=== PATIENT | female | born 1950 | race Caucasian/White ===

== ENCOUNTER 2025-02-23 10:48 | Inpatient (IN) | payer MEDICARE, SELFPAY ==
[2025-02-23] VITALS (10 sets, daily range): BP systolic 98–134; BP diastolic 43–68; PULSE 75–115; RESP 16–25; TEMP 36.9–37.8; O2SAT 96–99; BMI 23.3; BMI 20.6
[2025-02-23 11:03] LABS: Coronavirus 19, PCR Not Detected (NotDetected); Influenza A, PCR Not Detected (NotDetected); Influenza B, PCR Not Detected (NotDetected)
--- NOTE | 2025-02-23 11:21 | ECG_ITS ---
APPROVED REPORT Exam: Resting ECG HR:114 bpm ECG Measurements Heart Rate 114 AXES WY 135 P 72 QRSd 87 QRS 71 QT 306 T 73 QTc 374 Conclusion Sinus tachycardia Electronically signed by : KENNEY HARRIS, 02/23/2025 13:47:37
[2025-02-23] MEDS: ONDANSETRON 4MG/2ML VIAL 4 MG IV (11:23)
[2025-02-23] MEDS: 0.9 % SODIUM CHLORIDE 1000ML 1,000 ML 999 ML IV (11:23)
[2025-02-23 11:36] LABS: Basophils % 0.4 % (0.1-2.0); Eosinophils % 0.2 % (0.1-12.0); Hematocrit 29.2 % (37.0-47.0); Hemoglobin 9.1 g/dL (12.2-16.2); Lymphocytes # 0.1 K/mm3 (0.7-4.5); Lymphocytes % 1.4 % (10-50); Mean Corpuscular HGB Conc 31.2 g/dL (31.8-35.4); Mean Corpuscular Hemoglobin 26.3 pg (27.0-31.2); Mean Corpuscular Volume 84.4 fl (81-99); Mean Platelet Volume 11.8 fl (7.4-10.4); Monocytes # 0.3 K/mm3 (0.1-1.0); Monocytes % 5.2 % (1.7-9.3); Neutrophils # 5.2 K/mm3 (1.8-7.8); Neutrophils % 92.4 % (37.0-80.0); Platelet Count 84 K/mm3 (142-424); Red Blood Count 3.46 M/mm3 (4.20-5.40); Red Cell Distribution Width 17.5 % (11.5-17.5); White Blood Count 5.6 K/mm3 (4.8-10.8)
[2025-02-23 11:39] LABS: MANUAL DIFFERENTIAL MANUAL DIFFERENTIAL (MANUAL DIFF)
--- NOTE | 2025-02-23 11:40 | PC.NURSE ---
I notified resp that a green top is in lab for a vbg
[2025-02-23 11:44] LABS: Chloride 103 mmol/L (98-107); Potassium 4.8 mmoL/L (3.5-5.1); Sodium 132 mmol/L (136-145)
[2025-02-23 11:46] LABS: VBG Base Excess -6.7 mmol/L (-2.4-2.3); VBG HCO3 17.8 mmol/L (23-30); VBG Oxygen Saturation 84.6 % (50-70); VBG PH 7.42 mmol/L (7.31-7.41); VBG PO2 51.3 mmol/L (28-40); VBG Total CO2 18.6 mmol/L (23-27)
[2025-02-23 11:47] LABS: Alanine Aminotransferase 84 U/L (12-78); Alkaline Phosphatase 188 U/L (38-126); Anion Gap 16.8 mEq/L (5-15); Aspartate Amino Transferase 92 U/L (14-36); Bilirubin,Total 2.6 mg/dl (0.2-1.3); Blood Urea Nitrogen 43 mg/dl (7-17); Carbon Dioxide 17 mmol/L (22.0-30.0); Creatinine Clearance Estimated 21 mL/min (50-200); Estimated Glomerular Filt Rate 21 ml/min (>60); GFR (African American) 25 ML/MIN (>60); Lipase 407 U/L (23-300); Total Protein,Serum 7.5 g/dl (6.3-8.2)
[2025-02-23 11:48] LABS: Calcium 8.7 mg/dl (8.4-10.2); Glucose 282 mg/dl (74-100)
[2025-02-23 11:48] LABS: Lactate Venous 3.2 mmol/L (0.4-2.0)
--- NOTE | 2025-02-23 11:56 | CT_ITS ---
FINAL REPORT TECHNIQUE: Thin section axial images were obtained through the abdomen and pelvis after contrast injection per CT angiogram protocol. Multiplanar reconstruction images were obtained from the axial data. This exam was performed with techniques to keep radiation dose as low as reasonably achievable. This includes automated exposure control, adjustment of the MA and KVP, and iterative reconstruction technique. CLINICAL HISTORY: abd cramping and pain, severe diarrhea COMPARISON: None FINDINGS: CTA: No abdominal aortic aneurysm or aortic dissection. There is moderate calcified plaque disease of the aorta without evidence of stenosis. The celiac axis, superior mesenteric artery, and inferior mesenteric artery are patent without stenosis. The renal arteries are patent. There is greater than 50% stenosis of the left renal artery. There is mild right renal artery stenosis. The common iliac arteries and visualized portions of the internal and external iliac arteries are patent. No significant stenosis. NONVASCULAR: The gallbladder is surgically absent. There is moderate splenomegaly, and a small nodular appearing liver that suggests underlying cirrhosis. Trace ascites is present in the upper abdomen. There is moderate right hydronephrosis and hydroureter, with soft tissue density surrounding the distal right ureter, that may represent stricture or tumor. No renal stone disease is identified. The left kidney, pancreas, and adrenal glands are unremarkable. There is diffuse colonic wall thickening consistent with colitis, which also involves the descending and sigmoid portions of the colon. No lymphadenopathy. The bladder is distended. There is mild pelvic floor prolapse. No acute osseous abnormality. IMPRESSION: No evidence of abdominal aortic aneurysm or dissection. There is greater than 50% stenosis of the left renal artery, with mild right renal artery stenosis. Pancolitis is present. Cirrhosis with evidence of portal venous hypertension. High-grade right distal ureteral obstruction to the level of the right UVJ. Recommend follow-up ureteroscopy for further evaluation. Reviewed, Interpreted and Dictated by Francisco Díaz MD Transcribed by Karmen Paredes Authenticated and [facility]
--- NOTE | 2025-02-23 11:58 | ED_ITS ---
Discharge Plan Disposition Chief Complaint: Fever Prescriptions Prescriptions: No Action atorvastatin 40 mg tablet 40 mg PO DAILY Patient Comments: TAKE 1 TABLET BY MOUTH EVERY DAY glipizide 10 mg tablet extended release 24hr 10 mg PO DAILY Patient Comments: TAKE 1 TABLET BY MOUTH DAILY WITH BREAKFAST spironolactone 100 mg tablet 100 mg PO DAILY Patient Comments: TAKE 1 TABLET BY MOUTH EVERY DAY potassium chloride 10 mEq tablet extended release 10 meq PO DAILY Patient Comments: TAKE 1 TABLET BY MOUTH EVERY DAY IN THE MORNING WITH FUROSEMIDE NEEDED carvedilol 3.125 mg tablet 3.125 mg PO BID Patient Comments: TAKE 1 TABLET BY MOUTH TWICE DAILY pantoprazole 40 mg tablet,delayed release (DR/EC) 40 mg PO BID Patient Comments: TAKE 1 TABLET BY MOUTH TWICE DAILY gabapentin 300 mg capsule 300 mg PO HS Patient Comments: TAKE 1 CAPSULE BY MOUTH EVERY DAY AT BEDTIME FOR NERVE PAIN furosemide 20 mg tablet 20 mg PO DAILYP PRN (Reason: Edema) Patient Comments: TAKE 1 TABLET BY MOUTH EVERY DAY IN THE MORNING NEEDED FOR SWELLING ergocalciferol (vitamin D2) 1,250 mcg (50,000 unit) capsule 1,250 mcg PO WEEKLY Patient Comments: TAKE 1 CAPSULE BY MOUTH EVERY WEEK lactulose 10 gram/15 mL solution 15 ml PO BID Patient Comments: TAKE 15 ML BY MOUTH TWICE DAILY Referrals Follow up/Referrals: Annika Saha APRN [Primary Care Provider] - See instructions Clinical Impressions Clinical Impression: Diarrhea, ABENA (acute kidney injury), Acute dehydration, Metabolic acidosis Print Language Print Language: Luxembourgish Discharge ED Provider: Tc Macdonald General Adult HPI General Chief complaint: Fever Stated complaint: fever 104, diarrhea, body aches Time Seen by Provider: 02/23/25 10:51 Mode of Arrival: Wheelchair Source of Information: Patient, Relative and Medical Record Description of Symptoms (Recalled from ER Triage Doc. by RN): Pt presents to ER with concerns of diarrhea since Thursday (02/21) and fever for 24 hr. This AM is was 104 per home thermometer. Reports chills and weakness. Denies any cough, congestion, or SOA. There is also a bruise to pt's forehead from a fall last wkk. Daughter also reports pt fell this AM d/t weakness. Denies any injury. History of Present Illness HPI narrative: Please note that above description of symptoms, in this electronic medical record under categorization of recalled from ER triage doctor by RN are reflective of an initial nursing assessment, however, is not reflective of my full history and physical exam that was personally taken and clarified. Consequentially, this preceding description of symptoms, which may include the patient's categorized chief complaint in the EMR, do not reflect my personal clinical impression, and the ultimate description of history of present illness and patient stated complaints should be deferred to this section of the note. Unless stated otherwise or congruent with this section of the note, additional signs, symptoms, or incongruence should be interpreted as inaccurate with my clinical impression. Related Data Home Medications ?Medication ?Instructions ?Recorded ?Confirmed atorvastatin 40 mg tablet 40 mg PO DAILY 02/23/25 02/23/25 carvedilol 3.125 mg tablet 3.125 mg PO BID 02/23/25 02/23/25 ergocalciferol (vitamin D2) 1,250 1,250 mcg PO WEEKLY 02/23/25 02/23/25 mcg (50,000 unit) capsule furosemide 20 mg tablet 20 mg PO DAILYP PRN Edema 02/23/25 02/23/25 gabapentin 300 mg capsule 300 mg PO HS 02/23/25 02/23/25 glipizide 10 mg tablet, extended 10 mg PO DAILY 02/23/25 02/23/25 release 24 hr pantoprazole 40 mg tablet,delayed 40 mg PO BID 02/23/25 02/23/25 release potassium chloride 10 mEq 10 meq PO DAILY 02/23/25 02/23/25 tablet,extended release spironolactone 100 mg tablet 100 mg PO DAILY 02/23/25 02/23/25 Allergies Allergy/AdvReac Type Severity Reaction Status Date / Time No Known Allergies Allergy Verified 02/23/25 11:05 [facility] Disclaimer: The information contained in this section may have been updated after the patient was seen, as this information can be updated by other users. Medical History (Updated 02/23/25 @ 14:00 by Tc Macdonald MD) CHF (congestive heart failure) HLD (hyperlipidemia) GERD (gastroesophageal reflux disease) HTN (hypertension) Non-alcoholic cirrhosis Diabetes Surgical History (Updated 02/23/25 @ 13:53 by Joyce Camara RN) Hx of cholecystectomy Social History Smoking Status: Never smoker alcohol intake: never current occupational status: retired Travel in the last 8 weeks: None ROS Obtained: Yes All systems reviewed & no additional complaints except as documented Physical Exam General General appearance: alert Head Head exam: atraumatic and normocephalic Eye Eye exam: Present normal appearance, PERRL and EOMI Neck Neck exam: Present normal inspection, full ROM and trachea midline Respiratory Respiratory exam: Absent respiratory distress, wheezes, stridor, accessory muscle use or prolonged expiratory phase Cardiovascular Cardiovascular exam: Present other (Pulses equal symmetric in upper and lower extremities) Abdominal Exam Abdominal exam: Present soft; Absent distention, tenderness or pulsatile mass Extremities Exam Extremities exam: Absent edema Neurological Exam Neurological exam: Present alert, oriented X3 and CN II-XII intact; Absent motor sensory deficit Skin Skin exam: Present warm and dry; Absent diaphoresis or erythema Medical Decision Making Medical Records Medical records reviewed: Yes I reviewed the patient's medical records. Screening: Per USPSTF and CDC recommendations, given the prevalence of disease in our region, it is our hospital?s policy to screen for HIV and viral Hepatitis for all patients aged 18 and over and those with ongoing risk factors. [place] Inquiry Pt receiving controlled substance: No [place] was queried for this patient: No Vital Signs: 02/23/25 11:01 02/23/25 11:01 02/23/25 11:30 Temperature 100.1 F H Temperature Source Temporal Artery Scan Oral Pulse Rate 115 H Pulse Rate [Right] 115 H Respiratory Rate 20 22 Blood Pressure 122/56 L Blood Pressure [Left Arm] 134/57 L Blood Pressure Mean [Left Arm] 82 Blood Pressure Source [Left Arm] Automatic Cuff 02 Sat by Pulse Oximetry 98 99 Oxygen Delivery Method Room Air Room Air 02/23/25 12:41 02/23/25 13:00 02/23/25 13:12 Temperature 99.3 F Temperature Source Oral Pulse Rate 113 H 109 H Pulse Rate [Right] Respiratory Rate 25 H 20 Blood Pressure 130/68 117/51 L Blood Pressure [Left Arm] Blood Pressure Mean [Left Arm] Blood Pressure Source [Left Arm] 02 Sat by Pulse Oximetry 97 96 Oxygen Delivery Method Room Air Room Air Lab Data Lab Results 02/23/25 10:58: SARS-CoV-2 (PCR) Not detected, Influenza A Untype (PCR) Not detected, Influenza Type B (PCR) Not detected 02/23/25 11:25: WBC 5.6, RBC 3.46 L, Hgb 9.1 L, Hct 29.2 L, MCV 84.4, MCH 26.3 L , MCHC 31.2 L, RDW 17.5, Plt Count 84 L, MPV 11.8 H, Neut % (Auto) 92.4 H, Lymph % (Auto) 1.4 L, [place] % (Auto) 5.2, Eos % (Auto) 0.2, Baso % (Auto) 0.4, Neut # (Auto) 5.2, Lymph # (Auto) 0.1 L, [place] # (Auto) 0.3, Eos # (Auto) 0.0, Baso # (Auto) 0.0, Total Counted 100, Neutrophils % (Manual) 93 H, Lymphocytes % (Manual) 2 L, Monocytes % (Manual) 5, Platelet Estimate Moderate decrease, RBC Morphology Normal, Sodium 132 L, Potassium 4.8, Chloride 103, Carbon Dioxide 17 L, Anion Gap 16.8 H, BUN 43 H, Creatinine 2.30 H, Estimated Creat Clear 21, E stimated GFR 21 L, Est GFR ( Amer) 25 L, Glucose 282 H, Calcium 8.7, T otal Bilirubin 2.6 H, AST 92 H, ALT 84 H, Alkaline Phosphatase 188 H, Total Protein 7.5, Albumin 3.6, Globulin 3.9 H, Albumin/Globulin Ratio 0.9 L, Lipase 407 H, HCV Ab YUDELKA w/Rflx PCR Qn Negative, HIV Ag/Ab Combo Qual Negative 02/23/25 11:40: VBG pH 7.42 H, VBG pCO2 28.0 L, VBG pO2 51.3 H, VBG HCO3 17.8 L, VBG Total CO2 18.6 L, VBG O2 Saturation 84.6 H, VBG Base Excess -6.7 L, VBG Lactic Acid 3.2 H 02/23/25 12:35: Urine Color Yellow, Urine Appearance Clear, Urine pH 5.5, Ur Specific [place] 1.015, Urine Protein 1+ A, Urine Glucose (UA) 2+, Urine Ketones Trace, Urine Blood 2+ A, Urine Nitrate Negative, Urine Bilirubin Negative, Urine Urobilinogen 2.0, Ur Leukocyte Esterase Negative 02/23/25 11:25 02/23/25 11:25 Orders (Tests/Meds): ED MEDICATIONS Generic Name Dose Route Start Last Admin Trade Name Freq PRN Reason Stop Dose Admin Lactated Ringer's 1,710 mls @ 855 mls/hr 02/23/25 11:55 02/23/25 12:10 Lactated Ringer's 1000 Ml Bag 30 ml/kg infuse over 2 hr (1710 ml) 02/23/25 13:54 855 mls/hr IV Administration .Q2H ONE Vancomycin/PEG/NADA/Lysine/Water 1.25 gm in 250 mls @ 125 mls/hr 02/23/25 12:15 02/23/25 13:06 Vancomycin 1.25gm/250ml (Peg) Premix IV 02/23/25 14:14 125 mls/hr ONCE ONE Administration Discontinued Medications Generic Name Dose Route Start Last Admin Trade Name Freq PRN Reason Stop Dose Admin Acetaminophen 500 mg 02/23/25 11:40 02/23/25 12:10 Acetaminophen 500mg Tab PO 02/23/25 11:41 500 mg ONCE ONE Administration Sodium Chloride 1,000 mls @ 999 mls/hr 02/23/25 11:01 02/23/25 11:23 Sod Chlor 0.9% 1000ml Bag IV 02/23/25 12:01 999 mls/hr .Q1H1M ONE Administration Cefepime HCl 2 gm/ Sodium 100 mls @ 200 mls/hr 02/23/25 11:54 02/23/25 12:10 Chloride IV 02/23/25 12:23 200 mls/hr ONCE ONE Administration Iopamidol 80 ml 02/23/25 12:09 02/23/25 12:17 Iopamidol-370 (76%);100ml Bottle IV 02/23/25 12:10 80 ml ONCE ONE Administration Ketorolac Tromethamine 15 mg 02/23/25 11:40 02/23/25 12:10 Ketorolac 30mg/Ml Vial IV 02/23/25 11:41 15 mg ONCE ONE Administration Miscellaneous 1 each 02/23/25 12:00 Vancomycin Consult Request NOTAPPLIC 03/25/25 11:59 CONSULT PHARMACY [facility] Ondansetron HCl 4 mg 02/23/25 11:01 02/23/25 11:23 Ondansetron 4mg/2ml Vial IV 02/23/25 11:02 4 mg ONCE ONE Administration Sodium Chloride 50 ml 02/23/25 12:09 02/23/25 12:17 0.9 % Sodium Chloride 50 Ml Vial IV 02/23/25 12:10 50 ml ONCE ONE Administration Sodium Chloride 10 ml 02/23/25 12:09 02/23/25 12:17 Sodium Chloride 0.9% 10ml Syr (Rad Only) IV 02/23/25 12:10 10 ml ONCE ONE Administration ORDERS Category Date Time Status CT angio abdomen pelvis Stat Cat Scan 02/23/25 11:56 Completed Ammonia Stat Lab 02/23/25 13:40 Received CBC w/Auto Diff [Complete Blood Count Auto Diff] Stat Lab 02/23/25 11:25 Completed CMP [Comprehensive Metabolic Panel] Stat Lab 02/23/25 11:25 Completed Diarrhea 23 Panel, PCR Stat Lab 02/23/25 11:56 Ordered HIV Combo Stat Lab 02/23/25 11:25 Completed Hepatitis C Ab Qual. W/ RFX Stat Lab 02/23/25 11:25 Completed Lipase Stat Lab 02/23/25 11:25 Completed Rapid PCR Covid and Flu A/B Stat Lab 02/23/25 10:58 Completed UA [Urinalysis and Microscopic] Stat Lab 02/23/25 12:35 Results Blood Culture Stat Micro 02/23/25 11:01 Received VBG [Venous Blood Gas] Stat RT 02/23/25 11:40 Completed Medical Decision Narrative: 75-year-old female history of hypertension, hyperlipidemia [place] cirrhosis, cholecystectomy presenting with vomiting, diarrhea and general fatigue. States that this has been going on for few days at this point. Nonbloody, nonbilious vomiting and nonbloody, not mucousy diarrhea. Has started having fevers and bodyaches. Patient states she feels generally unwell. States that her abdomen is diffusely and generally crampy, not associated p.o. intake. Not having any other complaints. Patient has never needed paracentesis performed. Never had SBP. History was obtained via conversation with patient and daughter. On arrival, patient hemodynamically stable, alert, oriented x4, appropriate, GCS 15, moving all extremities spontaneously, pupils equal and reactive to light. Full physical exam performed and significant for chronically ill-appearing female who is in no acute distress. Abdomen is soft, nontender, nondistended on my exam. Lungs are clear, cardiopulmonary exam tachycardic, no murmurs gallops or rubs or lower extremity edema. Pulses equal and symmetric in upper and lower extremities. Differential includes gastritis, gastroenteritis, SBP, mesenteric ischemia, pancreatitis, partial obstruction, among others. Patient placed on continuous cardiac monitoring and continuous pulse ox with initial blood pressure 134/57, heart rate 115, saturation 99% on room air. Patient was given ideal body weight fluid bolus for symptomatic management and correction of underlying abnormalities. EKG obtained, independently interpreted. Sinus tachycardia 114 bpm VA interval 135, QRS 87, QTc 374. Normal axis. No acute ischemic change and good R wave progression in precordial leads. Workup independently interpreted and significant for nonactionable CBC, but patient does have anemia and thrombocyte, likely chronic from her comorbidities. VBG independently interpreted, patient is in metabolic acidosis with respiratory alkalosis pH mildly elevated 7.42, CO2 low at 28, bicarb low at 17.8, lactate 3.2. Patient's chemistry with mild hyponatremia and ABENA versus CKD with no baseline with which to compare creatinine 2.3 and BUN 43. LFTs with elevated alkaline phosphatase 188, mildly elevated AST and ALT 92 and 84 respectively, bilirubin 2.6. Lipase 407. Viral swab negative. On independent interpretation of imaging, no acute intra-abdominal surgical emergency. She does have diffuse colitis with ascites. She also was incidentally noted UVJ obstruction on the right with moderate upstream hydronephrosis. See radiology read for full review of final results. On reevaluation, patient states she is feeling a little better after fluids. Tachycardia is improving. Tissue perfusion reassessment performed within 3 hours, patient mentating, following commands, good capillary refill and hemodynamically stable. Given patient presentation, workup, history, this most likely represents diarrheal illness precipitating ABENA and dehydration/metabolic acidosis. Could also be related to sepsis, patient was empirically covered. I called the hospitalist that had interactive discussion, patient to be admitted for metabolic abnormalities in the setting of acute diarrheal illness. Because patient high risk for clinical decompensation, deemed appropriate for inpatient admission. Results were relayed to patient who voiced understanding and patient was agreeable to inpatient admission and management. Patient was admitted to the hospital for further definitive management. Route Service Manager disclaimer Much of this encounter note is an electronic backer up spoken language to printed text. Electronic backer up of the spoken language may permit errors. Although I have reviewed the note, some errors may still exist. Critical Care Critical Care Time Critical Care Time: No
[2025-02-23 12:00] LABS: Lymphocytes % 2 % (10-50); Monocytes % 5 % (2-9); Neutrophils % 93 % (42-76); Platelet Estimate Moderate Decrease; RBC Morphology Normal; Total Cells Counted 100
[2025-02-23] MEDS: KETOROLAC 30MG/ML VIAL 15 MG IV (12:10)
[2025-02-23] MEDS: ACETAMINOPHEN 500MG TAB 500 MG PO (12:10)
[2025-02-23] MEDS: CEFEPIME HCL 2 GM in 0.9 % SODIUM CHLORIDE 100 ML IV (12:10)
[2025-02-23] MEDS: LACTATED RINGERS 1000ML 1,710 ML 855 ML IV (12:10)
[2025-02-23 12:15] LABS: Albumin Level 3.6 g/dl (3.5-5.0); Albumin/Globulin Ratio 0.9 (1.1-1.8); Globulin 3.9 g/dL (1.3-3.2)
[2025-02-23] MEDS: SODIUM CHLORIDE 0.9% 10ML SYR (RAD ONLY) 10 ML IV (12:17)
[2025-02-23] MEDS: 0.9 % SODIUM CHLORIDE 50 ML VIAL IV (12:17)
[2025-02-23] MEDS: IOPAMIDOL-370 (76%);100ML BOTTLE 80 ML IV (12:17)
[2025-02-23 12:55] LABS: HIV Combo NEGATIVE (Negative)
[2025-02-23 13:03] LABS: Hepatitis C Ab Qual. W/ RFX NEGATIVE (Negative)
[2025-02-23] MEDS: VANCOMYCIN/WATER FOR INJ (PEG) 1.25 GM/250 ML PIGGYBACK IV (13:06)
--- NOTE | 2025-02-23 13:12 | PC.NURSE ---
I rounded on the pt. bedside updating her. no new complaints at this time. no needs voiced. call alvarenga in reach.
[2025-02-23 13:23] LABS: Microscopic, Urine URINE MICROSCOPIC (MICROSCOPIC)
[2025-02-23 13:32] LABS: Appearance,Urine CLEAR (Clear); Bilirubin,Urine Negative (Negative); Blood, Urine 2+ (Negative); Color,Urine YELLOW (Yellow); Glucose,Urine (UA) 2+ (Negative); Ketones,Urine TRACE (Negative); Leukocyte Esterase,Urine Negative (Negative); Nitrate,Urine Negative (Negative); PH,Urine 5.5 (5.0-8.5); Protein,Urine 1+ (Negative); Specific Gravity, Urine 1.015 (1.005-1.030)
[2025-02-23 13:57] LABS: Ammonia 21 umol/L (9-30)
--- NOTE | 2025-02-23 13:59 | PC.NURSE ---
Dr Macdonald s/w Dr Mills for admission, he agrees. 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
[2025-02-23 14:08] LABS: INR 1.08 (0.9-1.1)
--- NOTE | 2025-02-23 14:13 | EXP.HP ---
History of Present Illness *Admission Date: 02/23/25 *Reason for visit:: confused, diarrhea *History of present illness: Ms. Jackson is a 75-year-old female with history of GUTHRIE cirrhosis, neuropathy, hyperlipidemia, PUD. She presented to the ER with concern for diarrhea over the past 3 to 4 days. This morning family reports that she was more confused and had a temperature of 104 at home. Has been weak with chills. Denies chest pain, cough, nausea or vomiting. No blood or black stools this week. Patient confused on evaluation in the ED. Workup concerning for sepsis with gastroenteritis/pancolitis on CT of abdomen. Found to have ABENA with creatinine 2.3. Tachycardic with elevated bilirubin and liver enzymes. Medicine consulted for admission and further management of her encephalopathy and concern for pancolitis. Received sepsis bolus in the ED. On arrival to the floor, daughter helps supplement history. Patient is alert and interactive. Oriented to self in the hospital. Stating she is ready to go home. Family states she appears somewhat better after receiving fluids. No diarrhea since coming to the hospital. Last episode was this morning prior to presenting to the ED. Reports that she was on lactulose for her cirrhosis up until about a month ago. Caused a lot of cramping. Had an EGD performed 2 weeks ago at [facility]. Found to have 2 small ulcers. Was started on pantoprazole and carvedilol at that time. Received empiric antibiotics in the ED with cefepime and vancomycin. Given her diarrhea, initiation of PPI, cirrhosis status, concern for possible C. difficile. Will initiate empiric vancomycin. Stool panel still pending. [facility] Disclaimer: The information contained in this section may have been updated after the patient was seen, as this information can be updated by other users. Medical History (Updated 02/23/25 @ 17:23 by Shimon Mills MD) CHF (congestive heart failure) HLD (hyperlipidemia) GERD (gastroesophageal reflux disease) HTN (hypertension) Non-alcoholic cirrhosis Diabetes Surgical History Hx of cholecystectomy Social History Smoking Status: Never smoker alcohol intake: never current occupational status: retired Travel in the last 8 weeks: None Have you lived/traveled outside US in past 30 days?: No Contact w/someone who lives/traveled outside US past 30 days?: No Exposure to someone with infectious disease in past 14 days?: No Do you have a fever (greater than 100.4 F or 38 C)?: Yes Have you tested positive for COVID-19: No Exposed to someone with COVID-19 in past 14 days?: No Do you have a sore throat?: No Do you have a cough?: No Do you have any weakness?: No Do you have any diarrhea?: Yes Are you experiencing any unusual bleeding?: No Do you have any muscle aches/pain?: Yes Do you have any abdominal pain?: No Are you experiencing loss of taste or smell?: No Review of Systems Review of Systems Review of systems (narrative): 14 point review of systems performed, pertinent positives and negatives as per HPI Meds Home Medications and Allergies Home Medications ?Medication ?Instructions ?Recorded ?Confirmed ?Type atorvastatin 40 mg tablet 40 mg PO DAILY 02/23/25 02/23/25 History carvedilol 3.125 mg tablet 3.125 mg PO BID 02/23/25 02/23/25 History ergocalciferol (vitamin D2) 1,250 1,250 mcg PO WEEKLY 02/23/25 02/23/25 History mcg (50,000 unit) capsule furosemide 20 mg tablet 20 mg PO DAILYP PRN Edema 02/23/25 02/23/25 History gabapentin 300 mg capsule 300 mg PO HS 02/23/25 02/23/25 History pantoprazole 40 mg tablet,delayed 40 mg PO BID 02/23/25 02/23/25 History release potassium chloride 10 mEq 10 meq PO DAILY 02/23/25 02/23/25 History tablet,extended release spironolactone 100 mg tablet 100 mg PO DAILY 02/23/25 02/23/25 History New Prescriptions to Start Prescriptions: Allergies Allergy/AdvReac Type Severity Reaction Status Date / Time No Known Allergies Allergy Verified 02/23/25 11:05 Exam Data for Last 24 hours Vital signs and Labs for Last 24 Hours: Temp Pulse Resp BP Pulse Ox O2 Del Method 99.3 F 109 H 20 117/51 L 96 Room Air 02/23/25 13:12 02/23/25 13:00 02/23/25 13:00 02/23/25 13:00 02/23/25 13:00 02/23/25 13:00 Laboratory Results - last 24 hr 02/23/25 10:58: SARS-CoV-2 (PCR) Not detected, Influenza A Untype (PCR) Not detected, Influenza Type B (PCR) Not detected 02/23/25 11:25: WBC 5.6, RBC 3.46 L, Hgb 9.1 L, Hct 29.2 L, MCV 84.4, MCH 26.3 L, MCHC 31.2 L, RDW 17.5, Plt Count 84 L, MPV 11.8 H, Neut % (Auto) 92.4 H, Lymph % (Auto) 1.4 L, [place] % (Auto) 5.2, Eos % (Auto) 0.2, Baso % (Auto) 0.4, Neut # (Auto) 5.2, Lymph # (Auto) 0.1 L, [place] # (Auto) 0.3, Eos # (Auto) 0.0, Baso # (Auto) 0.0, Total Counted 100, Neutrophils % (Manual) 93 H, Lymphocytes % (Manual) 2 L, Monocytes % (Manual) 5, Platelet Estimate Moderate decrease, RBC Morphology Normal, PT 12.0, INR 1.08, Sodium 132 L, Potassium 4.8, Chloride 103, Carbon Dioxide 17 L, Anion Gap 16.8 H, BUN 43 H, Creatinine 2.30 H, Estimated Creat Clear 21, Estimated GFR 21 L, Est GFR ( Amer) 25 L, Glucose 282 H, Calcium 8.7, Total Bilirubin 2.6 H, AST 92 H, ALT 84 H, Alkaline Phosphatase 188 H, Total Protein 7.5, Albumin 3.6, Globulin 3.9 H, Albumin/Globulin Ratio 0.9 L, Lipase 407 H, HCV Ab YUDELKA w/Rflx PCR Qn Negative, HIV Ag/Ab Combo Qual Negative 02/23/25 11:40: VBG pH 7.42 H, VBG pCO2 28.0 L, VBG pO2 51.3 H, VBG HCO3 17.8 L, VBG Total CO2 18.6 L, VBG O2 Saturation 84.6 H, VBG Base Excess -6.7 L, VBG Lactic Acid 3.2 H 02/23/25 12:35: Urine Color Yellow, Urine Appearance Clear, Urine pH 5.5, Ur Specific [place] 1.015, Urine Protein 1+ A, Urine Glucose (UA) 2+, Urine Ketones Trace, Urine Blood 2+ A, Urine Nitrate Negative, Urine Bilirubin Negative, Urine Urobilinogen 2.0, Ur Leukocyte Esterase Negative 02/23/25 13:40: Ammonia 21 I & O for Last 24 hours: Intake & Output 02/20/25 02/21/25 02/22/25 02/23/25 23:59 23:59 23:59 23:59 Weight 63.503 kg Constitutional Constitutional: mild distress, thin, chronically ill appearing and cooperative *Routine HEENT Exam Head: Present normocephalic Eye: Present EOMI and PERRL ENT: Present mucous membranes moist *Routine Neck Exam Neck: Present supple; Absent lymphadenopathy *Routine Respiratory Exam Respiratory: Present CTA bilaterally; Absent rhonchi, wheezes or crackles *Routine Cardiovascular Exam Cardiovascular: Present RRR *Routine Abdominal Exam Abdominal: Present soft, normoactive bowel sounds and tenderness (Minimal, nonfocal, diffuse) *Routine Rectal Exam Rectal:: deferred *Routine Genitalia Exam Genitalia:: deferred *Routine Extremities Exam Extremities: Absent cyanosis, clubbing or edema *Routine Skin Exam Skin: Present intact and warm; Absent rash *Routine Neurological Exam Neurological: Present alert and moving all extremities; Absent altered mental status Comments: Oriented to self and place. Able to give a decent history. Assessment and Plan *Assessment and plan (1) Sepsis: Status: Acute Category: Medical Code(s): A41.9 - Sepsis, unspecified organism (2) Metabolic acidosis: Status: Acute Category: Medical Code(s): E87.20 - Acidosis, unspecified (3) Colitis: Status: Acute Category: Medical Code(s): K52.9 - Noninfective gastroenteritis and colitis, unspecified (4) Acute dehydration: Status: Acute Category: Medical Code(s): E86.0 - Dehydration (5) ABENA (acute kidney injury): Status: Acute Category: Medical Code(s): N17.9 - Acute kidney failure, unspecified (6) Diarrhea: Status: Acute Category: Medical Code(s): R19.7 - Diarrhea, unspecified (7) PUD (peptic ulcer disease): Status: Acute Category: Medical Code(s): K27.9 - Peptic ulcer, site unspecified, unspecified as acute or chronic, without hemorrhage or perforation (8) Diabetes: Status: Acute Category: Medical Code(s): E11.9 - Type 2 diabetes mellitus without complications (9) HTN (hypertension): Status: Acute Category: Medical Code(s): I10 - Essential (primary) hypertension (10) GERD (gastroesophageal reflux disease): Status: Acute Category: Medical Code(s): K21.9 - Gastro-esophageal reflux disease without esophagitis (11) Non-alcoholic cirrhosis: Status: Acute Category: Medical Code(s): K74.60 - Unspecified cirrhosis of liver Plan 75-year-old female with history of cirrhosis and diabetes. Presented with diarrhea and ABENA. Meeting sepsis criteria with tachycardia, diarrhea, elevated lactate and endorgan dysfunction with ABENA. Discussed case with ER physician, request admission for further management of her metabolic derangements, confusion, ABENA and diarrhea. I agreed to admit for further care. Awaiting stool panel. Will empirically treat for C. difficile given suspicion with her imaging and recent initiation of PPI prior to initiation of diarrhea. Problems addressed as follows: Colitis Sepsis ABENA Suspected UTI -Diarrhea panel pending. Multiple loose stools a day. Began after starting PPI. Will initiate vancomycin 125 mg 4 times a day empirically pending stool panel. -Initiate ceftriaxone IV 1 g daily -Urine and blood cultures pending -Urinalysis abnormal with trace bacteria, Negative nitrate, negative leuk esterase, occasional white cells -Per my review of CT, has diffuse thickening of colon concerning for colitis. -BUN 43, creatinine 2.3. Repeat BMP ordered for this evening, repeat CBC, CMP, magnesium ordered for the morning Cirrhosis PUD -Blood pressure soft at this time, status post sepsis bolus. Will continue LR to 125 cc for 1 more liter. -MELD score 22, 20% mortality in the next 3 months. -Will consider resuming carvedilol 3.125 mg twice daily if blood pressure stable in the morning -Hold on lactulose in the setting of diarrhea. Ammonia normal at 21. INR 1.08. -Liver enzymes elevated with bilirubin 2.6, alk phos 188. Lipase 401. Thrombocytopenic with platelets of 84. -Continue pantoprazole IV 40 mg IV twice daily due to peptic ulcer disease identified 2 weeks ago on EGD. Will obtain records from [facility] to evaluate findings and if patient had H. pylori or was initiated on antibiotics -Caution with diuretics. Hold Lasix. Resume spironolactone 100 mg daily -Pending patient's response to treatment, consider GI consult in the morning. Follows with GI at [facility]. Diabetes: Continue fingersticks ACHS with sliding scale low intensity. A1c pending Hyperlipidemia, holding Lipitor in the setting of elevated liver enzymes Neuropathy, holding gabapentin in the setting of altered mental status on arrival Full code Holding anticoagulation in the setting of anemia and thrombocytopenia Diabetic diet
[2025-02-23 14:22] LABS: Bacteria,Urine Trace /lpf; WBC,Urine Occasional #/hpf (0-3)
[2025-02-23 15:47] LABS: Reflex Lactic Add Lactic Reflex
[2025-02-23 16:38] LABS: Lactic Acid Follow Up (RFLX 1) 1.3 mmol/L (0.7-2.1)
[2025-02-23 18:24] LABS: Chloride 103 mmol/L (98-107); Potassium 4.6 mmoL/L (3.5-5.1); Sodium 129 mmol/L (136-145)
[2025-02-23 18:26] LABS: Blood Urea Nitrogen 42 mg/dl (7-17); Creatinine Clearance Estimated 18 mL/min (50-200); Estimated Glomerular Filt Rate 21 ml/min (>60); GFR (African American) 25 ML/MIN (>60)
[2025-02-23 18:27] LABS: Anion Gap 12.6 mEq/L (5-15); Calcium 7.8 mg/dl (8.4-10.2); Carbon Dioxide 18 mmol/L (22.0-30.0); Glucose 373 mg/dl (74-100)
[2025-02-23] MEDS: LACTATED RINGERS 1000ML 1,000 ML 125 ML IV (18:32)
[2025-02-23] MEDS: VANCOMYCIN HCL 50MG/ML 150ML KIT 125 MG PO ×2 (18:44→21:48)
[2025-02-23 19:10] LABS: Hemoglobin A1C 8.3 % (4.0-6.0)
[2025-02-23] MEDS: humaLOG 100 UNITS/ML 10ML VIAL (SSI) SUBCUT (21:48)
[2025-02-23] MEDS: PANTOPRAZOLE 40MG VIAL 40 MG IV (21:48)
[2025-02-23] MEDS: CEFTRIAXONE SODIUM 1 GM in 0.9 % SODIUM CHLORIDE 50 ML IV (23:00)
[2025-02-24] VITALS (8 sets, daily range): BP systolic 117–138; BP diastolic 53–64; PULSE 97–110; RESP 16–20; TEMP 36.9–38.2; O2SAT 95–96; BMI 20.7
[2025-02-24 04:56] LABS: POC Glucose,Bedside 266 (70-110)
--- NOTE | 2025-02-24 05:10 | PC.NURSE ---
v/s, ox4. Pt didn't have a bowel movement overnight, still need stool sample. Advanced contact precautions maintained for possible C-Diff. No acute events to report, plan of care ongoing.
[2025-02-24] MEDS: humaLOG 100 UNITS/ML 10ML VIAL (SSI) SUBCUT ×4 (06:14→20:05)
[2025-02-24 07:06] LABS: Albumin Level 2.9 g/dl (3.5-5.0); Chloride 104 mmol/L (98-107); Potassium 4.7 mmoL/L (3.5-5.1); Sodium 130 mmol/L (136-145)
[2025-02-24 07:08] LABS: Alanine Aminotransferase 71 U/L (12-78); Aspartate Amino Transferase 84 U/L (14-36); Blood Urea Nitrogen 45 mg/dl (7-17); Creatinine Clearance Estimated 18 mL/min (50-200); Estimated Glomerular Filt Rate 20 ml/min (>60); GFR (African American) 24 ML/MIN (>60)
[2025-02-24 07:09] LABS: Albumin/Globulin Ratio 0.8 (1.1-1.8); Alkaline Phosphatase 132 U/L (38-126); Anion Gap 13.7 mEq/L (5-15); Calcium 8.1 mg/dl (8.4-10.2); Carbon Dioxide 17 mmol/L (22.0-30.0); Globulin 3.5 g/dL (1.3-3.2); Glucose 228 mg/dl (74-100); Magnesium 1.6 mg/dl (1.6-2.3); Total Protein,Serum 6.4 g/dl (6.3-8.2)
[2025-02-24 07:10] LABS: INR 1.07 (0.9-1.1); Prothrombin Time 11.9 seconds (10.1-12.5)
[2025-02-24 08:02] LABS: Basophils % 0.3 % (0.1-2.0); Eosinophils % 0.3 % (0.1-12.0); Hematocrit 23.8 % (37.0-47.0); Lymphocytes # 0.2 K/mm3 (0.7-4.5); Lymphocytes % 5.1 % (10-50); Mean Corpuscular HGB Conc 31.9 g/dL (31.8-35.4); Mean Corpuscular Hemoglobin 27.6 pg (27.0-31.2); Mean Corpuscular Volume 86.5 fl (81-99); Monocytes # 0.3 K/mm3 (0.1-1.0); Monocytes % 10.2 % (1.7-9.3); Neutrophils # 2.8 K/mm3 (1.8-7.8); Neutrophils % 84.1 % (37.0-80.0); Platelet Count 62 K/mm3 (142-424); Red Blood Count 2.75 M/mm3 (4.20-5.40); Red Cell Distribution Width 17.2 % (11.5-17.5); White Blood Count 3.3 K/mm3 (4.8-10.8)
[2025-02-24 09:09] LABS: Hemoglobin 7.6 g/dL (12.2-16.2)
[2025-02-24] MEDS: SPIRONOLACTONE 25MG TABLET 100 MG PO (09:32)
[2025-02-24] MEDS: PANTOPRAZOLE 40MG VIAL 40 MG IV ×2 (09:36→20:06)
[2025-02-24] MEDS: VANCOMYCIN HCL 50MG/ML 150ML KIT 125 MG PO ×4 (09:36→20:06)
[2025-02-24] MEDS: ACETAMINOPHEN 325MG TAB 650 MG PO ×3 (09:39→22:38)
--- NOTE | 2025-02-24 10:07 | HMH.PTEV ---
Physical Therapy Evaluation Rehab PT IP Evaluation Start: 02/23/25 18:17 Freq: ONCE Status: Active Protocol: Document 02/24/25 09:50 FRENCH (Rec: 02/24/25 10:06 FRENCH [id number]) Subjective/History History History Per H&P: Ms. Jackson is a 75- year-old female with history of GUTHRIE cirrhosis, neuropathy, hyperlipidemia, PUD. She presented to the ER with concern for diarrhea over the past 3 to 4 days. This morning family reports that she was more confused and had a temperature of 104 at home. Has been weak with chills. Denies chest pain, cough, nausea or vomiting. No blood or black stools this week. Patient confused on evaluation in the ED. Workup concerning for sepsis with gastroenteritis/pancolitis on CT of abdomen. Found to have ABENA with creatinine 2.3. Tachycardic with elevated bilirubin and liver enzymes. Medicine consulted for admission and further management of her encephalopathy and concern for pancolitis. Received sepsis bolus in the ED. On arrival to the floor, daughter helps supplement history. Patient is alert and interactive. Oriented to self in the hospital. Stating she is ready to go home. Family states she appears somewhat better after receiving fluids. No diarrhea since coming to the hospital. Last episode was this morning prior to presenting to the ED. Reports that she was on lactulose for her cirrhosis up until about a month ago. Caused a lot of cramping. Had an EGD performed 2 weeks ago at [facility]. Found to have 2 small ulcers. Was started on pantoprazole and carvedilol at that time. Received empiric antibiotics in the ED with cefepime and vancomycin. Given her diarrhea, initiation of PPI, cirrhosis status, concern for possible C. difficile. Will initiate empiric vancomycin. Stool panel still pending. Subjective Subjective Pt is orientedx3. Pt reports that she lives in a house with her daughter. She reports that she was completely independent with all ADLs and mobility. She reports that she has a walker that she uses occasionally. New diagnosis of cancer in past 12 No months? [facility] How much help from another person do you currently need... Turning from your back to your side A little while in a flat bed without using bedrails? Moving from lying on back to sitting on A lot the side of a flat bed without using bedrails? Moving to and from a bed to a chair ( A little including a wheelchair)? Standing up from a chair using your arms A little ? (e.g., wheelchair, bedside chair) Walking in hospital room? A little Climbing 3-5 steps with a railing? A lot Mobility Score 16 Mobility Level [facility] Mobility Calculator Mobility 5 Stand (1 or more minutes) Rehab PT IP Eval Objective Appearance Patient Behavior Appropriate,Patient Baseline Patient Orientation Person,Place,Time Difficulty following instructions none Speech Pattern Clear Ambulation Patient Able to Ambulate Yes Ambulation Observation IP General Gait Pattern Observation Shuffling Step Ambulation Distance (feet) 15 Ambulation Assistive Device None Ambulation Ability Contact Guard/Hand Hold Balance Ability to Arise Able, uses arms to help Sitting Balance Steady, safe Standing Balance Steady, wide stance Dynamic Sitting Balance Ability Good Dynamic Standing Balance Ability Fair Transfers Bed Transfer Ability Minimal x 1 (25% assist) Chair Transfer Ability Minimal x 1 (25% assist) Sit to Stand Bed Transfer Ability Minimal x 1 (25% assist) Rehab PT IP prob,goals,plan Problems Date of Evaluation: 02/24/25 PT IP Problems Bed Mobility,Transfers,Gait, Balance,Self care,Safety Rehab Potential Rehab Potential Good Equipment Needs Assistive Devices None / NA Plan PT Intervention Plan Bed Mobility,Transfers,Gait, Balance,Self care,Safety, Therapeutic Exercise PT Plan Frequency BID Duration LOS Discharge Goals Bed Transfer Ability Independent Sit to Stand Chair Transfer Ability Independent Ambulation Assistive Device None,Rolling Walker Ambulation Distance (feet) 50 Discharge Plan PT Discharge Plan PT is recommending that pt is safe to discharge to home with family assist when deemed medically stable. Skilled PT is indicated during this pt's acute stay to prevent further injury and to promote a safe transition to home when discharged. Eval Complexity Eval Charge Codes 89140 - Moderate Complexity PHYSICIAN CERTIFICATION: I certify the specified therapy services for Vika Jackson are required, authorized, and reviewed every 30 days.
[2025-02-24 15:44] LABS: POC Glucose,Bedside 352 (70-110)
[2025-02-24 17:09] LABS: POC Glucose,Bedside 393 (70-110)
--- NOTE | 2025-02-24 17:57 | PC.NURSE ---
aox4, medicated x2 for fever this shift. ambulated in room with assist x1.
[2025-02-24 18:01] LABS: Anion Gap 14.4 mEq/L (5-15); Blood Urea Nitrogen 43 mg/dl (7-17); Carbon Dioxide 16 mmol/L (22.0-30.0); Chloride 103 mmol/L (98-107); Creatinine Clearance Estimated 16 mL/min (50-200); Estimated Glomerular Filt Rate 18 ml/min (>60); GFR (African American) 22 ML/MIN (>60); Glucose 324 mg/dl (74-100); Potassium 4.4 mmoL/L (3.5-5.1); Sodium 129 mmol/L (136-145)
--- NOTE | 2025-02-24 18:53 | EXP.ACUTE.PN ---
Subjective *Date: 02/24/25 *Time: 19:53 Interval history: Patient feeling well this morning. Stable on room air. Had 1 episode of loose stool mixed with urine overnight. No nausea or vomiting. Fatigued this morning. Afebrile. Medical Exam Vital signs and Labs for Last 24 Hours: Vital Signs Temp Pulse Resp BP Pulse Ox O2 Del Method O2 Flow Rate 02/24/25 18:29 Room Air 02/24/25 18:26 99.6 F 02/24/25 16:00 100.7 F H 106 H 17 138/64 96 Room Air 02/24/25 15:00 Room Air 02/24/25 13:00 Room Air 02/24/25 11:00 Room Air 02/24/25 09:00 Room Air 02/24/25 08:00 Room Air 02/24/25 08:00 100.5 F H 110 H 20 118/62 95 Room Air 02/24/25 06:22 Room Air 02/24/25 04:42 Room Air 02/24/25 04:00 99.6 F 106 H 16 129/63 95 Room Air 02/24/25 03:00 Room Air 02/24/25 01:00 Room Air 02/24/25 00:00 98.4 F 97 H 16 117/53 L 96 Room Air 02/23/25 23:00 Room Air 02/23/25 21:00 Room Air 02/23/25 20:00 98.4 F 75 16 101/45 L 98 Room Air 98 02/23/25 19:59 Room Air Intake and Output 02/24/25 02/24/25 02/24/25 07:59 15:59 23:59 Intake Total 570 / 810 240 / 810 Output Total 0 / 0 0 / 0 0 / 0 Balance 0 / 810 570 / 810 240 / 810 Intake: Intake, Oral Amount 570 / 810 240 / 810 Output: Output, Urine Amount 0 / 0 0 / 0 0 / 0 Other: Number of Unmeasured Voids 1 1 1 Number of Bowel Movements 1 Weight 56.302 kg 56.3 kg Patient Weight 02/24/25 23:59 Weight 56.3 kg Laboratory Results - last 24 hr 02/23/25 11:25: Hemoglobin A1c 8.3 H 02/24/25 04:47: POC Glucose 266 H 02/24/25 06:15: WBC 3.3 L D, RBC 2.75 L, Hgb 7.6 L D, Hct 23.8 L, MCV 86.5, MCH 27.6, MCHC 31.9, RDW 17.2, Plt Count 62 L D, MPV TNP, Neut % (Auto) 84.1 H, Lymph % (Auto) 5.1 L, [place] % (Auto) 10.2 H, Eos % (Auto) 0.3, Baso % (Auto) 0.3, Neut # (Auto) 2.8, Lymph # (Auto) 0.2 L, [place] # (Auto) 0.3, Eos # (Auto) 0.0, Baso # (Auto) 0.0, PT 11.9, INR 1.07, Sodium 130 L, Potassium 4.7, Chloride 104, Carbon Dioxide 17 L, Anion Gap 13.7, BUN 45 H, Creatinine 2.40 H, Estimated Creat Clear 18, Estimated GFR 20 L, Est GFR ( Amer) 24 L, Glucose 228 H D, Calcium 8.1 L, Magnesium 1.6, Total Bilirubin 2.0 H, AST 84 H, ALT 71, Alkaline Phosphatase 132 H, Total Protein 6.4, Albumin 2.9 L D, Globulin 3.5 H, Albumin/Globulin Ratio 0.8 L 02/24/25 11:47: POC Glucose 352 H* 02/24/25 16:34: Sodium 129 L, Potassium 4.4, Chloride 103, Carbon Dioxide 16 L, Anion Gap 14.4, BUN 43 H, Creatinine 2.60 H, Estimated Creat Clear 16, Estimated GFR 18 L*, Est GFR ( Amer) 22 L, Glucose 324 H D, Calcium 8.0 L 02/24/25 16:59: POC Glucose 393 H* I & O for Labs for Last 24 Hours: Intake & Output 02/21/25 02/22/25 02/23/25 02/24/25 23:59 23:59 23:59 23:59 Intake Total 2600 / 2600 810 / 810 Output Total 0 / 0 0 / 0 Balance 2600 / 2600 810 / 810 Weight 56.302 kg 56.3 kg Microbiology Reports for the Last 24 Hours: Microbiology 02/23/25 11:25 Blood Blood Culture - Preliminary 02/23/25 11:01 Blood Blood Culture - Preliminary Constitutional: Present no acute distress, average body habitus, chronically ill appearing and cooperative Head: Present atraumatic and normocephalic ENT: Present normal exam Respiratory: Present normal respiratory effort; Absent rhonchi, wheezes or crackles Cardiac: Present Regular Rhythm and Tachycardia GI: Present soft and normal bowel sounds; Absent distention or tenderness Extremities: Present normal inspection and full ROM Skin: Present intact; Absent erythema Neuro: Present Grossly Intact, alert, awake, oriented x 3 and moves all extremities Assessment and Plan *Assessment and plan (1) Sepsis: Status: Acute Category: Medical Code(s): A41.9 - Sepsis, unspecified organism (2) Metabolic acidosis: Status: Acute Category: Medical Code(s): E87.20 - Acidosis, unspecified (3) Colitis: Status: Acute Category: Medical Code(s): K52.9 - Noninfective gastroenteritis and colitis, unspecified (4) Acute dehydration: Status: Acute Category: Medical Code(s): E86.0 - Dehydration (5) ABENA (acute kidney injury): Status: Acute Category: Medical Code(s): N17.9 - Acute kidney failure, unspecified (6) Diarrhea: Status: Acute Category: Medical Code(s): R19.7 - Diarrhea, unspecified (7) PUD (peptic ulcer disease): Status: Acute Category: Medical Code(s): K27.9 - Peptic ulcer, site unspecified, unspecified as acute or chronic, without hemorrhage or perforation (8) Diabetes: Status: Acute Category: Medical Code(s): E11.9 - Type 2 diabetes mellitus without complications (9) HTN (hypertension): Status: Acute Category: Medical Code(s): I10 - Essential (primary) hypertension (10) GERD (gastroesophageal reflux disease): Status: Acute Category: Medical Code(s): K21.9 - Gastro-esophageal reflux disease without esophagitis (11) Non-alcoholic cirrhosis: Status: Acute Category: Medical Code(s): K74.60 - Unspecified cirrhosis of liver Plan 75-year-old female with history of cirrhosis and diabetes. Presented with diarrhea and ABENA. Meeting sepsis criteria with tachycardia, diarrhea, elevated lactate and endorgan dysfunction with ABENA. Discussed case with ER physician, request admission for further management of her metabolic derangements, confusion, ABENA and diarrhea. I agreed to admit for further care. Awaiting stool panel. Will empirically treat for C. difficile given suspicion with her imaging and recent initiation of PPI prior to initiation of diarrhea. Stable this morning but no improvement in kidney function. Awaiting stool panel. Problems addressed as follows: Colitis Sepsis ABENA Suspected UTI -Diarrhea panel pending. 1 small stool overnight. Unfortunately mixed with urine. Awaiting stool today. Continue vancomycin 125 mg 4 times a day empirically pending stool panel. -Continue ceftriaxone IV 1 g daily -Urine and blood cultures pending -Urinalysis abnormal with trace bacteria, Negative nitrate, negative leuk esterase, occasional white cells -Sodium 130, BUN 45 creatinine 2.4. No significant change from yesterday. BMP ordered for this evening, repeat CBC, CMP, magnesium ordered for the morning Cirrhosis PUD -Blood pressure somewhat better today, will consider repeat liter of fluids pending labs this afternoon. Encourage p.o. intake. -MELD score 22, 20% mortality in the next 3 months. -Resume carvedilol 3.125 mg twice daily -Hold on lactulose in the setting of diarrhea. Initiate rifaximin 550 mg 3 times a day; ammonia normal at 21. INR 1.07. -Liver enzymes elevated with bilirubin 2.0, AST 84, ALT 71, alk phos 132. Persistent thrombocytopenia with platelets of 62. -Continue pantoprazole IV 40 mg IV twice daily due to peptic ulcer disease identified 2 weeks ago on EGD. Will obtain records from [facility] to evaluate findings and if patient had H. pylori or was initiated on antibiotics -Caution with diuretics. Hold Lasix. Resume spironolactone 100 mg daily -Pending patient's response to treatment, consider GI consult in the morning. Follows with GI at [facility]. Diabetes: Continue fingersticks ACHS with sliding scale low intensity. A1c pending Hyperlipidemia, holding Lipitor in the setting of elevated liver enzymes Neuropathy, holding gabapentin in the setting of altered mental status on arrival Full code Holding anticoagulation in the setting of anemia and thrombocytopenia Diabetic diet
[2025-02-24] MEDS: SODIUM CHLORIDE 0.9% 10ML VIAL 10 ML IV (20:06)
[2025-02-24] MEDS: CARVEDILOL 3.125MG TABLET 3.125 MG PO (20:06)
[2025-02-24] MEDS: LACTATED RINGERS 1000ML 1,000 ML 100 ML IV (20:12)
[2025-02-24 21:17] LABS: POC Glucose,Bedside 336 (70-110)
[2025-02-24] MEDS: CEFTRIAXONE SODIUM 1 GM in 0.9 % SODIUM CHLORIDE 50 ML IV (22:34)
--- NOTE | 2025-02-24 22:39 | PC.NURSE ---
Pt temp 100.5, tylenol given and blankets removed.
[2025-02-25 04:00] VITALS: BP 130/64; PULSE 97; RESP 20; TEMP 36.7; O2SAT 96; BMI 21.2
--- NOTE | 2025-02-25 05:01 | PC.NURSE ---
Pt is alert and oriented x4. Pt has tolerated IV antibiotics and fluids well this shift. Pt was treated for temp of 100.5. Pt denies pain and needs when asked and has had no other acute changes to note at this time.
[2025-02-25] MEDS: humaLOG 100 UNITS/ML 10ML VIAL (SSI) SUBCUT ×4 (05:14→20:16)
[2025-02-25] MEDS: LACTATED RINGERS 1000ML 1,000 ML 100 ML IV (05:15)
[2025-02-25 05:51] LABS: POC Glucose,Bedside 232 (70-110)
[2025-02-25 08:00] VITALS: BP 134/68; PULSE 101; RESP 18; TEMP 36.7; O2SAT 97
[2025-02-25 08:02] LABS: Basophils % 0.6 % (0.1-2.0); Eosinophils # 0.1 K/mm3 (0.0-0.4); Eosinophils % 2.1 % (0.1-12.0); Hematocrit 25.7 % (37.0-47.0); Hemoglobin 8.1 g/dL (12.2-16.2); Lymphocytes # 0.2 K/mm3 (0.7-4.5); Lymphocytes % 6.9 % (10-50); Mean Corpuscular HGB Conc 31.5 g/dL (31.8-35.4); Mean Corpuscular Hemoglobin 27.1 pg (27.0-31.2); Monocytes # 0.4 K/mm3 (0.1-1.0); Neutrophils # 2.6 K/mm3 (1.8-7.8); Neutrophils % 77.8 % (37.0-80.0); Platelet Count 63 K/mm3 (142-424); Red Blood Count 2.99 M/mm3 (4.20-5.40); Red Cell Distribution Width 17.3 % (11.5-17.5); White Blood Count 3.3 K/mm3 (4.8-10.8)
[2025-02-25 08:03] LABS: Albumin Level 2.8 g/dl (3.5-5.0); Chloride 105 mmol/L (98-107)
[2025-02-25 08:04] LABS: Potassium 4.3 mmoL/L (3.5-5.1); Sodium 134 mmol/L (136-145)
[2025-02-25 08:06] LABS: Alanine Aminotransferase 66 U/L (12-78); Albumin/Globulin Ratio 0.7 (1.1-1.8); Alkaline Phosphatase 128 U/L (38-126); Anion Gap 14.3 mEq/L (5-15); Aspartate Amino Transferase 77 U/L (14-36); Bilirubin,Total 3.8 mg/dl (0.2-1.3); Blood Urea Nitrogen 40 mg/dl (7-17); Calcium 8.4 mg/dl (8.4-10.2); Carbon Dioxide 19 mmol/L (22.0-30.0); Creatinine Clearance Estimated 20 mL/min (50-200); Estimated Glomerular Filt Rate 22 ml/min (>60); GFR (African American) 26 ML/MIN (>60); Globulin 3.8 g/dL (1.3-3.2); Glucose 201 mg/dl (74-100); Total Protein,Serum 6.6 g/dl (6.3-8.2)
[2025-02-25 08:07] LABS: Magnesium 1.9 mg/dl (1.6-2.3)
[2025-02-25] MEDS: RIFAXIMIN 550MG TABLET 550 MG PO ×3 (09:47→20:16)
[2025-02-25] MEDS: CARVEDILOL 3.125MG TABLET 3.125 MG PO ×2 (09:50→20:16)
[2025-02-25] MEDS: VANCOMYCIN HCL 50MG/ML 150ML KIT 125 MG PO ×3 (09:51→20:16)
[2025-02-25] MEDS: PANTOPRAZOLE 40MG VIAL 40 MG IV ×2 (09:51→20:15)
[2025-02-25] MEDS: [UNRECOGNIZED DRUG - OTHER] IV (09:52)
[2025-02-25] MEDS: FLUCONAZOLE IV (09:52)
[2025-02-25] MEDS: SODIUM CHLORIDE IV (09:52)
[2025-02-25 10:22] LABS: Adenovirus F 40/41, stool Not Detected (NotDetected); Astrovirus Not Detected (NotDetected); Campylobacter Not Detected (NotDetected); Clostridium Difficile A/B, PCR Not Detected (NotDetected); Cryptosporidium Not Detected (NotDetected); Cyclospora Cayetanesis Not Detected (NotDetected); Entamoeba histolytica Not Detected (NotDetected); Enteroaggregative E coli Not Detected (NotDetected); Enteropathogenic E coli Not Detected (NotDetected); Enterotoxigenic E coli Not Detected (NotDetected); Giardia lamblia Not Detected (NotDetected); Norovirus Not Detected (NotDetected); Plesimonas Shigalloides, PCR Not Detected (NotDetected); Rotavirus A Not Detected (NotDetected); Salmonella, PCR Not Detected (NotDetected); Sapovirus Not Detected (NotDetected); Shiga-like toxin E coli Not Detected (NotDetected); Shigella Enterovasive E coli Not Detected (NotDetected); Vibrio Cholerae Not Detected (NotDetected); Vibrio, PCR Not Detected (NotDetected); Yersinia Entercolitica, PCR Not Detected (NotDetected)
--- NOTE | 2025-02-25 11:17 | P.PN_ITS ---
Subjective *Date: 02/25/25 *Time: 13:26 Interval history: Stool sample obtained this morning. Blood cultures also returned positive for Paz tropicalis. Remained stable on room air. No fever overnight. White count remains low at 3.3. Alert and oriented at baseline level of function. No improvement in kidney function. Still making adequate urine. Medical Exam Vital signs and Labs for Last 24 Hours: Vital Signs Temp Pulse Resp BP Pulse Ox O2 Del Method 02/25/25 08:00 98.0 F 101 H 18 134/68 97 Room Air 02/25/25 06:35 Room Air 02/25/25 04:59 Room Air 02/25/25 04:00 98.1 F 97 H 20 130/64 96 Room Air 02/25/25 03:00 Room Air 02/25/25 01:00 Room Air 02/24/25 23:30 98.5 F 02/24/25 23:00 Room Air 02/24/25 22:39 100.5 F H 02/24/25 21:00 Room Air 02/24/25 20:00 Room Air 02/24/25 19:58 98.9 F 101 H 16 130/61 95 Room Air 02/24/25 18:29 Room Air 02/24/25 18:26 99.6 F 02/24/25 16:00 100.7 F H 106 H 17 138/64 96 Room Air 02/24/25 15:00 Room Air 02/24/25 13:00 Room Air Intake and Output 02/24/25 02/25/25 02/25/25 23:59 07:59 15:59 Intake Total 240 / 1100 290 / 530 240 / 530 Output Total 0 / 0 0 / 0 Balance 240 / 1100 290 / 530 240 / 530 Intake: Intake, Oral Amount 240 / 1050 240 / 480 240 / 480 Intake, Total IV Amount 50 / 50 Ceftriaxone Sodium 1 gm In 0.9 50 / 50 % Sodium Chloride 50 ml @ 100 mls/hr IV Q24H [facility] Rx#:[id number] Output: Output, Urine Amount 0 / 0 0 / 0 Other: Number of Unmeasured Voids 1 1 Weight 57.833 kg Patient Weight 02/25/25 23:59 Weight 57.833 kg Laboratory Results - last 24 hr 02/24/25 11:47: POC Glucose 352 H* 02/24/25 16:34: Sodium 129 L, Potassium 4.4, Chloride 103, Carbon Dioxide 16 L, Anion Gap 14.4, BUN 43 H, Creatinine 2.60 H, Estimated Creat Clear 16, Estimated GFR 18 L*, Est GFR ( Amer) 22 L, Glucose 324 H D, Calcium 8.0 L 02/24/25 16:59: POC Glucose 393 H* 02/24/25 20:04: POC Glucose 336 H* 02/25/25 05:13: POC Glucose 232 H 02/25/25 07:40: WBC 3.3 L, RBC 2.99 L, Hgb 8.1 L, Hct 25.7 L, MCV 86.0, MCH 27.1, MCHC 31.5 L, RDW 17.3, Plt Count 63 L, MPV 12.0 H, Neut % (Auto) 77.8, Lymph % (Auto) 6.9 L, [place] % (Auto) 12.0 H, Eos % (Auto) 2.1, Baso % (Auto) 0.6, Neut # (Auto) 2.6, Lymph # (Auto) 0.2 L, [place] # (Auto) 0.4, Eos # (Auto) 0.1, Baso # (Auto) 0.0, Sodium 134 L, Potassium 4.3, Chloride 105, Carbon Dioxide 19 L, Anion Gap 14.3, BUN 40 H, Creatinine 2.20 H, Estimated Creat Clear 20, Estimated GFR 22 L, Est GFR ( Amer) 26 L, Glucose 201 H D, Calcium 8.4, Magnesium 1.9 D, Total Bilirubin 3.8 H, AST 77 H, ALT 66, Alkaline Phosphatase 128 H, Total Protein 6.6, Albumin 2.8 L, Globulin 3.8 H, Albumin/Globulin Ratio 0.7 L I & O for Labs for Last 24 Hours: Intake & Output 02/22/25 02/23/25 02/24/25 02/25/25 23:59 23:59 23:59 23:59 Intake Total 2600 / 2600 810 / 1100 530 / 530 Output Total 0 / 0 0 / 0 0 / 0 Balance 2600 / 2600 810 / 1100 530 / 530 Weight 56.302 kg 56.3 kg 57.833 kg Microbiology Reports for the Last 24 Hours: Microbiology 02/23/25 11:01 Blood Blood Culture - Preliminary Gram Positive Cocci 02/23/25 11:25 Blood Blood Culture - Preliminary Gram Positive Cocci Constitutional: Present no acute distress, average body habitus, chronically ill appearing and cooperative Head: Present atraumatic and normocephalic ENT: Present normal exam Respiratory: Present normal respiratory effort; Absent rhonchi, wheezes or crackles Cardiac: Present Regular Rhythm and Tachycardia GI: Present soft and normal bowel sounds; Absent distention or tenderness Extremities: Present normal inspection and full ROM Skin: Present intact; Absent erythema Neuro: Present Grossly Intact, alert, awake, oriented x 3 and moves all extremities Assessment and Plan *Assessment and plan (1) Sepsis: Status: Acute Category: Medical Code(s): A41.9 - Sepsis, unspecified organism (2) Metabolic acidosis: Status: Acute Category: Medical Code(s): E87.20 - Acidosis, unspecified (3) Colitis: Status: Acute Category: Medical Code(s): K52.9 - Noninfective gastroenteritis and colitis, unspecified (4) Paz tropicalis infection: Status: Acute Category: Medical Code(s): B37.9 - Candidiasis, unspecified (5) Candidemia: Status: Acute Category: Medical Code(s): B37.7 - Candidal sepsis (6) Acute dehydration: Status: Acute Category: Medical Code(s): E86.0 - Dehydration (7) ABENA (acute kidney injury): Status: Acute Category: Medical Code(s): N17.9 - Acute kidney failure, unspecified (8) Diarrhea: Status: Acute Category: Medical Code(s): R19.7 - Diarrhea, unspecified (9) PUD (peptic ulcer disease): Status: Acute Category: Medical Code(s): K27.9 - Peptic ulcer, site unspecified, unspecified as acute or chronic, without hemorrhage or perforation (10) Diabetes: Status: Acute Category: Medical Code(s): E11.9 - Type 2 diabetes mellitus without complications (11) HTN (hypertension): Status: Acute Category: Medical Code(s): I10 - Essential (primary) hypertension (12) GERD (gastroesophageal reflux disease): Status: Acute Category: Medical Code(s): K21.9 - Gastro-esophageal reflux disease without esophagitis (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 Presented with diarrhea and ABENA. Meeting sepsis criteria with tachycardia, diarrhea, elevated lactate and endorgan dysfunction with ABENA. Discussed case with ER physician, request admission for further management of her metabolic derangements, confusion, ABENA and diarrhea. I agreed to admit for further care. Stool panel pending this morning. Continue empiric treatment. Will discontinue Vanco if stool negative for C. difficile. Blood cultures returned positive for Paz tropicalis, initiating fluconazole. Continues to require patient management awaiting negative blood cultures. Problems addressed as follows: Colitis Sepsis ABENA Suspected UTI Cannot anemia secondary to Paz tropicalis -Diarrhea panel pending. Continue vancomycin 125 mg 4 times a day empirically pending stool panel. -Continue ceftriaxone IV 1 g daily -Initiate fluconazole 800 mg IV once today, continue 40 mg daily for 2 weeks after clearance of blood culture. Repeat blood cultures ordered for this afternoon. Will await negative cultures to monitor for response. -White count 3.3, hemoglobin 8.1. Platelets 63. Kidney function remains abnormal with BUN 40, creatinine 2.2. Monitor for toxicity with medications and for improvement in kidney function. -Sodium 134, potassium 4.3, magnesium 1.9. CBC, CMP, magnesium ordered for the morning Cirrhosis PUD -Blood pressure normal today. Tolerating p.o. fluids. Holding on further IV fluids. Omewhat better today, will consider repeat liter of fluids pending labs this afternoon. Encourage p.o. intake. -MELD score 22, 20% mortality in the next 3 months. -Resume carvedilol 3.125 mg twice daily -Continue rifaximin 550 mg 3 times a day -Liver enzymes elevated with bilirubin 2.0, AST 84, ALT 71, alk phos 132. Persistent thrombocytopenia with platelets of 62. -Continue pantoprazole IV 40 mg IV twice daily due to peptic ulcer disease identified 2 weeks ago on EGD. -Records obtained from [place] and reviewed -Continue spironolactone 100 mg daily -Pending patient's response to treatment, consider GI consult in the morning. Follows with GI at [facility]. Diabetes: Continue fingersticks ACHS with sliding scale low intensity. A1c pe nding Hyperlipidemia, holding Lipitor in the setting of elevated liver enzymes Neuropathy, holding gabapentin in the setting of altered mental status on arrival Full code Holding anticoagulation in the setting of anemia and thrombocytopenia Diabetic diet
[2025-02-25 12:22] LABS: POC Glucose,Bedside 332 (70-110)
[2025-02-25 16:00] VITALS: BP 130/64; PULSE 101; RESP 17; TEMP 37.7; O2SAT 98
--- NOTE | 2025-02-25 16:39 | PC.NURSE ---
AOX4, ROOM AIR. AMBULATED WITH ASSISTANCE TO BATHROOM FOR ELIMINATION. TOLERATING PO INTAKE. HAS NOT C/O PAIN. STOOL SAMPLE COLLECTED AND SENT TO LAB RESULTS STILL PENDING.
[2025-02-25 20:00] VITALS: BP 131/62; PULSE 105; RESP 18; TEMP 37; O2SAT 97
[2025-02-25 20:09] LABS: POC Glucose,Bedside 276 (70-110)
[2025-02-25] MEDS: SODIUM CHLORIDE 0.9% 10ML VIAL 10 ML IV (20:15)
[2025-02-25] MEDS: INSULIN GLARGINE 100 UNITS/ML 3ML FLEXPEN 12 UNIT SUBCUT (20:18)
[2025-02-25] MEDS: CEFTRIAXONE SODIUM 1 GM in 0.9 % SODIUM CHLORIDE 50 ML IV (22:56)
[2025-02-26 04:00] VITALS: BP 105/51; PULSE 91; RESP 17; TEMP 36.5; O2SAT 95; BMI 21.2
--- NOTE | 2025-02-26 04:59 | PC.NURSE ---
Pt is tolerating antibiotic therapy well. Pt has required insulin coverage this shift. Pt denies pain and has had no acute changes this shift.
[2025-02-26] MEDS: humaLOG 100 UNITS/ML 10ML VIAL (SSI) SUBCUT ×3 (05:46→20:56)
[2025-02-26 05:56] LABS: POC Glucose,Bedside 219 (70-110)
[2025-02-26 06:29] LABS: POC Glucose,Bedside 273 (70-110)
[2025-02-26 07:58] LABS: Basophils % 0.3 % (0.1-2.0); Eosinophils # 0.1 K/mm3 (0.0-0.4); Eosinophils % 2.5 % (0.1-12.0); Hematocrit 23.2 % (37.0-47.0); Hemoglobin 7.4 g/dL (12.2-16.2); Lymphocytes # 0.4 K/mm3 (0.7-4.5); Lymphocytes % 11.4 % (10-50); Mean Corpuscular HGB Conc 31.9 g/dL (31.8-35.4); Mean Corpuscular Hemoglobin 27.3 pg (27.0-31.2); Mean Corpuscular Volume 85.6 fl (81-99); Monocytes # 0.5 K/mm3 (0.1-1.0); Monocytes % 13.9 % (1.7-9.3); Neutrophils # 2.6 K/mm3 (1.8-7.8); Neutrophils % 71.1 % (37.0-80.0); Platelet Count 52 K/mm3 (142-424); Red Blood Count 2.71 M/mm3 (4.20-5.40); Red Cell Distribution Width 17.7 % (11.5-17.5); White Blood Count 3.6 K/mm3 (4.8-10.8)
[2025-02-26 08:00] VITALS: BP 116/58; PULSE 90; RESP 17; TEMP 36.7; O2SAT 99
[2025-02-26 08:04] LABS: Albumin Level 2.5 g/dl (3.5-5.0); Chloride 105 mmol/L (98-107); Potassium 3.9 mmoL/L (3.5-5.1); Sodium 131 mmol/L (136-145)
[2025-02-26 08:06] LABS: Blood Urea Nitrogen 41 mg/dl (7-17); Creatinine Clearance Estimated 17 mL/min (50-200); Estimated Glomerular Filt Rate 18 ml/min (>60); GFR (African American) 22 ML/MIN (>60)
[2025-02-26 08:07] LABS: Alanine Aminotransferase 60 U/L (12-78); Albumin/Globulin Ratio 0.7 (1.1-1.8); Alkaline Phosphatase 112 U/L (38-126); Anion Gap 11.9 mEq/L (5-15); Aspartate Amino Transferase 67 U/L (14-36); Bilirubin,Total 1.9 mg/dl (0.2-1.3); Calcium 8.1 mg/dl (8.4-10.2); Carbon Dioxide 18 mmol/L (22.0-30.0); Globulin 3.4 g/dL (1.3-3.2); Glucose 148 mg/dl (74-100); Total Protein,Serum 5.9 g/dl (6.3-8.2)
--- NOTE | 2025-02-26 08:27 | P.PN_ITS ---
Subjective *Date: 02/26/25 *Time: 08:27 Medical Exam Vital signs and Labs for Last 24 Hours: Vital Signs Temp Pulse Resp BP Pulse Ox O2 Del Method 02/26/25 08:00 98.0 F 90 17 116/58 L 99 Room Air 02/26/25 07:00 Room Air 02/26/25 04:58 Room Air 02/26/25 04:00 97.7 F 91 H 17 105/51 L 95 Room Air 02/26/25 03:00 Room Air 02/26/25 01:00 Room Air 02/25/25 23:00 Room Air 02/25/25 21:00 Room Air 02/25/25 20:00 98.6 F 105 H 18 131/62 97 Room Air 02/25/25 19:25 Room Air 02/25/25 18:02 Room Air 02/25/25 17:00 Room Air 02/25/25 16:00 100 F H 101 H 17 130/64 98 Room Air 02/25/25 11:00 Room Air 02/25/25 09:00 Room Air Intake and Output 02/25/25 02/26/25 02/26/25 23:59 07:59 15:59 Intake Total 240 / 1660 410 / 810 400 / 810 Output Total 0 / 0 Balance 240 / 1660 410 / 810 400 / 810 Intake: Intake, Oral Amount 240 / 1560 360 / 760 400 / 760 Intake, Total IV Amount 50 / 50 Ceftriaxone Sodium 1 gm In 0.9 50 / 50 % Sodium Chloride 50 ml @ 100 mls/hr IV Q24H [facility] Rx#:[id number] Output: Output, Urine Amount 0 / 0 Other: Number of Unmeasured Voids 1 Number of Bowel Movements 1 Weight 57.833 kg Patient Weight 02/26/25 23:59 Weight 57.833 kg Laboratory Results - last 24 hr 02/25/25 10:13: Stl Aeromonas (PCR) Not detected, Stl C. cayetanensis PCR Not detected, Stool Rotavirus (PCR) Not detected, Stl Adenov F 40/41 PCR Not detected, Stool Astrovirus (PCR) Not detected, Stool Campylobacter PCR Not detected, Stl C.difficile Tox PCR Not detected, Stool Cryptosporidium PCR Not detected, Stl E.coli Shiga Tox PCR Not detected, Stool E coli O157 PCR Not detected, Stl Enterotoxigenic E PCR Not detected, Stool EPEC (PCR) Not detected, Stool EAEC (PCR) Not detected, Stl E. histolytica PCR Not detected, Stool Giardia Lamblia PCR Not detected, Stool Salmonella PCR Not detected, Stool Sapovirus (PCR) Not detected, Stl P. shigelloides PCR Not detected, Stl Shigella/EIEC PCR Not detected, St Y.enterocolitica PCR Not detected, Stool Vibrio (PCR) Not detected, Stl Vibrio cholerae PCR Not detected, Stl Norovirus GI/GII PCR Not detected 02/25/25 12:10: POC Glucose 332 H* 02/25/25 16:24: POC Glucose 273 H 02/25/25 19:52: POC Glucose 276 H 02/26/25 05:42: POC Glucose 219 H 02/26/25 07:23: WBC 3.6 L, RBC 2.71 L, Hgb 7.4 L, Hct 23.2 L, MCV 85.6, MCH 27.3, MCHC 31.9, RDW 17.7 H, Plt Count 52 L, Neut % (Auto) 71.1, Lymph % (Auto) 11.4, [place] % (Auto) 13.9 H, Eos % (Auto) 2.5, Baso % (Auto) 0.3, Neut # (Auto) 2.6, Lymph # (Auto) 0.4 L, [place] # (Auto) 0.5, Eos # (Auto) 0.1, Baso # (Auto) 0.0, Sodium 131 L, Potassium 3.9, Chloride 105, Carbon Dioxide 18 L, Anion Gap 11.9, BUN 41 H, Creatinine 2.60 H, Estimated Creat Clear 17, Estimated GFR 18 L* , Est GFR ( Amer) 22 L, Glucose 148 H D, Calcium 8.1 L, Total Bilirubin 1.9 H, AST 67 H, ALT 60, Alkaline Phosphatase 112, Total Protein 5.9 L, Albumin 2.5 L D, Globulin 3.4 H, Albumin/Globulin Ratio 0.7 L I & O for Labs for Last 24 Hours: Intake & Output 02/23/25 02/24/25 02/25/25 02/26/25 23:59 23:59 23:59 23:59 Intake Total 2600 / 2600 810 / 1100 1250 / 1660 810 / 810 Output Total 0 / 0 0 / 0 0 / 0 Balance 2600 / 2600 810 / 1100 1250 / 1660 810 / 810 Weight 56.302 kg 56.3 kg 57.833 kg 57.833 kg Microbiology Reports for the Last 24 Hours: Microbiology 02/23/25 11:01 Blood Blood Culture - Final Aerococcus viridans 02/23/25 11:25 Blood Blood Culture - Final Aerococcus viridans The patient's infection will respond to the chosen ABx?: Yes (REPEAT BLOOD CX PENDING, INITIAL = AEROCOCCUS VIRIDANS SUSCEPTIBILITY PEND.) Is the patient receiving the right drug, dose, and route?: Yes Could a more targeted ABx be ordered?: No
[2025-02-26 08:36] LABS: Magnesium 1.9 mg/dl (1.6-2.3)
[2025-02-26] MEDS: RIFAXIMIN 550MG TABLET 550 MG PO ×3 (09:05→20:55)
[2025-02-26] MEDS: FLUCONAZOLE 200MG TABLET 400 MG PO (09:05)
[2025-02-26] MEDS: ALBUMIN HUMAN 25 GM/100 ML BAG IV ×2 (09:06→16:28)
[2025-02-26] MEDS: PANTOPRAZOLE 40MG VIAL 40 MG IV (09:06)
--- NOTE | 2025-02-26 11:18 | EXP.ACUTE.PN ---
Subjective *Date: 02/26/25 *Time: 12:45 Interval history: Patient denies any fever, nausea, vomiting. No significant diarrhea. In bedside chair on evaluation on room air. Voiding independently. Medical Exam Vital signs and Labs for Last 24 Hours: Vital Signs Temp Pulse Resp BP Pulse Ox O2 Del Method 02/26/25 08:00 98.0 F 90 17 116/58 L 99 Room Air 02/26/25 07:00 Room Air 02/26/25 04:58 Room Air 02/26/25 04:00 97.7 F 91 H 17 105/51 L 95 Room Air 02/26/25 03:00 Room Air 02/26/25 01:00 Room Air 02/25/25 23:00 Room Air 02/25/25 21:00 Room Air 02/25/25 20:00 98.6 F 105 H 18 131/62 97 Room Air 02/25/25 19:25 Room Air 02/25/25 18:02 Room Air 02/25/25 17:00 Room Air 02/25/25 16:00 100 F H 101 H 17 130/64 98 Room Air Intake and Output 02/25/25 02/26/25 02/26/25 23:59 07:59 15:59 Intake Total 240 / 1660 410 / 810 400 / 810 Output Total 0 / 0 0 / 0 Balance 240 / 1660 410 / 810 400 / 810 Intake: Intake, Oral Amount 240 / 1560 360 / 760 400 / 760 Intake, Total IV Amount 50 / 50 Ceftriaxone Sodium 1 gm In 0.9 50 / 50 % Sodium Chloride 50 ml @ 100 mls/hr IV Q24H [facility] Rx#:[id number] Output: Output, Urine Amount 0 / 0 0 / 0 Other: Number of Unmeasured Voids 1 1 Number of Bowel Movements 1 1 Weight 57.833 kg Patient Weight 02/26/25 23:59 Weight 57.833 kg Laboratory Results - last 24 hr 02/25/25 10:13: Stl Aeromonas (PCR) Not detected, Stl C. cayetanensis PCR Not detected, Stool Rotavirus (PCR) Not detected, Stl Adenov F 40/41 PCR Not detected, Stool Astrovirus (PCR) Not detected, Stool Campylobacter PCR Not detected, Stl C.difficile Tox PCR Not detected, Stool Cryptosporidium PCR Not detected, Stl E.coli Shiga Tox PCR Not detected, Stool E coli O157 PCR Not detected, Stl Enterotoxigenic E PCR Not detected, Stool EPEC (PCR) Not detected, Stool EAEC (PCR) Not detected, Stl E. histolytica PCR Not detected, Stool Giardia Lamblia PCR Not detected, Stool Salmonella PCR Not detected, Stool Sapovirus (PCR) Not detected, Stl P. shigelloides PCR Not detected, Stl Shigella/EIEC PCR Not detected, St Y.enterocolitica PCR Not detected, Stool Vibrio (PCR) Not detected, Stl Vibrio cholerae PCR Not detected, Stl Norovirus GI/GII PCR Not detected 02/25/25 12:10: POC Glucose 332 H* 02/25/25 16:24: POC Glucose 273 H 02/25/25 19:52: POC Glucose 276 H 02/26/25 05:42: POC Glucose 219 H 02/26/25 07:23: WBC 3.6 L, RBC 2.71 L, Hgb 7.4 L, Hct 23.2 L, MCV 85.6, MCH 27.3, MCHC 31.9, RDW 17.7 H, Plt Count 52 L, Neut % (Auto) 71.1, Lymph % (Auto) 11.4, [place] % (Auto) 13.9 H, Eos % (Auto) 2.5, Baso % (Auto) 0.3, Neut # (Auto) 2.6, Lymph # (Auto) 0.4 L, [place] # (Auto) 0.5, Eos # (Auto) 0.1, Baso # (Auto) 0.0, Sodium 131 L, Potassium 3.9, Chloride 105, Carbon Dioxide 18 L, Anion Gap 11.9, BUN 41 H, Creatinine 2.60 H, Estimated Creat Clear 17, Estimated GFR 18 L*, Est GFR ( Amer) 22 L, Glucose 148 H D, Calcium 8.1 L, Magnesium 1.9, Total Bilirubin 1.9 H, AST 67 H, ALT 60, Alkaline Phosphatase 112, Total Protein 5.9 L, Albumin 2.5 L D, Globulin 3.4 H, Albumin/Globulin Ratio 0.7 L I & O for Labs for Last 24 Hours: Intake & Output 02/23/25 02/24/25 02/25/25 02/26/25 23:59 23:59 23:59 23:59 Intake Total 2600 / 2600 810 / 1100 1250 / 1660 810 / 810 Output Total 0 / 0 0 / 0 0 / 0 0 / 0 Balance 2600 / 2600 810 / 1100 1250 / 1660 810 / 810 Weight 56.302 kg 56.3 kg 57.833 kg 57.833 kg Microbiology Reports for the Last 24 Hours: Microbiology 02/23/25 11:01 Blood Blood Culture - Final Aerococcus viridans 02/23/25 11:25 Blood Blood Culture - Final Aerococcus viridans Constitutional: Present no acute distress, average body habitus, chronically ill appearing and cooperative Head: Present atraumatic and normocephalic ENT: Present normal exam Respiratory: Present normal respiratory effort; Absent rhonchi, wheezes or crackles Cardiac: Present Regular Rhythm and Tachycardia GI: Present soft and normal bowel sounds; Absent distention or tenderness Extremities: Present normal inspection and full ROM; Absent edema Skin: Present intact; Absent erythema Neuro: Present Grossly Intact, alert, awake, oriented x 3 and moves all extremities Assessment and Plan *Assessment and plan (1) Sepsis: Status: Acute Category: Medical Code(s): A41.9 - Sepsis, unspecified organism (2) Metabolic acidosis: Status: Acute Category: Medical Code(s): E87.20 - Acidosis, unspecified (3) Colitis: Status: Acute Category: Medical Code(s): K52.9 - Noninfective gastroenteritis and colitis, unspecified (4) Paz tropicalis infection: Status: Acute Category: Medical Code(s): B37.9 - Candidiasis, unspecified (5) Candidemia: Status: Acute Category: Medical Code(s): B37.7 - Candidal sepsis (6) Acute dehydration: Status: Acute Category: Medical Code(s): E86.0 - Dehydration (7) ABENA (acute kidney injury): Status: Acute Category: Medical Code(s): N17.9 - Acute kidney failure, unspecified (8) Diarrhea: Status: Acute Category: Medical Code(s): R19.7 - Diarrhea, unspecified (9) PUD (peptic ulcer disease): Status: Acute Category: Medical Code(s): K27.9 - Peptic ulcer, site unspecified, unspecified as acute or chronic, without hemorrhage or perforation (10) Diabetes: Status: Acute Category: Medical Code(s): E11.9 - Type 2 diabetes mellitus without complications (11) HTN (hypertension): Status: Acute Category: Medical Code(s): I10 - Essential (primary) hypertension (12) GERD (gastroesophageal reflux disease): Status: Acute Category: Medical Code(s): K21.9 - Gastro-esophageal reflux disease without esophagitis (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 Presented with diarrhea and ABENA. Meeting sepsis criteria with tachycardia, diarrhea, elevated lactate and endorgan dysfunction with ABENA. Discussed case with ER physician, request admission for further management of her metabolic derangements, confusion, ABENA and diarrhea. I agreed to admit for further care. Stool panel pending this morning. Continue empiric treatment. Will discontinue Vanco if stool negative for C. difficile. Blood cultures returned positive for Paz tropicalis, initiating fluconazole. Continues to require patient management awaiting negative blood cultures. Problems addressed as follows: Colitis Sepsis ABENA Suspected UTI Cannot anemia secondary to Paz tropicalis -Diarrhea panel negative for C. difficile. Will discontinue empiric Vanco . -Continue ceftriaxone IV 1 g daily -Continue fluconazole 800 mg IV daily. Will continue for 2-week after clearance of blood culture. Repeat blood cultures obtained yesterday. Initial blood cultures showing growth of Aerococcus. Unsure what to make of PCR positive for Paz, growth positive for Aerococcus. Continue current antimicrobial regimen pending final culture results. -White count 3.6, hemoglobin 7.4. Platelets 52. Kidney function remains abnormal. Slightly worse today with BUN 41, creatinine 2.6. Concern for ABENA versus ATN versus hepatorenal syndrome. Will administer 25 g albumin twice daily for 2 days to monitor for improvement in kidney function at a concern for hepatorenal syndrome. -Sodium 131, potassium 3.9, magnesium 1.9. Albumin 2.5. Repeat CBC, CMP, magnesium ordered for the morning Cirrhosis PUD -Blood pressure normal today. Tolerating p.o. fluids. Holding on further IV fluids. Encourage p.o. intake. -MELD score 22, 20% mortality in the next 3 months. -Holding carvedilol out of concern for hepatorenal syndrome. -Continue rifaximin p.o. -Continue pantoprazole IV 40 mg IV twice daily due to peptic ulcer disease identified 2 weeks ago on EGD. -Reviewed records from [facility]. Kidney function a month ago with creatinine 1.1. -GI consulted to evaluate patient in the morning. -Discontinue diuretics Diabetes: Continue fingersticks ACHS with sliding scale low intensity. A1c 8.3, morning glucose 148 Hyperlipidemia, holding Lipitor in the setting of elevated liver enzymes Neuropathy, holding gabapentin in the setting of altered mental status on arrival Full code Holding anticoagulation in the setting of anemia and thrombocytopenia Diabetic diet
[2025-02-26 16:00] VITALS: BP 128/63; PULSE 97; RESP 16; TEMP 37.4; O2SAT 100
[2025-02-26 20:00] VITALS: BP 118/50; PULSE 95; RESP 14; TEMP 37.2; O2SAT 100
[2025-02-26 20:49] LABS: POC Glucose,Bedside 357 (70-110)
[2025-02-26] MEDS: PANTOPRAZOLE 40MG TABLET 40 MG PO (20:55)
[2025-02-26] MEDS: INSULIN GLARGINE 100 UNITS/ML 3ML FLEXPEN 20 UNIT SUBCUT (20:56)
--- NOTE | 2025-02-26 22:10 | PC.NURSE ---
Pt used call light to inform staff that she had pulled her IV out and was unable to get any help to the bathroom. Pt call light was tested and is functioning normally. this nurse did encourage pt to use call light if she needs any assistance, and demonstrated to pt how to use call light for nursing assistance. New 20g IV placed to pt left forearm at this time.
[2025-02-26] MEDS: CEFTRIAXONE SODIUM 1 GM in 0.9 % SODIUM CHLORIDE 50 ML IV (22:30)
[2025-02-27 04:00] VITALS: BP 111/51; PULSE 86; RESP 14; TEMP 36.9; O2SAT 97; BMI 23.8
[2025-02-27] MEDS: humaLOG 100 UNITS/ML 10ML VIAL (SSI) SUBCUT ×4 (05:17→21:18)
[2025-02-27 06:45] LABS: POC Glucose,Bedside 337 (70-110)
[2025-02-27 06:45] LABS: POC Glucose,Bedside 190 (70-110)
[2025-02-27 07:03] LABS: Alanine Aminotransferase 45 U/L (12-78); Albumin Level 2.5 g/dl (3.5-5.0); Albumin/Globulin Ratio 0.8 (1.1-1.8); Alkaline Phosphatase 97 U/L (38-126); Anion Gap 11.7 mEq/L (5-15); Aspartate Amino Transferase 47 U/L (14-36); Bilirubin,Total 1.9 mg/dl (0.2-1.3); Blood Urea Nitrogen 33 mg/dl (7-17); Calcium 8.2 mg/dl (8.4-10.2); Carbon Dioxide 18 mmol/L (22.0-30.0); Chloride 109 mmol/L (98-107); Creatinine Clearance Estimated 22 mL/min (50-200); Estimated Glomerular Filt Rate 22 ml/min (>60); GFR (African American) 26 ML/MIN (>60); Globulin 3.3 g/dL (1.3-3.2); Glucose 144 mg/dl (74-100); Potassium 3.7 mmoL/L (3.5-5.1); Sodium 135 mmol/L (136-145); Total Protein,Serum 5.8 g/dl (6.3-8.2)
--- NOTE | 2025-02-27 07:12 | EXP.GE.CONS ---
History of Present Illness *Admission Date: 02/23/25 *History of present illness: Ms. Jackson is a 75-year-old female with history of cirrhosis presumably secondary to GUTHRIE. The patient presented with diarrhea but has not had any diarrhea since admission. The patient states that she is ready to go home. Her PCR panel was negative for any microbial pathogens. Her blood cultures were initially positive for Aerococcus viridans. The patient is followed by [facility] for her cirrhosis. She does not know etiology which is presumably GUTHRIE. She has lost 25 to 30 pounds. Her recent labs showed AST 47, ALT 45, total bilirubin 1.9 and alkaline phosphatase 97. Her serum albumin was 2.5. Her lipase on admission was slightly elevated at 407. Her MELD score was 22. Imaging study of the abdomen on 02/23 showed evidence of pancolitis. There was also cirrhosis with evidence of portal hypertension. There was moderate splenomegaly and small nodular liver with trace ascites. There was also right hydronephrosis and hydroureter and there was greater than 50% stenosis of the left renal artery. The patient does state that she receives her care from Dr. Josh Culp for her cirrhosis. Her EGD 3 to 4 weeks ago showed 2 small ulcers of the lower stomach. She reports no abdominal pain. She reports no alcohol use. She has had no melena or hematochezia or hematemesis. She was placed on diuretics recently because of edema. [facility] Disclaimer: The information contained in this section may have been updated after the patient was seen, as this information can be updated by other users. Medical History (Updated 02/27/25 @ 07:20 by Poli Aquino II, MD) CHF (congestive heart failure) HLD (hyperlipidemia) GERD (gastroesophageal reflux disease) HTN (hypertension) Non-alcoholic cirrhosis Diabetes Surgical History Hx of cholecystectomy Social History Smoking Status: Never smoker alcohol intake: never current occupational status: retired Travel in the last 8 weeks: None Have you lived/traveled outside US in past 30 days?: No Contact w/someone who lives/traveled outside US past 30 days?: No Exposure to someone with infectious disease in past 14 days?: No Do you have a fever (greater than 100.4 F or 38 C)?: Yes Have you tested positive for COVID-19: No Exposed to someone with COVID-19 in past 14 days?: No Do you have a sore throat?: No Do you have a cough?: No Do you have any weakness?: No Do you have any diarrhea?: Yes Are you experiencing any unusual bleeding?: No Do you have any muscle aches/pain?: Yes Do you have any abdominal pain?: No Are you experiencing loss of taste or smell?: No Meds Home Medications and Allergies Home Medications ?Medication ?Instructions ?Recorded ?Confirmed ?Type atorvastatin 40 mg tablet 40 mg PO DAILY 02/23/25 02/23/25 History carvedilol 3.125 mg tablet 3.125 mg PO BID 02/23/25 02/23/25 History ergocalciferol (vitamin D2) 1,250 1,250 mcg PO WEEKLY 02/23/25 02/23/25 History mcg (50,000 unit) capsule furosemide 20 mg tablet 20 mg PO DAILYP PRN Edema 02/23/25 02/23/25 History gabapentin 300 mg capsule 300 mg PO HS 02/23/25 02/23/25 History pantoprazole 40 mg tablet,delayed 40 mg PO BID 02/23/25 02/23/25 History release potassium chloride 10 mEq 10 meq PO DAILY 02/23/25 02/23/25 History tablet,extended release spironolactone 100 mg tablet 100 mg PO DAILY 02/23/25 02/23/25 History New Prescriptions to Start Prescriptions: Allergies Allergy/AdvReac Type Severity Reaction Status Date / Time No Known Allergies Allergy Verified 02/23/25 11:05 Exam (Inpt) Vital signs and Labs for Last 24 Hours: Temp Pulse Resp BP Pulse Ox O2 Del Method O2 Flow Rate 98.5 F 86 14 111/51 L 97 Room Air 98 02/27/25 04:00 02/27/25 04:00 02/27/25 04:00 02/27/25 04:00 02/27/25 04:00 02/27/25 06:40 02/23/25 20:00 Laboratory Results - last 24 hr 02/26/25 07:23: WBC 3.6 L, RBC 2.71 L, Hgb 7.4 L, Hct 23.2 L, MCV 85.6, MCH 27.3, MCHC 31.9, RDW 17.7 H, Plt Count 52 L, Neut % (Auto) 71.1, Lymph % (Auto) 11.4, [place] % (Auto) 13.9 H, Eos % (Auto) 2.5, Baso % (Auto) 0.3, Neut # (Auto) 2.6, Lymph # (Auto) 0.4 L, [place] # (Auto) 0.5, Eos # (Auto) 0.1, Baso # (Auto) 0.0, Sodium 131 L, Potassium 3.9, Chloride 105, Carbon Dioxide 18 L, Anion Gap 11.9, BUN 41 H, Creatinine 2.60 H, Estimated Creat Clear 17, Estimated GFR 18 L*, Est GFR ( Amer) 22 L, Glucose 148 H D, Calcium 8.1 L, Magnesium 1.9, Total Bilirubin 1.9 H, AST 67 H, ALT 60, Alkaline Phosphatase 112, Total Protein 5.9 L, Albumin 2.5 L D, Globulin 3.4 H, Albumin/Globulin Ratio 0.7 L 02/26/25 16:24: POC Glucose 337 H* 02/26/25 20:36: POC Glucose 357 H* 02/27/25 05:17: POC Glucose 190 H 02/27/25 06:26: Sodium 135 L, Potassium 3.7, Chloride 109 H, Carbon Dioxide 18 L, Anion Gap 11.7, BUN 33 H, Creatinine 2.20 H, Estimated Creat Clear 22, Estimated GFR 22 L, Est GFR ( Amer) 26 L, Glucose 144 H, Calcium 8.2 L, Total Bilirubin 1.9 H, AST 47 H D, ALT 45, Alkaline Phosphatase 97, Total Protein 5.8 L, Albumin 2.5 L, Globulin 3.3 H, Albumin/Globulin Ratio 0.8 L I & O for Labs for Last 24 Hours: Intake & Output 02/24/25 02/25/25 02/26/25 02/27/25 23:59 23:59 23:59 23:59 Intake Total 810 / 1100 1250 / 1660 1370 / 1780 410 / 410 Output Total 0 / 0 0 / 0 0 / 0 0 / 0 Balance 810 / 1100 1250 / 1660 1370 / 1780 410 / 410 Weight 124 lb 1.924 oz 127 lb 8 oz 127 lb 7.999 oz 143 lb 1 oz Microbiology Reports for the Last 24 Hours: Microbiology 02/25/25 16:15 Blood Blood Culture - Preliminary 02/25/25 16:05 Blood Blood Culture - Preliminary 02/23/25 11:01 Blood Blood Culture - Final Aerococcus viridans 02/23/25 11:25 Blood Blood Culture - Final Aerococcus viridans Comments:: Normoactive bowel sounds, nondistended, nontender, liver small but blunted and firm with splenomegaly Results Labs 02/26/25 07:23 02/27/25 06:26 Labs: Laboratory Results - last 24 hr 02/26/25 07:23: WBC 3.6 L, RBC 2.71 L, Hgb 7.4 L, Hct 23.2 L, MCV 85.6, MCH 27.3, MCHC 31.9, RDW 17.7 H, Plt Count 52 L, Neut % (Auto) 71.1, Lymph % (Auto) 11.4, [place] % (Auto) 13.9 H, Eos % (Auto) 2.5, Baso % (Auto) 0.3, Neut # (Auto) 2.6, Lymph # (Auto) 0.4 L, [place] # (Auto) 0.5, Eos # (Auto) 0.1, Baso # (Auto) 0.0, Sodium 131 L, Potassium 3.9, Chloride 105, Carbon Dioxide 18 L, Anion Gap 11.9, BUN 41 H, Creatinine 2.60 H, Estimated Creat Clear 17, Estimated GFR 18 L*, Est GFR ( Amer) 22 L, Glucose 148 H D, Calcium 8.1 L, Magnesium 1.9, Total Bilirubin 1.9 H, AST 67 H, ALT 60, Alkaline Phosphatase 112, Total Protein 5.9 L, Albumin 2.5 L D, Globulin 3.4 H, Albumin/Globulin Ratio 0.7 L 02/26/25 16:24: POC Glucose 337 H* 02/26/25 20:36: POC Glucose 357 H* 02/27/25 05:17: POC Glucose 190 H 02/27/25 06:26: Sodium 135 L, Potassium 3.7, Chloride 109 H, Carbon Dioxide 18 L, Anion Gap 11.7, BUN 33 H, Creatinine 2.20 H, Estimated Creat Clear 22, Estimated GFR 22 L, Est GFR ( Amer) 26 L, Glucose 144 H, Calcium 8.2 L, Total Bilirubin 1.9 H, AST 47 H D, ALT 45, Alkaline Phosphatase 97, Total Protein 5.8 L, Albumin 2.5 L, Globulin 3.3 H, Albumin/Globulin Ratio 0.8 L Assessment and Plan *Assessment and plan (1) Cirrhosis: Status: Acute Category: Medical Code(s): K74.60 - Unspecified cirrhosis of liver (2) Portal hypertension: Status: Acute Category: Medical Code(s): K76.6 - Portal hypertension (3) Anemia: Status: Acute Category: Medical Code(s): D64.9 - Anemia, unspecified Plan 1. Cirrhosis with imaging evidence of portal hypertension and splenomegaly. Her calculated MELD score was 22. She is not followed by any tertiary center but is followed actively by [facility] (Josh Culp). I do not see a reason during this hospitalization to intervene with endoscopy or change of care. I do feel that she is beginning to have early signs of liver failure with ascites and evidence of portal hypertension. I do feel that she resumed the carvedilol when her blood pressure improves. The patient does have confusion and acute kidney failure with elevated creatinine. There is concern for hepatorenal syndrome but scan does show both hydronephrosis and 50% stenosis of renal artery unilateral. She does have diabetes. I do suspect the anemia is related to her renal insufficiency but also is likely multifactorial. I will recommend Iron studies and Hemoccult testing. I will also obtain an ammonia level and AFP.
[2025-02-27 07:28] VITALS: BP 129/68; PULSE 88; RESP 18; TEMP 36.8; O2SAT 100
[2025-02-27 07:29] LABS: Magnesium 1.9 mg/dl (1.6-2.3)
[2025-02-27 07:40] LABS: Iron 57 ug/dL (37-170)
[2025-02-27 07:50] LABS: Total Iron Binding Capacity 286 ug/dL (265-497)
[2025-02-27 08:10] LABS: Ammonia < 9 umol/L (9-30)
[2025-02-27 08:16] LABS: Ferritin 59.5 ng/ml (11.1-264)
--- NOTE | 2025-02-27 08:33 | EXP.ACUTE.PN ---
Subjective *Date: 02/27/25 *Time: 08:35 Interval history: Patient feeling okay this morning. Denies chest pain or shortness of breath. Oriented to self and place. Afebrile. Continues to have good urine output. Voiding independently. Diarrhea somewhat improving. Medical Exam Vital signs and Labs for Last 24 Hours: Vital Signs Temp Pulse Resp BP Pulse Ox O2 Del Method 02/27/25 07:28 98.3 F 88 18 129/68 100 Room Air 02/27/25 06:40 Room Air 02/27/25 05:00 Room Air 02/27/25 04:00 98.5 F 86 14 111/51 L 97 Room Air 02/27/25 03:00 Room Air 02/27/25 01:00 Room Air 02/26/25 23:00 Room Air 02/26/25 21:00 Room Air 02/26/25 20:00 Room Air 02/26/25 20:00 98.9 F 95 H 14 118/50 L 100 Room Air 02/26/25 18:29 Room Air 02/26/25 17:00 Room Air 02/26/25 16:00 99.4 F 97 H 16 128/63 100 Room Air 02/26/25 15:00 Room Air 02/26/25 13:00 Room Air 02/26/25 11:00 Room Air 02/26/25 09:00 Room Air Intake and Output 02/26/25 02/27/25 02/27/25 23:59 07:59 15:59 Intake Total 360 / 1780 410 / 410 Output Total 0 / 0 0 / 0 0 / 0 Balance 360 / 1780 410 / 410 0 / 410 Intake: Intake, Oral Amount 360 / 1680 360 / 360 Intake, Total IV Amount 50 / 50 Ceftriaxone Sodium 1 gm In 0.9 50 / 50 % Sodium Chloride 50 ml @ 100 mls/hr IV Q24H [facility] Rx#:[id number] Output: Output, Urine Amount 0 / 0 0 / 0 0 / 0 Other: Number of Unmeasured Voids 1 1 1 Number of Bowel Movements 1 Weight 64.892 kg Patient Weight 02/27/25 23:59 Weight 64.892 kg Laboratory Results - last 24 hr 02/26/25 07:23: Magnesium 1.9 02/26/25 16:24: POC Glucose 337 H* 02/26/25 20:36: POC Glucose 357 H* 02/27/25 05:17: POC Glucose 190 H 02/27/25 06:26: Sodium 135 L, Potassium 3.7, Chloride 109 H, Carbon Dioxide 18 L, Anion Gap 11.7, BUN 33 H, Creatinine 2.20 H, Estimated Creat Clear 22, Estimated GFR 22 L, Est GFR ( Amer) 26 L, Glucose 144 H, Calcium 8.2 L, Magnesium 1.9, Iron 57, TIBC 286, Iron Saturation 19.70553, Ferritin 59.5, Total Bilirubin 1.9 H, AST 47 H D, ALT 45, Alkaline Phosphatase 97, Total Protein 5.8 L, Albumin 2.5 L, Globulin 3.3 H, Albumin/Globulin Ratio 0.8 L 02/27/25 07:50: Ammonia < 9 L I & O for Labs for Last 24 Hours: Intake & Output 02/24/25 02/25/25 02/26/25 02/27/25 23:59 23:59 23:59 23:59 Intake Total 810 / 1100 1250 / 1660 1370 / 1780 410 / 410 Output Total 0 / 0 0 / 0 0 / 0 0 / 0 Balance 810 / 1100 1250 / 1660 1370 / 1780 410 / 410 Weight 56.3 kg 57.833 kg 57.833 kg 64.892 kg Microbiology Reports for the Last 24 Hours: Microbiology 02/25/25 16:05 Blood Blood Culture - Preliminary 02/25/25 16:15 Blood Blood Culture - Preliminary 02/23/25 11:01 Blood Blood Culture - Final Aerococcus viridans 02/23/25 11:25 Blood Blood Culture - Final Aerococcus viridans Constitutional: Present no acute distress, average body habitus, chronically ill appearing and cooperative Head: Present atraumatic and normocephalic ENT: Present normal exam Respiratory: Present normal respiratory effort; Absent rhonchi, wheezes or crackles Cardiac: Present Regular Rhythm and Tachycardia GI: Present soft and normal bowel sounds; Absent distention or tenderness Extremities: Present normal inspection and full ROM; Absent edema Skin: Present intact; Absent erythema Neuro: Present Grossly Intact, alert, awake, oriented x 3 and moves all extremities Assessment and Plan *Assessment and plan (1) Sepsis: Status: Acute Category: Medical Code(s): A41.9 - Sepsis, unspecified organism (2) Metabolic acidosis: Status: Acute Category: Medical Code(s): E87.20 - Acidosis, unspecified (3) Colitis: Status: Acute Category: Medical Code(s): K52.9 - Noninfective gastroenteritis and colitis, unspecified (4) Paz tropicalis infection: Status: Acute Category: Medical Code(s): B37.9 - Candidiasis, unspecified (5) Candidemia: Status: Acute Category: Medical Code(s): B37.7 - Candidal sepsis (6) Acute dehydration: Status: Acute Category: Medical Code(s): E86.0 - Dehydration (7) ABENA (acute kidney injury): Status: Acute Category: Medical Code(s): N17.9 - Acute kidney failure, unspecified (8) Diarrhea: Status: Acute Category: Medical Code(s): R19.7 - Diarrhea, unspecified (9) PUD (peptic ulcer disease): Status: Acute Category: Medical Code(s): K27.9 - Peptic ulcer, site unspecified, unspecified as acute or chronic, without hemorrhage or perforation (10) Diabetes: Status: Acute Category: Medical Code(s): E11.9 - Type 2 diabetes mellitus without complications (11) HTN (hypertension): Status: Acute Category: Medical Code(s): I10 - Essential (primary) hypertension (12) GERD (gastroesophageal reflux disease): Status: Acute Category: Medical Code(s): K21.9 - Gastro-esophageal reflux disease without esophagitis (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 Presented with diarrhea and ABENA. Meeting sepsis criteria with tachycardia, diarrhea, elevated lactate and endorgan dysfunction with ABENA. Discussed case with ER physician, request admission for further management of her metabolic derangements, confusion, ABENA and diarrhea. I agreed to admit for further care. Stool panel pending this morning. Continue empiric treatment. Repeat blood cultures remain positive, blood cultures returned positive for Paz tropicalis, continuing fluconazole. Repeat blood cultures today. Continues to require inpatient management awaiting negative blood cultures. Problems addressed as follows: Colitis Sepsis ABENA Paz tropicalis candidemia Cannot anemia secondary to Paz tropicalis -Diarrhea panel negative for C. difficile and all analytes. Vanco is discontinued. -Blood cultures growing diverse pathogen's. Initially showed Paz tropicalis on PCR and Gram stain. Then started growing Aerococcus. Repeat blood cultures positive for yeast on Gram stain with 1 set showing Paz tropicalis, the other showing astrovirus on PCR. Repeating blood cultures today. Need negative blood cultures to determine duration of fluconazole treatment. Having lab reevaluate the astrovirus PCR result. -Continue ceftriaxone 1 g daily for Aerococcus. Continue fluconazole 400 milligrams daily. Will treat for 2 weeks after blood cultures remain negative -Slight improvement in kidney function with BUN 33, creatinine 2.2. Concern for ABENA versus ATN versus hepatorenal syndrome. Will administer 25 g albumin twice daily -Sodium 135, potassium 3.7, albumin 2.5, magnesium 1.9. Repeat CBC, CMP, magnesium ordered for the morning Cirrhosis PUD -Blood pressure normal today. Tolerating p.o. fluids. Holding on further IV fluids. Encourage p.o. intake. -MELD score 22, 20% mortality in the next 3 months. -Holding carvedilol out of concern for hepatorenal syndrome. -Continue rifaximin p.o. -Continue pantoprazole IV 40 mg IV twice daily due to peptic ulcer disease identified 2 weeks ago on EGD. -Reviewed records from [facility]. Kidney function a month ago with creatinine 1.1. -GI consulted to evaluate patient, no intervention planned for today. Recommend obtaining AFP. -Holding diuretics in the setting of ABENA Diabetes: Continue fingersticks ACHS with sliding scale low intensity. A1c 8.3, morning glucose 144 Hyperlipidemia, holding Lipitor in the setting of elevated liver enzymes Neuropathy, holding gabapentin in the setting of altered mental status on arrival Full code Holding anticoagulation in the setting of anemia and thrombocytopenia Diabetic diet
[2025-02-27] MEDS: FLUCONAZOLE 200MG TABLET 400 MG PO (09:11)
[2025-02-27] MEDS: RIFAXIMIN 550MG TABLET 550 MG PO ×3 (09:11→21:16)
[2025-02-27] MEDS: ALBUMIN HUMAN 25 GM/100 ML BAG IV ×2 (09:12→16:03)
[2025-02-27] MEDS: PANTOPRAZOLE 40MG TABLET 40 MG PO ×2 (09:15→21:16)
--- NOTE | 2025-02-27 09:33 | SW/DCPLANNER ---
Spoke with patient regarding once medically stable and ready for discharge if she would like home health services. Patient stated that she is not interested in home health that she lives with family and has all the help she needs at home. Kyle Murray
[2025-02-27 11:26] LABS: POC Glucose,Bedside 325 (70-110)
[2025-02-27 11:53] LABS: Occult Blood,Stool Negative (Negative)
[2025-02-27 15:40] VITALS: BP 123/58; PULSE 77; RESP 16; TEMP 36.9; O2SAT 100
[2025-02-27 16:11] LABS: POC Glucose,Bedside 263 (70-110)
--- NOTE | 2025-02-27 16:28 | PC.NURSE ---
PT IS RESTING IN BED. ALERT AND ORIENTED X4. EATING AND DRINKING WELL. PT AMBULATES TO THE BATHROOM STANDBY ASSIST. LUNG SOUNDS CLEAR. ABDOMEN SOFT/NON TENDER WITH ACTIVE BOWEL SOUNDS. 2 SMALL LOOSE BOWEL MOVEMENTS THIS SHIFT. WILL CONTINUE TO MONITOR.
[2025-02-27 20:00] VITALS: BP 122/51; PULSE 90; RESP 14; TEMP 36.6; O2SAT 99
[2025-02-27 20:15] LABS: POC Glucose,Bedside 315 (70-110)
[2025-02-27] MEDS: INSULIN GLARGINE 100 UNITS/ML 3ML FLEXPEN 30 UNIT SUBCUT (21:16)
[2025-02-27] MEDS: CEFTRIAXONE SODIUM 1 GM in 0.9 % SODIUM CHLORIDE 50 ML IV (23:16)
[2025-02-28] VITALS (21 sets, daily range): BP systolic 117–148; BP diastolic 49–104; PULSE 74–91; RESP 16–20; TEMP 36.3–37.1; O2SAT 91–100; BMI 23.7
[2025-02-28] MEDS: humaLOG 100 UNITS/ML 10ML VIAL (SSI) SUBCUT ×4 (06:47→20:41)
[2025-02-28] MEDS: humaLOG 100 UNITS/ML 10ML VIAL (SSI) 9 UNIT SUBCUT (06:47)
[2025-02-28 06:51] LABS: Basophils % 0.3 % (0.1-2.0); Eosinophils # 0.1 K/mm3 (0.0-0.4); Eosinophils % 3.8 % (0.1-12.0); Hematocrit 21.5 % (37.0-47.0); Lymphocytes # 0.6 K/mm3 (0.7-4.5); Mean Corpuscular HGB Conc 30.7 g/dL (31.8-35.4); Mean Corpuscular Hemoglobin 26.6 pg (27.0-31.2); Mean Corpuscular Volume 86.7 fl (81-99); Monocytes # 0.3 K/mm3 (0.1-1.0); Monocytes % 9.2 % (1.7-9.3); Neutrophils # 2.1 K/mm3 (1.8-7.8); Neutrophils % 65.8 % (37.0-80.0); Platelet Count 77 K/mm3 (142-424); Red Blood Count 2.48 M/mm3 (4.20-5.40); Red Cell Distribution Width 18.2 % (11.5-17.5); White Blood Count 3.2 K/mm3 (4.8-10.8)
[2025-02-28 07:02] LABS: Hemoglobin 6.6 g/dL (12.2-16.2)
[2025-02-28 07:04] LABS: Albumin Level 2.7 g/dl (3.5-5.0); Chloride 110 mmol/L (98-107)
[2025-02-28 07:05] LABS: Potassium 4.2 mmoL/L (3.5-5.1); Sodium 137 mmol/L (136-145)
[2025-02-28 07:07] LABS: Alanine Aminotransferase 40 U/L (12-78); Albumin/Globulin Ratio 0.8 (1.1-1.8); Anion Gap 12.2 mEq/L (5-15); Aspartate Amino Transferase 47 U/L (14-36); Blood Urea Nitrogen 25 mg/dl (7-17); Carbon Dioxide 19 mmol/L (22.0-30.0); Creatinine Clearance Estimated 31 mL/min (50-200); Estimated Glomerular Filt Rate 31 ml/min (>60); GFR (African American) 38 ML/MIN (>60); Globulin 3.2 g/dL (1.3-3.2); Total Protein,Serum 5.9 g/dl (6.3-8.2)
--- NOTE | 2025-02-28 07:07 | PC.NURSE ---
Lab called to report critical hgb of 6.6. Hospitalist notified. No new orders at this time.
[2025-02-28 07:08] LABS: Alkaline Phosphatase 105 U/L (38-126); Bilirubin,Total 1.5 mg/dl (0.2-1.3); Calcium 8.2 mg/dl (8.4-10.2); Glucose 167 mg/dl (74-100); Magnesium 1.8 mg/dl (1.6-2.3)
[2025-02-28 07:09] LABS: POC Glucose,Bedside 197 (70-110)
[2025-02-28] MEDS: RIFAXIMIN 550MG TABLET 550 MG PO ×3 (08:11→20:39)
[2025-02-28] MEDS: PANTOPRAZOLE 40MG TABLET 40 MG PO (08:11)
[2025-02-28] MEDS: FLUCONAZOLE 200MG TABLET 400 MG PO (08:11)
--- NOTE | 2025-02-28 09:14 | US_ITS ---
FINAL REPORT CLINICAL HISTORY: ABENA, uretral obstruction on CTA COMPARISON: CTA abdomen 02/23/2025 FINDINGS: RENAL ULTRASOUND Ultrasound images of the kidneys were obtained. Limited images of the liver parenchyma demonstrates cirrhotic appearance of the liver with splenomegaly. Minimal perihepatic ascites is noted. There is normal renal size. The right kidney measures 10.8 cm in length. The left kidney measures 11.3 cm in length. There is persistent moderate right hydronephrosis, stable to mildly improved from prior CT scan. No left-sided hydronephrosis is seen. IMPRESSION: Stable to minimally improved moderate right hydronephrosis. Cirrhosis with evidence of portal hypertension. Reviewed, Interpreted and Dictated by Francisco Díaz MD Transcribed by Selma Owens Authenticated and . [facility]
--- NOTE | 2025-02-28 09:36 | HMH.OTEV ---
OT Inpatient Evaluation Rehab OT IP Evaluation Start: 02/23/25 18:17 Freq: ONCE Status: Active Protocol: [facility] (Rec: 02/28/25 09:36 [facility] [id number]) Rehab OT IP Assessment Subjective History Pt oriented x 3 on arrival. Pt agreeable to engage in therapy evaluation. Pt admitted on 02/23/25 due to ABENA. History and physical: Ms. Jackson is a 75-year-old female with history of GUTHRIE cirrhosis, neuropathy, hyperlipidemia, PUD. She presented to the ER with concern for diarrhea over the past 3 to 4 days. This morning family reports that she was more confused and had a temperature of 104 at home. Has been weak with chills. Denies chest pain, cough, nausea or vomiting. No blood or black stools this week. Patient confused on evaluation in the ED. Workup concerning for sepsis with gastroenteritis/pancolitis on CT of abdomen. Found to have ABENA with creatinine 2.3. Tachycardic with elevated bilirubin and liver enzymes. Medicine consulted for admission and further management of her encephalopathy and concern for pancolitis. Received sepsis bolus in the ED. On arrival to the floor, daughter helps supplement history. Patient is alert and interactive. Oriented to self in the hospital. Stating she is ready to go home. Family states she appears somewhat better after receiving fluids. No diarrhea since coming to the hospital. Last episode was this morning prior to presenting to the ED. Reports that she was on lactulose for her cirrhosis up until about a month ago. Caused a lot of cramping. Had an EGD performed 2 weeks ago at [facility]. Found to have 2 small ulcers. Was started on pantoprazole and carvedilol at that time. Received empiric antibiotics in the ED with cefepime and vancomycin. Given her diarrhea, initiation of PPI, cirrhosis status, concern for possible C. difficile. Will initiate empiric vancomycin. Stool panel still pending. Subjective Prior to being in the hospital , pt lived at home with her daughter. Pt claims normally she is independent with both ADLs and IADLs. Pt does not require any type of AE during functional transfers. Pt was also still driving. Objective Patient Orientation Person,Place,Birthday Right Upper Extremity Gross ROM WFL Left Upper Extremity Gross ROM WFL Bed Mobility bed mobility-scooting,bed mobility - supine/sit Assist Level Contact Guard/Hand Hold Transfer Training Sit/Stand Transfer Assist Level Contact Guard/Hand Hold Lower Body Dressing Ability Standby Assistance Rehab OT IP prob,goals,plan Problems Date of Evaluation: 02/28/25 OT IP Problems Bed Mobility,Transfers,Balance ,Self care,Safety Rehab Potential Rehab Potential Good Equipment Needs Assistive Devices Rolling / Wheeled Walker Plan OT intervention Plan Bed Mobility,Transfers,Balance ,Self care,Safety,Therapeutic Exercise OT Plan Frequency Daily Duration LOS Discharge Goals Bed Mobility Ability Standby Assistance Sit to Stand Chair Transfer Ability Contact Guard/Hand Hold Chair Transfer Ability Contact Guard/Hand Hold Chair Transfer Technique Sit to/from Ambulatory Chair Transfer Assistive Devices Rolling Walker Lower Body Dressing Ability Standby Assistance Upper Body Dressing Ability Standby Assistance Bathing Ability Standby Assistance Performing Toilet Hygiene Ability Standby Assistance Overall Commode/Toilet Transfer Ability Standby Assistance Commode/Toilet Transfer Technique Sit to/from Ambulatory Decrease in Endurance No Discharge Plan OT Discharge Plan Pt will continue to be seen for OT services while at [facility]. Pt can return home with family once she is medically stable per physician. Therapist does recommend OT evaluation upon returning home for continued skilled therapy services to reach PLOF . Eval Complexity Eval Charge Codes 42329 - Moderate Complexity PHYSICIAN CERTIFICATION: I certify the specified therapy services for Vika Jackson are required, authorized, and reviewed every 30 days.
[2025-02-28] MEDS: PANTOPRAZOLE 40MG VIAL 40 MG IV ×2 (09:40→20:39)
[2025-02-28] MEDS: SODIUM CHLORIDE 0.9% 10ML VIAL 10 ML IV ×2 (09:40→20:39)
[2025-02-28 11:18] LABS: AFP, Tumor Marker <1.8 ng/mL (0.0-9.2)
[2025-02-28 11:52] LABS: POC Glucose,Bedside 240 (70-110)
--- NOTE | 2025-02-28 16:08 | P.PN_ITS ---
Subjective *Date: 02/28/25 *Time: 16:08 Interval history: Patient reports no abdominal pain, hematochezia, melena or any bleeding. Her diarrhea is resolving. She does have known cirrhosis. She did have a decline in her hemoglobin and hematocrit over the last 48 hours with hemoglobin 6.6 and hematocrit 21.5. She is receiving blood transfusions. The patient is following actively with GI/hepatology at [facility]. The patient's Hemoccult testing was negative. Exam Data for Last 24 hours Vital signs and Labs for Last 24 Hours: Temp Pulse Resp BP Pulse Ox O2 Del Method O2 Flow Rate 98.3 F 77 16 125/60 100 Room Air 98 02/28/25 15:10 02/28/25 15:10 02/28/25 15:10 02/28/25 15:10 02/28/25 15:10 02/28/25 15:00 02/23/25 20:00 Laboratory Results - last 24 hr 02/27/25 07:50: Tumor Marker AFP <1.8 02/27/25 15:57: POC Glucose 263 H 02/27/25 20:01: POC Glucose 315 H* 02/28/25 06:35: WBC 3.2 L, RBC 2.48 L, Hgb 6.6 L*, Hct 21.5 L, MCV 86.7, MCH 26.6 L, MCHC 30.7 L, RDW 18.2 H, Plt Count 77 L D, MPV TNP, Neut % (Auto) 65.8, Lymph % (Auto) 19.0, [place] % (Auto) 9.2, Eos % (Auto) 3.8, Baso % (Auto) 0.3, Neut # (Auto) 2.1, Lymph # (Auto) 0.6 L, [place] # (Auto) 0.3, Eos # (Auto) 0.1, Baso # (Auto) 0.0, Sodium 137, Potassium 4.2, Chloride 110 H, Carbon Dioxide 19 L, Anion Gap 12.2, BUN 25 H, Creatinine 1.60 H D, Estimated Creat Clear 31, Estimated GFR 31 L, Est GFR ( Amer) 38 L D, Glucose 167 H, Calcium 8.2 L, Magnesium 1.8, Total Bilirubin 1.5 H, AST 47 H, ALT 40, Alkaline Phosphatase 105, Total Protein 5.9 L, Albumin 2.7 L, Globulin 3.2, Albumin/Globulin Ratio 0.8 L, Blood Type Confirm A Positive 02/28/25 06:46: POC Glucose 197 H 02/28/25 07:24: Blood Type A Positive, Antibody Screen Negative, Crossmatch (AHG) See Detail 02/28/25 11:43: POC Glucose 240 H I & O for Last 24 hours: Intake & Output 02/25/25 02/26/25 02/27/25 02/28/25 23:59 23:59 23:59 23:59 Intake Total 1250 / 1660 1370 / 1780 1290 / 1540 1340 / 1340 Output Total 0 / 0 0 / 0 0 / 0 0 / 0 Balance 1250 / 1660 1370 / 1780 1290 / 1540 1340 / 1340 Weight 127 lb 8 oz 127 lb 7.999 oz 143 lb 1 oz 142 lb 9 oz Microbiology Reports for the Last 24 Hours: Microbiology 02/27/25 10:26 Blood Blood Culture - Preliminary NO GROWTH AFTER 24 HOURS 02/27/25 10:20 Blood Blood Culture - Preliminary NO GROWTH AFTER 24 HOURS *Routine Abdominal Exam Comments: Palpable slightly firm liver, no ascites, Splenomegaly present, nontender, no masses Assessment and Plan *Assessment and plan (1) Cirrhosis: Status: Acute Category: Medical Code(s): K74.60 - Unspecified cirrhosis of liver (2) Portal hypertension: Status: Acute Category: Medical Code(s): K76.6 - Portal hypertension (3) PUD (peptic ulcer disease): Status: Acute Category: Medical Code(s): K27.9 - Peptic ulcer, site unspecified, unspecified as acute or chronic, without hemorrhage or perforation (4) Acute anemia: Status: Acute Category: Medical Code(s): D64.9 - Anemia, unspecified Plan 1. Acute anemia. The patient is Hemoccult negative and has no clinical GI bleeding. I would agree with blood transfusion and discussed this patient twice today with hospitalist. I do suspect some anemia of acute and chronic inflammation. The patient also has some chronic renal insufficiency with creatinine 1.60 today. Her creatinine has been above 2 for her entire hospital stay until today.The patient's iron studies (ferritin 59.5, iron saturation 19.9%, serum iron 57 and TIBC 286) are in the normal range albeit low normal range. I am not convinced that she needs EGD especially presently. 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 Cirrhosis with portal hypertension. The patient has followed with GI/h epatology for an extended period of time at [facility]. I would like for her to again resume her care where she is being followed. I would advance diet and as soon as the patient is stable, she can be discharged from GI/hepatology standpoint.
[2025-02-28 17:04] LABS: POC Glucose,Bedside 308 (70-110)
--- NOTE | 2025-02-28 17:51 | PC.NURSE ---
VSS on RA. A&O x4. 2 units of blood infused per order. Awaiting Hgb redraw. Renal ultrasound completed today. Pt lying in bed with family at bedside. No further complaints voiced at this time. Call light within reach.
[2025-02-28 19:12] LABS: Hemoglobin 8.8 g/dL (12.2-16.2)
[2025-02-28 19:13] LABS: Hematocrit 27.9 % (37.0-47.0)
[2025-02-28 20:26] LABS: POC Glucose,Bedside 169 (70-110)
[2025-02-28] MEDS: INSULIN GLARGINE 100 UNITS/ML 3ML FLEXPEN 30 UNIT SUBCUT (20:39)
--- NOTE | 2025-02-28 21:12 | P.PN_ITS ---
Subjective *Date: 02/28/25 *Time: 21:12 Interval history: Patient doing well today, no acute concerns. Hemoglobin did drop to 6.6, no acute blood loss. Denies melena, abdominal pain. Improved to 8.8 after 2 units transfusion. [place] discharge in the morning if hemoglobin stable. Exam Data for Last 24 hours Vital signs and Labs for Last 24 Hours: Temp Pulse Resp BP Pulse Ox O2 Del Method O2 Flow Rate 97.4 F L 91 H 17 119/50 L 91 L Room Air 98 02/28/25 19:53 02/28/25 19:53 02/28/25 19:53 02/28/25 19:53 02/28/25 19:53 02/28/25 19:53 02/23/25 20:00 Laboratory Results - last 24 hr 02/27/25 07:50: Tumor Marker AFP <1.8 02/28/25 06:35: WBC 3.2 L, RBC 2.48 L, Hgb 6.6 L*, Hct 21.5 L, MCV 86.7, MCH 26.6 L, MCHC 30.7 L, RDW 18.2 H, Plt Count 77 L D, MPV TNP, Neut % (Auto) 65.8, Lymph % (Auto) 19.0, [place] % (Auto) 9.2, Eos % (Auto) 3.8, Baso % (Auto) 0.3, Neut # (Auto) 2.1, Lymph # (Auto) 0.6 L, [place] # (Auto) 0.3, Eos # (Auto) 0.1, Baso # (Auto) 0.0, Sodium 137, Potassium 4.2, Chloride 110 H, Carbon Dioxide 19 L, Anion Gap 12.2, BUN 25 H, Creatinine 1.60 H D, Estimated Creat Clear 31, Estimated GFR 31 L, Est GFR ( Amer) 38 L D, Glucose 167 H, Calcium 8.2 L, Magnesium 1.8, Total Bilirubin 1.5 H, AST 47 H, ALT 40, Alkaline Phosphatase 105, Total Protein 5.9 L, Albumin 2.7 L, Globulin 3.2, Albumin/Globulin Ratio 0.8 L, Blood Type Confirm A Positive 02/28/25 06:46: POC Glucose 197 H 02/28/25 07:24: Blood Type A Positive, Antibody Screen Negative, Crossmatch (AHG) See Detail 02/28/25 11:43: POC Glucose 240 H 02/28/25 16:56: POC Glucose 308 H* 02/28/25 18:18: Hgb 8.8 L D, Hct 27.9 L 02/28/25 20:18: POC Glucose 169 H I & O for Last 24 hours: Intake & Output 02/25/25 02/26/25 02/27/25 02/28/25 23:59 23:59 23:59 23:59 Intake Total 1250 / 1660 1370 / 1780 1290 / 1540 1590 / 1590 Output Total 0 / 0 0 / 0 0 / 0 0 / 0 Balance 1250 / 1660 1370 / 1780 1290 / 1540 1590 / 1590 Weight 57.833 kg 57.833 kg 64.892 kg 64.665 kg Microbiology Reports for the Last 24 Hours: Microbiology 02/27/25 10:26 Blood Blood Culture - Preliminary NO GROWTH AFTER 24 HOURS 02/27/25 10:20 Blood Blood Culture - Preliminary NO GROWTH AFTER 24 HOURS *Routine Abdominal Exam Comments: Palpable slightly firm liver, no ascites, Splenomegaly present, nontender, no masses Assessment and Plan *Assessment and plan (1) Sepsis: Status: Acute Category: Medical Code(s): A41.9 - Sepsis, unspecified organism (2) Metabolic acidosis: Status: Acute Category: Medical Code(s): E87.20 - Acidosis, unspecified (3) Colitis: Status: Acute Category: Medical Code(s): K52.9 - Noninfective gastroenteritis and colitis, unspecified (4) Paz tropicalis infection: Status: Acute Category: Medical Code(s): B37.9 - Candidiasis, unspecified (5) Candidemia: Status: Acute Category: Medical Code(s): B37.7 - Candidal sepsis (6) Acute dehydration: Status: Acute Category: Medical Code(s): E86.0 - Dehydration (7) ABENA (acute kidney injury): Status: Acute Category: Medical Code(s): N17.9 - Acute kidney failure, unspecified (8) Diarrhea: Status: Acute Category: Medical Code(s): R19.7 - Diarrhea, unspecified (9) PUD (peptic ulcer disease): Status: Acute Category: Medical Code(s): K27.9 - Peptic ulcer, site unspecified, unspecified as acute or chronic, without hemorrhage or perforation (10) Diabetes: Status: Acute Category: Medical Code(s): E11.9 - Type 2 diabetes mellitus without complications (11) HTN (hypertension): Status: Acute Category: Medical Code(s): I10 - Essential (primary) hypertension (12) GERD (gastroesophageal reflux disease): Status: Acute Category: Medical Code(s): K21.9 - Gastro-esophageal reflux disease without esophagitis (13) Non-alcoholic cirrhosis: Status: Acute Category: Medical Code(s): K74.60 - Unspecified cirrhosis of liver Plan Vika Jackson is a 75-year-old female with history of cirrhosis and diabetes. Presented with diarrhea and ABENA. Met sepsis criteria with tachycardia, diarrhea, elevated lactate and endorgan dysfunction with ABENA. Discussed case with ER physician, request admission for further management of her metabolic derangements, confusion, ABENA and diarrhea. #Colitis #Sepsis #Paz tropicalis bacteremia - Initial blood cultures growing diverse pathogen's. Initially showed Paz tropicalis on PCR and Gram stain. Then started growing Aerococcus. Repeat blood cultures positive for yeast on Gram stain with 1 set showing Paz tropicalis, the other showing astrovirus on PCR. - Repeat blood cultures NGTD 24 hours. - Continue fluconazole 400 milligrams daily. Will treat for 2 weeks after blood cultures remain negative. Ceftriaxone discontinued today as no bacterial growth. ? Repeat CBC, CMP, magnesium ordered for the morning. #ABENA #Right ureter obstruction/stenosis #Renal artery stenosis ? Creatinine improved to 1.6 today, GFR 31. ? CT abdomen shows right ureteral obstruction, renal ultrasound shows right slightly improving moderate right hydronephrosis. Will need urology follow-up on discharge. ? CT abdomen shows greater than 50% left renal artery stenosis, mild stenosis of right renal artery. Will refer to cardiology on discharge. #PUD #Acute on chronic anemia - Continue pantoprazole IV 40 mg IV twice daily due to peptic ulcer disease identified 2 weeks ago on EGD. ? Hemoglobin down to 6.6 from 9.1 02/23/25. Discussed with GI, FOBT negative and no signs of blood loss. Advised acute on chronic anemia may be related to wor sening renal failure during admission, though improving today. ? Transfused with 2 units PRBC, hemoglobin improved to 8.8. Vital signs stable. ? Ferritin level normal, follow-up B12 and folate levels in the morning. ? Anticipate discharge in the morning if hemoglobin remains stable. #Cirrhosis - MELD score 22, 20% mortality in the next 3 months. - Holding carvedilol out of concern for hepatorenal syndrome. - Continue rifaximin p.o. - Reviewed records from [facility]. Kidney function a month ago with creatinine 1.1. - GI consulted to evaluate patient, no intervention planned for today. Recommend obtaining AFP. - Holding diuretics in the setting of ABENA Diabetes: Continue fingersticks ACHS with sliding scale low intensity. A1c 8.3, morning glucose 144 Hyperlipidemia, holding Lipitor in the setting of elevated liver enzymes Neuropathy, holding gabapentin in the setting of altered mental status on arrival Full code Holding anticoagulation in the setting of anemia and thrombocytopenia Diabetic diet
[2025-03-01] VITALS: BP 148/66; PULSE 91; RESP 19; TEMP 36.7; O2SAT 100
[2025-03-01 04:00] VITALS: BP 148/70; PULSE 95; RESP 17; TEMP 36.8; O2SAT 98; BMI 23.6
[2025-03-01 06:21] LABS: Basophils % 0.6 % (0.1-2.0); Eosinophils # 0.1 K/mm3 (0.0-0.4); Eosinophils % 4.3 % (0.1-12.0); Hematocrit 27.1 % (37.0-47.0); Hemoglobin 8.6 g/dL (12.2-16.2); Lymphocytes # 0.6 K/mm3 (0.7-4.5); Lymphocytes % 18.9 % (10-50); Mean Corpuscular HGB Conc 31.7 g/dL (31.8-35.4); Mean Corpuscular Hemoglobin 27.5 pg (27.0-31.2); Mean Corpuscular Volume 86.6 fl (81-99); Mean Platelet Volume 12.7 fl (7.4-10.4); Monocytes # 0.3 K/mm3 (0.1-1.0); Neutrophils # 2.1 K/mm3 (1.8-7.8); Neutrophils % 64.1 % (37.0-80.0); Platelet Count 81 K/mm3 (142-424); Red Blood Count 3.13 M/mm3 (4.20-5.40); Red Cell Distribution Width 17.9 % (11.5-17.5); White Blood Count 3.2 K/mm3 (4.8-10.8)
[2025-03-01 06:32] LABS: Albumin Level 2.8 g/dl (3.5-5.0); Chloride 113 mmol/L (98-107)
[2025-03-01 06:33] LABS: Potassium 4.3 mmoL/L (3.5-5.1); Sodium 140 mmol/L (136-145)
[2025-03-01 06:35] LABS: Alanine Aminotransferase 43 U/L (12-78); Anion Gap 11.3 mEq/L (5-15); Aspartate Amino Transferase 50 U/L (14-36); Blood Urea Nitrogen 21 mg/dl (7-17); Carbon Dioxide 20 mmol/L (22.0-30.0); Creatinine Clearance Estimated 32 mL/min (50-200); Estimated Glomerular Filt Rate 34 ml/min (>60); GFR (African American) 41 ML/MIN (>60)
[2025-03-01 06:36] LABS: Albumin/Globulin Ratio 0.9 (1.1-1.8); Alkaline Phosphatase 121 U/L (38-126); Bilirubin,Total 1.7 mg/dl (0.2-1.3); Calcium 8.8 mg/dl (8.4-10.2); Globulin 3.2 g/dL (1.3-3.2); Glucose 154 mg/dl (74-100)
[2025-03-01] MEDS: humaLOG 100 UNITS/ML 10ML VIAL (SSI) SUBCUT ×2 (06:44→11:45)
--- NOTE | 2025-03-01 07:14 | EXP.PN ---
Subjective *Date: 03/01/25 *Time: 07:14 Interval history: Patient doing well with no abdominal complaints and no bleeding, melena or hematochezia. Patient eating breakfast with no complaints. Patient wants to go home Exam Data for Last 24 hours Vital signs and Labs for Last 24 Hours: Temp Pulse Resp BP Pulse Ox O2 Del Method O2 Flow Rate 98.2 F 95 H 17 148/70 H 98 Room Air 98 03/01/25 04:00 03/01/25 04:00 03/01/25 04:00 03/01/25 04:00 03/01/25 04:00 03/01/25 04:00 02/23/25 20:00 Laboratory Results - last 24 hr 02/27/25 07:50: Tumor Marker AFP <1.8 02/28/25 06:35: Blood Type Confirm A Positive 02/28/25 07:24: Blood Type A Positive, Antibody Screen Negative, Crossmatch (AHG) See Detail 02/28/25 11:43: POC Glucose 240 H 02/28/25 16:56: POC Glucose 308 H* 02/28/25 18:18: Hgb 8.8 L D, Hct 27.9 L 02/28/25 20:18: POC Glucose 169 H 03/01/25 05:55: WBC 3.2 L, RBC 3.13 L D, Hgb 8.6 L, Hct 27.1 L, MCV 86.6, MCH 27.5, MCHC 31.7 L, RDW 17.9 H, Plt Count 81 L, MPV 12.7 H, Neut % (Auto) 64.1, Lymph % (Auto) 18.9, [place] % (Auto) 9.0, Eos % (Auto) 4.3, Baso % (Auto) 0.6, Neut # (Auto) 2.1, Lymph # (Auto) 0.6 L, [place] # (Auto) 0.3, Eos # (Auto) 0.1, Baso # (Auto) 0.0, Sodium 140, Potassium 4.3, Chloride 113 H, Carbon Dioxide 20 L, Anion Gap 11.3, BUN 21 H, Creatinine 1.50 H, Estimated Creat Clear 32, Estimated GFR 34 L, Est GFR ( Amer) 41 L, Glucose 154 H, Calcium 8.8, Total Bilirubin 1.7 H, AST 50 H, ALT 43, Alkaline Phosphatase 121, Total Protein 6.0 L, Albumin 2.8 L, Globulin 3.2, Albumin/Globulin Ratio 0.9 L I & O for Last 24 hours: Intake & Output 02/26/25 02/27/25 02/28/25 03/01/25 23:59 23:59 23:59 23:59 Intake Total 1370 / 1780 1290 / 1540 1590 / 1710 120 / 120 Output Total 0 / 0 0 / 0 0 / 0 0 / 0 Balance 1370 / 1780 1290 / 1540 1590 / 1710 120 / 120 Weight 127 lb 7.999 oz 143 lb 1 oz 142 lb 9 oz 142 lb 3.2 oz Microbiology Reports for the Last 24 Hours: Microbiology 02/27/25 10:26 Blood Blood Culture - Preliminary NO GROWTH AFTER 24 HOURS 02/27/25 10:20 Blood Blood Culture - Preliminary NO GROWTH AFTER 24 HOURS Assessment and Plan *Assessment and plan (1) Acute anemia: Status: Acute Category: Medical Code(s): D64.9 - Anemia, unspecified (2) Portal hypertension: Status: Acute Category: Medical Code(s): K76.6 - Portal hypertension (3) Cirrhosis: Status: Acute Category: Medical Code(s): K74.60 - Unspecified cirrhosis of liver Plan 1. Anemia. She is Hemoccult negative. She does have portal hypertension. After blood transfusions, her hemoglobin hematocrit today are 8.6 and 27.1. She is getting good oral intake now. Have recommended out of bed and some ambulation. Hopefully home soon. Patient will need to return to GI/hepatology at [facility]
[2025-03-01 08:00] VITALS: BP 125/60; PULSE 75; RESP 16; TEMP 36.7; O2SAT 100
[2025-03-01] MEDS: SODIUM CHLORIDE 0.9% 10ML VIAL 10 ML IV (08:25)
[2025-03-01] MEDS: RIFAXIMIN 550MG TABLET 550 MG PO ×2 (08:25→12:57)
[2025-03-01] MEDS: PANTOPRAZOLE 40MG VIAL 40 MG IV (08:25)
[2025-03-01] MEDS: FLUCONAZOLE 200MG TABLET 400 MG PO (08:26)
[2025-03-01 09:45] LABS: POC Glucose,Bedside 152 (70-110)
[2025-03-01 10:01] LABS: Vitamin B12 896 pg/mL (239-931)
--- NOTE | 2025-03-01 11:28 | EXP.DC.SUM ---
General Admission date:: 02/23/25 HPI HPI HPI: Ms. Jackson is a 75-year-old female with history of cirrhosis presumably secondary to GUTHRIE. The patient presented with diarrhea but has not had any diarrhea since admission. The patient states that she is ready to go home. Her PCR panel was negative for any microbial pathogens. Her blood cultures were initially positive for Aerococcus viridans. The patient is followed by [facility] for her cirrhosis. She does not know etiology which is presumably GUTHRIE. She has lost 25 to 30 pounds. Her recent labs showed AST 47, ALT 45, total bilirubin 1.9 and alkaline phosphatase 97. Her serum albumin was 2.5. Her lipase on admission was slightly elevated at 407. Her MELD score was 22. Imaging study of the abdomen on 02/23 showed evidence of pancolitis. There was also cirrhosis with evidence of portal hypertension. There was moderate splenomegaly and small nodular liver with trace ascites. There was also right hydronephrosis and hydroureter and there was greater than 50% stenosis of the left renal artery. The patient does state that she receives her care from Dr. Josh Culp for her cirrhosis. Her EGD 3 to 4 weeks ago showed 2 small ulcers of the lower stomach. She reports no abdominal pain. She reports no alcohol use. She has had no melena or hematochezia or hematemesis. She was placed on diuretics recently because of edema. Hospital Course Hospital Course Hospital Course: Vika Jackson is a 75-year-old female with history of cirrhosis and diabetes. Presented with diarrhea and ABENA. Met sepsis criteria with tachycardia, diarrhea, elevated lactate and endorgan dysfunction with ABENA. Discussed case with ER physician, request admission for further management of her metabolic derangements, confusion, ABENA and diarrhea. #Colitis #Sepsis #Paz tropicalis bacteremia - Initial blood cultures growing diverse pathogen's. Initially showed Apz tropicalis on PCR and Gram stain. Then started growing Aerococcus. Repeat blood cultures positive for yeast on Gram stain with 1 set showing Paz tropicalis, the other showing astrovirus on PCR. Lab revised, blood cultures growing Paz tropicalis. Repeat blood cultures no growth to date. - Continue fluconazole 400 milligrams daily for 12 more days for total of 2 weeks. Patient remains asymptomatic at this time. No signs of sepsis. #PUD #Acute on chronic normocytic anemia ? Hemoglobin down trended to 6.6 from 9.1 on 02/23/25. Discussed with GI, FOBT negative and no signs of blood loss. Advised acute on chronic anemia may be related to worsening renal failure during admission. ? Transfused with 2 units PRBC, hemoglobin improved to 8.8. Vital signs stable. ? Ferritin, B12, folate levels normal. ? Advised patient to follow-up with PCP and her GI at [facility] for further evaluation management. ? Continue home Protonix 40 mg twice daily. #ABENA #Right ureter obstruction/stenosis #Renal artery stenosis ? Creatinine peaked at 2.6, improved to 1.5 at discharge. In the setting of dehydration. ? CT abdomen shows right ureteral obstruction, renal ultrasound shows right slightly improving moderate right hydronephrosis. ? CT abdomen shows greater than 50% left renal artery stenosis, mild stenosis of right renal artery. ? Patient declines referral to urology, cardiology at this time as she states she needs a break from seeing doctors. She will discuss with her PCP regarding these referrals. #GUTHRIE cirrhosis - MELD score 22, 20% mortality in the next 3 months. ? Continue carvedilol, prescribed rifaximin but unfortunately patient unable to afford it. Will follow-up with GI at [facility] for further management. ? Hepatitis panel, AFP normal. Diabetes ? Hemoglobin A1c 8.3 during admission. ? Continue home Farxiga 10 mg. Patient declines further management of diabetes at this time. Hyperlipidemia, continue home Lipitor. Neuropathy, continue home gabapentin. Total time spent on discharge: 32 minutes on chart review, counseling, documentation, and direct care with patient. Exam Data for Last 24 hours Vital signs and Labs for Last 24 Hours: Temp Pulse Resp BP Pulse Ox O2 Del Method O2 Flow Rate 98.1 F 75 16 125/60 100 Room Air 98 03/01/25 08:00 03/01/25 08:00 03/01/25 08:00 03/01/25 08:00 03/01/25 08:00 03/01/25 11:00 02/23/25 20:00 Laboratory Results - last 24 hr 02/28/25 07:24: Blood Type A Positive, Antibody Screen Negative, Crossmatch (AHG) See Detail 02/28/25 11:43: POC Glucose 240 H 02/28/25 16:56: POC Glucose 308 H* 02/28/25 18:18: Hgb 8.8 L D, Hct 27.9 L 02/28/25 20:18: POC Glucose 169 H 03/01/25 05:55: WBC 3.2 L, RBC 3.13 L D, Hgb 8.6 L, Hct 27.1 L, MCV 86.6, MCH 27.5, MCHC 31.7 L, RDW 17.9 H, Plt Count 81 L, MPV 12.7 H, Neut % (Auto) 64.1, Lymph % (Auto) 18.9, Kendall % (Auto) 9.0, Eos % (Auto) 4.3, Baso % (Auto) 0.6, Neut # (Auto) 2.1, Lymph # (Auto) 0.6 L, Kendall # (Auto) 0.3, Eos # (Auto) 0.1, Baso # (Auto) 0.0, Sodium 140, Potassium 4.3, Chloride 113 H, Carbon Dioxide 20 L, Anion Gap 11.3, BUN 21 H, Creatinine 1.50 H, Estimated Creat Clear 32, Estimated GFR 34 L, Est GFR ( Amer) 41 L, Glucose 154 H, Calcium 8.8, Total Bilirubin 1.7 H, AST 50 H, ALT 43, Alkaline Phosphatase 121, Total Protein 6.0 L, Albumin 2.8 L, Globulin 3.2, Albumin/Globulin Ratio 0.9 L, Vitamin B12 896, Folate 12.40 03/01/25 06:17: POC Glucose 152 H I & O for Last 24 hours: Intake & Output 02/26/25 02/27/25 02/28/25 03/01/25 23:59 23:59 23:59 23:59 Intake Total 1370 / 1780 1290 / 1540 1590 / 1710 120 / 120 Output Total 0 / 0 0 / 0 0 / 0 0 / 0 Balance 1370 / 1780 1290 / 1540 1590 / 1710 120 / 120 Weight 57.833 kg 64.892 kg 64.665 kg 64.501 kg Microbiology Reports for the Last 24 Hours: Microbiology 02/27/25 10:26 Blood Blood Culture - Preliminary NO GROWTH AFTER 48 HOURS 02/27/25 10:20 Blood Blood Culture - Preliminary NO GROWTH AFTER 48 HOURS Constitutional Constitutional: no acute distress *Routine HEENT Exam Head: Present normocephalic Eye: Present EOMI and PERRL ENT: Present mucous membranes moist *Routine Neck Exam Neck: Present supple; Absent lymphadenopathy *Routine Respiratory Exam Respiratory: Present CTA bilaterally *Routine Cardiovascular Exam Cardiovascular: Present RRR *Routine Abdominal Exam Abdominal: Present soft and normoactive bowel sounds; Absent tenderness Comments: Palpable slightly firm liver, no ascites, Splenomegaly present, nontender, no masses *Routine Extremities Exam Extremities: Absent cyanosis, clubbing or edema *Routine Skin Exam Skin: Present warm; Absent rash *Routine Neurological Exam Neurological: Present alert and oriented X3 Results Data Completed and Pending Labs on day of discharge: Labs from last 24 hours 03/01/25 03/01/25 02/28/25 06:17 05:55 20:18 WBC 3.2 L RBC 3.13 L D Hgb 8.6 L Hct 27.1 L MCV 86.6 MCH 27.5 MCHC 31.7 L RDW 17.9 H Plt Count 81 L MPV 12.7 H Neut % (Auto) 64.1 Lymph % (Auto) 18.9 Kendall % (Auto) 9.0 Eos % (Auto) 4.3 Baso % (Auto) 0.6 Neut # (Auto) 2.1 Lymph # (Auto) 0.6 L Kendall # (Auto) 0.3 Eos # (Auto) 0.1 Baso # (Auto) 0.0 Sodium 140 Potassium 4.3 Chloride 113 H Carbon Dioxide 20 L Anion Gap 11.3 BUN 21 H Creatinine 1.50 H Estimated Creat Clear 32 Estimated GFR 34 L Est GFR ( Amer) 41 L Glucose 154 H POC Glucose 152 H 169 H Calcium 8.8 Total Bilirubin 1.7 H AST 50 H ALT 43 Alkaline Phosphatase 121 Total Protein 6.0 L Albumin 2.8 L Globulin 3.2 Albumin/Globulin Ratio 0.9 L Vitamin B12 896 Folate 12.40 Blood Type Antibody Screen Crossmatch (AHG) 02/28/25 02/28/25 02/28/25 18:18 16:56 11:43 WBC RBC Hgb 8.8 L D Hct 27.9 L MCV MCH MCHC RDW Plt Count MPV Neut % (Auto) Lymph % (Auto) Kendall % (Auto) Eos % (Auto) Baso % (Auto) Neut # (Auto) Lymph # (Auto) Kendall # (Auto) Eos # (Auto) Baso # (Auto) Sodium Potassium Chloride Carbon Dioxide Anion Gap BUN Creatinine Estimated Creat Clear Estimated GFR Est GFR ( Amer) Glucose POC Glucose 308 H* 240 H Calcium Total Bilirubin AST ALT Alkaline Phosphatase Total Protein Albumin Globulin Albumin/Globulin Ratio Vitamin B12 Folate Blood Type Antibody Screen Crossmatch ([facility]) 02/28/25 07:24 WBC RBC Hgb Hct MCV MCH MCHC RDW Plt Count MPV Neut % (Auto) Lymph % (Auto) Kendall % (Auto) Eos % (Auto) Baso % (Auto) Neut # (Auto) Lymph # (Auto) Kendall # (Auto) Eos # (Auto) Baso # (Auto) Sodium Potassium Chloride Carbon Dioxide Anion Gap BUN Creatinine Estimated Creat Clear Estimated GFR Est GFR ( Amer) Glucose POC Glucose Calcium Total Bilirubin AST ALT Alkaline Phosphatase Total Protein Albumin Globulin Albumin/Globulin Ratio Vitamin B12 Folate Blood Type A Positive Antibody Screen Negative Crossmatch ([facility]) See Detail Preliminary micro results at discharge 02/27/25 10:26 Blood Culture - Preliminary Blood NO GROWTH AFTER 48 HOURS 02/27/25 10:20 Blood Culture - Preliminary Blood NO GROWTH AFTER 48 HOURS 02/25/25 16:05 Blood Culture - Preliminary Blood 02/25/25 16:15 Blood Culture - Preliminary Blood DS: Diagnosis Discharge Diagnosis (1) Acute anemia: Status: Acute Code(s): D64.9 - Anemia, unspecified (2) Portal hypertension: Status: Acute Code(s): K76.6 - Portal hypertension (3) Cirrhosis: Status: Acute Code(s): K74.60 - Unspecified cirrhosis of liver Meds Home Medications and Allergies Home Medications ?Medication ?Instructions ?Recorded ?Confirmed ?Type atorvastatin 40 mg tablet 40 mg PO DAILY 02/23/25 02/23/25 History carvedilol 3.125 mg tablet 3.125 mg PO BID 02/23/25 02/23/25 History ergocalciferol (vitamin D2) 1,250 1,250 mcg PO WEEKLY 02/23/25 02/23/25 History mcg (50,000 unit) capsule furosemide 20 mg tablet 20 mg PO DAILYP PRN Edema 02/23/25 02/23/25 History gabapentin 300 mg capsule 300 mg PO HS 02/23/25 02/23/25 History pantoprazole 40 mg tablet,delayed 40 mg PO BID 02/23/25 02/23/25 History release potassium chloride 10 mEq 10 meq PO DAILY 02/23/25 02/23/25 History tablet,extended release spironolactone 100 mg tablet 100 mg PO DAILY 02/23/25 02/23/25 History dapagliflozin propanediol 10 mg 10 mg PO DAILY 03/01/25 03/01/25 History tablet (Farxiga) fluconazole 200 mg tablet 400 mg (2 x 200 mg) PO DAILY 12 03/01/25 Rx days #24 tabs rifaximin 550 mg tablet (Xifaxan) 550 mg PO TID 30 days #90 tabs 03/01/25 Rx New Prescriptions to Start Prescriptions: Frankie Reece rifaximin [Xifaxan] Frankie Thayer Allergies Allergy/AdvReac Type Severity Reaction Status Date / Time No Known Allergies Allergy Verified 02/23/25 11:05 Discharge Plan Disposition Patient Disposition: Home, Self-Care Condition: Fair Discharge Order Discharge Orders: Discharge Order (Routine); Ordered 03/01/25 Ordered By: Frankie Thayer Follow up Plan Follow up with: Annika Saha APRN [Primary Care Provider] - 03/10/25 3:45 pm Prescriptions/Medication Reconciliation: New fluconazole 200 mg Tablet 400 mg PO DAILY 12 Days Qty: 24 0RF Xifaxan 550 mg Tablet 550 mg PO TID 30 Days Qty: 90 0RF Continued atorvastatin 40 mg tablet 40 mg PO DAILY Patient Comments: TAKE 1 TABLET BY MOUTH EVERY DAY spironolactone 100 mg tablet 100 mg PO DAILY Patient Comments: TAKE 1 TABLET BY MOUTH EVERY DAY potassium chloride 10 mEq tablet extended release 10 meq PO DAILY Patient Comments: TAKE 1 TABLET BY MOUTH EVERY DAY IN THE MORNING WITH FUROSEMIDE NEEDED carvedilol 3.125 mg tablet 3.125 mg PO BID Patient Comments: TAKE 1 TABLET BY MOUTH TWICE DAILY pantoprazole 40 mg tablet,delayed release (DR/EC) 40 mg PO BID Patient Comments: TAKE 1 TABLET BY MOUTH TWICE DAILY gabapentin 300 mg capsule 300 mg PO HS Patient Comments: TAKE 1 CAPSULE BY MOUTH EVERY DAY AT BEDTIME FOR NERVE PAIN furosemide 20 mg tablet 20 mg PO DAILYP PRN (Reason: Edema) Patient Comments: TAKE 1 TABLET BY MOUTH EVERY DAY IN THE MORNING NEEDED FOR SWELLING ergocalciferol (vitamin D2) 1,250 mcg (50,000 unit) capsule 1,250 mcg PO WEEKLY Patient Comments: TAKE 1 CAPSULE BY MOUTH EVERY WEEK dapagliflozin propanediol [Farxiga] 10 mg Tablet 10 mg PO DAILY Problem Reconciliation Problems Reviewed?: Yes Patient Discharge Instructions Patient Instructions: DI for Kidney Failure, DI for Dehydration -- Adult Print Language: Malagasy Providers Primary Care Provider: Annika Saha Admit Provider: Shimon Mills Attending Provider: Shimon Mills
[2025-03-01 11:43] LABS: POC Glucose,Bedside 171 (70-110)
[2025-03-01 12:22] LABS: Lactate Dehydrogenase 300 U/L (313-618); Uric Acid 6.8 mg/dl (2.5-6.2)
[2025-03-02 05:08] LABS: Haptoglobin 101 mg/dL (42-346)
--- OUTSIDE RECORDS SUMMARY | 2025-03-02 19:39 | XMS_ITS | Continuity of Care Document ---
Author Organization ID - [facility] Address [address] [place] [address] Care Team Providers Care Historiographer Name Role Phone DREW TRAORE Primary Care Provider ANGELA HARP Hematology/Oncology FRIEDA MCELROY Scourer [phone] Assessment No assessment recorded. Plan of Treatment Reminders Order Date Submit Date Provider Last Modified By Organization Details Last Modified Time Details Appointments HFU 30 2024 03:45P M DREW TRAOER NP Not available Not available Not available OV EST 15 2024 11:15A M Frieda Mcelroy NP Not available Not available Not available Lab CMP, serum or plasma 2024 025 [facility] (Lab Registration) , [address] [place] [address] [place], [id number], 02/21/2025 12:35:45 PT/INR 2024 025 [facility] (Lab Registration) , [address] [place] [address] [place], [id number], 02/21/2025 12:35:30 CBC w/ auto diff 2024 025 [facility] (Lab Registration) , [address] [place] [address] [place], [id number], 02/21/2025 12:35:43 Referral None recorded . Procedures None recorded . Surgeries None recorded . Imaging None recorded . Medication Orders None recorded . Patient TargetsNo targets recorded. Patient InstructionsNo instructions recorded. Reason for Referral None Reported. Results Created Date Observation Date Name Description Value Unit Range Abnormal Flag Note LastModifiedBy Organization Detail LastModifiedTime 02/25/2002/23/2025 imagi ng inter preta tion No observ ation record ed. [address], [place], [id number], 02/27/2025 08:27:17 02/25/2002/23/2025 imagi ng inter preta tion No observ ation record ed. [address], [place], [id number], 02/27/2025 08:27:02 02/29/2002/28/2025 severo DEY No observ ation record ed. [facility] [address], [place], [id number], 02/28/2025 18:10:16 Result Notes None recorded. Problems Name Problem SNOMED Code Status Onset Date Resolution Date Notes Provider Name and Address Organization Details Recorded Time Ascites 813921639 Active 2024 Frieda Mcelroy NP [address], [address], [place], [address], [place] & [place] 5 11:33:10 Constipat ion 48895745 Active 2024 Frieda Mcelroy NP [address], [address], [place], [address], [place] 5 11:34:56 Hypokalem ia 20997771 Active 2024 Frieda Mcelroy NP [address], [address], [place], [address], [place] 5 13:52:18 Ulcer of duodenum 92265333 Active 2024 Frieda Mcelroy NP [address], [address], [place], [place], [address], [place] & [place] 5 13:51:25 Portal hypertens carleen gastropat hy 751713196 Active 2024 Frieda Mcelroy NP [address], [address], [place], [address], [place] 5 13:54:32 Abnormal renal function 55364341 Active 2024 Frieda Mcelroy NP [address], [address], [place], [address], [place] 5 09:58:27 Mammograp hy abnormal 943586305 Active 2020 Reece Hutchinso n [place] 4 10:47:01 Acute kidney injury 32181774 Active 2013 Reece Hutchinso n [place] 4 10:46:39 Patient encounter status 056036701 Active 2018 Reece Hutch[place] n [place] 4 10:47:07 Type 2 diabetes mellitus 04716739 Active 2017 Reece Hutch[place] n [place] 4 10:47:18 Gallstone 215370866 Active 2013 Reece Hutch[place] 4 10:46:47 Uncontrol led type 2 diabetes mellitus 609587890 Active 2014 Reece Hutch[place] n [place] 4 10:47:20 Annual wellness visit Active 2017 Annual wellness visit Reece Hutch[place] 4 10:46:42 Liver enzymes level above reference range 019078478 Active 2020 Reece Hutch[place] n [place] 4 10:46:56 Leukopeni a 69949690 Active 2020 Reece [place] & 4 10:46:54 Mixed hyperlipi demia 307759361 Active 2018 Reece [place] & 4 10:47:04 Cirrhosis of liver 05071419 Active 2020 Reece [place] & 4 10:46:44 Reactive depressio n (situatio nal) 75955433 Active 2015 Reece [place]wynchinso n [place] & 4 10:47:08 Low blood pressure 83564646 Active 2013 Reece [place] & 4 10:47:00 Sepsis 28493113 Active 2013 Reece [place] & 4 10:47:15 Fibrocyst ic disease of breast 63845019 Active 2020 Reece [place]wynchin[place] n [place] & 4 10:46:46 Vitamin D deficienc y 65396073 Active 2020 Reece [place] & 4 10:47:21 Liver function test above reference range 790085915 Active 2020 Reece [place] & 4 10:46:58 Neuropath y due to diabetes mellitus 877863352 Active 2014 Reece [place] & 4 10:47:05 Right upper quadrant pain 842403562 Active 2013 Reece [place] & 4 10:47:10 Hyperchol esterolem ia 23022516 Active 2014 Reece Hutchin[place] n [place] & [place] 4 10:46:50 Hypertens carleen disorder 69331693 Active 2014 Reece [place] 4 10:46:53 Acute cholecyst itis 73831976 Active 2013 Reece [place] 4 10:46:38 Heartburn 50464267 Active 2020 Reece Hutch[place] & [place] 4 10:46:49 Syncope 397515000 Active 2014 Reece Hutch[place] 4 10:47:16 Screening mammograp hy of bilateral breasts Active 2023 Reece [place] & [place] 4 10:47:13 Screening for malignant neoplasm of colon Active 2023 Reece Hutch[place] & [place] 4 10:47:11 Hyperlipi demia 31344457 Active 2023 Reece [place] & [place] 4 10:46:52 Anemia 286370543 Active 2023 Reece Hutch[place] & [place] 4 10:46:41 Heart murmur 61257012 Active 2023 DREW TRAORE NP [address] [place], [address], [place] & [place] 4 08:37:27 Depressiv e disorder 81872282 Active 2023 DERW TRAORE NP [address] [place], [address], [place] 4 08:37:30 High risk medicatio n monitorin g indicated 526651049121 [address] Active 2023 DREW TRAORE NP [address] [place], [address], [place] 4 08:37:32 Neuropath y 257369581 Active 2023 DREW TRAORE NP [address] [place], [address], [place] [facility] [facility] & [place] 4 08:37:34 Essential hypertens ion 95629048 Active 2023 DREW TRAORE NP [address] [place], [address], [facility] - [facility] & [place] 4 08:37:36 Notes:Some problems listed i n Documents: #[id number], #[id number], #[id number] could not be added to this patient's chart. Please review these documents and add these problems to the patient's chart manually as needed. Problem Notes None recorded. Procedures Surgical History Date Name Laterality Status Provider Name and Address Organization Details Recorded Time 01/25 esophagogastroduodenoscopy completed Flower Tucker [facility] & [place] 5 16:31:08 06/08 Medicare Annual Wellness Visit Health Risk Assessment completed Reece Iglesias [facility] & [place] 4 08:12:47 01/22 esophagogastroduodenoscopy completed Braxton Rice [facility] & [place] 4 11:51:01 11/23 Cholecystectomy completed Poly Crews [facility] & [place] 2 10:35:54 Imaging Results None recorded. Procedure Notes None recorded. Medical Equipment None Reported. Allergies No known drug allergies Medications Name Sig Start Date Stop Date Status Note LastModified by Organization Details LastModified Time atorvastati n 40 mg tablet Take 1 tablet every day by oral route for 90 days. active Not Available Not Available No t Available gabapentin 600 mg tablet 12/20 completed Not Available Not Available Not Available citalopram 40 mg tablet TAKE 1/2 TABLET BY MOUTH EVERY DAY 09/05 completed Not Available Not Available Not Available atorvastati n 10 mg tablet 07/27 completed Not Available Not Available Not Available glipizide ER 10 mg tablet, extended release 24 hr TAKE 1 TABLET BY MOUTH DAILY WITH BREAKFAST active Not Available Not Available No t Available spironolact one 100 mg tablet TAKE 1 TABLET BY MOUTH EVERY DAY active Not Available Not Available No t Available glipizide ER 5 mg tablet, extended release 24 hr TAKE 1 TABLET BY MOUTH DAILY WITH A MEAL active Not Available Not Available No t Available potassium chloride ER 10 mEq tablet,exte nded release TAKE 1 TABLET BY MOUTH EVERY DAY IN THE MORNING WITH FUROSEMID E NEEDED active Not Available Not Available No t Available carvedilol 3.125 mg tablet TAKE 1 TABLET BY MOUTH TWICE DAILY active Not Available Not Available No t Available citalopram 20 mg tablet Take 1 tablet every day by oral route for 90 days. active Not Available Not Available No t Available pantoprazol e 40 mg tablet,josé miguel yed release TAKE 1 TABLET BY MOUTH TWICE DAILY active Not Available Not Available No t Available gabapentin 300 mg capsule TAKE 1 CAPSULE BY MOUTH EVERY DAY AT BEDTIME FOR NERVE PAIN active Not Available Not Available No t Available furosemide 20 mg tablet Take 1 tablet every day by oral route for 90 days, for once daily in AM as needed for swelling. 2024 active Not Available Not Available Not Avai lable ergocalcife rol (vitamin D2) 1,250 mcg (50,000 unit) capsule TAKE 1 CAPSULE BY MOUTH EVERY WEEK active Not Available Not Available No t Available metformin ER 500 mg tablet,exte nded release 24 hr TAKE 2 TABLETS BY MOUTH EVERY DAY 01/14 completed Not Available Not Available Not Available ezetimibe 10 mg tablet take 1 tablet by mouth every day Orally Once a day 01/14 completed Not Available Not Available Not Available nitrofurant oin monohydrate /macrocryst als 100 mg capsule Take 1 capsule every 12 hours by oral route for 7 days. 07/27 completed Not Available Not Available Not Available lactulose 10 gram/15 mL oral solution TAKE 15 ML BY MOUTH TWICE DAILY 03/26 /2025 completed Not Available Not Available Not Available FeroSul 325 mg (65 mg iron) tablet TAKE 1 TABLET BY MOUTH EVERY OTHER DAY 07/24 completed Not Available Not Available Not Available Xifaxan 550 mg tablet Take by oral route for 30 days. 2024 active Not Available Not Available Not Avai lable Farxiga 10 mg tablet 1 {tablet} by oral route. 12/20 completed Not Available Not Available Not Available Farxiga 5 mg tablet Take 1 tablet by mouth every day 2023 active Not Available Not Available Not Avai lable potassium chloride ER 20 mEq tablet,exte nded release 2 tablets twice a day with meals for FOUR days then 1 tablet once daily; recheck potassium in 1 week 02/15 completed Not Available Not Available Not Available Vitals Date Recorded Body height Body mass index (BMI) Body weight Body temperature Oxygen saturation Oxygen saturation in Arterial blood by Pulse oximetry Heart rate Provider Name and Address Organization Details Last Updated DateTime 5 166.37 cm 20.3 kg/m2 27613.4 5 g 97.9 [degF] 99 % 99 % 86 /min Gilma Augusta [facility] & [place] 11:35:16 Social History Question Answer Notes LastModified by Organizat ion Details LastModified Time Tobacco Smoking Status Never Smoker Poly newton, [facility] & [place] 08/21/2022 10:35:54 Do You Have An Advance Directive? No Information not available 08/21/2022 What Is Your Level Of Alcohol Consumption? None Information not available 08/21/2022 Are You Blind Or Do You Have Difficulty Seeing? No Information not available 08/21/2022 Is Blood Transfusion Acceptable In An Emergency? Yes [email or web address] Information not available 06/08/2024 What Is Your Level Of Caffeine Consumption? Moderate [email or web address] Information not available 06/08/2024 Are You Deaf Or Do You Have Serious Difficulty Hearing? No [email or web address] Information not available 06/08/2024 What Type Of Diet Are You Following? DIABETIC [email or web address] Information not available 06/08/2024 In General, Would You Say Your Health Is Good [email or web address] Information not available 06/08/2024 How Would You Describe The Condition Of Your Mouth And Teeth? including False Teeth Or Dentures? Good mnyrflldcjv69 Information not available 06/08/2024 In The Past 7 Days, How Many Servings Of Fruits And Vegetables Did You Typically Eat Each Day? (1 Serving = 1 Cup Of Fresh Vegetables, 1? 2 Cup Of Cooked Vegetables, Or 1 Medium Piece Of Fruit. 1 Cup = Size Of A Baseball.) 1-2 Servings Per Day [email or web address] Information not available 06/08/2024 In The Past 7 Days, How Many Servings Of High Fiber Or Whole Grain Foods Did You Typically Eat Each Day? (1 Serving = 1 Slice Of 100% Whole Wheat Bread, 1 Cup Of Whole-grain Or High-fiber Lrzsw-iy-yab Cereal, 1? 2 Cup Of Cooked Cereal Such As Oatmeal, Or 1? 2 Cup Of Cooked Brown Rice Or Whole Wheat Pasta.) 3-4 Servings Per Day [email or web address] Information not available 06/08/2024 In The Past 7 Days, How Many Servings Of Fried Or High-fat Foods Did You Typically Eat Each Day? (Examples Include Fried Chicken, Fried Fish, [place], [place], Potato Chips, [place] Chips, Doughnuts, Creamy Salad Dressings, And Foods Made With Whole Milk, Cream, Cheese, Or Mayonnaise.) 1-2 Servings Per Day ilawsyrgxoy15 Information not available 06/08/2024 In The Past 7 Days, How Many Sugar-sweetened (not Diet) Beverages Did You Typically Consume Each Day 0 Drinks Per Day rmrzadkxqyg97 Information not available 06/08/2024 Each Night, How Many Hours Of Sleep Do You Usually Get? 5-6 Hours [email or web address] Information not available 06/08/2024 Do You Snore Or Has Anyone Told You That You Snore? No [email or web address] Information not available 06/08/2024 In The Past 7 Days, How Often Have You [place] Sleep[place] During The Daytime? Sometimes [email or web address] Information not available 06/08/2024 Do You Have Chronic Pain? No [email or web address] Information not available 06/08/2024 Are You In A Pain Management Program? No [email or web address] Information not available 06/08/2024 Do You Take Opioids For Your Pain? No ryjlbrrbplv78 Information not available 06/08/2024 How Often Is Stress A Problem For You In Handling Such Things As: Your Health, Your Finances, Your Family And Social Relationships, Your Work? Sometimes [email or web address] Information not available 06/08/2024 How Often Do You Get The Social And Emotional Support You Need: Usually [email or web address] Information no t available 06/08/2024 In The Past 7 Days, Did You Need Help From Others To Take Care Of Things Such As Laundry And Housekeep- Ing, Banking, Shopping, Using The Telephone, Food Preparation, Transportation, Or Taking Your Own Medications? No [email or web address] Information not available 06/08/2024 Do You Live Alone? No [email or web address] Information not available 06/08/2024 Does Your Home Have Any Fall Risks (un-level Floors, Unfastened Rugs, Poor Lighting, Etc)? No uqowkxfkgus29 Information not available 06/08/2024 Do You Feel Safe At Home? Yes optvmzbihsz07 Information not available 06/08/2024 Do You Have A Medical Power Of Proof Machine Operator Supervisor? No [email or web address] Information not available 06/08/2024 What Was The Date Of Your Most Recent Tobacco Screening? 02/12/2025 [email or web address] Information not available 03/02/2025 How Many Children Do You Have? 2 rzlxdbgslat52 Information not available 06/08/2024 Do You Use Protection During Sex? No vqdcajarmdi72 Information not available 06/08/2024 What Is Your Relationship Status? wugxzrugweq38 Information not available 06/08/2024 Do You Use Your Seat Belt Or Car Seat Routinely? Yes Information not available 06/08/2024 Are You Sexually Active? No Information not available 06/08/2024 Are You Passively Exposed To Smoke? No Information no t available 08/21/2022 Do You Or Have You Ever Used Smokeless Tobacco? Never Used Smokeless Tobacco oalxwzsfeta53 Information not available 06/08/2024 Do You Feel Stressed (tense, Restless, Nervous, Or Anxious, Or Unable To Sleep At Night)? [id number] iypzdfbzvng99 Information not available 06/08/2024 Do You Use Any Illicit Or Recreational Drugs? No Information not available 08/21/2022 Has Tobacco Cessation Counseling Been Provided? No [email or web address] Information not available 07/27/2024 Do You Or Have You Ever Used Any Other Forms Of Tobacco Or Nicotine? No vkhjxaydhys57 Information not available 06/08/2024 Sex: Unknown Functional Status Question Answer Note LastModified by Organizat ion Details LastModified Time Do you have difficulty walking or climbing stairs? No qejbxsqgpsl33 Information not available 06/08/2024 Do you have transportation difficulties? No wtficdxbiaj35 Information not available 06/08/2024 Are you able to walk? YESWOREST gvkiwxekokw71 Information not available 06/08/2024 Do you have difficulty doing errands alone? No nswkuvcicjn18 Information not available 06/08/2024 Are you able to care for yourself? Yes [email or web address] Information not available 06/08/2024 Do you have difficulty dressing or bathing? No [email or web address] Information not available 06/08/2024 What is your exercise level? None [email or web address] Information not available 06/08/2024 Mental Status Question Answer Note LastModified by Organization D etails LastModified Time Do you have difficulty concentrating, remembering or making decisions? No mwyfhectmlh56 Information no t available 06/08/2024 Family History Relationship Description Onset Age of this Age Resolved Age Notes LastModified by Organization Details LastModified Time Mother Cerebrovascu lar accident deceas ed [email or web address] Not available 08/21/2022 07:43:59 Father Diabetes mellitus deceas ed [email or web address] Not available 02/15/2025 11:10:51 Father Disorder of endocrine system pt. added direct ly (01/11) API-13 Not available 01/11/2024 10:44:02 Medical History Condition Response Depression Y High Cholesterol N Diabetes Y Hyperlipidemia Y Reflux/GERD Y Cirrhosis Y Hypertension Y Gynecological History Statement/Question Response Menses Monthly N Abnormal Pap N Sexually Active? N Obstetrics History GPAL:G 0 P 0 0 0 0 Immunizations Vaccine Type Date Status Note Provider Nam e and Address Organization Details Recorded Time Influenza, split virus, trivalent, preservative 10/13/201 6 completed Kim[place]cal[place] 04/07/2023 12:31:32 Pneumococcal conjugate PCV 13 3 completed Kimmie [place]cal[place] 04/07/2023 12:31:32 Tdap 3 completed Kimmie [place] 04/07/2023 12:31:32 pneumococcal polysaccharide PPV23 1 completed Varsha Colon [place] [facility] & [place] 03/02/2025 12:26:26 Influenza, split virus, trivalent, PF 6 completed Varsha Colon [place] [facility] & [place] 03/02/2025 12:26:26 Influenza, adjuvanted, trivalent, PF 9 completed Vars[place] Colon [place] 03/02/2025 12:26:26 Influenza, split virus, trivalent, preservative 5 completed Kimmie [place] 04/07/2023 12:31:32 Influenza, split virus, trivalent, PF 5 completed Varsha Colon [place] [facility] & [place] 03/02/2025 12:26:26 Influenza, split virus, trivalent, preservative 5 completed Kimmie [place] 04/07/2023 12:31:32 Influenza, adjuvanted, trivalent, PF 7 completed Varsha Colon [place] 03/02/2025 12:26:26 Influenza, split virus, trivalent, preservative 6 completed Kimmie [place]cal[place] [facility] & [place] 04/07/2023 12:31:32 pneumococcal polysaccharide PPV23 5 completed Varsha Colon [place] 03/02/2025 12:26:26 Influenza, high-dose, quadrivalent, PF 0 completed Varsha Colon null, [facility] [place] [facility] & [place] 03/02/2025 12:26:26 Influenza, adjuvanted, quadrivalent, PF 2 completed Varsha Colon null, [facility] [place] [facility] & [place] 03/02/2025 12:26:26 Influenza, adjuvanted, quadrivalent, PF 1 completed Varsha Colon null, [facility] & [place] 03/02/2025 12:26:26 COVID-19, mRNA, LNP-S, PF, 30 mcg/0.3 mL dose 1 completed Varsha Colon null, [facility] & [place] 03/02/2025 12:26:26 COVID-19, mRNA, LNP-S, PF, 30 mcg/0.3 mL dose 1 completed Varsha Colon null, [facility] & [place] 03/02/2025 12:26:26 COVID-19, mRNA, LNP-S, PF, 30 mcg/0.3 mL dose 1 completed Varsha Colon null, [facility] & [place] 03/02/2025 12:26:26 COVID-19, mRNA, LNP-S, bivalent, PF, 50 mcg/0.5 mL or 25mcg/0.25 mL dose 2 completed Varsha Colon null, [facility] & [place] 03/02/2025 12:26:26 Influenza, high-dose, quadrivalent, PF 3 completed Reece Iglesias null, [facility] & [place] 05/30/2024 10:47:30 COVID-19, mRNA, LNP-S, PF, 50 mcg/0.5 mL 3 completed Reece Iglesias null, [facility] [place] [facility] & [place] 05/30/2024 10:47:30 COVID-19, mRNA, LNP-S, PF, 50 mcg/0.5 mL 4 completed Vars[place] Colon [place] 03/02/2025 12:26:26 Influenza, high-dose, trivalent, PF 4 completed Vars[place] Colon [place] 03/02/2025 12:26:26 zoster recombinant 4 completed Vars[place] Colon [place] 03/02/2025 12:26:26 Tdap 4 completed Vars[place] Colon [place] 03/02/2025 12:26:26 Past Encounters Encounter ID Performer Location Encounter Start Date Encounter Closed Date Diagnosis/Indication Diagnosis SNOMED-CT Code Diagnosis ICD10 Code Diagnosis Note [id number] Frieda Mcelroy NP [facility] [address] [place] [address] 02/15/2025 11:03:37 02/15/2025 12:09:35 Cirrhosis of liver 76306673 K74.60 Cirrhosis secondary to GUTHRIE. Decompensa byron. Recent abdominal ultrasound 12/16/2024 with cirrhosis and splenomega ly and large volume ascites noted. EGD 01/25/25 with PHG and evidence of bleeding. Patient continues carvedilol for treatment. She continues diuretics and tries to maintain low sodium diet with resolution of ascites. Plan for labs today to formulate MELD. Recommend avoidance of NSAIDS as well as strict less than 2,000 mg low sodium diet. I have recommende d hepatitis A and B vaccinatio n. Due for repeat liver US and AFP to screen for HCC 04/2025. Ascites 361920158 R18.8 Large volume ascites noted on abdominal ultrasound reviewed 12/16/2024 . Patient continues diuretic therapy without refractory ascites. Recommend continued low sodium diet as well as continued diuretic therapy. Constipation 42654248 K5 9.00 previously prescribed lactulose however patient discontinu ed due to increased abdominal cramping with use. She reports daily bowel movements at this time with increased appetite. Ulcer of duodenum 819178 09 K26.9 EGD from 01/25/2025 noted diffuse portal hypertensi ve gastropath y as well as erosive duodenitis with ulcers noted. Recommend continued use of pantoprazo le 40 mg p.o. BID as prescribed following procedure. Hypokalemia 51909172 E87 .6 Previously noted on labs from 12/21/24. She did not complete follow up lab as recommende d. She continues potassium supplement s at this time. Plan for labs to monitor. Portal hyp ertensive gastropathy 895627315 K76.6 K31.89 Portal hypertensi ve gastropath y with oozing of blood noted on EGD 01/25/2025 . Recommend continued use of carvedilol as prescribed following procedure. Health Concerns Section Related Observation LastModified by Organization Detai ls LastModified Time None Recorded Concern Status LastModified by Organization Details LastModified Time None Recorded Payers Encounter Date Sequence Insurance Name Policy Number Policy Carmichael Covered Member ID Carmichael Member ID Guarantor Name 02/15/2025 1 [place] Vika Jackson [id number] Vika Jackson Notes Date Note Type Note Provider Name and Address Organization Details Recorded Time 02/15/2025 text/html Patient returns to clinic today for follow-up on cirrhosis and recent EGD. EGD completed 01/25/2025 noted abnormal edematous tissue at the GE junction without esophageal varices noted. Diffuse portal hypertensive gastropathy with oozing of blood was noted as well as erosive duodenitis with 2 ulcerations noted. pathology confirmed mild chronic gastritis negative H pylori as well as acute and chronic inflammation from esophageal biopsy negative for metaplasia or dysplasia. Patient continues pantoprazole 40 mg p.o. b.i.d. as prescribed following procedure. She also continues low-dose carvedilol b.i.d. for finding of PHG. She continues diuretics for history of ascites, weight is down 22 pounds since she was last seen in clinic. No lower extremity edema. Labs from prior visit with hypokalemia noted, follow up lab was recommended however this was not completed. She is currently taking Potassium supplement. Denies confusion. Constipation has improved, she stopped taking Lactulose due to abdominal cramping with use. Reports daily bowel movements at this time. Abdominal ultrasound reviewed 12/16/2024 noted cirrhosis with splenomegaly as well as large volume ascites. Frieda Mcelroy NP [address] [place] [address], [address], [place], [id number], [facility] - [place] & [place] 02/15/2025 13:55:21 OBGyn Episode No OBEpisode recorded.
--- OUTSIDE RECORDS SUMMARY | 2025-03-02 19:39 | XMS_ITS | Data Portability ---
Author Organization [facility] Yolande & JUAN Luna ADMIN Address [address] [place] [id number] Care Team Providers Care Air Brake Man Name Role Phone DREW TRAORE Primary Care Provider ANGELA HARP Hematology/Oncology FRIEDA MCELROY Shaping Machine Tender [phone] Assessment No assessment recorded. Plan of Treatment Reminders Order Date Submit Date Provider Last Modified By Organization Details Last Modified Time Details Appointments HFU 30 2024 03:45P M DREW TRAORE NP Not available Not available Not available OV EST 15 2024 11:15A M Frieda Mcelroy NP Not available Not available Not available Lab CMP, serum or plasma 2024 025 [facility] (Lab Registration) , [address] [place] [address] [place], [address], 02/21/2025 12:35:45 PT/INR 2024 025 MULBERRY Roman [facility] (Lab Registration) , [address] [place] [address] [place], [address], 02/21/2025 12:35:30 CBC w/ auto diff 2024 025 MULBERRY Roman [facility] (Lab Registration) , [address] [place] [address] [place], [address], 02/21/2025 12:35:43 ammonia, blood 2024 025 [facility] (Lab Registration) , [address] [place] [address] [place], [address], 12/21/2024 12:51:17 CMP, serum or plasma 2024 025 [facility] (Lab Registration) , [address] [place] [address] [place], [address], 12/21/2024 13:05:31 PT/INR 2024 025 [facility] (Lab Registration) , [address] [place] [address] [place], [address], 12/21/2024 13:03:21 CBC w/ auto diff 2024 025 [facility] (Lab Registration) , [address] [place] [address] [place], [address], 12/21/2024 12:46:57 afp (alpha-fe toprotein ) tumor marker, serum or plasma 2024 025 [facility] (Lab Registration) , [address] [place] [address] [place], [address], 12/30/2024 08:26:32 cell count w/ diff, body fluid 2024 025 [facility] (Lab Registration) , [address] [place] [address] [place], [address], 12/30/2024 08:26:32 gram stain, body fluid 2024 025 [facility] (Lab Registration) , [address] [place] [address] [place], [address], 12/30/2024 08:26:32 culture, peritonea l fluid 2024 025 [facility] (Lab Registration) , [address] [place] [address] [place], [address], 12/30/2024 08:26:33 CBC w/ auto diff 2024 025 [facility] (Laboratory), [address] [place], [address], 12/06/2024 13:31:06 HbA1c (hemoglob in A1c), blood 2024 025 [facility] (Laboratory), [address] [place], [address], 12/06/2024 13:38:03 CMP, serum or plasma 2024 025 [facility] (Laboratory), [address] [place], [address], 12/06/2024 13:36:34 amylase + lipase, serum [id number] (Laboratory), [address] [place], [address], 12/13/2024 08:12:30 lipid panel, serum 2023 024 [facility] (Laboratory), [address] [place], [address], 09/05/2024 10:28:56 hemoglobi n A1c + average glucose, QN, blood 2023 024 [email or web address] [facility] (Laboratory), [address] [place], [address], 09/12/2024 08:25:17 CMP, serum or plasma 2023 024 [facility] (Laboratory), [address] [place], [address], 09/05/2024 10:28:54 CMP, serum or plasma 2023 024 [facility] (Laboratory), [address] [place], [address], 07/29/2024 13:43:54 BNP (B-type natriuret ic peptide), serum or plasma 2023 024 [email or web address] [facility] (Laboratory), [address] [place], [address], 08/01/2024 09:30:52 magnesium , serum or plasma 2023 024 [facility] (Laboratory), [address] [place], [address], 07/29/2024 13:43:56 Referral rheumatol ogist referral 2024 025 [facility] [place] [facility], [address], [place], [address], 12/30/2024 11:36:57 Procedures upper endoscopy procedure (EGD) (PROC) 2024 025 [facility] (Central Scheduling), [address] [place], [address], 01/18/2025 10:25:24 abdominal paracente sis; with imaging guidance (PROC) - Albumin 25 gm per 5 liter removed 2024 025 [facility]), [address] [place], [address], 12/30/2024 08:26:43 Surgeries None recorded. Imaging US, abdomen, complete 2024 025 [id number] [facility] (Scheduling), [address] [place], [address], 12/13/2024 10:36:31 Medication Orders lactulose 10 gram/15 mL oral solution 2024 025 MULBERRY [facility][id number], [address], [place], [id number], 02/15/2025 13:54:09 spironola ctone 100 mg tablet 2024 025 [facility] #87554, [address], [place], [id number], 12/21/2024 11:36:58 furosemid e 20 mg tablet [address]02337, [address] [place], [id number], 12/21/2024 12:38:42 potassium chloride ER 10 mEq tablet,ex tended release [address] [facility] #00253, [address] [place], [id number], 12/21/2024 11:17:05 citalopra m 20 mg tablet 2024 025 [facility] #11723, [address] [place], [id number], 12/21/2024 11:17:04 gabapenti n 300 mg capsule 2024 025 [facility] #39914, [address] [place], [id number], 12/21/2024 11:17:04 citalopra m 20 mg tablet 2023 024 [facility], [address] [place], [id number], 09/05/2024 08:52:59 gabapenti n 300 mg capsule 2023 024 [facility]84409, [address] [place], [id number], 09/05/2024 08:53:00 furosemid e 20 mg tablet 2023 024 [facility]61, [address] [place], [id number], 08/01/2024 15:30:56 potassium chloride ER 10 mEq tablet,ex tended release 2023 024 [facility] #86129, [address], [place], [place], [id number], 07/29/2024 11:08:52 Patient TargetsNo targets recorded. 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 4 low Not Available [facility] ([facility]) [address] , [place], [address], 07/27/2024 16:22:14 07/27/20 24 07/27/2024 CBC AUTO W DIFF HGB 10.2 gm/dL 12.5-1 6.0 low Not Available [facility] ([facility]) [address] [place], [address], 07/27/2024 16:22:14 07/27/20 24 07/27/2024 CBC AUTO W DIFF HCT 33.3 % 37.0-4 7.0 low Not Available [facility] ([facility]) [address] , [place], [address], 07/27/2024 16:22:14 07/27/20 24 07/27/2024 CBC AUTO W DIFF MCV 94.3 fL 78-100 Not Available [facility] ([facility]) [address], [place], [address], 07/27/2024 16:22:14 07/27/20 24 07/27/2024 CBC AUTO W DIFF MCH 28.9 pg 27-31 Not Available [facility] ([facility]) [address], [place], [address], 07/27/2024 16:22:14 07/27/20 24 07/27/2024 CBC AUTO W DIFF MCHC 30.6 g/dL 32-36 low Not Available [facility] ([facility]) [address], [place], [address], 07/27/2024 16:22:14 07/27/20 24 07/27/2024 CBC AUTO W DIFF RDW 18.6 % 11.5-1 4.0 high Not Available [facility] ([facility]) [address], [place], [address], 07/27/2024 16:22:14 07/27/20 24 07/27/2024 CBC AUTO W DIFF platelet count 106 K/uL 150-45 0 low Not Available [facility] ([facility]) [address], [place], [address], 07/27/2024 16:22:14 07/27/20 24 07/27/2024 CBC AUTO W DIFF MPV 11.1 fL 6-9.5 high Not Available [facility] ([facility]) [address] [place], [address], 07/27/2024 16:22:14 07/27/20 24 07/27/2024 CBC AUTO W DIFF neutrophil% 65.8 % 43-65 high Not Available [facility] ([facility]) [address], [place], [address], 07/27/2024 16:22:14 07/27/20 24 07/27/2024 CBC AUTO W DIFF lymphocyte% 22.1 % 20.5-4 5.5 Not Available [facility] ([facility]) [address], [place], [address], 07/27/2024 16:22:14 07/27/20 24 07/27/2024 CBC AUTO W DIFF monocyte% 8.0 % 5.5-11 .7 Not Available [facility] ([facility]) [address], [place], [address], 07/27/2024 16:22:14 07/27/20 24 07/27/2024 CBC AUTO W DIFF eosinophil% 3.2 % 0.9-2. 9 high Not Available [facility] ([facility]) [address], [place], [address], 07/27/2024 16:22:14 07/27/20 24 07/27/2024 CBC AUTO W DIFF basophil% 0.6 % 0.2-1. 0 Not Available [facility] ([facility]) [address] [facility], [place], [address], 07/27/2024 16:22:14 07/27/20 24 07/27/2024 CBC AUTO W DIFF immature granulocytes % 0.3 % 0.0-0. 8 Not Available [facility] ([facility]) [address] [place], [address], 07/27/2024 16:22:14 07/27/20 24 07/27/2024 CBC AUTO W DIFF nucleated red blood cells % 0.0 % Not Available [facility] ([facility]) [address] [place], [address], 07/27/2024 16:22:14 07/27/20 24 07/27/2024 CBC AUTO W DIFF neutrophil# 2.3 K/uL 2.2-4. 8 Not Available [facility] ([facility]) [address] [facility], [place], [address], 07/27/2024 16:22:14 07/27/20 24 07/27/2024 CBC AUTO W DIFF lymphocyte# 0.8 cell/ mcL 1.3-2. 9 low Not Available [facility] ([facility]) [address], [place], [address], 07/27/2024 16:22:14 07/27/20 24 07/27/2024 CBC AUTO W DIFF monocyte# 0.3 cell/ mcL 0.3-0. 8 Not Available [facility] ([facility]) [address], [place], [address], 07/27/2024 16:22:14 07/27/20 24 07/27/2024 CBC AUTO W DIFF eosinophil# 0.1 cell/ mcL 0-0.2 Not Available [facility] ([facility]) [address], [place], [address], 07/27/2024 16:22:14 07/27/20 24 07/27/2024 CBC AUTO W DIFF basophil# 0.0 cell/ mcL 0.0-1. 0 Not Available [facility] ([facility]) [address], [place], [address], 07/27/2024 16:22:14 07/27/20 24 07/27/2024 CBC AUTO W DIFF immature gramulocytes # 0.01 K/uL Not Available [facility] ([facility]) [address], [place], [address], 07/27/2024 16:22:14 07/27/20 24 07/27/2024 CBC AUTO W DIFF nucleated red blood cells # 0.00 K/uL Not Available [facility] ([facility]) [address] [place], [address], 07/27/2024 16:22:14 09/04/07/27/2024 CBC AUTO W DIFF manual differential NO Not Available [facility] ([facility]) [address] , [place], [address], 07/27/2024 16:22:14 07/27/20 24 07/27/2024 PLATE LET AUTO plts 96 k/uL 150-45 0 low PERFO RMED ON NA CITRA TE TUBE Not Available [facility] ([facility]) [address], [place], [address], 07/27/2024 16:23:24 07/27/20 24 07/27/2024 RETIC COUNT AUTO reticulocyte % 2.4 % 0.5-1. 5 high Not Available [facility] ([facility]) [address], [place], [address], 07/27/2024 16:25:30 07/27/20 24 07/27/2024 IRON STUDY (IRON /TIBC /%SAT ) iron 89 mcg/m L 40-180 Not Available [facility] ([facility]) [address], [place], [address], 07/27/2024 17:00:41 07/27/20 24 07/27/2024 IRON STUDY (IRON /TIBC /%SAT ) TIBC 378 mcg/d L 250-45 0 Not Available [facility] ([facility]) [address] [place], [address], 07/27/2024 17:00:41 07/27/20 24 07/27/2024 IRON STUDY (IRON /TIBC /%SAT ) %sat 24 15-55 Not Available [facility] ([facility]) [address], [place], [address], 07/27/2024 17:00:41 07/27/20 24 07/27/2024 COMP METAB OLIC PANEL sodium 143 mmol/ L 136-14 5 Not Available [facility] ([facility]) [address], [place], [address], 07/27/2024 17:12:57 07/27/20 24 07/27/2024 COMP METAB OLIC PANEL potassium 3.6 mmol/ L 3.6-5. 0 Not Available [facility] ([facility]) [address] , [place], [address], 07/27/2024 17:12:57 07/27/20 24 07/27/2024 COMP METAB OLIC PANEL chloride 108 mmol/ L 98-107 high Not Available [facility] ([facility]) [address] , [place], [address], 07/27/2024 17:12:57 07/27/20 24 07/27/2024 COMP METAB OLIC PANEL carbon dioxide 25.7 mmol/ L 21.0-3 2.0 Not Available [facility] ([facility]) [address] [place], [address], 07/27/2024 17:12:57 07/27/20 24 07/27/2024 COMP METAB OLIC PANEL anion gap 12.9 Not Available [facility] ([facility]) [address] , [place], [address], 07/27/2024 17:12:57 07/27/20 24 07/27/2024 COMP METAB OLIC PANEL glucose 69 mg/dL 70-120 low Not Available [facility] ([facility]) [address] [place], [address], 07/27/2024 17:12:57 07/27/20 24 07/27/2024 COMP METAB OLIC PANEL BUN 10 mg/dL 7-18 Not Available [facility] ([facility]) [address] [place], [address], 07/27/2024 17:12:57 07/27/20 24 07/27/2024 COMP METAB OLIC PANEL creatinine 0.8 mg/dL 0.6-1. 3 Not Available [facility] ([facility]) [address] , [place], [address], 07/27/2024 17:12:57 07/27/20 24 07/27/2024 COMP METAB OLIC PANEL glomerular filtration rate TNP mlper min 60- TEST NOT PERFO RMED GFR has only been valid ated from 18 to 70 years of age. Not Available [facility] ([facility]) [address] , [place], [address], 07/27/2024 17:12:57 07/27/20 24 07/27/2024 COMP METAB OLIC PANEL total protein 7.1 g/dL 6.4-8. 2 Not Available [facility] ([facility]) [address] , [place], [address], 07/27/2024 17:12:57 07/27/20 24 07/27/2024 COMP METAB OLIC PANEL albumin 3.1 g/dL 3.4-5. 0 low Not Available [facility] ([facility]) [address] , [place], [address], 07/27/2024 17:12:57 07/27/20 24 07/27/2024 COMP METAB OLIC PANEL globulin 4.0 Not Available [facility] ([facility]) [address] , [place], [address], 07/27/2024 17:12:57 07/27/20 24 07/27/2024 COMP METAB OLIC PANEL alb/glob ratio 0.8 0.7-2 Not Available [facility] ([facility]) [address], [place], [address], 07/27/2024 17:12:57 07/27/20 24 07/27/2024 COMP METAB OLIC PANEL calcium 8.7 mg/dL 8.5-10 .5 Not Available [facility] ([facility]) [address], [place], [address], 07/27/2024 17:12:57 07/27/20 24 07/27/2024 COMP METAB OLIC PANEL bilirubin total 1.40 mg/dL 0.10-1 .00 high Not Available [facility] ([facility]) [address], [place], [address], 07/27/2024 17:12:57 07/27/20 24 07/27/2024 COMP METAB OLIC PANEL AST (SGOT) 57 U/L 0-37 high Not Available [facility] ([facility]) [address], [place], [address], 07/27/2024 17:12:57 07/27/20 24 07/27/2024 COMP METAB OLIC PANEL ALT (SGPT) 42 U/L 0-65 Not Available [facility] ([facility]) [address], [place], [address], 07/27/2024 17:12:57 07/27/20 24 07/27/2024 COMP METAB OLIC PANEL alk phosphatase 168 U/L 46-116 high Not Available [facility] ([facility]) [address], [place], [address], 07/27/2024 17:12:57 07/27/20 24 07/27/2024 LDH (LD) LDH 291 U/L 0-190 high Not Available [facility] ([facility]) [address], [place], [address], 07/27/2024 17:12:59 07/27/20 24 07/27/2024 TODD TIN ferritin, serum 48 NG/mL 3-244 Not Available [facility] ([facility]) [address] [place], [address], 07/27/2024 17:13:01 07/27/20 24 07/27/2024 VITAM IN B12 vitamin B12 725 pg/mL 193-98 6 *Note : Refer ence Inter mini Jaime e. New Test Metho d in use. Not Available [facility] ([facility]) [address], [place], [address], 07/27/2024 17:29:22 07/27/20 24 07/27/2024 VITAM IN B12 folate (folic acid), serum 17.5 NG/mL 8.6-58 .9 *Note : Refer ence Inter mini Jaime e. New Test Metho d in use. Not Available [facility] ([facility]) [address], [place], [address], 07/27/2024 17:29:22 07/27/20 24 07/29/2024 EBV AB VCA, IGG ebv Ab vca, IgG <18.0 U/mL 0.0-17 .9 Negat estela <18.0 Equiv ocal 18.0 - 21.9 Posit estela >21.9 Perfo rmed at: [facility] [place] [address] Lab Direc tor: Jah russo PhD, Phone : [phone] Not Available [facility] ([facility]) [address], [place], [address], 07/29/2024 17:12:09 07/27/20 24 08/01/2024 CHRON IC LEUKE GENESIS/L YMPHO MA specimen type Commen t . Perip heral blood Not Available [facility] ([facility]) [address] , [place], [address], 08/01/2024 19:09:50 07/27/20 24 08/01/2024 CHRON IC LEUKE GENESIS/L YMPHO MA clinical information Commen t . A recen t CBC was not avail able for revie w at the time this r eport was prepa red. Not Available [facility] ([facility]) [address] , [place], [address], 08/01/2024 19:09:50 07/27/20 24 08/01/2024 CHRON IC LEUKE GENESIS/L YMPHO MA comment: Commen t . Each antib jeffery in this assay was utili zed to asses s for poten tial abnor malit ies of studi ed cell popul ation s or to maggie cteri ze ident ified abnor malit ies. . This test was devel oped and its perfo rmanc e maggie cteri stics deter mined by [facility]. It has not been clear ed or appro estephania by the U.S. Food and Drug Admin istra tion. . The FDA has deter mined that such clear ance or appro mini is not neces xiao. This test is used for clini mary purpo ses. It shoul d not be regar ded as inves tigat ional or for resea rch. Perfo rmed at: -Y - [facility] RTP [address] [facility], [facility] [[email or web address] [place] [address] Lab Direc tor: Emmy Hernandez [facility] , Phone : [phone] Perfo rmed at: TG - [facility] RTP [address] , [facility] [[email or web address] [place] [address] Lab Direc tor: Emmy Hernandez [facility] , Phone : [phone] Not Available [facility] ([facility]) [address] [facility], [place], [address], 08/01/2024 19:09:50 07/27/20 24 08/01/2024 CHRON IC LEUKE GENESIS/L YMPHO MA flow interpretati on Commen t . No signi fican t immun ophen otypi c abnor malit y detec byron. Not Available [facility] ([facility]) [address], [place], [address], 08/01/2024 19:09:50 07/27/20 24 08/01/2024 CHRON IC LEUKE GENESIS/L YMPHO MA leukocyte assessment Commen t . No monoc lonal B cell popul ation is detec byron. kappa :nicole da ratio 1.5 There is no loss of, or aberr ant expre ssion of, the pandey T ce ll antig ens to sugge st a neopl astic T cell proce ss. CD4:C D8 ratio 6.8 No circu latin g blast s are detec byron. There is no immun ophen otypi c evide nce of abnor mal myelo id m atura tion. Not Available [facility] ([facility]) [address] [facility], [place], [address], 08/01/2024 19:09:50 07/27/20 24 08/01/2024 CHRON IC LEUKE GENESIS/L YMPHO MA resulting path name Commen t . Bacilio Leblanc M.D. Ph.D Not Available [facility] ([facility]) [address] [facility], [place], [address], 08/01/2024 19:09:50 07/27/20 24 08/01/2024 CHRON IC LEUKE GENESIS/L YMPHO MA phenotype chart Commen t . CD2 Megan l CD3 Megan l CD4 Megan l CD5 Megan l CD7 Megan l CD8 Megan l CD10 Megan l CD11b Megan l CD13 Megan l CD14 Megan l CD16 Megan l CD19 Megan l CD20 Megan l CD33 Megan l CD34 Megan l CD38 Megan l CD45 Megan l CD56 Megan l CD57 Megan l CD117 Megan l HLA-D R Megan l KAPPA Megan l LAMBD A Megan l CD64 Megan l Not Available [facility] ([facility]) [address] [facility], [place], [address], 08/01/2024 19:09:50 07/27/20 24 08/01/2024 CHRON IC LEUKE GENESIS/L YMPHO MA analysis and gating strategy Commen t . 8 color junior sis with DC45/ SSC gatin g Not Available [facility] ([facility]) [address] [facility], [place], [address], 08/01/2024 19:09:50 07/27/20 24 08/01/2024 CHRON IC LEUKE GENESIS/L YMPHO MA viability Commen t . 73% Cell viabi lity in this sampl e is suffi cient for junior sis but is less than optim al. Not Available [facility] ([facility]) [address] [facility], [place], [address], 08/01/2024 19:09:50 07/27/20 24 08/01/2024 PLATE LET ANTIB JEFFERY, SERUM hla class 1 Ab NEGATI VE negati ve Not Available [facility] ([facility]) [address] [place], [address], 08/01/2024 19:09:51 07/27/20 24 08/01/2024 PLATE LET ANTIB JEFFERY, SERUM iib / iiia NEGATI VE negati ve Not Available [facility] ([facility]) [address] [facility], [place], [address], 08/01/2024 19:09:51 07/27/20 24 08/01/2024 PLATE LET ANTIB JEFFERY, SERUM ib / IX POSITI VE negati ve delta Not Available [facility] ([facility]) [address] [facility], [place], [address], 08/01/2024 19:09:51 07/27/20 24 08/01/2024 PLATE LET ANTIB JEFFERY, SERUM ia / iia NEGATI VE negati ve Not Available [facility] ([facility]) [address] [place], [address], 08/01/2024 19:09:51 07/27/20 24 08/01/2024 PLATE LET ANTIB JEFFERY, SERUM glycoprotein IV antibody NEGATI VE negati ve Perfo rmed at: BN [facility] [address] [place] [address] Lab Direc tor: Roro murillo MD, Phone : [phone] Not Available [facility] ([facility]) [address], [place], [address], 08/01/2024 19:09:51 07/27/20 24 08/01/2024 ACUTE HEPAT ITIS PANEL hep A Ab, IgM Negati ve negati ve A negat estela anti- HAV IgM resul t sugge sts no recen t or curre nt HAV infec tion. Not Available [facility] ([facility]) [address] [facility], [place], [address], 08/01/2024 19:09:53 07/27/20 24 08/01/2024 ACUTE HEPAT ITIS PANEL HBsAg screen Negati ve negati ve Not Available [facility] ([facility]) [address] [facility], [place], [address], 08/01/2024 19:09:53 07/27/20 24 08/01/2024 ACUTE HEPAT ITIS PANEL hep B core Ab, IgM Negati ve negati ve Not Available [facility] ([facility]) [address] [facility], [place], [address], 08/01/2024 19:09:53 07/27/20 24 08/01/2024 ACUTE HEPAT ITIS PANEL HCV Ab Non Reacti ve non reacti ve Perfo rmed at: - [facility] [id number] [facility] Lab Direc tor: Jah russo PhD, Phone : [phone] Not Available [facility] ([facility]) [address] [facility], [place], [address], 08/01/2024 19:09:53 07/27/2008/01/2024 ACUTE HEPAT ITIS PANEL hep A Ab, IgM Negati ve negati ve A negat estela anti- HAV IgM resul t sugge sts no recen t or curre nt HAV infec tion. Not Available [facility] ([facility]) [address] [facility], [place], [address], 08/01/2024 19:09:54 07/27/20 24 08/01/2024 ACUTE HEPAT ITIS PANEL HBsAg screen Negati ve negati ve Not Available [facility] ([facility]) [address], [place], [address], 08/01/2024 19:09:54 07/27/20 24 08/01/2024 ACUTE HEPAT ITIS PANEL hep B core Ab, IgM Negati ve negati ve Not Available [facility] ([facility]) [address], [place], [address], 08/01/2024 19:09:54 07/27/20 24 08/01/2024 ACUTE HEPAT ITIS PANEL HCV Ab Non Reacti ve non reacti ve [facility] [address] [facility] [address] [facility], [place], [place] [id number] Lab Direc tor: Jah russo PhD, Phone : [phone] Not Available [facility] ([facility]) [address] [facility], [place], [address], 08/01/2024 19:09:54 07/27/20 24 08/01/2024 ACUTE HEPAT ITIS PANEL interpretati on: Commen t . Not infec byron with HCV unles s early or acute infec tion is suspe cted (whic h may be delay ed in an immun ocomp romis ed indiv idual ), or other evide nce exist s to indic ate HCV infec tion. Perfo rmed at: - [facility] n [address] [facility], [place] [address] 12[address] Lab Direc tor: Jah russo PhD, Phone : [phone] Not Available [facility] ([facility]) [address] [facility], [place], [address], 08/01/2024 19:09:54 07/27/20 24 08/01/2024 HIV AB/P2 4 AG WITH REFLE X HIV screen 4TH generation wrfx Non Reacti ve non reacti ve HIV-1 /HIV- 2 antib odies and HIV-1 p24 antig en were NOT detec byron. There is no labor atory evide nce of HIV infec tion. HIV Negat estela Perfo rmed at: [facility] [address] [place], [place] [id number] 9721 Lab Direc tor: Jah russo PhD, Phone : [phone] Not Available [facility] ([facility]) [address] [place], [address], 08/01/2024 19:09:54 07/27/20 24 08/01/2024 EBV AB VCA, IGM ebv Ab vca, IgM <36.0 U/mL 0.0-35 .9 Negat estela <36.0 Equiv ocal 36.0 - 43.9 Posit estela >43.9 Perfo rmed at: [address] [id number] Lab Direc tor: Jah russo PhD, Phone : [phone] Not Available [facility] ([facility]) [address] [facility], [place], [address], 08/01/2024 19:09:55 07/27/20 24 08/01/2024 ERYTH ROPOI ETIN QUANT erythropoiet in, serum 56.5 mIU/m L 2.6-18 .5 high Beckm an Coult er UniCe l DxI 800 Immun oassa y Syste m . Value s obtai quynh with diffe rent assay metho ds or kits canno t be used inter jaime eably . Resul ts canno t be inter prete d as absol bishop paiute evide nce of the prese nce or absen ce of arielle [place] se. Perfo rmed at: [place] [id number] [place], [place] [id number] Lab Direc tor: Jah russo PhD, Phone : [phone] Not Available [facility] ([facility]) [address] [place], [address], 08/01/2024 19:09:56 07/27/20 24 08/01/2024 OLIVIA W/REF ARDEN IF POSIT ESTELA antinuclear Ab, direct POSITI VE negati ve delta Not Available [facility] ([facility]) [address] [place], [address], 08/01/2024 19:09:57 07/27/20 24 08/01/2024 OLIVIA W/REF ARDEN IF POSIT ESTELA anti-ds DNA Ab 15 IU/mL 0-9 high Negat estela <5 Equiv ocal 5 - 9 Posit estela >9 Not Available [facility] ([facility]) [address] [place], [address], 08/01/2024 19:09:57 07/27/20 24 08/01/2024 OLIVIA W/REF ARDEN IF POSIT ESTELA hall clerk Ab <0.2 ai 0.0-0. 9 Not Available [facility] ([facility]) [address] [place], [address], 08/01/2024 19:09:57 07/27/20 24 08/01/2024 OLIVIA W/REF ARDEN IF POSIT ESTELA rubio Ab <0.2 ai 0.0-0. 9 Not Available [facility] ([facility]) [address] [place], [address], 08/01/2024 19:09:57 07/27/20 24 08/01/2024 OLIVIA W/REF ARDEN IF POSIT ESTELA antisclerode rma-70 Ab <0.2 ai 0.0-0. 9 Not Available [facility] ([facility]) [address] [place], [address], 08/01/2024 19:09:57 07/27/20 24 08/01/2024 OLIVIA W/REF ARDEN IF POSIT ESTELA sjogren's anti-ss-A <0.2 ai 0.0-0. 9 Not Available [facility] ([facility]) [address] [place], [address], 08/01/2024 19:09:57 07/27/20 24 08/01/2024 OLIVIA W/REF ARDEN IF POSIT ESTELA sjogren's anti-ss-B 2.2 ai 0.0-0. 9 high Not Available [facility] ([facility]) [address] [place], [address], 08/01/2024 19:09:57 07/27/20 24 08/01/2024 OLIVIA W/REF ARDEN IF POSIT ESTELA antichromati n Ab <0.2 ai 0.0-0. 9 Not Available [facility] ([facility]) [address] [place], [address], 08/01/2024 19:09:57 07/27/20 24 08/01/2024 OLIVIA W/REF ARDEN IF POSIT ESTELA anti-nereyda-1 <0.2 ai 0.0-0. 9 Not Available [facility] ([facility]) [address] [place], [address], 08/01/2024 19:09:57 07/27/20 24 08/01/2024 OLIVIA W/REF ARDEN IF POSIT ESTELA anti-centrom ere B antibodies <0.2 ai 0.0-0. 9 Not Available [facility] ([facility]) [address] [place], [address], 08/01/2024 19:09:57 07/27/20 24 08/01/2024 OLIVIA W/REF ARDEN IF POSIT ESTELA see below: [facility] ----- ----- ----- ----- ----- ----- ----- ----- ----- ----- ----- ----- Condi tion Frequ ency ----- ----- ----- ----- - ----- ----- ----- ----- ---- ----- ---- Antin uclea r Antib jeffery, SLE, mixed conne ctive Direc t (OLIVIA- D) tissu e disea ses ----- ----- ----- ----- - ----- ----- ----- ----- ---- ----- ---- dsDNA SLE 40 - 60% ----- ----- ----- ----- - ----- ----- ----- ----- ---- ----- ---- Chrom atin Drug induc ed SLE 90% SLE 48 - 97% ----- ----- ----- ----- - ----- ----- ----- ----- ---- ----- ---- SSA (Ro) SLE 25 - 35% Sjogr en's Syndr ome 40 - 70% Neona juan Lupus 100% ----- ----- ----- ----- - ----- ----- ----- ----- ---- ----- ---- SSB (La) SLE 10% Sjogr en's Syndr ome 30% ----- ----- ----- ----- - ----- ----- ----- ----- --- ----- ---- Sm (anti -Ramo h) SLE 15 - 30% ----- ----- ----- ----- - ----- ----- ----- ----- --- ----- ---- AUT[employer] TRAVEL COUNSELOR Mixed Conne ctive Tissu e Disea se 95% (U1 nRNP, SLE 30 - 50% anti- ribon ucleo prote in) Polym yosit is and/o r [place] tomyo sitis 20% ----- ----- ----- ----- - ----- ----- ----- ----- ---- ----- ---- Scl-7 0 (anti DNA Scler oderm a (diff use) 20 - 35% topoi bob ase) Crest 13% ----- ----- ----- ----- - ----- ----- ----- ----- ---- ----- ---- Nereyda-1 Polym yosit is and/o r [place] tomyo sitis 20 - 40% ----- ----- ----- ----- - ----- ----- ----- ----- ---- ----- ---- Centr omere B Scler oderm a - Crest varia nt 80% Perfo rmed at: [facility] [address] [place] [id number] Critical access hospital Lab Direc tor: Jah russo PhD, Phone : [phone] Not Available [facility] ([facility]) [address] [facility], [place], [address], 08/01/2024 19:09:57 07/27/20 24 08/02/2024 METHY LMALO JOSE ROBERTO ACID QUANT methylmaloni c acid, serum 233 nmol/ L 0-378 Speci men Comme nt: Test( s) 51120 7-Met hylma lonic Acid, Serum Speci men Comme nt: was devel oped and its perfo rmanc e maggie cte risti cs Speci men Comme nt: deter mined by [employer] [facility] rp. It has not been ivonne ared or appro estephania Speci men Comme nt: by the Food and Drug Admin istra tion. Perfo rmed at: BN - [facility] [place] [address] , [place] [address] Lab Direc tor: Roro murillo MD, Phone : [phone] Not Available [facility] ([facility]) [address], [place], [address], 08/02/2024 09:15:03 07/29/20 24 07/29/2024 B-TYP E NATRI URETI C PEPTI DE BNP B-type natriuretic peptide BNP 79.4 pg/mL 0.0-10 0 Non-C HF: Less than 100 pg/mL Class I: Great er than 100 pg/mL - Patie nts have no limit ation s of physi mary activ ity and have no sympt oms with ordin senia physi mary activ ity. Class II: Great er than 221 pg/mL - Patie nts have a sligh t limit ation of physi mary activ ity and have sympt oms with ordin senia physi mary activ ity. Class III: Great er than 459 pg/mL - Patie nts have a marke d limit ation of physi mary activ ity and have sympt oms with less than ordin senia physi mary activ ity, but not at rest. Class IV : Great er than 1006 pg/mL -Polina ents are unabl e to perfo rm any physi mary activ ity witho ut disco mfort . Not Available [facility] (Lab Registration) [address], [place], [address], 07/29/2024 13:31:46 07/29/20 24 07/29/2024 B-TYP E NATRI URETI C PEPTI DE BNP note Unles s other lofton noted testi ng perfo rmed at: [facility] [address] [place] [address] [phone] Jose Maria de la o MD CLIA: [id number] Not Available [facility] (Lab Registration) [address] [place], [address], 07/29/2024 13:31:46 07/29/20 24 07/29/2024 COMP METAB OLIC PANEL sodium 142 mmol/ L 136-14 5 Not Available [facility] (Lab Registration) [address] [place], [address], 07/29/2024 13:43:54 07/29/20 24 07/29/2024 COMP METAB OLIC PANEL potassium 4.0 mmol/ L 3.5-5. 1 Not Available [facility] (Lab Registration) [address] [place], [address], 07/29/2024 13:43:54 07/29/20 24 07/29/2024 COMP METAB OLIC PANEL chloride 108 mmol/ L 98-107 high Not Available [facility] (Lab Registration) [address] [place], [address], 07/29/2024 13:43:54 07/29/20 24 07/29/2024 COMP METAB OLIC PANEL carbon dioxide 25 mmol/ L 21-32 Not Available [facility] (Lab Registration) [address] [place], [address], 07/29/2024 13:43:54 07/29/20 24 07/29/2024 COMP METAB OLIC PANEL anion gap 9.0 Not Available [facility] (Lab Registration) [address] [place], [address], 07/29/2024 13:43:54 07/29/20 24 07/29/2024 COMP METAB OLIC PANEL glucose 81 mg/dL 70-110 Not Available [facility] (Lab Registration) [address] [place], [address], 07/29/2024 13:43:54 07/29/20 24 07/29/2024 COMP METAB OLIC PANEL blood urea nitrogen 8 mg/dL 7-18 Not Available [facility] (Lab Registration) [address] [place], [address], 07/29/2024 13:43:54 07/29/20 24 07/29/2024 COMP METAB OLIC PANEL creatinine 0.8 mg/dL 0.6-1. 0 Not Available [facility] (Lab Registration) [address] [place], [address], 07/29/2024 13:43:54 07/29/20 24 07/29/2024 COMP METAB OLIC PANEL BUN/creatini ne ratio 10.0 ratio 9-21 Not Available [facility] (Lab Registration) [address] [place], [address], 07/29/2024 13:43:54 07/29/20 24 07/29/2024 COMP METAB OLIC PANEL estimated glom filtration rate 77 mL/mi n >60- Not Available [facility] (Lab Registration) [address] [place], [address], 07/29/2024 13:43:54 07/29/20 24 07/29/2024 COMP METAB OLIC PANEL total protein 6.8 g/dL 6.4-8. 2 Not Available [facility] (Lab Registration) [address] [place], [address], 07/29/2024 13:43:54 07/29/20 24 07/29/2024 COMP METAB OLIC PANEL albumin 2.8 g/dL 3.4-5. 0 low Not Available [facility] (Lab Registration) [address] [place], [address], 07/29/2024 13:43:54 07/29/20 24 07/29/2024 COMP METAB OLIC PANEL calcium 8.5 mg/dL 8.5-10 .1 Not Available [facility] (Lab Registration) [address] [place], [address], 07/29/2024 13:43:54 07/29/20 24 07/29/2024 COMP METAB OLIC PANEL corrected calcium 9.5 mg/dL 8.5-10 .1 Not Available [facility] (Lab Registration) [address] [place], [address], 07/29/2024 13:43:54 07/29/20 24 07/29/2024 COMP METAB OLIC PANEL bilirubin total 1.1 mg/dL 0.4-1. 5 Not Available [facility] (Lab Registration) [address] [place], [address], 07/29/2024 13:43:54 07/29/20 24 07/29/2024 COMP METAB OLIC PANEL AST (SGOT) 51 U/L 15-37 high Not Available [facility] (Lab Registration) [address] [place], [address], 07/29/2024 13:43:54 07/29/20 24 07/29/2024 COMP METAB OLIC PANEL ALT (SGPT) 39 U/L 12-78 Not Available [facility] (Lab Registration) [address] [place], [address], 07/29/2024 13:43:54 07/29/20 24 07/29/2024 COMP METAB OLIC PANEL alk phosphatase 166 U/L 53-141 high Not Available [facility] (Lab Registration) [address] [place], [address], 07/29/2024 13:43:54 07/29/20 24 07/29/2024 COMP METAB OLIC PANEL note Unles s other lofton noted testi ng perfo rmed at: [facility] [address] [place] [address] [phone] Jose Maria de la o MD CLIA: [id number] Not Available [facility] (Lab Registration) [address] [place], [address], 07/29/2024 13:43:54 07/29/20 24 07/29/2024 MAGNE SIUM magnesium 2.0 mg/dL 1.8-2. 4 Not Available [facility] (Lab Registration) [address] [place], [address], 07/29/2024 13:43:56 07/29/20 24 07/29/2024 MAGNE SIUM note Unles s other lofton noted testi ng perfo rmed at: [facility] [address] [place] [address] [phone] Jose Maria de la o MD CLIA: [id number] Not Available [facility] (Lab Registration) [address] [place], [address], 07/29/2024 13:43:56 09/05/2009/05/2024 HEMOG LOBIN A1C glycosylated hemoglobin A1C 5.9 % 4.5-6. 2 Not Available [facility] (Lab Registration) [address] [place], [address], 09/05/2024 10:24:32 09/05/2009/05/2024 HEMOG LOBIN A1C estimated average glucose 123 mg/dL 82-131 Not Available [facility] (Lab Registration) [address] [place], [address], 09/05/2024 10:24:32 09/05/2009/05/2024 HEMOG LOBIN A1C note Unles s other lofton noted testi ng perfo rmed at: [facility] [address] [place] [address] [phone] Jose Maria de la o MD CLIA: [id number] Not Available [facility] (Lab Registration) [address] [place], [address], 09/05/2024 10:24:32 09/05/2009/05/2024 COMP METAB OLIC PANEL sodium 148 mmol/ L 136-14 5 high Not Available [facility] (Lab Registration) [address] [place], [address], 09/05/2024 10:28:54 09/05/2009/05/2024 COMP METAB OLIC PANEL potassium 4.3 mmol/ L 3.5-5. 1 Not Available [facility] (Lab Registration) [address], [place], [address], 09/05/2024 10:28:54 09/05/2009/05/2024 COMP METAB OLIC PANEL chloride 111 mmol/ L 98-107 high Not Available [facility] (Lab Registration) [address] [place], [address], 09/05/2024 10:28:54 09/05/2009/05/2024 COMP METAB OLIC PANEL carbon dioxide 26 mmol/ L 21-32 Not Available [facility] (Lab Registration) [address] [place], [address], 09/05/2024 10:28:54 09/05/2009/05/2024 COMP METAB OLIC PANEL anion gap 11.0 Not Available [facility] (Lab Registration) [address] [place], [address], 09/05/2024 10:28:54 09/05/2009/05/2024 COMP METAB OLIC PANEL glucose 105 mg/dL 70-110 Not Available [facility] (Lab Registration) [address] [place], [address], 09/05/2024 10:28:54 09/05/2009/05/2024 COMP METAB OLIC PANEL blood urea nitrogen 13 mg/dL 7-18 Not Available [facility] (Lab Registration) [address] [place], [address], 09/05/2024 10:28:54 09/05/2009/05/2024 COMP METAB OLIC PANEL creatinine 0.7 mg/dL 0.6-1. 0 Not Available [facility] (Lab Registration) [address] [place], [address], 09/05/2024 10:28:54 09/05/2009/05/2024 COMP METAB OLIC PANEL BUN/creatini ne ratio 18.6 ratio 9- Not Available [facility] (Lab Registration) [address], [place], [address], 09/05/2024 10:28:54 09/05/20 24 09/05/2024 COMP METAB OLIC PANEL estimated glom filtration rate 90 mL/mi n >60- GFR LIMIT ATION : The eGFR equat ion CKD-E PI 2020 is not appli cable for pedia tric patie nts or great er than 90 years of age. The follo wing condi tions may alter the GFR resul t: extre mes in body size, malnu triti on or obesi ty, skele juan muscl e disea se, parap legia or quadr ipleg ia, veget marquez diet or rapid ly jaime ing kiney funct ion. Not Available [facility] (Lab Registration) [address], [place], [address], 09/05/2024 10:28:54 09/05/2009/05/2024 COMP METAB OLIC PANEL total protein 7.2 g/dL 6.4-8. 2 Not Available [facility] (Lab Registration) [address], [place], [address], 09/05/2024 10:28:54 09/05/20 24 09/05/2024 COMP METAB OLIC PANEL albumin 3.1 g/dL 3.4-5. 0 low Not Available [facility] (Lab Registration) [address] [place], [address], 09/05/2024 10:28:54 09/05/20 24 09/05/2024 COMP METAB OLIC PANEL calcium 8.9 mg/dL 8.5-10 .1 Not Available [facility] (Lab Registration) [address] [place], [address], 09/05/2024 10:28:54 09/05/20 24 09/05/2024 COMP METAB OLIC PANEL corrected calcium 9.6 mg/dL 8.5-10 .1 Not Available [facility] (Lab Registration) [address], [place], [address], 09/05/2024 10:28:54 09/05/2009/05/2024 COMP METAB OLIC PANEL bilirubin total 1.5 mg/dL 0.4-1. 5 Not Available [facility] (Lab Registration) [address] [place], [address], 09/05/2024 10:28:54 09/05/2009/05/2024 COMP METAB OLIC PANEL AST (SGOT) 48 U/L 15-37 high Not Available [facility] (Lab Registration) [address], [place], [address], 09/05/2024 10:28:54 09/05/2009/05/2024 COMP METAB OLIC PANEL ALT (SGPT) 53 U/L 12-78 Not Available [facility] (Lab Registration) [address] [place], [address], 09/05/2024 10:28:54 09/05/2009/05/2024 COMP METAB OLIC PANEL alk phosphatase 148 U/L 53-141 high Not Available [facility] (Lab Registration) [address], [place], [address], 09/05/2024 10:28:54 09/05/2009/05/2024 COMP METAB OLIC PANEL note Unles s other lofton noted testi ng perfo rmed at: [facility] [address] [place] [address] [phone] Jose Maria de la o MD CLIA: [id number] Not Available [facility] (Lab Registration) [address] [place], [address], 09/05/2024 10:28:54 09/05/2009/05/2024 LIPID PANEL triglyceride 94 mg/dL 20-200 The Natio nal Stephanie stero l Educa tion Progr am ([employer] ) has set the follo wing guide lines for Fasti ng Trigl yceri brent: MEGAN L: <150 mg/dL BORDE RLINE HIGH: 150 - 199 mg/dL HIGH: 200 - 499 mg/dL VERY HIGH: > or =500 mg/dL Not Available [facility] (Lab Registration) [address] [place], [address], 09/05/2024 10:28:56 09/05/2009/05/2024 LIPID PANEL cholesterol 195 mg/dL 0-200 The Natio nal Stephanie stero l Educa tion Progr am ([facility] ) has set the follo wing guide lines for Fasti ng Stephanie stero l: OCHOA ABLE: <200 mg/dL BORDE RLINE HIGH: 200 - 239 mg/dL HIGH: > or =240 mg/dL Not Available [facility] (Lab Registration) [address] [place], [address], 09/05/2024 10:28:56 09/05/2009/05/2024 LIPID PANEL HDL cholesterol 83 mg/dL 60- The Natio nal Stephanie stero l Educa tion Progr am ([employer] ) has set the follo wing guide lines for Fasti ng HDL Stephanie stero l: LOW HDL: <40 mg/dL MEGAN L: 40 - 60 mg/dL OCHOA ABLE: >60 mg/dL Not Available [facility] (Lab Registration) [address] [place], [address], 09/05/2024 10:28:56 09/05/2009/05/2024 LIPID PANEL LDL calculated 93 mg/dL 100- low The Natio nal Stephanie stero l Educa tion Progr am ([employer] ) has set the follo wing guide lines for Fasti ng LDL Stephanie stero l: OPTIM AL: < 100 mg/dL LOW RISK: 100 - 129 mg/dL BORDE RLINE HIGH: 130 - 159 mg/dL HIGH: 160 - 189 mg/dL VERY HIGH: > or = 190 mg/dL Not Available [facility] (Lab Registration) [address] [place], [address], 09/05/2024 10:28:56 09/05/20 24 09/05/2024 LIPID PANEL chol/HDL ratio 2 ratio -5 Not Available [facility] (Lab Registration) [address], [place], [address], 09/05/2024 10:28:56 09/05/20 24 09/05/2024 LIPID PANEL note Unles s other lofton noted testi ng perfo rmed at: [facility] [address] [facility] [address] [facility] [place] [address] [phone] Jose Maria de la o MD CLIA: [id number] Not Available [facility] (Lab Registration) [address], [place], [address], 09/05/2024 10:28:56 12/06/19 25 12/06/2024 CBC AUTO W DIFF WBC 2.6 10 4.5-11 .5 low Not Available [facility] (Lab Registration) [address] [place], [address], 12/06/2024 13:31:06 12/06/19 25 12/06/2024 CBC AUTO W DIFF RBC 3.61 10 4.25-5 .57 low Not Available [facility] (Lab Registration) [address] [place], [address], 12/06/2024 13:31:06 12/06/19 25 12/06/2024 CBC AUTO W DIFF HGB 10.8 g/dL 12.0-1 5.7 low Not Available [facility] (Lab Registration) [address] [place], [address], 12/06/2024 13:31:06 12/06/19 25 12/06/2024 CBC AUTO W DIFF HCT 34.0 % 36.0-4 7.0 low Not Available [facility] (Lab Registration) [address] [place], [address], 12/06/2024 13:31:06 12/06/19 25 12/06/2024 CBC AUTO W DIFF MCV 94.2 fL 80-95 Not Available [facility] (Lab Registration) [address] [place], [address], 12/06/2024 13:31:06 12/06/19 25 12/06/2024 CBC AUTO W DIFF MCH 29.9 pg 27.0-3 4.0 Not Available [facility] (Lab Registration) [address] [place], [address], 12/06/2024 13:31:06 12/06/19 25 12/06/2024 CBC AUTO W DIFF MCHC 31.8 g/dL 32.0-3 6.0 low Not Available [facility] (Lab Registration) [address] [place], [address], 12/06/2024 13:31:06 12/06/19 25 12/06/2024 CBC AUTO W DIFF platelet count 98 10 150-45 0 low Not Available [facility] (Lab Registration) [address] [place], [address], 12/06/2024 13:31:06 12/06/19 25 12/06/2024 CBC AUTO W DIFF RDW 17.0 % 12.3-1 5.1 high Not Available [facility] (Lab Registration) [address] [place], [address], 12/06/2024 13:31:06 12/06/19 25 12/06/2024 CBC AUTO W DIFF MPV 11.3 fL 7.4-10 .4 high Not Available [facility] (Lab Registration) [address] [place], [address], 12/06/2024 13:31:06 12/06/19 25 12/06/2024 CBC AUTO W DIFF granulocyte% 57.7 % 40-75 Not Available [facility] (Lab Registration) [address] [place], [address], 12/06/2024 13:31:06 12/06/19 25 12/06/2024 CBC AUTO W DIFF lymphocyte% 23.8 % 15-57 Not Available [facility] (Lab Registration) [address] [place], [address], 12/06/2024 13:31:06 12/06/19 25 12/06/2024 CBC AUTO W DIFF monocyte% 10.4 % 4.0-12 .0 Not Available [facility] (Lab Registration) [address] [place], [address], 12/06/2024 13:31:06 12/06/19 25 12/06/2024 CBC AUTO W DIFF eosinophil% 7.3 % 0.0-4. 0 high Not Available [facility] (Lab Registration) [address] [place], [address], 12/06/2024 13:31:06 12/06/19 25 12/06/2024 CBC AUTO W DIFF basophil% 0.8 % 0.0-1. 0 Not Available [facility] (Lab Registration) [address] [place], [address], 12/06/2024 13:31:06 12/06/19 25 12/06/2024 CBC AUTO W DIFF immature granulocytes % 0.0 % 0.0-0. 8 Not Available [facility] (Lab Registration) [address] [place], [address], 12/06/2024 13:31:06 12/06/19 25 12/06/2024 CBC AUTO W DIFF granulocyte# 1.50 10 Not Available [facility] (Lab Registration) [address] [place], [address], 12/06/2024 13:31:06 12/06/19 25 12/06/2024 CBC AUTO W DIFF lymphocyte# 0.62 10 Not Available [facility] (Lab Registration) [address] [place], [address], 12/06/2024 13:31:06 12/06/19 25 12/06/2024 CBC AUTO W DIFF monocyte# 0.27 10 Not Available [facility] (Lab Registration) [address] [place], [address], 12/06/2024 13:31:06 12/06/19 25 12/06/2024 CBC AUTO W DIFF eosinophil# 0.19 10 Not Available [facility] (Lab Registration) [address] [place], [address], 12/06/2024 13:31:06 12/06/19 25 12/06/2024 CBC AUTO W DIFF basophil# 0.02 10 Not Available [facility] (Lab Registration) [address] [place], [address], 12/06/2024 13:31:06 12/06/19 25 12/06/2024 CBC AUTO W DIFF immature granulocytes # 0.00 10 Not Available [facility] (Lab Registration) [address] [place], [address], 12/06/2024 13:31:06 12/06/19 25 12/06/2024 CBC AUTO W DIFF manual differential NO Not Available [facility] (Lab Registration) [address] [place], [address], 12/06/2024 13:31:06 12/06/19 25 12/06/2024 CBC AUTO W DIFF note Unles s other lofton noted testi ng perfo rmed at: [facility] [address] [place] [address] [phone] Jose Maria de la o MD CLIA: [id number] Not Available [facility] (Lab Registration) [address] [place], [address], 12/06/2024 13:31:06 12/06/19 25 12/06/2024 COMP METAB OLIC PANEL sodium 146 mmol/ L 136-14 5 high Not Available [facility] (Lab Registration) [address] [place], [address], 12/06/2024 13:36:34 12/06/19 25 12/06/2024 COMP METAB OLIC PANEL potassium 3.2 mmol/ L 3.5-5. 1 low Not Available [facility] (Lab Registration) [address] [place], [address], 12/06/2024 13:36:34 12/06/19 25 12/06/2024 COMP METAB OLIC PANEL chloride 112 mmol/ L 98-107 high Not Available [facility] (Lab Registration) [address] [place], [address], 12/06/2024 13:36:34 12/06/19 25 12/06/2024 COMP METAB OLIC PANEL carbon dioxide 23 mmol/ L 21-32 Not Available [facility] (Lab Registration) [address] [place], [address], 12/06/2024 13:36:34 12/06/19 25 12/06/2024 COMP METAB OLIC PANEL anion gap 11.0 Not Available [facility] (Lab Registration) [address] [place], [address], 12/06/2024 13:36:34 12/06/19 25 12/06/2024 COMP METAB OLIC PANEL glucose 94 mg/dL 70-110 Not Available [facility] (Lab Registration) [address] [place], [address], 12/06/2024 13:36:34 12/06/19 25 12/06/2024 COMP METAB OLIC PANEL blood urea nitrogen 13 mg/dL 7-18 Not Available [facility] (Lab Registration) [address] [place], [address], 12/06/2024 13:36:34 12/06/19 25 12/06/2024 COMP METAB OLIC PANEL creatinine 1.1 mg/dL 0.6-1. 0 high Not Available [facility] (Lab Registration) [address] [place], [address], 12/06/2024 13:36:34 12/06/19 25 12/06/2024 COMP METAB OLIC PANEL BUN/creatini ne ratio 11.8 9-21 Not Available [facility] (Lab Registration) [address], [place], [address], 12/06/2024 13:36:34 12/06/19 25 12/06/2024 COMP METAB OLIC PANEL estimated glom filtration rate 52 mL/mi n >60- low GFR LIMIT ATION : The eGFR equat ion CKD-E PI 2020 is not appli cable for pedia tric patie nts or great er than 90 years of age. The follo wing condi tions may alter the GFR resul t: extre mes in body size, malnu triti on or obesi ty, skele juan muscl e disea se, parap legia or quadr ipleg ia, veget marquez diet or rapid ly jaime ing kiney funct ion. Not Available [facility] (Lab Registration) [address], [place], [address], 12/06/2024 13:36:34 12/06/19 25 12/06/2024 COMP METAB OLIC PANEL total protein 7.1 g/dL 6.4-8. 2 Not Available [facility] (Lab Registration) [address], [place], [address], 12/06/2024 13:36:34 12/06/19 25 12/06/2024 COMP METAB OLIC PANEL albumin 3.0 g/dL 3.4-5. 0 low Not Available [facility] (Lab Registration) [address], [place], [address], 12/06/2024 13:36:34 12/06/19 25 12/06/2024 COMP METAB OLIC PANEL calcium 8.5 mg/dL 8.5-10 .1 Not Available [facility] (Lab Registration) [address], [place], [address], 12/06/2024 13:36:34 12/06/19 25 12/06/2024 COMP METAB OLIC PANEL corrected calcium 9.3 mg/dL 8.5-10 .1 Not Available [facility] (Lab Registration) [address], [place], [address], 12/06/2024 13:36:34 12/06/19 25 12/06/2024 COMP METAB OLIC PANEL bilirubin total 1.7 mg/dL 0.4-1. 5 high Not Available [facility] (Lab Registration) [address], [place], [address], 12/06/2024 13:36:34 12/06/19 25 12/06/2024 COMP METAB OLIC PANEL AST (SGOT) 47 U/L 15-37 high Not Available [facility] (Lab Registration) [address], [place], [address], 12/06/2024 13:36:34 12/06/19 25 12/06/2024 COMP METAB OLIC PANEL ALT (SGPT) 35 U/L 12-78 Not Available [facility] (Lab Registration) [address], [place], [address], 12/06/2024 13:36:34 12/06/19 25 12/06/2024 COMP METAB OLIC PANEL alk phosphatase 165 U/L 53-141 high Not Available [facility] (Lab Registration) [address], [place], [address], 12/06/2024 13:36:34 12/06/19 25 12/06/2024 COMP METAB OLIC PANEL note Unles s other lofton noted testi ng perfo rmed at: [facility] [address] [place] [address] [phone] Jose Maria de la o MD CLIA: [id number] Not Available [facility] (Lab Registration) [address] [place], [address], 12/06/2024 13:36:34 12/06/19 25 12/06/2024 AMYLA SE amylase 70 U/L 25-115 Not Available [facility] (Lab Registration) [address] [place], [address], 12/06/2024 13:36:37 12/06/19 25 12/06/2024 AMYLA SE note Unles s other lofton noted testi ng perfo rmed at: [facility] [address] [place] [address] [phone] Jose Maria de la o MD CLIA: [id number] Not Available [facility] (Lab Registration) [address] [place], [address], 12/06/2024 13:36:37 12/06/19 25 12/06/2024 LIPAS E lipase 60 U/L 16-77 Not Available [facility] (Lab Registration) [address] [place], [address], 12/06/2024 13:36:38 12/06/19 25 12/06/2024 LIPAS E note Unles s other lofton noted testi ng perfo [facility]med [facility] [address] [place] [address] [phone] Jose Maria de la o MD CLIA: [id number] Not Available [facility] (Lab Registration) [address] [place], [address], 12/06/2024 13:36:38 12/06/19 25 12/06/2024 HEMOG LOBIN A1C glycosylated hemoglobin A1C 4.9 % 4.5-6. 2 Not Available [facility] (Lab Registration) [address] [place], [address], 12/06/2024 13:38:03 12/06/19 25 12/06/2024 HEMOG LOBIN A1C estimated average glucose 94 mg/dL 82-131 Not Available [facility] (Lab Registration) [address] [place], [address], 12/06/2024 13:38:03 12/06/19 25 12/06/2024 HEMOG LOBIN A1C note Unles s other lofton noted testi ng perfo rmed at: [facility] [address] [place] [address] [phone] Jose Maria de la o MD CLIA: [id number] Not Available [facility] (Lab Registration) [address], [place], [address], 12/06/2024 13:38:03 12/21/19 25 12/21/2024 CBC AUTO W DIFF WBC 3.4 10 4.5-11 .5 low Not Available [facility] (Lab Registration) [address] [place], [address], 12/21/2024 12:46:57 12/21/19 25 12/21/2024 CBC AUTO W DIFF RBC 3.44 10 4.25-5 .57 low Not Available [facility] (Lab Registration) [address] [place], [address], 12/21/2024 12:46:57 12/21/19 25 12/21/2024 CBC AUTO W DIFF HGB 10.0 g/dL 12.0-1 5.7 low Not Available [facility] (Lab Registration) [address] [place], [address], 12/21/2024 12:46:57 12/21/19 25 12/21/2024 CBC AUTO W DIFF HCT 31.6 % 36.0-4 7.0 low Not Available [facility] (Lab Registration) [address] [place], [address], 12/21/2024 12:46:57 12/21/19 25 12/21/2024 CBC AUTO W DIFF MCV 91.9 fL 80-95 Not Available [facility] (Lab Registration) [address] [place], [address], 12/21/2024 12:46:57 12/21/19 25 12/21/2024 CBC AUTO W DIFF MCH 29.1 pg 27.0-3 4.0 Not Available [facility] (Lab Registration) [address] [place], [address], 12/21/2024 12:46:57 12/21/19 25 12/21/2024 CBC AUTO W DIFF MCHC 31.6 g/dL 32.0-3 6.0 low Not Available [facility] (Lab Registration) [address] [place], [address], 12/21/2024 12:46:57 12/21/19 25 12/21/2024 CBC AUTO W DIFF platelet count 90 10 150-45 0 low Not Available [facility] (Lab Registration) [address] [place], [address], 12/21/2024 12:46:57 12/21/19 25 12/21/2024 CBC AUTO W DIFF RDW 17.2 % 12.3-1 5.1 high Not Available [facility] (Lab Registration) [address] [place], [address], 12/21/2024 12:46:57 12/21/19 25 12/21/2024 CBC AUTO W DIFF MPV 10.6 fL 7.4-10 .4 high Not Available [facility] (Lab Registration) [address] [place], [address], 12/21/2024 12:46:57 12/21/19 25 12/21/2024 CBC AUTO W DIFF granulocyte% 65.1 % 40-75 Not Available [facility] (Lab Registration) [address] [place], [address], 12/21/2024 12:46:57 12/21/19 25 12/21/2024 CBC AUTO W DIFF lymphocyte% 18.6 % 15-57 Not Available [facility] (Lab Registration) [address] [place], [address], 12/21/2024 12:46:57 12/21/19 25 12/21/2024 CBC AUTO W DIFF monocyte% 9.6 % 4.0-12 .0 Not Available [facility] (Lab Registration) [address] [place], [address], 12/21/2024 12:46:57 12/21/19 25 12/21/2024 CBC AUTO W DIFF eosinophil% 5.8 % 0.0-4. 0 high Not Available [facility] (Lab Registration) [address] [place], [address], 12/21/2024 12:46:57 12/21/19 25 12/21/2024 CBC AUTO W DIFF basophil% 0.9 % 0.0-1. 0 Not Available [facility] (Lab Registration) [address] [place], [address], 12/21/2024 12:46:57 12/21/19 25 12/21/2024 CBC AUTO W DIFF immature granulocytes % 0.0 % 0.0-0. 8 Not Available [facility] (Lab Registration) [address] [place], [address], 12/21/2024 12:46:57 12/21/19 25 12/21/2024 CBC AUTO W DIFF granulocyte# 2.24 10 Not Available [facility] (Lab Registration) [address] [place], [address], 12/21/2024 12:46:57 12/21/19 25 12/21/2024 CBC AUTO W DIFF lymphocyte# 0.64 10 Not Available [facility] (Lab Registration) [address] [place], [address], 12/21/2024 12:46:57 12/21/19 25 12/21/2024 CBC AUTO W DIFF monocyte# 0.33 10 Not Available [facility] (Lab Registration) [address] [place], [address], 12/21/2024 12:46:57 12/21/19 25 12/21/2024 CBC AUTO W DIFF eosinophil# 0.20 10 Not Available [facility] (Lab Registration) [address] [place], [address], 12/21/2024 12:46:57 12/21/19 25 12/21/2024 CBC AUTO W DIFF basophil# 0.03 10 Not Available [facility] (Lab Registration) [address] [place], [address], 12/21/2024 12:46:57 12/21/19 25 12/21/2024 CBC AUTO W DIFF immature granulocytes # 0.00 10 Not Available [facility] (Lab Registration) [address] [place], [address], 12/21/2024 12:46:57 12/21/19 25 12/21/2024 CBC AUTO W DIFF manual differential NO Not Available [facility] (Lab Registration) [address] [place], [address], 12/21/2024 12:46:57 12/21/19 25 12/21/2024 CBC AUTO W DIFF note Unles s other lofton noted testi ng perfo rmed at: [facility] [address] [place] [address] [phone] Jose Maria de la o MD CLIA: [id number] Not Available [facility] (Lab Registration) [address] [place], [address], 12/21/2024 12:46:57 12/21/19 25 12/21/2024 FREDRICK IA ammonia, plasma 6 umol/ L 11-32 low Not Available [facility] (Lab Registration) [address] [place], [address], 12/21/2024 12:51:17 12/21/19 25 12/21/2024 FREDRICK IA note Unles s other lofton noted testi ng perfo rmed at: [facility] [address] [place] [address] [phone] Jose Maria de la o MD CLIA: [id number] Not Available [facility] (Lab Registration) [address] [place], [address], 12/21/2024 12:51:17 12/21/1912/21/2024 PT (PROT HROMB IN TIME) W INR PT (prothrombin time) 11.6 secon ds 9.1-12 .0 Not Available [facility] (Lab Registration) [address] [place], [address], 12/21/2024 13:03:21 12/21/19 25 12/21/2024 PT (PROT HROMB IN TIME) W INR INR 1.06 0.9-1. 1 INR is inten ded to be used only for patie nts on stabl e oral anti- coagu lant thera py. *Ther apeut ic Range s 2.0 - 3.0 Usual Thera peuti c Range 2.5 - 3.5 For patie nts with a histo ry of multi ple deep vein throm bus or mecha nical heart valve s. Not Available [facility] (Lab Registration) [address] [place], [address], 12/21/2024 13:03:21 12/21/1912/21/2024 PT (PROT HROMB IN TIME) W INR note Unles s other lofton noted testi ng perfo rmed at: [facility] [address] [place] [address] [phone] Jose Maria de la o MD CLIA: [id number] Not Available [facility] (Lab Registration) [address] [place], [address], 12/21/2024 13:03:21 12/21/1912/21/2024 COMP METAB OLIC PANEL sodium 143 mmol/ L 136-14 5 Not Available [facility] (Lab Registration) [address] [place], [address], 12/21/2024 13:05:31 12/21/19 25 12/21/2024 COMP METAB OLIC PANEL potassium 2.9 mmol/ L 3.5-5. 1 critical low Not Available [facility] (Lab Registration) [address] [place], [address], 12/21/2024 13:05:31 12/21/19 25 12/21/2024 COMP METAB OLIC PANEL chloride 108 mmol/ L 98-107 high Not Available [facility] (Lab Registration) [address] [place], [address], 12/21/2024 13:05:31 12/21/19 25 12/21/2024 COMP METAB OLIC PANEL carbon dioxide 25 mmol/ L 21-32 Not Available [facility] (Lab Registration) [address] [place], [address], 12/21/2024 13:05:31 12/21/19 25 12/21/2024 COMP METAB OLIC PANEL anion gap 10.0 Not Available [facility] (Lab Registration) [address] [place], [address], 12/21/2024 13:05:31 12/21/19 25 12/21/2024 COMP METAB OLIC PANEL glucose 111 mg/dL 70-110 high Not Available [facility] (Lab Registration) [address] [place], [address], 12/21/2024 13:05:31 12/21/19 25 12/21/2024 COMP METAB OLIC PANEL blood urea nitrogen 12 mg/dL 7-18 Not Available [facility] (Lab Registration) [address] [place], [address], 12/21/2024 13:05:31 12/21/19 25 12/21/2024 COMP METAB OLIC PANEL creatinine 1.1 mg/dL 0.6-1. 0 high Not Available [facility] (Lab Registration) [address] [place], [address], 12/21/2024 13:05:31 12/21/19 25 12/21/2024 COMP METAB OLIC PANEL BUN/creatini ne ratio 10.9 9-21 Not Available [facility] (Lab Registration) [address] [place], [address], 12/21/2024 13:05:31 12/21/19 25 12/21/2024 COMP METAB OLIC PANEL estimated glom filtration rate 52 mL/mi n >60- low GFR LIMIT ATION : The eGFR equat ion CKD-E PI 2020 is not appli cable for pedia tric patie nts or great er than 90 years of age. The follo wing condi tions may alter the GFR resul t: extre mes in body size, malnu triti on or obesi ty, skele juan muscl e disea se, parap legia or quadr ipleg ia, veget marquez diet or rapid ly jaime ing kiney funct ion. Not Available [facility] (Lab Registration) [address], [place], [address], 12/21/2024 13:05:31 12/21/19 25 12/21/2024 COMP METAB OLIC PANEL total protein 7.0 g/dL 6.4-8. 2 Not Available [facility] (Lab Registration) [address] [place], [address], 12/21/2024 13:05:31 12/21/19 25 12/21/2024 COMP METAB OLIC PANEL albumin 2.8 g/dL 3.4-5. 0 low Not Available [facility] (Lab Registration) [address] [place], [address], 12/21/2024 13:05:31 12/21/19 25 12/21/2024 COMP METAB OLIC PANEL calcium 8.4 mg/dL 8.5-10 .1 low Not Available [facility] (Lab Registration) [address] [place], [address], 12/21/2024 13:05:31 12/21/19 25 12/21/2024 COMP METAB OLIC PANEL corrected calcium 9.4 mg/dL 8.5-10 .1 Not Available [facility] (Lab Registration) [address] [place], [address], 12/21/2024 13:05:31 12/21/19 25 12/21/2024 COMP METAB OLIC PANEL bilirubin total 2.1 mg/dL 0.4-1. 5 high Not Available [facility] (Lab Registration) [address] [place], [address], 12/21/2024 13:05:31 12/21/19 25 12/21/2024 COMP METAB OLIC PANEL AST (SGOT) 47 U/L 15-37 high Not Available [facility] (Lab Registration) [address] [place], [address], 12/21/2024 13:05:31 12/21/19 25 12/21/2024 COMP METAB OLIC PANEL ALT (SGPT) 36 U/L 12-78 Not Available [facility] (Lab Registration) [address] [place], [address], 12/21/2024 13:05:31 12/21/19 25 12/21/2024 COMP METAB OLIC PANEL alk phosphatase 131 U/L 53-141 Not Available [facility] (Lab Registration) [address] [place], [address], 12/21/2024 13:05:31 12/21/19 25 12/21/2024 COMP METAB OLIC PANEL note Unles s other lofton noted testi ng perfo rmed at: [facility] [address] [employer] [address] [place] [address] [phone] Jose Maria de la o MD CLIA: [id number] Not Available [facility] (Lab Registration) [address] [place], [address], 12/21/2024 13:05:31 12/21/19 25 12/21/2024 AFP, SERUM , TUMOR MARKE R note Unles s other lofton noted testi ng perfo rmed at: [facility] [address] [place] [address] [phone] Jose Maria de la o MD CLIA: [id number] Not Available [facility] (Lab Registration) [address], [place], [address], 12/22/2024 12:10:23 12/21/19 25 12/22/2024 AFP, SERUM , TUMOR MARKE R AFP, serum, tumor marker 4.1 NG/mL 0.0-9. 2 Ese Diagn ostic s Elect ese milum inesc ence Immun oassa y (ECLI A) . Value s obtai quynh with diffe rent assay metho ds or kits canno t be used inter jaime eably . Resul ts canno t be inter prete d as absol [facility] pa[facility] evide nce of the prese nce or absen ce of arielle [place] se. . This test is not inter preta ble in pregn ant femal es. Perfo rmed at: [facility] [address] [place] [id number] Lab Direc tor: Jah russo PhD, Phone : [phone] SENT TO REFER ENCE LAB Not Available [facility] (Lab Registration) [address], [place], [address], 12/22/2024 12:10:23 02/22/20 25 02/21/2025 PT (PROT HROMB IN TIME) W INR PT (prothrombin time) 11.2 secon ds 9.1-12 .0 Not Available [facility] (Lab Registration) [address], [place], [address], 02/21/2025 12:35:29 02/22/20 25 02/21/2025 PT (PROT HROMB IN TIME) W INR INR 1.03 0.9-1. 1 INR is inten ded to be used only for patie nts on stabl e oral anti- coagu lant thera py. *Ther apeut ic Range s 2.0 - 3.0 Usual Thera peuti c Range 2.5 - 3.5 For patie nts with a histo ry of multi ple deep vein throm bus or mecha nical heart valve s. Not Available [facility] (Lab Registration) [address], [place], [address], 02/21/2025 12:35:29 02/22/20 25 02/21/2025 PT (PROT HROMB IN TIME) W INR note Unles s other lofton noted testi ng perfo rmed at: [facility] [address] [place] [address] [phone] Jose Maria de la o MD CLIA: [id number] Not Available [facility] (Lab Registration) [address] [place], [address], 02/21/2025 12:35:29 02/22/20 25 02/21/2025 CBC AUTO W DIFF WBC 3.4 10 4.5-11 .5 low Not Available [facility] (Lab Registration) [address] [place], [address], 02/21/2025 12:35:43 02/22/20 25 02/21/2025 CBC AUTO W DIFF RBC 3.29 10 4.25-5 .57 low Not Available [facility] (Lab Registration) [address] [place], [address], 02/21/2025 12:35:43 02/22/20 25 02/21/2025 CBC AUTO W DIFF HGB 8.8 g/dL 12.0-1 5.7 low Not Available [facility] (Lab Registration) [address] [place], [address], 02/21/2025 12:35:43 02/22/20 25 02/21/2025 CBC AUTO W DIFF HCT 28.2 % 36.0-4 7.0 low Not Available [facility] (Lab Registration) [address] [place], [address], 02/21/2025 12:35:43 02/22/20 25 02/21/2025 CBC AUTO W DIFF MCV 85.7 fL 80-95 Not Available [facility] (Lab Registration) [address] [place], [address], 02/21/2025 12:35:43 02/22/20 25 02/21/2025 CBC AUTO W DIFF MCH 26.7 pg 27.0-3 4.0 low Not Available [facility] (Lab Registration) [address] [place], [address], 02/21/2025 12:35:43 02/22/20 25 02/21/2025 CBC AUTO W DIFF MCHC 31.2 g/dL 32.0-3 6.0 low Not Available [facility] (Lab Registration) [address] [place], [address], 02/21/2025 12:35:43 02/22/20 25 02/21/2025 CBC AUTO W DIFF platelet count 110 10 150-45 0 low Not Available [facility] (Lab Registration) [address] [place], [address], 02/21/2025 12:35:43 02/22/20 25 02/21/2025 CBC AUTO W DIFF RDW 16.9 % 12.3-1 5.1 high Not Available [facility] (Lab Registration) [address] [place], [address], 02/21/2025 12:35:43 02/22/20 25 02/21/2025 CBC AUTO W DIFF MPV 13.0 fL 7.4-10 .4 high Not Available [facility] (Lab Registration) [address] [place], [address], 02/21/2025 12:35:43 02/22/20 25 02/21/2025 CBC AUTO W DIFF granulocyte% 73.4 % 40-75 Not Available [facility] (Lab Registration) [address] [place], [address], 02/21/2025 12:35:43 02/22/20 25 02/21/2025 CBC AUTO W DIFF lymphocyte% 13.5 % 15-57 low Not Available [facility] (Lab Registration) [address] [place], [address], 02/21/2025 12:35:43 02/22/20 25 02/21/2025 CBC AUTO W DIFF monocyte% 9.9 % 4.0-12 .0 Not Available [facility] (Lab Registration) [address] [place], [address], 02/21/2025 12:35:43 02/22/20 25 02/21/2025 CBC AUTO W DIFF eosinophil% 2.3 % 0.0-4. 0 Not Available [facility] (Lab Registration) [address] [place], [address], 02/21/2025 12:35:43 02/22/20 25 02/21/2025 CBC AUTO W DIFF basophil% 0.9 % 0.0-1. 0 Not Available [facility] (Lab Registration) [address] [place], [address], 02/21/2025 12:35:43 02/22/20 25 02/21/2025 CBC AUTO W DIFF immature granulocytes % 0.0 % 0.0-0. 8 Not Available [facility] (Lab Registration) [address] [place], [address], 02/21/2025 12:35:43 02/22/20 25 02/21/2025 CBC AUTO W DIFF granulocyte# 2.51 10 Not Available [facility] (Lab Registration) [address] [place], [address], 02/21/2025 12:35:43 02/22/20 25 02/21/2025 CBC AUTO W DIFF lymphocyte# 0.46 10 Not Available [facility] (Lab Registration) [address], [place], [address], 02/21/2025 12:35:43 02/22/20 25 02/21/2025 CBC AUTO W DIFF monocyte# 0.34 10 Not Available [facility] (Lab Registration) [address], [place], [address], 02/21/2025 12:35:43 02/22/20 25 02/21/2025 CBC AUTO W DIFF eosinophil# 0.08 10 Not Available [facility] (Lab Registration) [address], [place], [address], 02/21/2025 12:35:43 02/22/20 25 02/21/2025 CBC AUTO W DIFF basophil# 0.03 10 Not Available [facility] (Lab Registration) [address], [place], [address], 02/21/2025 12:35:43 02/22/20 25 02/21/2025 CBC AUTO W DIFF immature granulocytes # 0.00 10 Not Available [facility] (Lab Registration) [address], [place], [address], 02/21/2025 12:35:43 02/22/20 25 02/21/2025 CBC AUTO W DIFF manual differential NO Not Available [facility] (Lab Registration) [address] [place], [address], 02/21/2025 12:35:43 02/22/20 25 02/21/2025 CBC AUTO W DIFF note Unles s other lofton noted testi ng perfo rmed at: [facility] [address] [place] [address] [phone] Jose Maria de la o MD CLIA: [id number] Not Available [facility] (Lab Registration) [address] [place], [address], 02/21/2025 12:35:43 02/22/20 25 02/21/2025 COMP METAB OLIC PANEL sodium 136 mmol/ L 136-14 5 Not Available [facility] (Lab Registration) [address] [place], [address], 02/21/2025 12:35:45 02/22/20 25 02/21/2025 COMP METAB OLIC PANEL potassium 4.7 mmol/ L 3.5-5. 1 Not Available [facility] (Lab Registration) [address] [place], [address], 02/21/2025 12:35:45 02/22/20 25 02/21/2025 COMP METAB OLIC PANEL chloride 104 mmol/ L 98-107 Not Available [facility] (Lab Registration) [address] [place], [address], 02/21/2025 12:35:45 02/22/20 25 02/21/2025 COMP METAB OLIC PANEL carbon dioxide 25 mmol/ L 21-32 Not Available [facility] (Lab Registration) [address] [place], [address], 02/21/2025 12:35:45 02/22/20 25 02/21/2025 COMP METAB OLIC PANEL anion gap 7.0 Not Available [facility] (Lab Registration) [address] [place], [address], 02/21/2025 12:35:45 02/22/20 25 02/21/2025 COMP METAB OLIC PANEL glucose 324 mg/dL 70-110 high Not Available [facility] (Lab Registration) [address] [place], [address], 02/21/2025 12:35:45 02/22/20 25 02/21/2025 COMP METAB OLIC PANEL blood urea nitrogen 32 mg/dL 7-18 high Not Available [facility] (Lab Registration) [address], [place], [address], 02/21/2025 12:35:45 02/22/20 25 02/21/2025 COMP METAB OLIC PANEL creatinine 1.3 mg/dL 0.6-1. 0 high Not Available [facility] (Lab Registration) [address], [place], [address], 02/21/2025 12:35:45 02/22/20 25 02/21/2025 COMP METAB OLIC PANEL BUN/creatini ne ratio 24.6 9-21 high Not Available [facility] (Lab Registration) [address], [place], [address], 02/21/2025 12:35:45 02/22/20 25 02/21/2025 COMP METAB OLIC PANEL estimated glom filtration rate 43 mL/mi n >60- low GFR LIMIT ATION : The eGFR equat ion CKD-E PI 2020 is not appli cable for pedia tric patie nts or great er than 90 years of age. The follo wing condi tions may alter the GFR resul t: extre mes in body size, malnu triti on or obesi ty, skele juan muscl e disea se, parap legia or quadr ipleg ia, veget marquez diet or rapid ly jaime ing kiney funct ion. Not Available [facility] (Lab Registration) [address], [place], [address], 02/21/2025 12:35:45 02/22/20 25 02/21/2025 COMP METAB OLIC PANEL osmolality (calculated) 303 mOsm/ kg 275-30 1 high OSMOL ALITY IS A CALCU LATIO N UTILI ZING THE SERUM /PLAS MA SODIU M, GLUCO SE AND UREA NITRO GEN (BUN) LEVEL S. FOR THE MOST ACCUR ATE RESUL T A MEASU RED SERUM OSMOL ALITY IS SUGGE STED. Not Available [facility] (Lab Registration) [address], [place], [address], 02/21/2025 12:35:45 02/22/20 25 02/21/2025 COMP METAB OLIC PANEL total protein 8.0 g/dL 6.4-8. 2 Not Available [facility] (Lab Registration) [address], [place], [address], 02/21/2025 12:35:45 02/22/20 25 02/21/2025 COMP METAB OLIC PANEL albumin 2.9 g/dL 3.4-5. 0 low Not Available [facility] (Lab Registration) [address] [place], [address], 02/21/2025 12:35:45 02/22/20 25 02/21/2025 COMP METAB OLIC PANEL calcium 9.5 mg/dL 8.5-10 .1 Not Available [facility] (Lab Registration) [address] [place], [address], 02/21/2025 12:35:45 02/22/20 25 02/21/2025 COMP METAB OLIC PANEL corrected calcium 10.4 mg/dL 8.5-10 .1 high Not Available [facility] (Lab Registration) [address] [place], [address], 02/21/2025 12:35:45 02/22/20 25 02/21/2025 COMP METAB OLIC PANEL bilirubin total 0.9 mg/dL 0.4-1. 5 Not Available [facility] (Lab Registration) [address] [place], [address], 02/21/2025 12:35:45 02/22/20 25 02/21/2025 COMP METAB OLIC PANEL AST (SGOT) 46 U/L 15-37 high Not Available [facility] (Lab Registration) [address] [place], [address], 02/21/2025 12:35:45 02/22/20 25 02/21/2025 COMP METAB OLIC PANEL ALT (SGPT) 64 U/L 12-78 Not Available [facility] (Lab Registration) [address] [place], [address], 02/21/2025 12:35:45 02/22/20 25 02/21/2025 COMP METAB OLIC PANEL alk phosphatase 156 U/L 53-141 high Not Available [facility] (Lab Registration) [address] [place], [address], 02/21/2025 12:35:45 02/22/20 25 02/21/2025 COMP METAB OLIC PANEL note Unles s other lofton noted testi ng perfo rmed at: [facility] [address] [place] [address] [phone] Jose Maria de la o MD CLIA: [id number] Not Available [facility] (Lab Registration) [address] [place], [address], 02/21/2025 12:35:45 12/16/19 25 12/16/2024 US, abdom en [facility] [place] [address] Phone: Fax: Name: VIKA GORDON Exam Date: : 949 Age 74 years Gender : F Access ion: [id number] Physic anali: AMBURG EY, TAFFAN Y Facili ty: 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 INDICA TION: . TECHNI QUE: Multip le transa bdomin al ultras onogra phic images were obtain ed with and withou t color Dopple r. Compar dimas is made to 022. FINDIN GS: The abdomi nal aorta measur es up to 2 x 1.1 cm in axial dimens ion and the inferi or vena cava is patent . There is diffus e abnorm al nodula r contou r of the small liver withou t focal abnorm al mass. Hepato pedal flow is presen t in the portal vein. A large amount of ascite s is presen t throug hout the abdome n The gallbl adder is surgic ally absent . The common bile duct measur es 0.3 centim eters in transv erse diamet er. The head and body of the pancre as are within normal limits . The right kidney measur es 10.7 x 5 x 4.6 and the left kidney measur es 11.3 x 5.7 x 5.7. No abnorm al mass, calcul us, or hydron ephros is is identi fied. Renal parenc hymal thickn ess and echoge nicity are within normal limits . The spleen enlarg ed withou t focal abnorm al mass, measur ing 15.3 x 8.7 cm. The bladde r is not assess ed. IMPRES KAILA: 1. New findin g of hepati c cirrho sis with spleno megaly and a large volume of ascite s. Electr onical ly signed by: Shimon Pisano MD 2024 08:04 PM EST RP Workst ation: [id number] Dictat ed By: Shimon Pisano Transc ribed By: Transc ribed On: 025 1:53 PM Electr onical ly signed by: Shimon Pisano 025 Thank you for referr ing VIKA GORDON to [facility]. Legall y authen ticate d by GEMMA TOWNSEND MD 2024-0 12-16 13:53: 08 CC'ed Logic: Orderi ng Provid er: AMBURG EY TAFLAURIE Y CC Provid er: AMBURG EY TAFFAN Y Attend ing Provid er: AMBURG EY TAFFAN Y Referr ing Provid er: AMBURG EY TAFFAN Y Admitt ing Provid er: AMBURG EY TAFLAURIE Y [facility] (Radiology) [address] [place] [address] , [place], [address], 12/19/2024 16:49:57 02/25/20 25 02/23/2025 imagi ng inter preta tion No observ ation record ed. [address], [place], [address], 02/27/2025 08:27:17 02/25/20 25 02/23/2025 imagi ng inter preta tion No observ ation record ed. [address], [place], [address], 02/27/2025 08:27:02 02/29/2002/28/2025 US, severo puentes No observ ation record ed. [facility] [address], [place], [address], 02/28/2025 18:10:16 Result Notes None recorded. Problems Name Problem SNOMED Code Status Onset Date Resolution Date Notes Provider Name and Address Organization Details Recorded Time Ascites 032890993 Active 2024 Frieda Mcelroy NP [address], [address], [place], [address], [place] & [place] 11:33:10 Constipat ion 38959676 Active 2024 Frieda Mcelroy NP [address], [address], [place], [address], [place] [facility] & [place] 11:34:56 Hypokalem ia 10755223 Active 2024 Frieda Mcelroy NP [address], [address], [place], [address], [place] [facility] & [place] 13:52:18 Ulcer of duodenum 00670725 Active 2024 Frieda Mcelroy NP [address], [address], [place], [address], [place] & [place] 03/26/202 5 13:51:25 Portal hypertens estela gastropat hy 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 Active 2024 Frieda Mcelroy NP [address], [address], [place], [place], [address], [place] & [place] 5 13:54:32 Abnormal renal function 92074252 Active 2024 Frieda Mcelroy NP [address], [address], [place], [address], [place] & [place] 5 09:58:27 Mammograp hy abnormal 681483652 Active 2020 Reece Hutchinso n null[place] 4 10:47:01 Acute kidney injury 33715774 Active 2013 Reece Hutch[place] n [place] 4 10:46:39 Patient encounter status 534580110 Active 2018 Reece Hutch[place] n [place] 4 10:47:07 Type 2 diabetes mellitus 19469664 Active 2017 Reece Hutch[place] 4 10:47:18 Gallstone 379675042 Active 2013 Reece Hutch[place] 4 10:46:47 Uncontrol led type 2 diabetes mellitus 708301568 Active 2014 Reece Hutch[place] n [place] 4 10:47:20 Annual wellness visit Active 2017 Annual wellness visit Reece Hutchinso n [place] & [place] 4 10:46:42 Liver enzymes level above reference range 996459455 Active 2020 Reece Hutch[place] n [place] 4 10:46:56 Leukopeni a 07735763 Active 2020 Reece Hutch[place] & 4 10:46:54 Mixed hyperlipi demia 176179400 Active 2018 Reece Hutch[place] 4 10:47:04 Cirrhosis of liver 08912995 Active 2020 Reece [place] 4 10:46:44 Reactive depressio n (situatio nal) 34772427 Active 2015 Reece [place] 4 10:47:08 Low blood pressure 99396532 Active 2013 Reece Hutch[place] & [place] 4 10:47:00 Sepsis 90118600 Active 2013 Reece [place] 4 10:47:15 Fibrocyst ic disease of breast 60942628 Active 2020 Reece [place] 4 10:46:46 Vitamin D deficienc y 86480616 Active 2020 Reece [place] 4 10:47:21 Liver function test above reference range 072221680 Active 2020 Reece Hutch[place] n [place] & [place] 4 10:46:58 Neuropath y due to diabetes mellitus 046474052 Active 2014 Reece [place] 4 10:47:05 Right upper quadrant pain 099691967 Active 2013 Reece Hutch[place] & [place] 4 10:47:10 Hyperchol esterolem ia 65523340 Active 2014 Reece Hutch[place] & [place] 4 10:46:50 Hypertens estela disorder 39227477 Active 2014 Reece Hutch[place] 4 10:46:53 Acute cholecyst itis 77701622 Active 2013 Reece Hutch[place] n [place] & [place] 4 10:46:38 Heartburn 77056097 Active 2020 Reece Hutch[place]so n [place] & [place] 4 10:46:49 Syncope 517341048 Active 2014 Reece Hutch[place]so n [place] & [place] 4 10:47:16 Screening mammograp hy of bilateral breasts Active 2023 Reece Hutch[place]so n [place] 4 10:47:13 Screening for malignant neoplasm of colon Active 2023 Reece Hutch[place] & [place] 4 10:47:11 Hyperlipi demia 89313644 Active 2023 Reece Hutch[place] & [place] 4 10:46:52 Anemia 213093850 Active 2023 Reece Hutch[place] & [place] 4 10:46:41 Heart murmur 22372853 Active 2023 DREW TRAORE NP [address] [place], [address], [place] & 4 08:37:27 Depressiv e disorder 22875533 Active 2023 DREW TRAORE NP [address] [place], [address], [place] & [place] 4 08:37:30 High risk medicatio n monitorin g indicated 265051308902 [address] Active 2023 DERW TRAORE NP [address], [place], [address], [place] 4 08:37:32 Neuropath y 868452250 Active 2023 DREW TRAORE NP [address], [place], [address], [place] 4 08:37:34 Essential hypertens ion 62373923 Active 2023 DREW TRAORE NP [address], [place], [address], [place] 4 08:37:36 Notes:Some problems listed i n Documents: #[id number], #[id number], #[id number] could not be added to this patient's chart. Please review these documents and add these problems to the patient's chart manually as needed. Problem Notes None recorded. Procedures Surgical History Date Name Laterality Status Provider Name and Address Organization Details Recorded Time 01/25 esophagogastroduodenoscopy completed Flower Tucker [place] & [place] 5 16:31:08 06/08 Medicare Annual Wellness Visit Health Risk Assessment completed Reece Iglesisa [place] & [place] 4 08:12:47 01/22 esophagogastroduodenoscopy completed Braxton Rice [place] & [place] 4 11:51:01 11/23 Cholecystectomy completed Poly Crews [place] & [place] 2 10:35:54 Imaging Results Imaging Date Name Status LastModified by Organization Details LastModified Time 12/16/2024 US, abdomen completed [facility] (Radiology) [address], [place], [address], 12/19/2024 16:49:57 02/23/2025 imaging interpretation completed [email or web address], [place], [address], 02/27/2025 08:27:17 02/23/2025 imaging interpretation completed [email or web address], [place], [address], 02/27/2025 08:27:02 02/28/2025 [facility] [address], [place], [address], 02/28/2025 18:10:16 Procedure Notes None recorded. Medical Equipment None [...] TAKE 15 ML BY MOUTH TWICE DAILY 02/15 completed Not Available Not Available Not [...] Arterial blood by Pulse oximetry Heart rate Respiratory rate Systolic blood pressure Diastolic blood pressure Provider Name and Address Organization Details Last Updated DateTime 4 166.37 cm 25.2 kg/m2 36106.2 2 g 98.1 [degF] 99 % 99 % 87 /min 18 /min 172 mm[Hg] 66 mm[Hg] Salas SANCHEZ [facility] & [place] 4 10:43:05 Date Recorded Body height Body mass index (BMI) Body weight Body temperature Oxygen saturation Oxygen saturation in Arterial blood by Pulse oximetry Heart rate Systolic blood pressure Diastolic blood pressure Provider Name and Address Organization Details Last Updated DateTime 4 166.37 cm 23.3 kg/m2 90065.1 2 g 98.4 [degF] 99 % 99 % 81 /min 154 mm[Hg] 65 mm[Hg] [facility] [place] [facility] & [place] 4 08:25:49 Date Recorded Body height Body mass index (BMI) Body weight Body temperature Oxygen saturation Oxygen saturation in Arterial blood by Pulse oximetry Heart rate Systolic blood pressure Diastolic blood pressure Provider Name and Address Organization Details Last Updated DateTime 5 166.37 cm 23.6 kg/m2 06368.3 g 97.9 [degF] 99 % 99 % 106 /min 164 mm[Hg] 74 mm[Hg] [facility] [place] [facility] & [place] 5 08:27:37 Date Recorded Systolic blood pressure Diastolic blood pressure Provider Name and Address Organization Details Last Updated DateTime 12/06/2024 148 mm[Hg] 72 mm[Hg] DREW TRAORE NP [address] [place] [address], [address], [facility] & [place] 12/06/2024 08:56:35 Date Recorded Body height Body mass index (BMI) Body weight Body temperature Oxygen saturation Oxygen saturation in Arterial blood by Pulse oximetry Heart rate Provider Name and Address Organization Details Last Updated DateTime 5 166.37 cm 23.9 kg/m2 86439.4 9 g 98.2 [degF] 94 % 94 % 102 /min Gilma Krystle [place] [facility] & [place] 5 11:16:58 Date Recorded Body height Body mass index (BMI) Body weight Body temperature Oxygen saturation Oxygen saturation in Arterial blood by Pulse oximetry Heart rate Provider Name and Address Organization Details Last Updated DateTime 5 166.37 cm 20.3 kg/m2 30530.4 5 g 97.9 [degF] 99 % 99 % 86 /min Gilma [place] [facility] & [place] 5 11:35:16 Social History Question Answer Notes LastModified by Organizat ion Details LastModified Time Tobacco Smoking Status Never Smoker Poly newton, [place] MART[place] [facility] & [place] 08/21/2022 10:35:54 Do You Have An Advance Directive? No Information not available 08/21/2022 What Is Your Level Of Alcohol Consumption? None Information not available 08/21/2022 Are You Blind Or Do You Have Difficulty Seeing? No Information not available 08/21/2022 Is Blood Transfusion Acceptable In An Emergency? Yes [email or web address] Information not available 06/08/2024 What Is Your Level Of Caffeine Consumption? Moderate [email or web address] Information not available 06/08/2024 Are You Deaf Or Do You Have Serious Difficulty Hearing? No [email or web address] Information not available 06/08/2024 What Type Of Diet Are You Following? DIABETIC Information not available 06/08/2024 In General, Would You Say Your Health Is Good [email or web address] Information not available 06/08/2024 How Would You Describe The Condition Of Your Mouth And Teeth? including False Teeth Or Dentures? Good [email or web address] Information not available 06/08/2024 In The Past 7 Days, How Many Servings Of Fruits And Vegetables Did You Typically Eat Each Day? (1 Serving = 1 Cup Of Fresh Vegetables, 1? 2 Cup Of Cooked Vegetables, Or 1 Medium Piece Of Fruit. 1 Cup = Size Of A Baseball.) 1-2 Servings Per Day [email or web address] Information not available 06/08/2024 In The Past 7 Days, How Many Servings Of High Fiber Or Whole Grain Foods Did You Typically Eat Each Day? (1 Serving = 1 Slice Of 100% Whole Wheat Bread, 1 Cup Of Whole-grain Or High-fiber Qjifg-yh-muv Cereal, 1? 2 Cup Of Cooked Cereal Such As Oatmeal, Or 1? 2 Cup Of Cooked Brown Rice Or Whole Wheat Pasta.) 3-4 Servings Per Day [email or web address] Information not available 06/08/2024 In The Past 7 Days, How Many Servings Of Fried Or High-fat Foods Did You Typically Eat Each Day? (Examples Include Fried Chicken, Fried Fish, [place], [place], Potato Chips, [place] Chips, Doughnuts, Creamy Salad Dressings, And Foods Made With Whole Milk, Cream, Cheese, Or Mayonnaise.) 1-2 Servings Per Day [email or web address] Information not available 06/08/2024 In The Past 7 Days, How Many Sugar-sweetened (not Diet) Beverages Did You Typically Consume Each Day 0 Drinks Per Day [email or web address] Information not available 06/08/2024 Each Night, How Many Hours Of Sleep Do You Usually Get? 5-6 Hours [email or web address] Information not available 06/08/2024 Do You Snore Or Has Anyone Told You That You Snore? No [email or web address] Information not available 06/08/2024 In The Past 7 Days, How Often Have You Whiteside Sleepy During The Daytime? Sometimes [email or web address] Information not available 06/08/2024 Do You Have Chronic Pain? No [email or web address] Information not available 06/08/2024 Are You In A Pain Management Program? No [email or web address] Information not available 06/08/2024 Do You Take Opioids For Your Pain? No [email or web address] Information not available 06/08/2024 How Often Is Stress A Problem For You In Handling Such Things As: Your Health, Your Finances, Your Family And Social Relationships, Your Work? Sometimes [email or web address] Information not available 06/08/2024 How Often Do You Get The Social And Emotional Support You Need: Usually [email or web address] Information no t available 06/08/2024 In The Past 7 Days, Did You Need Help From Others To Take Care Of Things Such As Laundry And Housekeep- Ing, Banking, Shopping, Using The Telephone, Food Preparation, Transportation, Or Taking Your Own Medications? No [email or web address] Information not available 06/08/2024 Do You Live Alone? No [email or web address] Information not available 06/08/2024 Does Your Home Have Any Fall Risks (un-level Floors, Unfastened Rugs, Poor Lighting, Etc)? No [email or web address] Information not available 06/08/2024 Do You Feel Safe At Home? Yes [email or web address] Information not available 06/08/2024 Do You Have A Medical Power Of Senior Environmental Scientist? No [email or web address] Information not available 06/08/2024 What Was The Date Of Your Most Recent Tobacco Screening? 02/12/2025 [email or web address] Information not available 03/02/2025 How Many Children Do You Have? 2 [email or web address] Information not available 06/08/2024 Do You Use Protection During Sex? No [email or web address] Information not available 06/08/2024 What Is Your Relationship Status? [email or web address] Information not available 06/08/2024 Do You Use Your Seat Belt Or Car Seat Routinely? Yes [email or web address] Information not available 06/08/2024 Are You Sexually Active? No [email or web address] Information not available 06/08/2024 Are You Passively Exposed To Smoke? No Information no t available 08/21/2022 Do You Or Have You Ever Used Smokeless Tobacco? Never Used Smokeless Tobacco [email or web address] Information not available 06/08/2024 Do You Feel Stressed (tense, Restless, Nervous, Or Anxious, Or Unable To Sleep At Night)? [id number] [email or web address] Information not available 06/08/2024 Do You Use Any Illicit Or Recreational Drugs? No Information not available 08/21/2022 Has Tobacco Cessation Counseling Been Provided? No [email or web address] Information not available 07/27/2024 Do You Or Have You Ever Used Any Other Forms Of Tobacco Or Nicotine? No [email or web address] Information not available 06/08/2024 Sex: Unknown Functional Status Question Answer Note LastModified by Organizat ion Details LastModified Time Do you have difficulty walking or climbing stairs? No [email or web address] Information not available 06/08/2024 Do you have transportation difficulties? No [email or web address] Information not available 06/08/2024 Are you able to walk? YESWOREST [email or web address] Information not available 06/08/2024 Do you have difficulty doing errands alone? No Information not available 06/08/2024 Are you able to care for yourself? Yes [email or web address] Information not available 06/08/2024 Do you have difficulty dressing or bathing? No Information not available 06/08/2024 What is your exercise level? None [email or web address] Information not available 06/08/2024 Mental Status Question Answer Note LastModified by Organization D etails LastModified Time Do you have difficulty concentrating, remembering or making decisions? No Information no t available 06/08/2024 Family History Relationship Description Onset Age of this Age Resolved Age Notes LastModified by Organization Details LastModified Time Mother Cerebrovascu lar accident deceas ed [email or web address] Not available 08/21/2022 07:43:59 Father Diabetes mellitus deceas ed [email or web address] Not available 02/15/2025 11:10:51 Father Disorder of endocrine system pt. added direct ly (01/11) [email or web address] Not available 01/11/2024 10:44:02 Medical History Condition Response Depression Y Cirrhosis Y High Cholesterol N Diabetes Y Hyperlipidemia Y Reflux/GERD Y Hypertension Y Gynecological History Statement/Question Response Menses Monthly N Abnormal Pap N Sexually Active? N Obstetrics History GPAL:G 0 P 0 0 0 0 Immunizations Vaccine Type Date Status Note Provider Nam e and Address Organization Details Recorded Time Influenza, split virus, trivalent, preservative 6 completed Kimmie Metcalf null, [place] - [facility] [place] [facility] [place] 04/07/2023 12:31:32 Pneumococcal conjugate PCV 13 3 completed Kimmie Metcal[place], [place] [facility] [place] [facility] [place] 04/07/2023 12:31:32 Tdap 3 completed Kimmie Metcalf [place], [place] [facility] [place] [facility] [place] 04/07/2023 12:31:32 pneumococcal polysaccharide PPV23 1 completed Varsha Colon null, [place] [facility] [place] [facility] [place] 03/02/2025 12:26:26 Influenza, split virus, trivalent, PF 6 completed Varsha Colon [place], [place] [facility] [place] [facility] [place] 03/02/2025 12:26:26 Influenza, adjuvanted, trivalent, PF 9 completed Varsha Colon [place], [place] [facility] [place] [facility] [place] 03/02/2025 12:26:26 Influenza, split virus, trivalent, preservative 5 completed Kimmie Metcalf null, [place] [facility] & [place] 04/07/2023 12:31:32 Influenza, split virus, trivalent, PF 5 completed Varsha Colon null[place] [facility] & [place] 03/02/2025 12:26:26 Influenza, split virus, trivalent, preservative 5 completed Kimmie Metcalf [place] [facility] & [place] 04/07/2023 12:31:32 Influenza, adjuvanted, trivalent, PF 7 completed Varsha Colon [place] [facility] & [place] 03/02/2025 12:26:26 Influenza, split virus, trivalent, preservative 6 completed Kimmie Metcalf [place] [facility] & [place] 04/07/2023 12:31:32 pneumococcal polysaccharide PPV23 5 completed Varsha Colon [place] [facility] & [place] 03/02/2025 12:26:26 Influenza, high-dose, quadrivalent, PF 0 completed Varsha Colon [place] [facility] & [place] 03/02/2025 12:26:26 Influenza, adjuvanted, quadrivalent, PF 2 completed Varsha Colon [place] [facility] & [place] 03/02/2025 12:26:26 Influenza, adjuvanted, quadrivalent, PF 1 completed Varsha Colon [place] [facility] [place] 03/02/2025 12:26:26 COVID-19, mRNA, LNP-S, PF, 30 mcg/0.3 mL dose 1 completed Varsha Colon [place] [facility] [place] [facility] [place] 03/02/2025 12:26:26 COVID-19, mRNA, LNP-S, PF, 30 mcg/0.3 mL dose 1 completed Varsha Colon [place] [facility] & [place] 03/02/2025 12:26:26 COVID-19, mRNA, LNP-S, PF, 30 mcg/0.3 mL dose 1 completed Varsha Colon [place] [facility] [place] [facility] [place] 03/02/2025 12:26:26 COVID-19, mRNA, LNP-S, bivalent, PF, 50 mcg/0.5 mL or 25mcg/0.25 mL dose 2 completed Varsha Colon [place] [facility] [place] [facility] [place] 03/02/2025 12:26:26 Influenza, high-dose, quadrivalent, PF 3 completed Reece Iglesias [place] [facility] [place] [facility] [place] 05/30/2024 10:47:30 COVID-19, mRNA, LNP-S, PF, 50 mcg/0.5 mL 3 completed Reece Igles[place] [facility] [place] [facility] [place] 05/30/2024 10:47:30 COVID-19, mRNA, LNP-S, PF, 50 mcg/0.5 mL 4 completed Varsha Colon [place] [facility] [place] 03/02/2025 12:26:26 Influenza, high-dose, trivalent, PF 4 completed Varsha Colon [place] [facility] [place] [facility] [place] 03/02/2025 12:26:26 zoster recombinant 4 completed Varsha Colon [place] [facility] [place] [facility] [place] 03/02/2025 12:26:26 Tdap 4 completed Varsha Colon [place] [facility] [place] [facility] [place] 03/02/2025 12:26:26 Past Encounters Encounter ID Performer Location Encounter Start Date Encounter Closed Date Diagnosis/Indication Diagnosis SNOMED-CT Code Diagnosis ICD10 Code Diagnosis Note [id number] Ama Velazquez APRN [facility]gR[facility] [address] [address] 08/21/2022 08:14:01 08/21/2022 10:12:43 Mixed hyperlipidemia 228273077 E78.2 continue medication s as prescribed follow heart healthy lifestylew alk daily Type 2 yessica betes mellitus 58409837 E11.9 continue medication s as prescribed updating bloodwork todaymonit or BG dailygoal fasting BG 120 or lessincrea se water intake Depressive disorder 3548 9007 F32.A continue medication as prescribed monitor for worsening symptoms [id number] Ama Velazquez APRN zz[facility]gR[facility] [address] [place] [address] 01/06/2023 08:22:16 01/06/2023 16:35:26 Mixed hyperlipidemia 623182399 E78.2 continue medication s as prescribed follow heart healthy lifestylew alk dailyPatie nt advised to exercise, eat a prudent diet and lose weight as appropriat e. Uncontroll ed type 2 diabetes mellitus 724580734 E11.65 continue medication s as prescribed adding back farxiga 5 mg once a daymonitor BG dailyincre ase water intake Mixed anxi ety and depressive disorder 560037246 F41.8 encouraged to monitor symptomsco ntinue medication s as prescribed work on coping mechanisms [id number] Frankie Hilliard MD [address] [place] [address] 01/14/2024 10:26:13 01/14/2024 11:37:25 Screening mammography of bilateral breasts [id number] 58198 Z12.31 patient declined Screening for malignant neoplasm of colon 756220275 Z12.11 patient declined Uncontroll ed type 2 diabetes mellitus 559275568 E11.65 patient is on Farxiga and glipizide. She has no longer on metformin. She does not know why. We will check hemoglobin A1c today fasting blood sugar this morning was 129 Hyperlipidemia 00139396 E78.5 patient has been on Zetia but is not taking it now she has not sure why. Previous cholestero l is 260 total and 164 LDL. We will recheck labs. Anemia 590700185 D64.9 Hemoglobin was 11.1 a year ago. We will check iron and B12 folate studies. Along with CBC Reactive d epression (situational) 27709987 F43.21 patient is tolerating citalopram well. She has no new symptoms. We will continue this medication . [id number] DREW TRAORE NP [address] [place] [address] 06/08/2024 07:44:51 06/08/2024 09:14:48 Adult health examination 736279849 Z00.00 Patient presented to office today for their Medicare Annual Wellness Visit. Education was provided on healthy nutrition, including a diet rich in fruits and vegetables , minimizing simple carbohydra christ, salt, and saturated fats. Encouraged regular cardiovasc ular exercise such as walking at least 30 minutes daily, 5 times per week. Emphasized preventive health measures and educated pt on fall prevention and community- based lifestyle interventi ons to help reduce health risks and promote healthy living. Uncontroll ed type 2 diabetes mellitus 375924198 E11.65 take medication s as prescribed awaiting [id number] forced diet and lifestyle changesdai ly foot checkyearl y eye examfollow up every 3 months Leukopenia 32116672 D72. 819 recheck lab work today Anemia 806272933 D64.9 recheck lab work todaydenie s bleeding or bruising Mixed hyperlipidemia 267 605077 E78.2 discussed importance of statin therapy with diabetes Vitamin D deficiency 347 12373 E55.9 recheck lab work today Essential hypertension 29194299 I10 educated on goal of less than 130/90advi sed low sodium diet, healthy lifestyle including exercise as ablePrevio usly on medication but wishes to wait before restarting ER if any symptoms such as chest pain, shortness of breath Neuropathy 681147183 G62 .9 request to restart gabapentin , aware of controlled substance agreement and follow-up every 3 monthsmake sure doing daily foot checks High risk medication monitoring indicated [id number] 6208892 Z76.89 Depressive disorder 3548 9007 F32.A denies SI/HI, controlled Heart murmur 80062161 R0 1.1 asymptomat icmonitor [id number] Kanika Ricketts PA-C [facility]cology and Hematolog [facility] [address] [place] [address] 07/27/2024 14:13:38 07/27/2024 15:45:04 Anemia 091331923 D64.9 Patient had labs performed per their primary care provider on {{ June 08, 2024#}}. White blood cell count {{ 2.5#}}. Red blood cell count {{ 3.68#}} . Hemoglobin {{ 10.4#}} . Hematocrit {{ 32.8#}} . Platelet count {{ 95#}},0 00. MCV {{ 89.1#}} . Normal MCH. Low MCHC. No evidence of chronic kidney disease. AST 54 and ALT 55. Normal TSH. Normal vitamin B12 and folic acid. Serum iron low at 32 and iron saturation 7%. Ferritin 19. Leukopenia and thrombocyt openia dating back to at least 2021. Patient denies any bleeding or increased bruising. Denies any recent infections fever or chills. No unintentio nal weight loss. She is taking oral iron 1 tablet every other day. She has been on oral iron since May. She does have trouble with constipati on. Discussed if evidence of persistent iron deficiency will arrange for infusional iron. Patient does have bleeding from hemorrhoid s occasional ly. She has never had a colonoscop y. She refuses to have a colonoscop y. She did have an EGD about 2-3 years ago. Discussed recommend EGD and colonoscop y due to iron deficiency anemia but patient declines at this time. Denies any family history malignancy . She does not smoke. Will order labs today for further evaluation pancytopen ia. Will follow up with further recommenda tions Leukopenia 94644907 D72. 819 Patient had labs performed per their primary care provider on {{ June 08, 2024#}}. White blood cell count {{ 2.5#}}. Red blood cell count {{ 3.68#}} . Hemoglobin {{ 10.4#}} . Hematocrit {{ 32.8#}} . Platelet count {{ 95#}},0 00. MCV {{ 89.1#}} . Normal MCH. Low MCHC. No evidence of chronic kidney disease. AST 54 and ALT 55. Normal TSH. Normal vitamin B12 and folic acid. Serum iron low at 32 and iron saturation 7%. Ferritin 19. Leukopenia and thrombocyt openia dating back to at least 2021. Patient denies any bleeding or increased bruising. Denies any recent infections fever or chills. Will order labs today for further evaluation pancytopen ia. Will follow up with further recommenda tions Thrombocyt openic disorder 940980632 D69.6 Patient had labs performed per their primary care provider on {{ June 08, 2024#}}. White blood cell count {{ 2.5#}}. Red blood cell count {{ 3.68#}} . Hemoglobin {{ 10.4#}} . Hematocrit {{ 32.8#}} . Platelet count {{ 95#}},0 00. MCV {{ 89.1#}} . Normal MCH. Low MCHC. No evidence of chronic kidney disease. AST 54 and ALT 55. Normal TSH. Normal vitamin B12 and folic acid. Serum iron low at 32 and iron saturation 7%. Ferritin 19. Leukopenia and thrombocyt openia dating back to at least 2021. Will order labs today for further evaluation pancytopen ia. Will follow up with further recommenda tions Swollen abdomen 59577634 R19.00 Patient states she has had bilateral peripheral edema and she feels like her abdomen has been swollen for the past 2 weeks. Denies any abdominal pain. There is no pain or erythema of the lower extremitie s. Denies any dyspnea or cough. Denies any history of CHF. Patient denies any alcohol use. She states she has been diagnosed with fatty liver. Elevating lower extremitie s and wearing compressio n stockings. Patient also encouraged to follow up with her primary care provider for this. Will schedule abdominal ultrasound due to abdominal swelling and pancytopen ia. Peripheral edema 0252220 00 R60.9 Patient states she has had bilateral peripheral edema and she feels like her abdomen has been swollen for the past 2 weeks. Denies any abdominal pain. There is no pain or erythema of the lower extremitie s. Denies any dyspnea or cough. Denies any history of CHF. Patient denies any alcohol use. She states she has been diagnosed with fatty liver. Elevating lower extremitie s and wearing compressio n stockings. Patient also encouraged to follow up with her primary care provider for this. Iron defic iency anemia 82379265 D50.9 Patient had labs performed per their primary care provider on {{ June 08, 2024#}}. White blood cell count {{ 2.5#}}. Red blood cell count {{ 3.68#}} . Hemoglobin {{ 10.4#}} . Hematocrit {{ 32.8#}} . Platelet count {{ 95#}},0 00. MCV {{ 89.1#}} . Normal MCH. Low MCHC. No evidence of chronic kidney disease. AST 54 and ALT 55. Normal TSH. Normal vitamin B12 and folic acid. Serum iron low at 32 and iron saturation 7%. Ferritin 19. She is taking oral iron 1 tablet every other day. She has been on oral iron since May. She does have trouble with constipati on. Discussed if evidence of persistent iron deficiency will arrange for infusional iron. Patient does have bleeding from hemorrhoid s occasional ly. She has never had a colonoscop y. She refuses to have a colonoscop y. She did have an EGD about 2-3 years ago. Discussed recommend EGD and colonoscop y due to iron deficiency anemia but patient declines at this time. Denies any family history malignancy . She does not smoke. [id number] DREW TRAORE NP [address] [place] [address] 07/29/2024 10:18:11 07/29/2024 10:57:40 Swelling of bilateral lower limbs 612238501 M79.89 awaiting lab work, discussed Lasix with potassium, follow up in 1 week to reassess swelling and blood pressure.d iscussed care including elevation, compressio n socksER if any urgent signs or symptoms arise [id number] DREW TRAORE NP [address] [place] [address] 09/05/2024 08:18:51 09/05/2024 09:38:45 Uncontrolled type 2 diabetes mellitus 265876675 E11.65 take medication s as prescribed awaiting [id number] forced diet and lifestyle changesdai ly foot checkyearl y eye examfollow up every 3 months Neuropathy 210014308 G62 .9 request to restart gabapentin , aware of controlled substance agreement and follow-up every 3 monthsmake sure doing daily foot checks Mixed anxi ety and depressive disorder 107216489 F41.8 denies SI/HI Mixed hyperlipidemia 267 318939 E78.2 discussed importance of statin therapy with diabetes [id number] DREW TRAORE NP [address] [place] [address] 12/06/2024 08:21:02 12/06/2024 12:15:55 Type 2 diabetes mellitus 11190530 E11.40 take medication s as prescribed awaiting hgba1c; previous hemoglobin A1c in August was 5.9; in chart review diagnosed 2018reinfo rced diet and lifestyle changesdai ly foot checkyearl y eye examfollow up every 3 months Liver enzy mes level above reference range 856307562 R74.8 reviewed lab work from hematologi st from July, iron, hepatitis panel were normalhas a diagnosis in her chart of cirrhosis from 2020, poor historian; unable to give much informatio n about this Anti-nucle ar factor detected 982777459 R76.8 I reviewed hematology use labs with her showing her positive OLIVIA and a referral to Rheumatolo gy, patient wishes to have a closer rheumatolo gist Pancytopenia 055004660 D 61.818 recheck lab work, this could be due to her cirrhosis of her liver; I do not find any notes from a gastroente rologist, or liver specialist , pending lab work today and ultrasound will likely need to see GI and return for ammonia levels, needs to follow up with Hematology as well Swollen abdomen 87414153 R19.00 awaiting lab work and ultrasound , ER if any urgent signs or symptoms arise Swelling o f bilateral lower limbs 083208731 M79.89 refills providedco ntrolled Neuropathy 554847526 G62 .9 aware of controlled substance agreement and follow-up every 3 monthsmake sure doing daily foot checksrisk versus benefit, controlled , refill provided Mixed anxi ety and depressive disorder 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 Decompensa byron. Recent abdominal ultrasound 12/16/2024 with cirrhosis and splenomega ly and large volume ascites noted. prior comprehens estela liver evaluation from 2021 with positive OLIVIA otherwise negative. Liver ultrasound reviewed from 2021 noted stable appearance of liver with findings of cirrhosis. Last EGD 01/2022 with portal hypertensi ve gastropath y noted, negative for esophageal varices or GAVE. No asterixis on PE. Trace bilateral ALANA. Plan for labs today to formulate MELD. Recommend EGD to evaluate for esophageal varices, PHG, GAVE. I did discuss avoidance of NSAIDS as well as strict less than 2,000 mg low sodium diet. I have recommend hepatitis A and B vaccinatio n. Ascites 581650378 R18.8 Large volume ascites noted on abdominal ultrasound reviewed 12/16/2024 . Patient is currently prescribed furosemide 40 mg daily. I have recommende d continued use of furosemide 40 mg daily as well as starting spironolac tone 100 mg p.o. daily. Recommend strict low-sodium diet less than 2000 mg per day. Dietary handout was provided to patient clinic today. Recommend abdominal paracentes is with ascitic fluid analysis and albumin replacemen t. Constipation 79056770 K5 9.00 Uncontroll ed constipati on at this time. Recommend lactulose 10 mg b.i.d. for treatment. Will check ammonia today. [id number] Frieda Mcelroy NP [facility] [address] [place] [id number] 02/15/2025 11:03:37 02/15/2025 12:09:35 Cirrhosis of liver 59240658 K74.60 Cirrhosis secondary to GUTHRIE. Decompensa byron. [...] AFP to screen for HCC 04/2025. Ascites 575461318 R18.8 Large volume ascites noted on abdominal ultrasound reviewed 12/16/2024 . Patient continues diuretic therapy without refractory ascites. Recommend continued low sodium diet as well as continued diuretic therapy. Constipation 58031107 K5 9.00 previously prescribed lactulose however patient discontinu ed due to increased abdominal cramping with use. She reports daily bowel movements at this time with increased appetite. Ulcer of duodenum 571194 09 K26.9 EGD from 01/25/2025 noted diffuse portal hypertensi ve gastropath y as well as erosive duodenitis with ulcers noted. Recommend continued use of pantoprazo le 40 mg p.o. BID as prescribed following procedure. Hypokalemia 65824477 E87 .6 Previously noted on labs from 12/21/24. She did not complete follow up lab as recommende d. She continues potassium supplement s at this time. Plan for labs to monitor. Portal hyp ertensive gastropathy 774019462 K76.6 K31.89 Portal hypertensi ve gastropath y with oozing of blood noted on EGD 01/25/2025 . Recommend continued use of carvedilol as prescribed following procedure. Health Concerns Section Related Observation LastModified by Organization Detai ls LastModified Time None Recorded Concern Status LastModified by Organization Details LastModified Time None Recorded Advance Directives Directive N: Payers Encounter Date Sequence Insurance Name Policy Number Policy Carmichael Covered Member ID Carmichael Member ID Guarantor Name 07/29/2024 1 [place] Vkia A Gordon [id number] Vika A Gordon 09/05/2024 1 [place] Vika A Gordon [id number] Vika A Gordon 12/06/2024 1 [place] Vika A Gordon [id number] Vika A Gordon 12/21/2024 1 [place] Vika A Gordon [id number] Vika A Gordon 02/15/2025 1 [place] Vika A Gordon [id number] Vika A Gordon Notes Date Note Type Note Provider Name and Address Organization Details Recorded Time 07/29/2024 text/html 74-year-old fema mariia who presents with bilateral lower extremity swelling. Has been worsening over the past couple weeks. She denies any chest pain or shortness of breath. She is not currently on any fluid medication. She reports she was taken off of her blood pressure medication previously. She did check her blood pressure on Thursday and it was 179/76 when she had appointment with a specialist. Denies any history of heart failure. DREW TRAORE, EMMANUEL [address] [place] [address], [phone], [facility] [place] 08/01/2024 15:32:50 09/05/2024 text/html 74-year-old jennifer chiang who presents for 3 month follow-up on chronic care, medication refill. Type 2 diabetes. Denies any hyper or hypoglycemia. Denies any wounds or ulcers on her feet. Lasix as needed for swelling. Denies any chest pain, shortness of breath. Previously on citalopram therapy but she has not taken in a while but thinks she may need to go back on it. Denies any SI/HI. DREW TRAORE NP [address] [facility], [place], [address], [facility] [place] 09/06/2024 09:54:56 12/06/2024 text/html 74-year-old jennifer chiang who presents for follow-up. Reports her leg swelling has been controlled but her upper abdomen feels like it is retaining fluid for the past couple months. She denies any abdominal pain. She has had decreased appetite with occasional constipation. She has not seen Rheumatology. Reports she did not know about. She was referred to Rheumatology by Hematology back in July. Mood is controlled. She denies any symptoms of hyper or hypoglycemia. Doing well on gabapentin therapy. Blood pressure is slightly elevated but she attributes this to white coat syndrome. Denies any chest pain or shortness of breath. Has not had her Lasix, she has been out of her medication. has empty bottles with her today but medication list shows the medicines were filled on the DREW TRAORE NP [address] [facility], [place], [address], [facility] [place] 12/06/2024 09:02:05 12/21/2024 text/html 74-year-old jennifer chiang with a past medical history diabetes, hyperlipidemia, depression, hypertension, heart murmur, and cirrhosis. Patient presents to clinic today for evaluation of cirrhosis and ascites. She was previously established with our clinic however has been lost to follow up. Abdominal ultrasound reviewed 12/16/2024 noted cirrhosis with splenomegaly as well as large volume ascites. Patient does report significant abdominal bloating and pressure over the past several weeks. She is currently prescribed Lasix 40 mg daily with minimal improvement of lower extremity edema. She does report constipation for 3-4 days with episodes of diarrhea to follow. Not currently on medication for treatment of constipation. Comprehensive liver evaluation with positive OLIVIA from 2021. Liver ultrasound reviewed from 11/2021 noted stable appearance of liver with findings of cirrhosis. EGD 01/2022 with portal hypertensive gastropathy noted, negative for esophageal varices or gave. She continues to follow with Hematology. Denies melena, jaundice, or recent confusion. No history of alcohol use. No family history of liver disease. Frieda Mcelroy NP [address] [facility], [address], [place], [address], [facility] [place] 12/21/2024 12:42:59 02/15/2025 text/html Patient returns to clinic today [...] as large volume ascites. Frieda Mcelroy NP [address], [address], [place], [address], [facility] [place] 02/15/2025 13:55:21 OBGyn Episode No OBEpisode recorded.
--- NOTE | 2025-03-03 10:51 | SW/DCPLANNER ---
Addendum entered by Miryea Brown 03/06/25 09:20: Patients daughter called back and stated that her mother is doing good. Patients daughter stated that she was able to get her medicine. Patients daughter stated that she is aware of her moms appointments. Patients daughter stated that she has no concerns or questions at this time. Kyle Murray Original Note: Phoned patient x2. Left messages and call back number with my name and number. Kyle Murray
== END 2025-03-01 15:20 | disposition home or self-care (01) | DRG 872 ==
LOC: ER 11:25 → 2ND 14:06
PROVIDERS: Internal Medicine Gastroenterology; Student in an Organized Health Care Education/Training Program; Admitting Provider Internal Medicine Adolescent Medicine; Emergency Provider Emergency Medicine; PCP Nurse Practitioner Family; Visit Provider Internal Medicine Adolescent Medicine
DX: B37.7 Candidal sepsis (principal); N17.9 Acute kidney failure, unspecified; Q62.10 Congenital occlusion of ureter, unspecified; K27.3 Acute peptic ulcer, site unspecified, without hemorrhage or perforation; N13.30 Unspecified hydronephrosis; K75.81 Nonalcoholic steatohepatitis (NASH); E86.0 Dehydration; D69.6 Thrombocytopenia, unspecified; K52.9 Noninfective gastroenteritis and colitis, unspecified; I50.9 Heart failure, unspecified; K74.69 Other cirrhosis of liver; E11.9 Type 2 diabetes mellitus without complications; D64.89 Other specified anemias; I70.1 Atherosclerosis of renal artery; Z91.141 Patient's other noncompliance with medication regimen due to financial hardship; Z79.84 Long term (current) use of oral hypoglycemic drugs; Z90.49 Acquired absence of other specified parts of digestive tract
CPT/HCPCS: 36415; 74174; 76770; 80048; 80053; 81001; 82105; 82140; 82272; 82607; 82728; 82746; 82803; 82962; 83010; 83036; 83540; 83550; 83605; 83615; 83690; 83735; 84550; 85007; 85014; 85018; 85025; 85610; 86803; 86850; 87040; 87077; 87106; 87389; 87507; 87636; 93005; 97116; 97162; 97166; 97530; 99285; G0328; J0696; J1450; J1885; J2405; J3372; J7030; J7120; P9016; P9047; Q9967

== ENCOUNTER 2025-04-10 20:58 | Emergency (ER) | payer MEDICARE, SELFPAY ==
[2025-04-10 21:10] VITALS: BP 148/66; PULSE 91; O2SAT 96
--- OUTSIDE RECORDS SUMMARY | 2025-04-10 21:17 | XMS_ITS | Continuity of Care Document ---
Author Organization [facility] Phone Care Team Providers Care Planer Off Bearer Name Role Phone BRITTANIE DAVIS Admitting DREW TRAORE Primary Care BRITTANIE DAVIS Primary Attending [phone] BRITTANIE DAVIS Unavailable ALLERGIES AND ADVERSE REACTIONS ALLERGIES AND ADVERSE REACTIONS Code System Allergy Substance Adverse Reaction Date Reaction (Severity) Comment Status Reported By Updated By No Known Allergies [id number] on January 20, 2022 9:17:17 PM [facility] FAMILY HISTORY RELATION: Father Status: Cause of : Unknown Age at : Unknown SNOMED-CT Diagnosis Age At Onset [id number] Diabetes mellitus RELATION: Mother Status: Cause of : Unknown Age at : Unknown SNOMED-CT Diagnosis Age At Onset [id number] Acute stroke RESULTS Patient: EVAN Dunn Date of : 1950 LABORATORY RESULTS ORDER 200: COMP METABOLIC PA DANIS (LOINC: 35853-2) ORDER DATE: February 21, 2025 3:23:00 PM [place] Specimen Source: Serum/Plasm a Specimen Type: Acellular blo od (serum or plasma) specimen PERFORMING LAB: [address] [id number] Result Comment: Final Result Date: February 21, 2025 4:34:00 PM UT (TECH: LT) LOINC TEST FLAG RESULT REFERENCE RANGE UPDA DEVON BY 2951-2 Sodium [Moles/volume ] in Serum or Plasma N 136 mmol/L 136 mmol/L - 145 mmol/L February 21, 2025 4:34:00 PM UT (TECH: LT) 2823-3 Potassium [Moles/volume] in Serum or Plasma N 4.7 mmol/L 3.5 mmol/L - 5.1 mmol/L February 21, 2025 4:34:00 PM UTC (TECH: LT) 5-0 Chloride [Moles/volume] in Serum or Plasma N 104 mmol/L 98 mmol/L - 107 mmol/L February 21, 2025 4:34:00 PM UTC (TECH: LT) 2027-9 Carbon dioxide, tota l [Moles/volume] in Serum or Plasma N 25 mmol/L 21 mmol/L - 32 mmol/L February 21, 2025 4:34:00 PM UTC (TECH: LT) 47588-2 Anion gap 3 in Serum or Plasma N 7.0 February 21, 2025 4:34:00 PM UTC (TECH: LT) 2345-7 Glucose [Mass/volume ] in Serum or Plasma H 324 mg/dL 70 mg/dL - 110 mg/dL February 21, 2025 4:34:00 PM UTC (TECH: LT) 3094-0 Urea nitrogen [Mass/volume] in Serum or Plasma H 32 mg/dL 7 mg/dL - 18 mg/dL February 21, 2025 4:34:00 PM UTC (TECH: LT) 2160-0 Creatinine [Mass/volume] in Serum or Plasma H 1.3 mg/dL 0.6 mg/dL - 1.0 mg/dL February 21, 2025 4:34:00 PM UTC (TECH: LT) 3097-3 Urea nitrogen/Creatinine [Mass Ratio] in Serum or Plasma H 24.6 9 - February 21, 2025 4:34:00 PM UTC (TECH: LT) 91599-3 Glomerular filtratio n rate/1.73 sq M.predicted by Creatinine-based formula (MDRD) L 43 mL/min >60 February 21, 2025 4:34:00 PM UTC (TECH: LT) 05806-9 Osmolality of Serum or Plasma by calculated by sum of electrolytes H 303 mosm/kg 275 mosm/kg - 301 mosm/kg February 21, 2025 4:34:00 PM UTC (TECH: LT) 2885-2 Protein [Mass/volume ] in Serum or Plasma N 8.0 g/dL 6.4 g/dL - 8.2 g/dL February 21, 2025 4:34:00 PM UTC (TECH: LT) 1751-7 Albumin [Mass/volume ] in Serum or Plasma L 2.9 g/dL 3.4 g/dL - 5.0 g/dL February 21, 2025 4:34:00 PM UT (TECH: LT) 30186-5 Calcium [Mass/volume ] in Serum or Plasma N 9.5 mg/dL 8.5 mg/dL - 10.1 mg/dL February 21, 2025 4:34:00 PM [place] (TECH: LT) 66714-9 Calcium [Mass/volume ] corrected for total protein in Serum or Plasma H 10.4 mg/dL 8.5 mg/dL - 10.1 mg/dL February 21, 2025 4:34:00 PM UT (TECH: LT) 1975-2 Bilirubin.total [Mass/volume] in Serum or Plasma N 0.9 mg/dL 0.4 mg/dL - 1.5 mg/dL February 21, 2025 4:34:00 PM UT (TECH: LT) 1920-8 Aspartate aminotransferase [Enzymatic activity/volume] in Serum or Plasma H 46 U/L 15 U/L - 37 U/L February 21, 2025 4:34:00 PM UT (TECH: LT) 1742-6 Alanine aminotransferase [Enzymatic activity/volume] in Serum or Plasma N 64 U/L 12 U/L - 78 U/L February 21, 2025 4:34:00 PM UT (TECH: LT) 6768-6 Alkaline phosphatase [Enzymatic activity/volume] in Serum or Plasma H 156 U/L 53 U/L - 141 U/L February 21, 2025 4:34:00 PM UT (TECH: LT) ORDER 300: PT PROTHROMBIN TI ME W INR (LOINC: 05668-8) ORDER DATE: February 21, 2025 3:23:00 PM [facility] Specimen Source: Plasma Specimen Type: Plasma specim en PERFORMING LAB: [address] [id number] Result Comment: Final Result Date: February 21, 2025 4:33:00 PM UT (TECH: LT) LOINC TEST FLAG [place] [address]-0 INR in Platelet poor plasma or blood by Coagulation assay N 11.2 seconds 9.1 seconds - 12.0 seconds February 21, 2025 4:33:00 PM UT (TECH: LT) 6301-6 INR in Platelet poor plasma by Coagulation assay N 1.03 0.9 - 1.1 February 21, 2025 4:33:00 PM UTC (TECH: LT) ORDER 400: CBC AUTO W DIFF ( LOINC: 68964-5) ORDER DATE: February 21, 2025 3:23:00 PM UTC Specimen Source: Whole Blood Specimen Type: Whole blood s ample PERFORMING LAB: [address] [id number] Result Comment: Final Result Date: February 21, 2025 4:34:00 PM UTC (TECH: LT) LOINC TEST FLAG RESULT REFERENCE RANGE UPDA DEVON BY 6690-2 Leukocytes [#/volume ] in Blood by Automated count L 3.4 10^3/uL 4.5 10^3/uL - 11.5 10^3/uL February 21, 2025 4:34:00 PM UTC (TECH: LT) 789-8 Erythrocytes [#/volu me] in Blood by Automated count L 3.29 10^6/uL 4.25 10^6/uL - 5.57 10^6/uL February 21, 2025 4:34:00 PM UTC (TECH: LT) 718-7 Hemoglobin [Mass/volume] in Blood L 8.8 g/dL 12.0 g/dL - 15.7 g/dL February 21, 2025 4:34:00 PM UTC (TECH: LT) 24207-5 Hematocrit [Volume Fraction] of Blood L 28.2 % 36.0 % - 47.0 % February 21, 2025 4:34:00 PM UTC (TECH: LT) 787-2 Erythrocyte mean corpuscular volume [Entitic volume] by Automated count N 85.7 fl 80 fl - 95 fl February 21, 2025 4:34:00 PM UTC (TECH: LT) 71177-4 Erythrocyte mean corpuscular hemoglobin [Entitic mass] in Blood from Fetus by Automated count L 26.7 pg 27.0 pg - 34.0 pg February 21, 2025 4:34:00 PM UTC (TECH: LT) 68332-9 Erythrocyte mean corpuscular hemoglobin concentration [Mass/volume] in Blood from Fetus by Automated count L 31.2 g/dL 32.0 g/dL - 36.0 g/dL February 21, 2025 4:34:00 PM UTC (TECH: LT) 75043-4 Platelets [#/volume] in Blood L 110 10^3/uL 150 10^3/uL - 450 10^3/uL February 21, 2025 4:34:00 PM UTC (TECH: LT) 39154-4 Erythrocyte distribution width [Ratio] H 16.9 % 12.3 % - 15.1 % February 21, 2025 4:34:00 PM UTC (TECH: LT) 85474-8 Platelet mean volume [Entitic volume] in Blood by Automated count H 13.0 fl 7.4 fl - 10.4 fl February 21, 2025 4:34:00 PM UTC (TECH: LT) 57803-3 Granulocytes/100 leukocytes in Blood by Automated count N 73.4 % 40 % - 75 % February 21, 2025 4:34:00 PM UTC (TECH: LT) 736-9 Lymphocytes/100 leukocytes in Blood by Automated count L 13.5 % 15 % - 57 % February 21, 2025 4:34:00 PM UTC (TECH: LT) 5905-5 Monocytes/100 leukocytes in Blood by Automated count N 9.9 % 4.0 % - 12.0 % February 21, 2025 4:34:00 PM UTC (TECH: LT) 713-8 Eosinophils/100 leukocytes in Blood by Automated count N 2.3 % 0.0 % - 4.0 % February 21, 2025 4:34:00 PM UTC (TECH: LT) 706-2 Basophils/100 leukocytes in Blood by Automated count N 0.9 % 0.0 % - 1.0 % February 21, 2025 4:34:00 PM UTC (TECH: LT) 52390-3 Immature granulocyte s [#/volume] in Blood N 0.0 % 0.0 % - 0.8 % February 21 4:34:00 PM UTC (TECH: LT) 52745-9 Granulocytes [#/volu me] in Blood by Automated count N 2.51 10^3/uL February 21, 2025 4:34:00 PM UTC (TECH: LT) 731-0 Lymphocytes [#/volum e] in Blood by Automated count N 0.46 10^3/uL February 21, 2025 4:34:00 PM UTC (TECH: LT) 742-7 Monocytes [#/volume] in Blood by Automated count N 0.34 10^3/uL February 21, 2025 4:34:00 PM UT (TECH: LT) 711-2 Eosinophils [#/volum e] in Blood by Automated count N 0.08 10^3/uL February 21, 2025 4:34:00 PM [facility] (TECH: LT) 704-7 Basophils [#/volume] in Blood by Automated count N 0.03 10^3/uL February 21, 2025 4:34:00 PM [facility] (TECH: LT) 45978-1 Immature granulocyte s [#/volume] in Blood N 0.00 10^3/uL February 21 4:34:00 PM [facility] (TECH: LT) 47484-6 Manual differential performed [Presence] in Blood N NO February 21, 2025 4:34:00 PM [facility] (TECH: LT) LABORATORY NARRATIVE RESULTS Information is not available RADIOLOGY RESULTS Information is not available PATHOLOGY NARRATIVE RESULTS Information is not available MICROBIOLOGY RESULTS No Micro Labs/Results Exist for Patient BLOOD ADMIN RESULTS Information is not available MEDICATIONS HOME MEDICATIONS Status RXNORM NDC Medication Dose Route Frequency Dates Comments Reported By Updated By Drug Treatment Unknown DISCHARGE MEDICATIONS Status RXNORM NDC Medication Dose Route Frequency Dates Comments Physician Updated By No Discharge Medication Info rmation Available INPATIENT MEDICATIONS Status RXNORM NDC Medication Dose Route Frequency Rat e Quantity Dates Comments Physician Updated By No Inpatient Medication Info rmation Available SOCIAL HISTORY SOCIAL HISTORY SNOMED-CT Social History Element Description Effective Dates Offered Cessation Comment UpdatedBy [id number] Historical Tobacco smoking status Never Smoked [id number] on January 20, 2022 9:17:09 PM [facility] SOCIAL HISTORY - Gender Sex: Female SOCIAL HISTORY - Status : status i nformation is not available Intention in Next Year: intention information is not available SOCIAL HISTORY - Sexual Behavior Sexual Orientation Gender Identity SNOMED-CT Description SNO MED -CT Description Activity Level No of Partners Partner Type UpdatedBy Information is not available HEALTH CONCERNS Problems Concern Status Health Concern problem infor mation not available. Smoking Status Status Years Used Consumed packs p er day Health Concern smoking histo ry information not available. Family History Concern Status Health Concern family histor y information not available. MEDICAL EQUIPMENT MEDICAL EQUIPMENT Device Status Quantity Dates Procedure Comments Updated By No implanted devices [id number] on January 5:07:18 PM [facility] ENCOUNTERS ENCOUNTER INFORMATION Reason for Visit K74.60 Admission February 21, 2025 3:09:[address] [address] Discharge February 21, 2025 3:09:00 PM [facility] DIS CHARGED TO HOME OR SELF CARE ENCOUNTER DIAGNOSES Notes information is not nico ilable. Code System Diagnosis Onset Date Diagnosis information is not available. ABSTRACT DIAGNOSES Code System Diagnosis Updated By K74.60 ICD10 UNSPECIFIED CIRRHOSIS OF ROE ER [id number] on February 23, 2025 7:58:09 AM [facility] K74.60 ICD10 UNSPECIFIED CIRRHOSIS OF ROE ER [id number] on February 23, 2025 7:58:11 AM [facility] CARE TEAM Care Planer Off Bearer Role BRITTANIE DAVIS Admitting DREW TRAORE Primary Care BRITTANIE DAVIS Primary Attending BRITTANIE DAVIS Referring CARE TEAM CARE byproducts maker Role on Team Status Start Date End Date Update d By LEÓN COE PCP normal February 21, 2025 4:00:00 AM [facility] February 21, 2025 3:09:00 PM [facility] [id number] on February 21, 2025 3:11:02 PM [facility] RYAN LEMUS Referring normal February 21, 2025 4:00:00 AM [facility] February 21, 2025 3:09:00 PM [facility] [id number] on February 21, 2025 3:11:02 PM [facility] RYAN LEMUS Attending normal February 21, 2025 4:00:00 AM [facility] February 21, 2025 3:09:00 PM [facility] [id number] on February 21, 2025 3:11:02 PM [facility] RYAN LEMUS Admitting normal February 21, 2025 4:00:00 AM [facility] February 21, 2025 3:09:00 PM [facility] [id number] on February 21, 2025 3:11:02 PM [facility]
--- OUTSIDE RECORDS SUMMARY | 2025-04-10 21:17 | XMS_ITS | Continuity of Care Document ---
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 Plan of Treatment Reminders Order Date Submit Date Provider Last Modified By Organization Details Last Modified Time Details Appointments OV EST 15 2024 11:15A M Frieda Mcelroy, EMMANUEL Not available Not available Not available Lab CMP, serum or plasma 2024 025 [facility] (Lab Registration) , [address] [place] [address] [place], [address], 02/21/2025 12:35:45 PT/INR 2024 025 [facility] (Lab Registration) , [address] [place] [address] [place], [address], 02/21/2025 12:35:30 CBC w/ auto diff 2024 025 [facility] (Lab Registration) , [address] [place] [address] [place], [address], 02/21/2025 12:35:43 Referral None recorded . Procedures None recorded . Surgeries None recorded . Imaging None recorded . Medication Orders None recorded . Patient TargetsNo targets recorded. Patient InstructionsNo instructions recorded. Reason for Referral None Reported. Results Created Date Observation Date Name Description Value Unit Range Abnormal Flag Note LastModifiedBy Organization Detail LastModifiedTime 02/25/20 25 02/23/2025 imagi ng inter preta tion No observ ation record ed. [address], [place], [address], 02/27/2025 08:27:17 02/25/20 25 02/23/2025 imagi ng inter preta tion No observ ation record ed. [address], [place], [address], 02/27/2025 08:27:02 02/29/20 25 02/28/2025 [place], severo [email or web address] No observ ation record ed. [facility] [address], [place], [address], 02/28/2025 18:10:16 03/24/20 25 03/24/2025 rhyth m strip , EKG* No observ ation record ed. [email or web address] [facility] Records [address] [place] [address] [place], [address], 03/27/2025 14:41:37 Result Notes None recorded. Problems Name Problem SNOMED Code Status Onset Date Resolution Date Notes Provider Name and Address Organization Details Recorded Time Ascites 312791452 Active 2024 Frieda Mcelroy NP [address], [address], [place], [address], [place] [facility] [place] & [place] 5 11:33:10 Constipat ion 13672799 Active 2024 Frieda Mcelroy NP [address], [address], [place], [address], [place] [facility] [place] & [place] 5 11:34:56 Hypokalem ia 34869978 Active 2024 Frieda Mcelroy NP [address], [address], [place], [address], [place] [facility] [place] & [place] 5 13:52:18 Ulcer of duodenum 71905002 Active 2024 Frieda Mcelroy NP [address], [address], [place], [address], [place] [facility] & [place] 5 13:51:25 Portal hypertens carleen gastropat hy 732343605 Active 2024 Frieda Mcelroy NP [address], [address], [place], [address], [place] [facility] & [place] 5 13:54:32 Abnormal renal function 81276792 Active 2024 Frieda Mcelroy NP [address], [address], [place], [address], [place] [facility] [place] & [place] 5 09:58:27 Mammograp hy abnormal 561290245 Active 2020 Reece Hutchinso n [place] [facility] [place] & [place] 4 10:47:01 Acute kidney injury 99104409 Active 2013 Reece Hutchinso n [place] [facility] [place] & [place] 4 10:46:39 Patient encounter status 379221785 Active 2018 Reece Hutch[place] n [place] [facility] [place] 4 10:47:07 Type 2 diabetes mellitus 62774549 Active 2017 Reece Hutch[place] n [place] [facility] [place] & [place] 4 10:47:18 Gallstone 191938634 Active 2013 Reece Hutch[place] n [place] [facility] [place] 4 10:46:47 Uncontrol led type 2 diabetes mellitus 981160862 Active 2014 Reece Hutch[place] n [place] [facility] [place] 4 10:47:20 Annual wellness visit Active 2017 Annual wellness visit Reece Hutchinso n [place] [facility] [place] & [place] 4 10:46:42 Liver enzymes level above reference range 682914194 Active 2020 Reece Hutchinso n [place] [facility] [place] & [place] 4 10:46:56 Leukopeni a 76501119 Active 2020 Reece Hutch[place] n [place] [facility] [place] & [place] 4 10:46:54 Mixed hyperlipi demia 629180710 Active 2018 Reece Hutch[place] n [place] [facility] [place] & [place] 4 10:47:04 Cirrhosis of liver 50100858 Active 2020 Reece Hutch[place] [facility] [place] 4 10:46:44 Reactive depressio n (situatio nal) 32080556 Active 2015 Reece Hutchinso n [place] [facility] [place] & [place] 4 10:47:08 Low blood pressure 10702145 Active 2013 Reece Hutch[place] [facility] [place] & [place] 4 10:47:00 Sepsis 71626597 Active 2013 Reece Hutch[place]so n [place] [facility] [place] 4 10:47:15 Fibrocyst ic disease of breast 09399802 Active 2020 Reece Hutch[place] n [place] [facility] [place] 4 10:46:46 Vitamin D deficienc y 68138441 Active 2020 Reece Hutch[place]so n [place] [facility] [place] 4 10:47:21 Liver function test above reference range 943814260 Active 2020 Reece Hutch[place] [facility] [place] 4 10:46:58 Neuropath y due to diabetes mellitus 229320583 Active 2014 Reece Hutch[place]so n [place] [facility] [place] & [place] 4 10:47:05 Right upper quadrant pain 865189884 Active 2013 Reece Hutch[place] [facility] [place] 4 10:47:10 Hyperchol esterolem ia 46632425 Active 2014 Reece Hutch[place] n [place] [facility] [place] 4 10:46:50 Hypertens carleen disorder 16952698 Active 2014 Reece Hutch[place] [facility] [place] 4 10:46:53 Acute cholecyst itis 01850322 Active 2013 Reece Hutch[place] [facility] [place] 4 10:46:38 Heartburn 54854846 Active 2020 Reece Hutch[place] [facility] [place] 4 10:46:49 Syncope 281866393 Active 2014 Reece Hutch[place] [facility] [place] 4 10:47:16 Screening mammograp hy of bilateral breasts Active 2023 Reece Hutch[place] n [place] [facility] [place] 4 10:47:13 Screening for malignant neoplasm of colon Active 2023 Reece [place] [facility] [place] 4 10:47:11 Hyperlipi demia 20671417 Active 2023 Reece Hutch[place] [facility] 4 10:46:52 Anemia 584013885 Active 2023 Reece Hutch[place] [facility] [place] 4 10:46:41 Heart murmur 20703301 Active 2023 DREW TRAORE NP [address] [place] [address], [address], [place] 4 08:37:27 Depressiv e disorder 85281600 Active 2023 DREW TRAORE NP [address] [facility], [place], [address], [place] 4 08:37:30 High risk medicatio n monitorin g indicated 040101021645 [address] Active 2023 DREW TRAORE NP [address] [facility], [place], [address], [place] 4 08:37:32 Neuropath y 000651869 Active 2023 DREW TRAORE NP [address] [facility], [place], [address], [place] 4 08:37:34 Essential hypertens ion 64597420 Active 2023 DREW TRAORE NP [address] [facility], [place], [address], [place] [facility] 4 08:37:36 Notes:Some problems listed i n Documents: #[id number], #[id number], #[id number] could not be added to this patient's chart. Please review these documents and add these problems to the patient's chart manually as needed. Problem Notes None recorded. Procedures Surgical History Date Name Laterality Status Provider Name and Address Organization Details Recorded Time 01/25 esophagogastroduodenoscopy completed Flower [place] [facility] & [place] 5 16:31:08 06/08 Medicare Annual Wellness Visit Health Risk Assessment completed Reece Iglesias [place] [facility] [place] & [place] 4 08:12:47 01/22 esophagogastroduodenoscopy completed Barxton Rice [place] - [facility] [facility] & [place] 4 11:51:01 11/23 Cholecystectomy completed Poly Crews [place] - [facility] - [place] & [place] 2 10:35:54 Imaging Results None recorded. Procedure Notes None recorded. Medical Equipment None Reported. Allergies Allergen ID Allergen Name Allergen Category Reaction Reaction Severity Criticality Documentation Date Start Date Code Code System Note Provider Name and Address Organization Details Recorded Time 125270 No known allergy (situatio n) Not available Not available Not available Not available 03/15/2025 77661 6003 SNOMED Aly Maravilla [place], [place] - [facility] - [place] & [place] 15:08:23 Medications Name Sig Start Date Stop Date Status Note LastModified by Organization Details LastModified Time atorvastati n 40 mg tablet TAKE 1 TABLET BY MOUTH EVERY DAY active Not Available Not Available No t Available gabapentin 600 mg tablet 12/20 completed Not Available Not Available Not Available citalopram 40 mg tablet TAKE 1/2 TABLET BY MOUTH EVERY DAY 09/05 completed Not Available Not Available Not Available atorvastati n 10 mg tablet 07/27 completed Not Available Not Available Not Available fluconazole 200 mg tablet TAKE TWO TABLETS BY MOUTH EVERY DAY FOR 12 DAYS 03/10 completed Not Available Not Available Not Available glipizide ER 10 mg tablet, extended release 24 hr TAKE 1 TABLET BY MOUTH DAILY WITH BREAKFAST 03/10 completed Not Available Not Available Not Available spironolact one 100 mg tablet TAKE 1 TABLET BY MOUTH EVERY DAY active Not Available Not Available No t Available glipizide ER 5 mg tablet, extended release 24 hr TAKE 1 TABLET BY MOUTH DAILY WITH A MEAL 03/10 completed Not Available Not Available Not Available potassium chloride ER 10 mEq tablet,exte [...] day by oral route for 90 days. 03/10 completed Not Available Not Available Not Available pantoprazol e 40 mg tablet,josé miguel yed release TAKE 1 TABLET BY MOUTH TWICE DAILY active Not Available Not Available No t Available gabapentin 300 mg capsule TAKE 1 CAPSULE BY MOUTH EVERY DAY AT BEDTIME FOR NERVE PAIN active Not Available Not Available No t Available furosemide 20 mg tablet TAKE 1 TABLET BY MOUTH EVERY DAY IN THE MORNING NEEDED FOR SWELLING active Not Available Not Available No t Available ergocalcife rol (vitamin D2) 1,250 mcg (50,000 [...] chloride ER 20 mEq tablet,exte nded release TAKE 1 TABLET BY MOUTH ONCE DAILY FOR 30 DAYS AND RECHECK LEVELS NEXT WEEK active Not Available Not Available No t Available Vitals Date Recorded Body height Body mass index (BMI) Body weight Body temperature Oxygen saturation Oxygen saturation in Arterial blood by Pulse oximetry Heart rate Provider Name and Address Organization Details Last Updated DateTime 5 166.37 cm 20.3 kg/m2 28455.4 5 g 97.9 [degF] 99 % 99 % 86 /min Gilma Krystle [facility] & [place] 11:35:16 Social History Question Answer Notes LastModified by Organizat ion Details LastModified Time Tobacco Smoking Status Never Smoker Poly Crews [place], [place] - [facility] & [place] 08/21/2022 10:35:54 Do You Have An Advance Directive? No Information not available 08/21/2022 Are You Blind Or Do You Have Difficulty Seeing? No Information not available 08/21/2022 Is Blood Transfusion Acceptable In An Emergency? Yes [email or web address] Information not available 06/08/2024 What Is Your Level Of Caffeine Consumption? Moderate [email or web address] Information not available 06/08/2024 Are You Deaf Or Do You Have Serious Difficulty Hearing? No [email or web address] Information not available 06/08/2024 What Type Of Diet Are You Following? DIABETIC [email or web address] Information not available 06/08/2024 Have There Been Any Changes To Your Family Or Social Situation? No [email or web address] Information no t available 03/10/2025 What Is The Fluoride Status Of Your Home? Unknown Information not available 03/10/2025 Are There Any Guns Present In Your Home? No [email or web address] Information not available 03/10/2025 Do You Use Insect Repellent Routinely? Yes [email or web address] Information not available 03/10/2025 In General, Would You Say Your Health Is Good [email or web address] Information not available 06/08/2024 How Would You Describe The Condition Of Your Mouth And Teeth? including False Teeth Or Dentures? Good [email or web address] Information not available 06/08/2024 In The Past 7 Days, How Many Servings Of Fruits And Vegetables Did You Typically Eat Each Day? (1 Serving = 1 Cup Of Fresh Vegetables, 1? 2 Cup Of Cooked Vegetables, Or 1 Medium Piece Of Fruit. 1 Cup = Size Of A Baseball.) 1-2 Servings Per Day zainvcvjxnl82 Information not available 06/08/2024 In The Past 7 Days, How Many Servings Of High Fiber Or Whole Grain Foods Did You Typically Eat Each Day? (1 Serving = 1 Slice Of 100% Whole Wheat Bread, 1 Cup Of Whole-grain Or High-fiber Mjhcp-ku-gpu Cereal, 1? 2 Cup Of Cooked Cereal Such As Oatmeal, Or 1? 2 Cup Of Cooked Brown Rice Or Whole Wheat Pasta.) 3-4 Servings Per Day fyefaehqgbf68 Information not available 06/08/2024 In The Past 7 Days, How Many Servings Of Fried Or High-fat Foods Did You Typically Eat Each Day? (Examples Include Fried Chicken, Fried Fish, [place], Polish [place], Potato Chips, [place] Chips, Doughnuts, Creamy Salad Dressings, And Foods Made With Whole Milk, Cream, Cheese, Or Mayonnaise.) 1-2 Servings Per Day [email or web address] Information not available 06/08/2024 In The Past 7 Days, How Many Sugar-sweetened (not Diet) Beverages Did You Typically Consume Each Day 0 Drinks Per Day itetxgntixa54 Information not available 06/08/2024 Each Night, How Many Hours Of Sleep Do You Usually Get? 5-6 Hours Information not available 06/08/2024 Do You Snore Or Has Anyone Told You That You Snore? No [email or web address] Information not available 06/08/2024 In The Past 7 Days, How Often Have You [place]ki Sleepy During The Daytime? Sometimes kgssfezujjz24 Information not available 06/08/2024 Do You Have Chronic Pain? No rkdrkifmoir25 Information not available 06/08/2024 Are You In A Pain Management Program? No [email or web address] Information not available 06/08/2024 Do You Take Opioids For Your Pain? No [email or web address] Information not available 06/08/2024 How Often Is Stress A Problem For You In Handling Such Things As: Your Health, Your Finances, Your Family And Social Relationships, Your Work? Sometimes fjljibqqooc31 Information not available 06/08/2024 How Often Do You Get The Social And Emotional Support You Need: Usually rauvmsnwmqc44 Information no t available 06/08/2024 In The Past 7 Days, Did You Need Help From Others To Take Care Of Things Such As Laundry And Housekeep- Ing, Banking, Shopping, Using The Telephone, Food Preparation, Transportation, Or Taking Your Own Medications? No fhmwcimewpg07 Information not available 06/08/2024 Do You Live Alone? No Information not available 06/08/2024 Does Your Home Have Any Fall Risks (un-level Floors, Unfastened Rugs, Poor Lighting, Etc)? No gdjwadveggg07 Information not available 06/08/2024 Do You Feel Safe At Home? Yes qyfbuyidwuj39 Information not available 06/08/2024 Do You Have A Medical Power Of Tufter Operator? No kggjjubaxjy31 Information not available 06/08/2024 What Was The Date Of Your Most Recent Tobacco Screening? 03/07/2025 fxgdgruq85 Information not available 03/10/2025 How Many Children Do You Have? 2 znffqdecfvh69 Information not available 06/08/2024 Do You Have Any Pets? No imbqlsgc31 Information not available 03/10/2025 Do You Use Protection During Sex? No exhyzfugryc83 Information not available 06/08/2024 What Is Your Relationship Status? plkqytvxerf29 Information not available 06/08/2024 Do You Use Your Seat Belt Or Car Seat Routinely? Yes fbpyatsswmw99 Information not available 06/08/2024 Are You Sexually Active? No puibpxfkqnw28 Information not available 06/08/2024 Do You Have Smoke And Carbon Monoxide Detectors In Your Home? Yes ylxoqpmj25 Information not available 03/10/2025 Are You Passively Exposed To Smoke? No Information no t available 08/21/2022 Do You Use Sunscreen Routinely? Yes [email or web address] Information not available 03/10/2025 Has Tobacco Cessation Counseling Been Provided? No [email or web address] Information not available 07/27/2024 Do You Have Difficulty Walking Or Climbing Stairs? No Information not available 06/08/2024 Sex: Unknown Functional Status Question Answer Note LastModified by Organizat ion Details LastModified Time Do you use any illicit or recreational drugs? No Information not available 08/21/2022 Do you or have you ever used any other forms of tobacco or nicotine? No ljypynkfcce13 Information not available 06/08/2024 What is your level of alcohol consumption? None Information not available 08/21/2022 Do you or have you ever used smokeless tobacco? Never used smokeless tobacco ykaauqvcaot84 Information not available 06/08/2024 Do you have transportation difficulties? No gipumoszaxi44 Information not available 06/08/2024 Are you able to walk? YESWOREST txzgdknbujh43 Information not available 06/08/2024 Do you have difficulty doing errands alone? No fhwmuzmlmwq27 Information not available 06/08/2024 Are you able to care for yourself? Yes akxcpmuetof22 Information n ot available 06/08/2024 Do you have difficulty dressing or bathing? No ttteidbepve98 Information not available 06/08/2024 What is your exercise level? None [email or web address] Information not available 06/08/2024 Mental Status Question Answer Note LastModified by Organizat ion Details LastModified Time Do you feel stressed (tense, restless, nervous, or anxious, or unable to sleep at night)? ET71896-5 visydbjafqf73 Information not available 06/08/2024 Do you have difficulty concentrating, remembering or making decisions? No [email or web address] Information no t available 06/08/2024 Family History Relationship Description Onset Age of this Age Resolved Age Notes LastModified by Organization Details LastModified Time Mother Cerebrovascu lar accident deceas ed [email or web address] Not available 08/21/2022 07:43:59 Father Diabetes mellitus deceas ed [email or web address] Not available 03/10/2025 15:32:36 Father Disorder of endocrine system pt. added [...] Kimmie [place] [facility] [place] & [place] 04/07/2023 12:31:32 Pneumococcal conjugate PCV 13 3 completed Kimmie [place] [facility] [place] 04/07/2023 12:31:32 Tdap 3 completed Kimmie [place] [facility] [place] 04/07/2023 12:31:32 pneumococcal polysaccharide PPV23 1 completed Varsha Cortes [place] [facility] [place] & [place] 03/02/2025 12:26:26 Influenza, split virus, trivalent, PF 6 completed Varsha Colon [place] [facility] [place] 03/02/2025 12:26:26 Influenza, adjuvanted, trivalent, PF 9 completed Varsha [place] [facility] & [place] 03/02/2025 12:26:26 Influenza, split virus, trivalent, preservative 5 completed Kimmie [place] [facility] & [place] 04/07/2023 12:31:32 Influenza, split virus, trivalent, PF 5 completed Varsha Colon [place] [facility] [place] 03/02/2025 12:26:26 Influenza, split virus, trivalent, preservative 5 completed Kimmie [place] [facility] [place] 04/07/2023 12:31:32 Influenza, adjuvanted, trivalent, PF 7 completed Varsha Colon [place] [facility] & [place] 03/02/2025 12:26:26 Influenza, split virus, trivalent, preservative 6 completed Kimmie [place]cal[place] [facility] & [place] 04/07/2023 12:31:32 pneumococcal polysaccharide PPV23 5 completed Varsha Colon [place] [facility] & [place] 03/02/2025 12:26:26 Influenza, high-dose, quadrivalent, PF 0 completed Varsha Colon [place] [facility] & [place] 03/02/2025 12:26:26 Influenza, adjuvanted, quadrivalent, PF 2 completed Varsha Colon [place] [facility] & [place] 03/02/2025 12:26:26 Influenza, adjuvanted, quadrivalent, PF 1 completed Varsha Colon [place] [facility] [facility] & [place] 03/02/2025 12:26:26 COVID-19, mRNA, LNP-S, PF, 30 mcg/0.3 mL dose 1 completed Varsha Colon [place] [facility] & [place] 03/02/2025 12:26:26 COVID-19, mRNA, LNP-S, PF, 30 mcg/0.3 mL dose 1 completed Varsha Colon [place] [facility] [place] 03/02/2025 12:26:26 COVID-19, mRNA, LNP-S, PF, 30 mcg/0.3 mL dose 1 completed Varsha Colon [place] [facility] [place] 03/02/2025 12:26:26 COVID-19, mRNA, LNP-S, bivalent, PF, 50 mcg/0.5 mL or 25mcg/0.25 mL dose 2 completed Varsha Colon [place] [facility] [place] & [place] 03/02/2025 12:26:26 Influenza, high-dose, quadrivalent, PF 3 completed Reece Iglesias [place] [facility] & [place] 05/30/2024 10:47:30 COVID-19, mRNA, LNP-S, PF, 50 mcg/0.5 mL 3 completed Reece Igles[place] [facility] [place] 05/30/2024 10:47:30 COVID-19, mRNA, LNP-S, PF, 50 mcg/0.5 mL 4 completed Varsha Colon [place] [facility] [place] 03/02/2025 12:26:26 Influenza, high-dose, trivalent, PF 4 completed Varsha Colon [place] [facility] [place] 03/02/2025 12:26:26 zoster recombinant 4 completed Varsha Colon [place] [facility] [place] & [place] 03/02/2025 12:26:26 Tdap 4 completed Avrsha Colon [place] [facility] [place] & [place] 03/02/2025 12:26:26 Past Encounters Encounter ID Performer Location Encounter Start Date Encounter Closed Date Diagnosis/Indication Diagnosis SNOMED-CT Code Diagnosis ICD10 Code Diagnosis Note [id number] Frieda Mcelroy NP [facility] [address] [facility] [place] [address] 02/15/2025 11:03:37 02/15/2025 12:09:35 Cirrhosis of liver 85402275 K74.60 Cirrhosis secondary to GUTHRIE. Decompensa byron. [...] AFP to screen for HCC 04/2025. Ascites 950236980 R18.8 Large volume ascites noted on abdominal ultrasound reviewed 12/16/2024 . Patient continues diuretic therapy without refractory ascites. Recommend continued low sodium diet as well as continued diuretic therapy. Constipation 08089634 K5 9.00 previously prescribed lactulose however patient discontinu ed due to increased abdominal cramping with use. She reports daily bowel movements at this time with increased appetite. Ulcer of duodenum 834427 09 K26.9 EGD from 01/25/2025 noted diffuse portal hypertensi ve gastropath y as well as erosive duodenitis with ulcers noted. Recommend continued use of pantoprazo le 40 mg p.o. BID as prescribed following procedure. Hypokalemia 07196283 E87 .6 Previously noted on labs from 12/21/24. She did not complete follow up lab as recommende d. She continues potassium supplement s at this time. Plan for labs to monitor. Portal hyp ertensive gastropathy [id number] K76.6 K31.89 Portal hypertensi ve gastropath y [...] Carmichael Member ID Guarantor Name 02/15/2025 1 [employer] (MEDICARE) Vika Jackson [id number] Vika Jackson Notes Date Note Type [...] as large volume ascites. Frieda Mcelroy NP [address] [place] [address], [address], [place], [address], [place] [facility] [place] & [place] 02/15/2025 13:55:21 OBGyn Episode No OBEpisode recorded.
--- OUTSIDE RECORDS SUMMARY | 2025-04-10 21:17 | XMS_ITS | Continuity of Care Document ---
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 Plan of Treatment Reminders Order Date Submit Date Provider Last Modified By Organization Details Last Modified Time Details Appointments OV EST 15 2024 11:15A M Frieda Mcelroy, EMMANUEL Not available Not available Not available Lab ammonia, blood 2024 025 [facility] (Laboratory), [place], [address], 03/10/2025 17:21:40 iron + TIBC + ferritin, serum [address] (Laboratory), [place], [address], 03/17/2025 07:16:45 vitamin B12 + folate, serum or blood [address] (Laboratory), [place], [address], 03/17/2025 07:16:45 CBC w/ auto diff 2024 025 [facility] (Laboratory), [place], [address], 03/10/2025 17:21:40 CMP, serum or plasma 2024 025 [facility] (Laboratory), [address] , [place], [address], 03/10/2025 18:37:37 Referral urologist referral 2024 025 [email or web address] Milton Liz Jr, MD, [address], [place], [address], 04/07/2025 07:56:41 Procedures None recorded. Surgeries None recorded. Imaging None recorded. Medication Orders None recorded. Patient TargetsNo targets recorded. Patient InstructionsNo instructions recorded. Reason for Referral Urologist Referral for Occlu jeanette of ureter Referring Physician: Annika Traore, Family Medicine, Encounter Date: 03/10/2025 Results Created Date Observation Date Name Description Value Unit Range Abnormal Flag Note LastModifiedBy Organization Detail LastModifiedTime 02/25/20 25 02/23/2025 imagi ng inter preta tion No observ ation record ed. [email or web address] [facility] [address], [place], [address], 02/27/2025 08:27:17 02/25/20 25 02/23/2025 imagi ng inter preta tion No observ ation record ed. [address], [place], [address], 02/27/2025 08:27:02 02/29/20 25 02/28/2025 US, severo y No observ ation record ed. [facility] [address], [place], [address], 02/28/2025 18:10:16 03/24/20 25 03/24/2025 rhyth m strip , EKG* No observ ation record ed. [email or web address] [facility] [address] , [place], [address], 03/27/2025 14:41:37 Result Notes None recorded. Problems Name Problem SNOMED Code Status Onset Date Resolution Date Notes Provider Name and Address Organization Details Recorded Time Ascites 196950888 Active 2024 Frieda Mcelroy NP [address], [address], [place], [address], [place] & [place] 5 11:33:10 Constipat ion 04506628 Active 2024 Frieda Mcelroy NP [address], [address], [place], [address], [place] 5 11:34:56 Hypokalem ia 80950558 Active 2024 Frieda Mcelroy NP [address], [address], [place], [address], [place] 5 13:52:18 Ulcer of duodenum 15694955 Active 2024 Frieda Mcelroy NP [address], [address], [place], [address], [place] 5 13:51:25 Portal hypertens carleen gastropat hy 752141052 Active 2024 Frieda Mcelroy NP [address], [address], [place], [address], [place] 5 13:54:32 Abnormal renal function 58700088 Active 2024 Frieda Mcelroy NP [address], [address], [place], [address], [place] 5 09:58:27 Mammograp hy abnormal 945397763 Active 2020 Reecejake Lozano n null[place] 4 10:47:01 Acute kidney injury 02788301 Active 2013 Reece Yueso n [place] 4 10:46:39 Patient encounter status 010689962 Active 2018 Reece Hutchinso n [place] & [place] 4 10:47:07 Type 2 diabetes mellitus 67514990 Active 2017 Reece Hutchinso n [place] 4 10:47:18 Gallstone 242344965 Active 2013 Reece Hutchinso n [place] 4 10:46:47 Uncontrol led type 2 diabetes mellitus 935304262 Active 2014 Reece Hutchinso n [place] 4 10:47:20 Annual wellness visit Active 2017 Annual wellness visit Reece Hutchinso n [place] & [place] 4 10:46:42 Liver enzymes level above reference range 187452740 Active 2020 Reece Hutchinso n [place] & [place] 4 10:46:56 Leukopeni a 70517062 Active 2020 Reece Hutchinso n [place] & [place] 4 10:46:54 Mixed hyperlipi demia 588356714 Active 2018 Reece Hutchinso n [place] 4 10:47:04 Cirrhosis of liver 21992925 Active 2020 Reece Hutchinso n [place] 4 10:46:44 Reactive depressio n (situatio nal) 28171063 Active 2015 Reece Hutchinso n [place] 4 10:47:08 Low blood pressure 41353943 Active 2013 Reece Hutchinso n [place] & [place] 4 10:47:00 Sepsis 23973848 Active 2013 Reece Hutchinso n [place] & [place] 4 10:47:15 Fibrocyst ic disease of breast 27383096 Active 2020 Reece Bronwynchinso n [place] & 4 10:46:46 Vitamin D deficienc y 92072584 Active 2020 Reece Bronwynchinso n [place] & [place] 4 10:47:21 Liver function test above reference range 260114407 Active 2020 Reece Hutchinso n [place] & [place] 4 10:46:58 Neuropath y due to diabetes mellitus 931428381 Active 2014 Reece Bronwynchinso n [place] & [place] 4 10:47:05 Right upper quadrant pain 964095885 Active 2013 Reece Bronwynchinso n [place] & [place] 4 10:47:10 Hyperchol esterolem ia 41280609 Active 2014 Reece Bronwynchinso n [place] 4 10:46:50 Hypertens carleen disorder 09242377 Active 2014 Reece Bronwynchinso n [place] & [place] 4 10:46:53 Acute cholecyst itis 70097344 Active 2013 Reece Hutchinso n [place] & [place] 4 10:46:38 Heartburn 41553027 Active 2020 Reece Hutchinso n [place] & [place] 4 10:46:49 Syncope 822445362 Active 2014 Reece Hutchinso n [place] & [place] 4 10:47:16 Screening mammograp hy of bilateral breasts Active 02/22/ 2024 Reece Hutch[place] n [place] [facility] & [place] 4 10:47:13 Screening for malignant neoplasm of colon Active 2023 Reece Hutchinso n [place] 4 10:47:11 Hyperlipi demia 30266519 Active 2023 Reece Hutchinso n [place] & [place] 4 10:46:52 Anemia 650148427 Active 2023 Reece Hutchinso n [place] 4 10:46:41 Heart murmur 10412653 Active 2023 ANNIKA TRAORE NP [address] [place] [address], [place] 4 08:37:27 Depressiv e disorder 77485620 Active 2023 ANNIKA TRAORE NP [address] [place] [address], [place] 4 08:37:30 High risk medicatio n monitorin g indicated 847008726944 14649 Active 2023 ANNIKA TRAORE NP [address] [place] [address], [place] 4 08:37:32 Neuropath y 858751093 Active 2023 ANNIKA TRAORE NP [address] [place] [address], [place] 4 08:37:34 Essential hypertens ion 87743722 Active 2023 ANNIKA TRAORE NP [address] [place] [address], [address] [place] [address], [place] 4 08:37:36 Notes:Some problems listed i n Documents: #[id number], #[id number], #[id number] could not be added to this patient's chart. Please review these documents and add these problems to the patient's chart manually as needed. Problem Notes None recorded. Procedures Surgical History Date Name Laterality Status Provider Name and Address Organization Details Recorded Time 01/25 esophagogastroduodenoscopy completed Flower Tucker [place] - [facility] & [place] 5 16:31:08 06/08 Medicare Annual Wellness Visit Health Risk Assessment completed Reece Iglesias [place] - [facility] & [place] 4 08:12:47 01/22 es[facility]astroduodenoscopy [facility] [place] 4 11:51:01 11/23 Cholecystectomy completed Poly Crews [place] - [facility] & [place] 2 10:35:54 Imaging Results None recorded. Procedure Notes None recorded. Medical Equipment None Reported. Allergies Allergen ID Allergen Name Allergen Category Reaction Reaction Severity Criticality Documentation Date Start Date Code Code System Note Provider Name and Address Organization Details Recorded Time 15181230 No known allergy (situatio n) Not available Not available Not available Not available 03/15/[address] [facility] [facility] [place] 5 15:08:23 Medications Name Sig Start Date Stop [...] Details Last Updated DateTime 5 166.37 cm 20.6 kg/m2 73465.6 4 g 97.9 [degF] 100 % 100 % 62 /min 18 /min 146 mm[Hg] 70 mm[Hg] [facility] & [place] 15:48:59 Social History Question Answer Notes LastModified by Organizat ion Details LastModified Time Tobacco Smoking Status Never Smoker Poly newton, [facility] & [place] 08/21/2022 10:35:54 Do You Have An Advance Directive? No Information not available 08/21/2022 Are You Blind Or Do You Have Difficulty Seeing? No Information not available 08/21/2022 Is Blood Transfusion Acceptable In An Emergency? Yes [email or web address] Information not available 06/08/2024 What Is Your Level Of Caffeine Consumption? Moderate [email or web address] Information not available 06/08/2024 Are You Deaf Or Do You Have Serious Difficulty Hearing? No [email or web address] Information not available 06/08/2024 What Type Of Diet Are You Following? DIABETIC sytpmtyzvsk51 Information not available 06/08/2024 Have There Been Any Changes To Your Family Or Social Situation? No [email or web address] Information no t available 03/10/2025 What Is The Fluoride Status Of Your Home? Unknown [email or web address] Information not available 03/10/2025 Are There Any Guns Present In Your Home? No [email or web address] Information not available 03/10/2025 Do You Use Insect Repellent Routinely? Yes [email or web address] Information not available 03/10/2025 In General, Would You Say Your Health Is Good [email or web address] Information not available 06/08/2024 How Would You Describe The Condition Of Your Mouth And Teeth? including False Teeth Or Dentures? Good bnxajbvlxrs64 Information not available 06/08/2024 In The Past 7 Days, How Many Servings Of Fruits And Vegetables Did You Typically Eat Each Day? (1 Serving = 1 Cup Of Fresh Vegetables, 1? 2 Cup Of Cooked Vegetables, Or 1 Medium Piece Of Fruit. 1 Cup = Size Of A Baseball.) 1-2 Servings Per Day lobdngeucnl20 Information not available 06/08/2024 In The Past 7 Days, How Many Servings Of High Fiber Or Whole Grain Foods Did You Typically Eat Each Day? (1 Serving = 1 Slice Of 100% Whole Wheat Bread, 1 Cup Of Whole-grain Or High-fiber Skaeo-uq-ouf Cereal, 1? 2 Cup Of Cooked Cereal Such As Oatmeal, Or 1? 2 Cup Of Cooked Brown Rice Or Whole Wheat Pasta.) 3-4 Servings Per Day oguaasxxydo34 Information not available 06/08/2024 In The Past 7 Days, How Many Servings Of Fried Or High-fat Foods Did You Typically Eat Each Day? (Examples Include Fried Chicken, Fried Fish, [place], [place], Potato Chips, [place] Chips, Doughnuts, Creamy Salad Dressings, And Foods Made With Whole Milk, Cream, Cheese, Or Mayonnaise.) 1-2 Servings Per Day hsqqflkdepw69 Information not available 06/08/2024 In The Past 7 Days, How Many Sugar-sweetened (not Diet) Beverages Did You Typically Consume Each Day 0 Drinks Per Day [email or web address] Information not available 06/08/2024 Each Night, How Many Hours Of Sleep Do You Usually Get? 5-6 Hours raxdnloinaj67 Information not available 06/08/2024 Do You Snore Or Has Anyone Told You That You Snore? No bfcnepopdop45 Information not available 06/08/2024 In The Past 7 Days, How Often Have You [place] Sleepy During The Daytime? Sometimes kxdwohkmmeb33 Information not available 06/08/2024 Do You Have Chronic Pain? No [email or web address] Information not available 06/08/2024 Are You In A Pain Management Program? No [email or web address] Information not available 06/08/2024 Do You Take Opioids For Your Pain? No [email or web address] Information not available 06/08/2024 How Often Is Stress A Problem For You In Handling Such Things As: Your Health, Your Finances, Your Family And Social Relationships, Your Work? Sometimes [email or web address] Information not available 06/08/2024 How Often Do You Get The Social And Emotional Support You Need: Usually [email or web address] Information no t available 06/08/2024 In The Past 7 Days, Did You Need Help From Others To Take Care Of Things Such As Laundry And Housekeep- Ing, Banking, Shopping, Using The Telephone, Food Preparation, Transportation, Or Taking Your Own Medications? No Information not available 06/08/2024 Do You Live Alone? No [email or web address] Information not available 06/08/2024 Does Your Home Have Any Fall Risks (un-level Floors, Unfastened Rugs, Poor Lighting, Etc)? No Information not available 06/08/2024 Do You Feel Safe At Home? Yes xzudgcztjgg55 Information not available 06/08/2024 Do You Have A Medical Power Of Sample Preparation Supervisor? No [email or web address] Information not available 06/08/2024 What Was The Date Of Your Most Recent Tobacco Screening? 03/07/2025 [email or web address] Information not available 03/10/2025 How Many Children Do You Have? 2 Information not available 06/08/2024 Do You Have Any Pets? No Information not available 03/10/2025 Do You Use Protection During Sex? No [email or web address] Information not available 06/08/2024 What Is Your Relationship Status? [email or web address] Information not available 06/08/2024 Do You Use Your Seat Belt Or Car Seat Routinely? Yes lhxolynxglz47 Information not available 06/08/2024 Are You Sexually Active? No uxxotwjywca24 Information not available 06/08/2024 Do You Have Smoke And Carbon Monoxide Detectors In Your Home? Yes futpsker90 Information not available 03/10/2025 Are You Passively Exposed To Smoke? No Information no t available 08/21/2022 Do You Use Sunscreen Routinely? Yes [email or web address] Information not available 03/10/2025 Has Tobacco Cessation Counseling Been Provided? No [email or web address] Information not available 07/27/2024 Do You Have Difficulty Walking Or Climbing Stairs? No [email or web address] Information not available 06/08/2024 Sex: Unknown Functional Status Question Answer Note LastModified by Organizat ion Details LastModified Time Do you use any illicit or recreational drugs? No Information not available 08/21/2022 Do you or have you ever used any other forms of tobacco or nicotine? No lrjomnpibdr51 Information not available 06/08/2024 What is your level of alcohol consumption? None Information not available 08/21/2022 Do you or have you ever used smokeless tobacco? Never used smokeless tobacco nwilmfqxemy05 Information not available 06/08/2024 Do you have transportation difficulties? No xraspkoosci40 Information not available 06/08/2024 Are you able to walk? YESWOREST dhjpsadjeup52 Information not available 06/08/2024 Do you have difficulty doing errands alone? No [email or web address] Information not available 06/08/2024 Are you able to care for yourself? Yes fpqeeqkbndl71 Information n ot available 06/08/2024 Do you have difficulty dressing or bathing? No hlvchrhablj17 Information not available 06/08/2024 What is your exercise level? None [email or web address] Information not available 06/08/2024 Mental Status Question Answer Note LastModified by Organizat ion Details LastModified Time Do you feel stressed (tense, restless, nervous, or anxious, or unable to sleep at night)? [id number] [email or web address] Information not available 06/08/2024 Do you have difficulty concentrating, remembering or making decisions? No [email or web address] Information no t available 06/08/2024 Family History [...] [place] 04/07/2023 12:31:32 Pneumococcal conjugate PCV 13 3 completed Kimmie Metcalf [place] 04/07/2023 12:31:32 Tdap 3 completed Kimmie [place]cal[place] 04/07/2023 12:31:32 pneumococcal polysaccharide PPV23 1 completed Varsha Colon [place] 03/02/2025 12:26:26 Influenza, split virus, trivalent, PF 6 completed Varsha Colon [place] 03/02/2025 12:26:26 Influenza, adjuvanted, trivalent, PF 9 completed Varsha Colon [place] 03/02/2025 12:26:26 Influenza, split virus, trivalent, preservative 5 completed Kimmie Metcalf [place] 04/07/2023 12:31:32 Influenza, split virus, trivalent, PF 5 completed Varsha Colon [place] 03/02/2025 12:26:26 Influenza, split virus, trivalent, preservative 5 completed Kimmie Metcalf [place] 04/07/2023 12:31:32 Influenza, adjuvanted, trivalent, PF 7 completed Varsha Colon [place] 03/02/2025 12:26:26 Influenza, split virus, trivalent, preservative 6 completed Kimmie Metcalf [place] 04/07/2023 12:31:32 pneumococcal polysaccharide PPV23 5 completed Varsha Colon null, [facility] & [place] 03/02/2025 12:26:26 Influenza, high-dose, quadrivalent, PF 0 completed Varsha Colon null, [facility] & [place] 03/02/2025 12:26:26 Influenza, adjuvanted, quadrivalent, PF 2 [facility] [place] 03/02/2025 12:26:26 Influenza, adjuvanted, quadrivalent, PF 1 completed Varsha Colon null, [facility] & [place] 03/02/2025 12:26:26 COVID-19, mRNA, LNP-S, PF, 30 mcg/0.3 mL dose 1 completed Varsha Colon null, [facility] & [place] 03/02/2025 12:26:26 COVID-19, mRNA, LNP-S, PF, 30 mcg/0.3 mL dose 1 completed Varsha Colon null, [facility] & [place] 03/02/2025 12:26:26 COVID-19, mRNA, LNP-S, PF, 30 mcg/0.3 mL dose 1 completed Varsha Colon null, [facility] & [place] 03/02/2025 12:26:26 COVID-19, mRNA, LNP-S, bivalent, PF, 50 mcg/0.5 mL or 25mcg/0.25 mL dose 2 completed Varsha Colon null, [facility] & [place] 03/02/2025 12:26:26 Influenza, high-dose, quadrivalent, PF 3 completed Reece Iglesias null, [facility] & [place] 05/30/2024 10:47:30 COVID-19, [...] LP[facility] - [place] & [place] 03/02/2025 12:26:26 Tdap 4 completed Varsha Colon [place] & [place] 03/02/2025 12:26:26 Past Encounters Encounter ID Performer Location Encounter Start Date Encounter Closed Date Diagnosis/Indication Diagnosis SNOMED-CT Code Diagnosis ICD10 Code Diagnosis Note [id number] Frieda Mcelroy NP [facility] [address] [place] [address] 02/15/2025 11:03:37 02/15/2025 12:09:35 Cirrhosis of liver 45854459 K74.60 Cirrhosis secondary to MUNROE. Decompensa byron. Recent abdominal ultrasound 12/16/2024 with [...] AFP to screen for HCC 04/2025. Ascites 013772231 R18.8 Large volume ascites noted on abdominal ultrasound reviewed 12/16/2024 . Patient continues diuretic therapy without refractory ascites. Recommend continued low sodium diet as well as continued diuretic therapy. Constipation 18206578 K5 9.00 previously prescribed lactulose however patient discontinu ed due to increased abdominal cramping with use. She reports daily bowel movements at this time with increased appetite. Ulcer of duodenum 969398 09 K26.9 EGD from 01/25/2025 noted diffuse portal hypertensi ve gastropath y as well as erosive duodenitis with ulcers noted. Recommend continued use of pantoprazo le 40 mg p.o. BID as prescribed following procedure. Hypokalemia 64933631 E87 .6 Previously noted on labs from 12/21/24. She did not complete follow up lab as recommende d. She continues potassium supplement s at this time. Plan for labs to monitor. Portal hyp ertensive gastropathy 460220468 K76.6 K31.89 Portal hypertensi ve gastropath y with oozing of blood noted on EGD 01/25/2025 . Recommend continued use of carvedilol as prescribed following procedure. [id number] ANNIKA TRAORE NP [facility] [address] [place] [address] 03/10/2025 15:30:37 03/13/2025 07:30:31 Chronic anemia 095990263 D64.9 recheck lab work todaydenie s bleeding or bruisingre ports EGD did show 2 ulcers at the bottom of her stomach. Denies any blood in her stool, denies any vomiting. 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 per hospital records right ureteral obstructio n with moderate hydronephr osis, also shows 50% left renal artery stenosis, mild stenosis of right renal artery, patient reports unaware of kidney stone, hospital records report declined at the time, referral to Urology Bacteremia 5381493 R78.8 1 candidemia tropicalis bacteremia , reports finished fluconazol e Decrease in appetite 643 82795 R63.0 consider cyprohepta dine pending lab work Health Concerns Section Related Observation LastModified by Organization Detai ls LastModified Time None Recorded Concern Status LastModified by Organization Details LastModified Time None Recorded Payers Encounter Date Sequence Insurance Name Policy Number Policy Carmichael Covered Member ID Carmichael Member ID Guarantor Name 03/10/2025 1 [place] Vika Jackson [id number] Vika Dunn Jackson Notes Date Note Type Note Provider Name and Address Organization Details Recorded Time 03/10/2025 text/html 75-year-old jennifer chiang who presents for hospital follow-up. She presented to [facility] with diarrhea and acute kidney injury. She met sepsis criteria with tachycardia, diarrhea, elevated lactate and organ dysfunction with acute kidney injury. Blood cultures grew Paz tropicalis so started on fluconazole. Hemoglobin was 6.6 she was transfused with 2 units packed red blood cells and thought to be related to worsening renal failure. She was advised to follow-up with PCP and GI. She had right ureter obstruction /stenosis. CT abdomen showed right ureteral obstruction moderate right hydronephrosis, 50% left renal artery stenosis patient declined referral to Urology and Cardiology [place] cirrhosis meld score 20 to hemoglobin A1c was checked during admission and 8.3. Advised to continue home [facility], patient declined further management ANNIKA TRAORE NP [address] [place] [address], [phone], [facility] & [place] 03/10/2025 16:32:51 OBGyn Episode No OBEpisode recorded.
--- OUTSIDE RECORDS SUMMARY | 2025-04-10 21:17 | XMS_ITS | Data Portability ---
Author Organization DANIEL JAUN [facility]ol[facility] JUAN Luna ADMIN Address [address] [place] [id number] Care Team Providers Care Coping Machine Operator Name Role Phone DREW TRAORE Primary Care Provider [phone] ANGELA HARP Hematology/Oncology FRIEDA MCELROY Piano Refinisher [phone] Assessment No assessment recorded. Plan of Treatment Reminders Order Date Submit Date Provider Last Modified By Organization Details Last Modified Time Details Appointments OV EST 15 2024 11:15A Chele Mcelroy, EXPENDITURE REQUISITION CLERK Not available Not available Not available Lab ammonia, blood 2024 025 [facility] (Laboratory), [address], [place], [address], 03/10/2025 17:21:40 iron + TIBC + ferritin, serum [address] (Laboratory), [address] [place], [address], 03/17/2025 07:16:45 vitamin B12 + folate, serum or blood [address] (Laboratory), [address] [place], [address], 03/17/2025 07:16:45 CBC w/ auto diff 2024 025 [facility] (Laboratory), [address] [place], [address], 03/10/2025 17:21:40 CMP, serum or plasma 2024 025 [facility] (Laboratory), [address] [place] [address] [place], [address], 03/10/2025 18:37:37 CMP, serum or plasma 2024 025 [facility] (Lab Registration) , [address] [facility] [place], [address], 02/21/2025 12:35:45 PT/INR 2024 025 [facility] (Lab Registration) , [address] [facility] [place], [address], 02/21/2025 12:35:30 CBC w/ auto diff 2024 025 [facility] (Lab Registration) , [address] [place] [address] [place], [address], 02/21/2025 12:35:43 ammonia, blood 2024 025 [facility] (Lab Registration) , [address] [place] [address] [place], [address], 12/21/2024 12:51:17 CMP, serum or plasma 2024 025 [facility] [facility] (Lab Registration) , [address] [facility] [place], [address], 12/21/2024 13:05:31 PT/INR 2024 025 [facility] [facility] (Lab Registration) , [address] [facility] [place], [address], 12/21/2024 13:03:21 CBC w/ auto diff 2024 025 [facility] (Lab Registration) , [address] [place] [address] [place], [address], 12/21/2024 12:46:57 afp (alpha-fe toprotein ) tumor marker, serum or plasma 2024 025 [facility] (Lab Registration) , [address] [place] [address] [place], [address], 12/30/2024 08:26:32 cell count w/ diff, body fluid 2024 025 [facility] (Lab Registration) , [address] [place] [address] [place], [address], 12/30/2024 08:26:32 gram stain, body fluid 2024 025 [facility] (Lab Registration) , [address] [place] [address] [place], [address], 12/30/2024 08:26:32 culture, peritonea l fluid 2024 025 [facility] (Lab Registration) , [address] [place] [address] [place], [address], 12/30/2024 08:26:33 CBC w/ auto diff 2024 025 [facility] (Laboratory), [address] [place], [address], 12/06/2024 13:31:06 HbA1c (hemoglob in A1c), blood 2024 025 [facility] (Laboratory), [address] [place], [address], 12/06/2024 13:38:03 CMP, serum or plasma 2024 025 [facility] (Laboratory), [address] [place], [address], 12/06/2024 13:36:34 amylase + lipase, serum [email or web address] (Laboratory), [address] [place], [address], 12/13/2024 08:12:30 Referral urologist referral 2024 025 [email or web address] Milton Liz Jr, MD, [address], [place], [address], 04/07/2025 07:56:41 rheumatol ogist referral 2024 025 [facility] [place] [facility], [address], [place], [address], 12/30/2024 11:36:57 Procedures upper endoscopy procedure (EGD) (PROC) 2024 025 [facility] (Central Scheduling), [address] [place] [address] , [place], [address], 01/18/2025 10:25:24 abdominal paracente sis; with imaging guidance (PROC) - Albumin 25 gm per 5 liter removed 2024 025 [facility] (Scheduling), [address] , [place], [address], 12/30/2024 08:26:43 Surgeries None recorded. Imaging US, abdomen, complete 2024 025 [id number] (Scheduling), [address] , [place], [address], 12/13/2024 10:36:31 Medication Orders lactulose 10 gram/15 mL oral solution 2024 025 [facility], [address], [place], [id number], 02/15/2025 13:54:09 spironola ctone 100 mg tablet 2024 025 [place] [facility], [address] [place], [id number], 12/21/2024 11:36:58 furosemid e 20 mg tablet 2024 025 [facility]19343, [address], [place], [id number], 03/10/2025 15:49:33 potassium chloride ER 10 mEq tablet,ex tended release 2024 025 [facility], [address], [place], [id number], 12/21/2024 11:17:05 citalopra m 20 mg tablet 2024 025 [email or web address]11, [address], [place], [id number], 03/10/2025 15:49:27 gabapenti n 300 mg capsule 2024 025 [facility]13179, [address], [place], [id number], 12/21/2024 11:17:04 Patient TargetsNo targets recorded. Patient Instructions Encounter Date Encounter Id Patient Instructions Last Modified By Organization Details Last Modified Time 12/21/2024 [id number] low sodium diet (2,000 milligram): care instructions [email or web address] Not available 12/21/2024 11:36:52 Reason for Referral Nuclear Control Operator Referral for Anti-nuclear factor detected Referring Physician: Family Regi Medicine, Encounter Date: 12/06/2024 Urologist Referral for Occlu jeanette of ureter Referring Physician: Drew Tra[facility], Encounter Date: 03/10/2025 Results Created Date Observation Date Name Description Value Unit Range Abnormal Flag Note LastModifiedBy Organization Detail LastModifiedTime 12/06/1912/06/2024 CBC AUTO W DIFF WBC 2.6 10 4.5-11 .5 low Not Available [facility] (Lab Registration) [address] [place], [address], 12/06/2024 13:31:06 12/06/1912/06/2024 CBC AUTO W DIFF RBC 3.61 10 4.25-5 .57 low Not Available [facility] (Lab Registration) [address] [place], [address], 12/06/2024 13:31:06 12/06/19 25 12/06/2024 CBC AUTO W DIFF HGB 10.8 g/dL 12.0-1 5.7 low Not Available [facility] (Lab Registration) [address] [place], [address], 12/06/2024 13:31:06 12/06/19 25 12/06/2024 CBC AUTO W DIFF HCT 34.0 % 36.0-4 7.0 low Not Available [facility] (Lab Registration) [address] [place], [address], 12/06/2024 13:31:06 12/06/19 25 12/06/2024 CBC AUTO W DIFF MCV 94.2 fL 80-95 Not Available [facility] (Lab Registration) [address] [place], [address], 12/06/2024 13:31:06 12/06/19 25 12/06/2024 CBC AUTO W DIFF MCH 29.9 pg 27.0-3 4.0 Not Available [facility] (Lab Registration) [address] [place], [address], 12/06/2024 13:31:06 12/06/19 25 12/06/2024 CBC AUTO W DIFF MCHC 31.8 g/dL 32.0-3 6.0 low Not Available [facility] (Lab Registration) [address] [place], [address], 12/06/2024 13:31:06 12/06/19 25 12/06/2024 CBC AUTO W DIFF platelet count 98 10 150-45 0 low Not Available [facility] (Lab Registration) [address] [place], [address], 12/06/2024 13:31:06 12/06/19 25 12/06/2024 CBC AUTO W DIFF RDW 17.0 % 12.3-1 5.1 high Not Available [facility] (Lab Registration) [address] [place], [address], 12/06/2024 13:31:06 12/06/19 25 12/06/2024 CBC AUTO W DIFF MPV 11.3 fL 7.4-10 .4 high Not Available [facility] (Lab Registration) [address] [place], [address], 12/06/2024 13:31:06 12/06/19 25 12/06/2024 CBC AUTO W DIFF granulocyte% 57.7 % 40-75 Not Available [facility] (Lab Registration) [address] [place], [address], 12/06/2024 13:31:06 12/06/19 25 12/06/2024 CBC AUTO W DIFF lymphocyte% 23.8 % 15-57 Not Available [facility] (Lab Registration) [address] [place], [address], 12/06/2024 13:31:06 12/06/19 25 12/06/2024 CBC AUTO W DIFF monocyte% 10.4 % 4.0-12 .0 Not Available [facility] (Lab Registration) [address] [place], [address], 12/06/2024 13:31:06 12/06/19 25 12/06/2024 CBC AUTO W DIFF eosinophil% 7.3 % 0.0-4. 0 high Not Available [facility] (Lab Registration) [address] [place], [address], 12/06/2024 13:31:06 12/06/19 25 12/06/2024 CBC AUTO W DIFF basophil% 0.8 % 0.0-1. 0 Not Available [facility] (Lab Registration) [address] [place], [address], 12/06/2024 13:31:06 12/06/19 25 12/06/2024 CBC AUTO W DIFF immature granulocytes % 0.0 % 0.0-0. 8 Not Available [facility] (Lab Registration) [address] [place], [address], 12/06/2024 13:31:06 12/06/19 25 12/06/2024 CBC AUTO W DIFF granulocyte# 1.50 10 Not Available [facility] (Lab Registration) [address] [place], [address], 12/06/2024 13:31:06 12/06/19 25 12/06/2024 CBC AUTO W DIFF lymphocyte# 0.62 10 Not Available [facility] (Lab Registration) [address] [place], [address], 12/06/2024 13:31:06 12/06/19 25 12/06/2024 CBC AUTO W DIFF monocyte# 0.27 10 Not Available [facility] (Lab Registration) [address] [place], [address], 12/06/2024 13:31:06 12/06/19 25 12/06/2024 CBC AUTO W DIFF eosinophil# 0.19 10 Not Available [facility] (Lab Registration) [address] [place], [address], 12/06/2024 13:31:06 12/06/19 25 12/06/2024 CBC AUTO W DIFF basophil# 0.02 10 Not Available [facility] (Lab Registration) [address] [place], [address], 12/06/2024 13:31:06 12/06/19 25 12/06/2024 CBC AUTO W DIFF immature granulocytes # 0.00 10 Not Available [facility] (Lab Registration) [address] [place], [address], 12/06/2024 13:31:06 12/06/19 25 12/06/2024 CBC AUTO W DIFF manual differential NO Not Available [facility] (Lab Registration) [address] [place], [address], 12/06/2024 13:31:06 12/06/19 25 12/06/2024 CBC AUTO W DIFF note Unles s other lofton noted testi ng perfo [facility]med at: [facility] [address] [place] [address] [phone] Jose Maria de la o MD CLIA: [id number] Not Available [facility] (Lab Registration) [address] [place], [address], 12/06/2024 13:31:06 12/06/19 25 12/06/2024 COMP METAB OLIC PANEL sodium 146 mmol/ L 136-14 5 high Not Available [facility] (Lab Registration) [address] [place], [address], 12/06/2024 13:36:34 12/06/19 25 12/06/2024 COMP METAB OLIC PANEL potassium 3.2 mmol/ L 3.5-5. 1 low Not Available [facility] (Lab Registration) [address] [place], [address], 12/06/2024 13:36:34 12/06/19 25 12/06/2024 COMP METAB OLIC PANEL chloride 112 mmol/ L 98-107 high Not Available [facility] (Lab Registration) [address] [place], [address], 12/06/2024 13:36:34 12/06/19 25 12/06/2024 COMP METAB OLIC PANEL carbon dioxide 23 mmol/ L 21-32 Not Available [facility] (Lab Registration) [address] [place], [address], 12/06/2024 13:36:34 12/06/19 25 12/06/2024 COMP METAB OLIC PANEL anion gap 11.0 Not Available [facility] (Lab Registration) [address] [place], [address], 12/06/2024 13:36:34 12/06/19 25 12/06/2024 COMP METAB OLIC PANEL glucose 94 mg/dL 70-110 Not Available [facility] (Lab Registration) [address], [place], [address], 12/06/2024 13:36:34 12/06/19 25 12/06/2024 COMP METAB OLIC PANEL blood urea nitrogen 13 mg/dL 7-18 Not Available [facility] (Lab Registration) [address], [place], [address], 12/06/2024 13:36:34 12/06/19 25 12/06/2024 COMP METAB OLIC PANEL creatinine 1.1 mg/dL 0.6-1. 0 high Not Available [facility] (Lab Registration) [address], [place], [address], 12/06/2024 13:36:34 12/06/19 25 12/06/2024 COMP METAB OLIC PANEL BUN/creatini ne ratio 11.8 9-21 Not Available [facility] (Lab Registration) [address], [place], [address], 12/06/2024 13:36:34 12/06/19 25 12/06/2024 COMP METAB [...] jaime ing kiney funct ion. Not Available [facility] (Lab Registration) [address], [place], [address], 12/06/2024 13:36:34 12/06/19 25 12/06/2024 COMP METAB OLIC PANEL total protein 7.1 g/dL 6.4-8. 2 Not Available [facility] (Lab Registration) [address] [place], [address], 12/06/2024 13:36:34 12/06/19 25 12/06/2024 COMP METAB OLIC PANEL albumin 3.0 g/dL 3.4-5. 0 low Not Available [facility] (Lab Registration) [address] [place], [address], 12/06/2024 13:36:34 12/06/19 25 12/06/2024 COMP METAB OLIC PANEL calcium 8.5 mg/dL 8.5-10 .1 Not Available [facility] (Lab Registration) [address] [place], [address], 12/06/2024 13:36:34 12/06/19 25 12/06/2024 COMP METAB OLIC PANEL corrected calcium 9.3 mg/dL 8.5-10 .1 Not Available [facility] (Lab Registration) [address] [place], [address], 12/06/2024 13:36:34 12/06/19 25 12/06/2024 COMP METAB OLIC PANEL bilirubin total 1.7 mg/dL 0.4-1. 5 high Not Available [facility] (Lab Registration) [address] [place], [address], 12/06/2024 13:36:34 12/06/19 25 12/06/2024 COMP METAB OLIC PANEL AST (SGOT) 47 U/L 15-37 high Not Available [facility] (Lab Registration) [address] [place], [address], 12/06/2024 13:36:34 12/06/19 25 12/06/2024 COMP METAB OLIC PANEL ALT (SGPT) 35 U/L 12-78 Not Available [facility] (Lab Registration) [address] [place], [address], 12/06/2024 13:36:34 12/06/19 25 12/06/2024 COMP METAB OLIC PANEL alk phosphatase 165 U/L 53-141 high Not Available [facility] (Lab Registration) [address] [place], [address], 12/06/2024 13:36:34 12/06/19 25 12/06/2024 COMP METAB OLIC PANEL note Unles s other lofton noted testi ng perfo rmed at: [facility] [address] [place] [address] [phone] Jose Maria de la o MD CLIA: [id number] Not Available [facility] (Lab Registration) [address] [place], [address], 12/06/2024 13:36:34 12/06/19 25 12/06/2024 AMYLA SE amylase 70 U/L 25-115 Not Available [facility] (Lab Registration) [address] [place], [address], 12/06/2024 13:36:37 12/06/19 25 12/06/2024 AMYLA SE note Unles s other lofton noted testi ng perfo rmed at: [facility] [address] [place] [address] [phone] Jose Maria de la o MD CLIA: [id number] Not Available [facility] (Lab Registration) [address] [place], [address], 12/06/2024 13:36:37 12/06/19 25 12/06/2024 LIPAS E lipase 60 U/L 16-77 Not Available [facility] (Lab Registration) [address] [place], [address], 12/06/2024 13:36:38 12/06/19 25 12/06/2024 LIPAS E note Unles s other lofton noted testi ng perfo rmed at: [facility] [address] [place] [address] [phone] Jose Maria de la o MD CLIA: [id number] Not Available [facility] (Lab Registration) [address] [place], [address], 12/06/2024 13:36:38 12/06/19 25 12/06/2024 HEMOG LOBIN A1C glycosylated hemoglobin A1C 4.9 % 4.5-6. 2 Not Available [facility] (Lab Registration) [address] [place], [address], 12/06/2024 13:38:03 12/06/19 25 12/06/2024 HEMOG LOBIN A1C estimated average glucose 94 mg/dL 82-131 Not Available [facility] (Lab Registration) [address] [place], [address], 12/06/2024 13:38:03 12/06/19 25 12/06/2024 HEMOG LOBIN A1C note Unles s other lofton noted testi ng perfo rmed at: [facility] [address] [place] [address] [phone] Jose Maria de la o MD CLIA: [id number] Not Available [facility] (Lab Registration) [address] [place], [address], 12/06/2024 13:38:03 12/21/19 25 12/21/2024 CBC AUTO W DIFF WBC 3.4 10 4.5-11 .5 low Not Available [facility] (Lab Registration) [address] [place], [address], 12/21/2024 12:46:57 12/21/19 25 12/21/2024 CBC AUTO W DIFF RBC 3.44 10 4.25-5 .57 low Not Available [facility] (Lab Registration) [address] [place], [address], 12/21/2024 12:46:57 12/21/19 25 12/21/2024 CBC AUTO W DIFF HGB 10.0 g/dL 12.0-1 5.7 low Not Available [facility] (Lab Registration) [address] [place], [address], 12/21/2024 12:46:57 12/21/19 25 12/21/2024 CBC AUTO W DIFF HCT 31.6 % 36.0-4 7.0 low Not Available [facility] (Lab Registration) [address] [place], [address], 12/21/2024 12:46:57 12/21/19 25 12/21/2024 CBC AUTO W DIFF MCV 91.9 fL 80-95 Not Available [facility] (Lab Registration) [address] [place], [address], 12/21/2024 12:46:57 12/21/19 25 12/21/2024 CBC AUTO W DIFF MCH 29.1 pg 27.0-3 4.0 Not Available [facility] (Lab Registration) [address] [place], [address], 12/21/2024 12:46:57 12/21/19 25 12/21/2024 CBC AUTO W DIFF MCHC 31.6 g/dL 32.0-3 6.0 low Not Available [facility] (Lab Registration) [address] [place], [address], 12/21/2024 12:46:57 12/21/19 25 12/21/2024 CBC AUTO W DIFF platelet count 90 10 150-45 0 low Not Available [facility] (Lab Registration) [address] [place], [address], 12/21/2024 12:46:57 12/21/19 25 12/21/2024 CBC AUTO W DIFF RDW 17.2 % 12.3-1 5.1 high Not Available [facility] (Lab Registration) [address] [place], [address], 12/21/2024 12:46:57 12/21/19 25 12/21/2024 CBC AUTO W DIFF MPV 10.6 fL 7.4-10 .4 high Not Available [facility] (Lab Registration) [address] [place], [address], 12/21/2024 12:46:57 12/21/19 25 12/21/2024 CBC AUTO W DIFF granulocyte% 65.1 % 40-75 Not Available [facility] (Lab Registration) [address] [place], [address], 12/21/2024 12:46:57 12/21/19 25 12/21/2024 CBC AUTO W DIFF lymphocyte% 18.6 % 15-57 Not Available [facility] (Lab Registration) [address] [place], [address], 12/21/2024 12:46:57 12/21/19 25 12/21/2024 CBC AUTO W DIFF monocyte% 9.6 % 4.0-12 .0 Not Available [facility] (Lab Registration) [address] [place], [address], 12/21/2024 12:46:57 12/21/19 25 12/21/2024 CBC AUTO W DIFF eosinophil% 5.8 % 0.0-4. 0 high Not Available [facility] (Lab Registration) [address] [place], [address], 12/21/2024 12:46:57 12/21/19 25 12/21/2024 CBC AUTO W DIFF basophil% 0.9 % 0.0-1. 0 Not Available [facility] (Lab Registration) [address] [place], [address], 12/21/2024 12:46:57 12/21/19 25 12/21/2024 CBC AUTO W DIFF immature granulocytes % 0.0 % 0.0-0. 8 Not Available [facility] (Lab Registration) [address] [place], [address], 12/21/2024 12:46:57 12/21/19 25 12/21/2024 CBC AUTO W DIFF granulocyte# 2.24 10 Not Available [facility] (Lab Registration) [address] [place], [address], 12/21/2024 12:46:57 12/21/19 25 12/21/2024 CBC AUTO W DIFF lymphocyte# 0.64 10 Not Available [facility] (Lab Registration) [address] [place], [address], 12/21/2024 12:46:57 12/21/19 25 12/21/2024 CBC AUTO W DIFF monocyte# 0.33 10 Not Available [facility] (Lab Registration) [address] [place], [address], 12/21/2024 12:46:57 12/21/19 25 12/21/2024 CBC AUTO W DIFF eosinophil# 0.20 10 Not Available [facility] (Lab Registration) [address] [place], [address], 12/21/2024 12:46:57 12/21/19 25 12/21/2024 CBC AUTO W DIFF basophil# 0.03 10 Not Available [facility] (Lab Registration) [address] [place], [address], 12/21/2024 12:46:57 12/21/19 25 12/21/2024 CBC AUTO W DIFF immature granulocytes # 0.00 10 Not Available [facility] (Lab Registration) [address] [place], [address], 12/21/2024 12:46:57 12/21/19 25 12/21/2024 CBC AUTO W DIFF manual differential NO Not Available [facility] (Lab Registration) [address] [place], [address], 12/21/2024 12:46:57 12/21/19 25 12/21/2024 CBC AUTO W DIFF note Unles s other lofton noted testi ng perfo rmed at: [facility] [address] [place] [phone] Jose Maria de la o MD CLIA: [id number] Not Available [facility] (Lab Registration) [address] [place], [address], 12/21/2024 12:46:57 12/21/19 25 12/21/2024 FREDRICK [place] ammonia, plasma 6 umol/ L 11-32 low Not Available [facility] (Lab Registration) [address] [place] [place], [address], 12/21/2024 12:51:17 12/21/19 25 12/21/2024 FREDRICK IA note Unles s other lofton noted testi ng [facility]fo rmed [facility] [address] [place] [address] [phone] Jose Maria de la o MD CLIA: [id number] Not Available [facility] (Lab Registration) [address] [place], [address], 12/21/2024 12:51:17 12/21/19 25 12/21/2024 PT (PROT HROMB IN TIME) W INR PT (prothrombin time) 11.6 secon ds 9.1-12 .0 Not Available [facility] (Lab Registration) [address] [place], [address], 12/21/2024 13:03:21 12/21/19 25 12/21/2024 PT (PROT [...] mecha nical heart valve s. Not Available [facility] (Lab Registration) [address], [place], [address], 12/21/2024 13:03:21 12/21/19 25 12/21/2024 PT (PROT HROMB IN TIME) W INR note Unles s other lofton noted testi ng perfo rmed at: [facility] [address] [employer] [address] [employer] [place] [address] [phone] Jose Maria de la o MD CLIA: [id number] Not Available [facility] (Lab Registration) [address] [place], [address], 12/21/2024 13:03:21 12/21/19 25 12/21/2024 COMP METAB OLIC PANEL sodium 143 mmol/ L 136-14 5 Not Available [facility] (Lab Registration) [address] [place], [address], 12/21/2024 13:05:31 12/21/19 25 12/21/2024 COMP METAB OLIC PANEL potassium 2.9 mmol/ L 3.5-5. 1 critical low Not Available [facility] (Lab Registration) [address] [place], [address], 12/21/2024 13:05:31 12/21/19 25 12/21/2024 COMP METAB OLIC PANEL chloride 108 mmol/ L 98-107 high Not Available [facility] (Lab Registration) [address] [place], [address], 12/21/2024 13:05:31 12/21/19 25 12/21/2024 COMP METAB OLIC PANEL carbon dioxide 25 mmol/ L 21-32 Not Available [facility] (Lab Registration) [address] [place], [address], 12/21/2024 13:05:31 12/21/19 25 12/21/2024 COMP METAB OLIC PANEL anion gap 10.0 Not Available [facility] (Lab Registration) [address], [place], [address], 12/21/2024 13:05:31 12/21/19 25 12/21/2024 COMP METAB OLIC PANEL glucose 111 mg/dL 70-110 high Not Available [facility] (Lab Registration) [address], [place], [address], 12/21/2024 13:05:31 12/21/19 25 12/21/2024 COMP METAB OLIC PANEL blood urea nitrogen 12 mg/dL 7-18 Not Available [facility] (Lab Registration) [address], [place], [address], 12/21/2024 13:05:31 12/21/19 25 12/21/2024 COMP METAB OLIC PANEL creatinine 1.1 mg/dL 0.6-1. 0 high Not Available [facility] (Lab Registration) [address], [place], [address], 12/21/2024 13:05:31 12/21/19 25 12/21/2024 COMP METAB OLIC PANEL BUN/creatini ne ratio 10.9 9-21 Not Available [facility] (Lab Registration) [address], [place], [address], 12/21/2024 13:05:31 12/21/19 25 12/21/2024 COMP METAB [...] jaime ing kiney funct ion. Not Available [facility] (Lab Registration) [address] [place], [address], 12/21/2024 13:05:31 12/21/19 25 12/21/2024 COMP METAB OLIC PANEL total protein 7.0 g/dL 6.4-8. 2 Not Available [facility] (Lab Registration) [address] [place], [address], 12/21/2024 13:05:31 12/21/19 25 12/21/2024 COMP METAB OLIC PANEL albumin 2.8 g/dL 3.4-5. 0 low Not Available [facility] (Lab Registration) [address] [place], [address], 12/21/2024 13:05:31 12/21/19 25 12/21/2024 COMP METAB OLIC PANEL calcium 8.4 mg/dL 8.5-10 .1 low Not Available [facility] (Lab Registration) [address] [place], [address], 12/21/2024 13:05:31 12/21/19 25 12/21/2024 COMP METAB OLIC PANEL corrected calcium 9.4 mg/dL 8.5-10 .1 Not Available [facility] (Lab Registration) [address] [place], [address], 12/21/2024 13:05:31 12/21/19 25 12/21/2024 COMP METAB OLIC PANEL bilirubin total 2.1 mg/dL 0.4-1. 5 high Not Available [facility] (Lab Registration) [address] [place], [address], 12/21/2024 13:05:31 12/21/19 25 12/21/2024 COMP METAB OLIC PANEL AST (SGOT) 47 U/L 15-37 high Not Available [facility] (Lab Registration) [address] [place], [address], 12/21/2024 13:05:31 12/21/19 25 12/21/2024 COMP METAB OLIC PANEL ALT (SGPT) 36 U/L 12-78 Not Available [facility] (Lab Registration) [address] , [place], [address], 12/21/2024 13:05:31 12/21/19 25 12/21/2024 COMP METAB OLIC PANEL alk phosphatase 131 U/L 53-141 Not Available [facility] (Lab Registration) [address] [place], [address], 12/21/2024 13:05:31 12/21/19 25 12/21/2024 COMP METAB OLIC PANEL note Unles s other lofton noted testi ng perfo rmed at: [facility] [address] [place] [address] [phone] Jose Maria de la o MD CLIA: [id number] Not Available [facility] (Lab Registration) [address] [place], [address], 12/21/2024 13:05:31 12/21/19 25 12/21/2024 AFP, SERUM , TUMOR MARKE R note Unles s other lofton noted testi ng perfo rmed at: [facility] [address] [place] [address] [phone] Jose Maria de la o MD CLIA: [id number] Not Available [facility] (Lab Registration) [address] [place], [address], 12/22/2024 12:10:23 12/21/1912/22/2024 AFP, SERUM , TUMOR MARKE R AFP, serum, tumor marker 4.1 NG/mL 0.0-9. 2 Ese Diagn ostic s Elect ese milum inesc ence Immun oassa y (ECLI A) . Value s obtai quynh with diffe rent assay metho ds or kits canno t be used inter jaime eably . Resul ts canno t be inter prete d as absol [facility] evide nce of the prese nce or absen ce of arielle [facility] se. . This test is not inter preta ble in pregn ant femal es. [facility] at: [facility] [address] [facility], [place] [address] Lab Direc tor: Jah russo PhD, Phone : [phone] SENT TO REFER ENCE LAB Not Available [facility] (Lab Registration) [address], [place], [address], 12/22/2024 12:10:23 02/22/20 25 02/21/2025 PT (PROT HROMB IN TIME) W INR PT (prothrombin time) 11.2 secon ds 9.1-12 .0 Not Available [facility] (Lab Registration) [address] [place], [address], 02/21/2025 12:35:29 02/22/20 25 02/21/2025 PT (PROT [...] mecha nical heart valve s. Not Available [facility] (Lab Registration) [address] [place], [address], 02/21/2025 12:35:29 02/22/20 25 02/21/2025 PT (PROT HROMB IN TIME) W INR note Unles s other lofton noted testi ng perfo rmed at: [facility] [address] [place] [address] [phone] Jose Maria de la o MD CLIA: [id number] Not Available [facility] (Lab Registration) [address] [place], [address], 02/21/2025 12:35:29 04/01/20 25 02/21/2025 CBC AUTO W DIFF WBC 3.4 10 4.5-11 .5 low Not Available [facility] (Lab Registration) [address] [place], [address], 02/21/2025 12:35:43 02/22/20 25 02/21/2025 CBC AUTO W DIFF RBC 3.29 10 4.25-5 .57 low Not Available [facility] (Lab Registration) [address] [place], [address], 02/21/2025 12:35:43 02/22/20 25 02/21/2025 CBC AUTO W DIFF HGB 8.8 g/dL 12.0-1 5.7 low Not Available [facility] (Lab Registration) [address] [place], [address], 02/21/2025 12:35:43 02/22/20 25 02/21/2025 CBC AUTO W DIFF HCT 28.2 % 36.0-4 7.0 low Not Available [facility] (Lab Registration) [address] [place], [address], 02/21/2025 12:35:43 02/22/20 25 02/21/2025 CBC AUTO W DIFF MCV 85.7 fL 80-95 Not Available [facility] (Lab Registration) [address] [place], [address], 02/21/2025 12:35:43 02/22/20 25 02/21/2025 CBC AUTO W DIFF MCH 26.7 pg 27.0-3 4.0 low Not Available [facility] (Lab Registration) [address] [place], [address], 02/21/2025 12:35:43 02/22/20 25 02/21/2025 CBC AUTO W DIFF MCHC 31.2 g/dL 32.0-3 6.0 low Not Available [facility] (Lab Registration) [address] [place], [address], 02/21/2025 12:35:43 02/22/20 25 02/21/2025 CBC AUTO W DIFF platelet count 110 10 150-45 0 low Not Available [facility] (Lab Registration) [address] [place], [address], 02/21/2025 12:35:43 02/22/20 25 02/21/2025 CBC AUTO W DIFF RDW 16.9 % 12.3-1 5.1 high Not Available [facility] (Lab Registration) [address] [place], [address], 02/21/2025 12:35:43 02/22/20 25 02/21/2025 CBC AUTO W DIFF MPV 13.0 fL 7.4-10 .4 high Not Available [facility] (Lab Registration) [address] [place], [address], 02/21/2025 12:35:43 02/22/20 25 02/21/2025 CBC AUTO W DIFF granulocyte% 73.4 % 40-75 Not Available [facility] (Lab Registration) [address] [place], [address], 02/21/2025 12:35:43 02/22/20 25 02/21/2025 CBC AUTO W DIFF lymphocyte% 13.5 % 15-57 low Not Available [facility] (Lab Registration) [address] [place], [address], 02/21/2025 12:35:43 02/22/20 25 02/21/2025 CBC AUTO W DIFF monocyte% 9.9 % 4.0-12 .0 Not Available [facility] (Lab Registration) [address] [place], [address], 02/21/2025 12:35:43 02/22/20 25 02/21/2025 CBC AUTO W DIFF eosinophil% 2.3 % 0.0-4. 0 Not Available [facility] (Lab Registration) [address] [place], [address], 02/21/2025 12:35:43 02/22/20 25 02/21/2025 CBC AUTO W DIFF basophil% 0.9 % 0.0-1. 0 Not Available [facility] (Lab Registration) [address] [place], [address], 02/21/2025 12:35:43 02/22/20 25 02/21/2025 CBC AUTO W DIFF immature granulocytes % 0.0 % 0.0-0. 8 Not Available [facility] (Lab Registration) [address] [place], [address], 02/21/2025 12:35:43 02/22/20 25 02/21/2025 CBC AUTO W DIFF granulocyte# 2.51 10 Not Available [facility] (Lab Registration) [address] [place], [address], 02/21/2025 12:35:43 02/22/20 25 02/21/2025 CBC AUTO W DIFF lymphocyte# 0.46 10 Not Available [facility] (Lab Registration) [address] [place], [address], 02/21/2025 12:35:43 02/22/20 25 02/21/2025 CBC AUTO W DIFF monocyte# 0.34 10 Not Available [facility] (Lab Registration) [address] [place], [address], 02/21/2025 12:35:43 02/22/20 25 02/21/2025 CBC AUTO W DIFF eosinophil# 0.08 10 Not Available [facility] (Lab Registration) [address] [place], [address], 02/21/2025 12:35:43 02/22/20 25 02/21/2025 CBC AUTO W DIFF basophil# 0.03 10 Not Available [facility] (Lab Registration) [address] [place], [address], 02/21/2025 12:35:43 02/22/20 25 02/21/2025 CBC AUTO W DIFF immature granulocytes # 0.00 10 Not Available [facility] (Lab Registration) [address], [place], [address], 02/21/2025 12:35:43 02/22/20 25 02/21/2025 CBC AUTO W DIFF manual differential NO Not Available [facility] (Lab Registration) [address], [place], [address], 02/21/2025 12:35:43 02/22/20 25 02/21/2025 CBC AUTO W DIFF note Unles s other lofton noted testi ng perfo rmed at: [facility] [place] [address] [phone] Jose Maria de la o MD CLIA: [id number] Not Available [facility] (Lab Registration) [address], [place], [address], 02/21/2025 12:35:43 02/22/20 25 02/21/2025 COMP METAB OLIC PANEL sodium 136 mmol/ L 136-14 5 Not Available [facility] (Lab Registration) [address], [place], [address], 02/21/2025 12:35:45 02/22/20 25 02/21/2025 COMP METAB OLIC PANEL potassium 4.7 mmol/ L 3.5-5. 1 Not Available [facility] (Lab Registration) [address] [place], [address], 02/21/2025 12:35:45 02/22/20 25 02/21/2025 COMP METAB OLIC PANEL chloride 104 mmol/ L 98-107 Not Available [facility] (Lab Registration) [address] [place], [address], 02/21/2025 12:35:45 02/22/20 25 02/21/2025 COMP METAB OLIC PANEL carbon dioxide 25 mmol/ L 21-32 Not Available [facility] (Lab Registration) [address], [place], [address], 02/21/2025 12:35:45 02/22/20 25 02/21/2025 COMP METAB OLIC PANEL anion gap 7.0 Not Available [facility] (Lab Registration) [address], [place], [address], 02/21/2025 12:35:45 02/22/20 25 02/21/2025 COMP METAB OLIC PANEL glucose 324 mg/dL 70-110 high Not Available [facility] (Lab Registration) [address], [place], [address], 02/21/2025 12:35:45 02/22/20 25 02/21/2025 COMP METAB OLIC PANEL blood urea nitrogen 32 mg/dL 7-18 high Not Available [facility] (Lab Registration) [address], [place], [address], 02/21/2025 12:35:45 02/22/20 25 02/21/2025 COMP METAB OLIC PANEL creatinine 1.3 mg/dL 0.6-1. 0 high Not Available [facility] (Lab Registration) [address], [place], [address], 02/21/2025 12:35:45 02/22/20 25 02/21/2025 COMP METAB OLIC PANEL BUN/creatini ne ratio 24.6 9-21 high Not Available [facility] (Lab Registration) [address] [place], [address], 02/21/2025 12:35:45 02/22/20 25 02/21/2025 COMP METAB [...] jaime ing kiney funct ion. Not Available [facility] (Lab Registration) [address], [place], [address], 02/21/2025 12:35:45 02/22/20 25 02/21/2025 COMP METAB OLIC PANEL osmolality (calculated) 303 mOsm/ kg 275-30 1 high OSMOL ALITY IS A CALCU LATIO N UTILI ZING THE SERUM /PLAS MA SODIU M, GLUCO SE AND UREA NITRO GEN (BUN) LEVEL S. FOR THE MOST ACCUR ATE RESUL T A MEASU RED SERUM OSMOL ALITY IS SUGGE STED. Not Available [facility] (Lab Registration) [address], [place], [address], 02/21/2025 12:35:45 02/22/20 25 02/21/2025 COMP METAB OLIC PANEL total protein 8.0 g/dL 6.4-8. 2 Not Available [facility] (Lab Registration) [address], [place], [address], 02/21/2025 12:35:45 02/22/20 25 02/21/2025 COMP METAB OLIC PANEL albumin 2.9 g/dL 3.4-5. 0 low Not Available [facility] (Lab Registration) [address] [place], [address], 02/21/2025 12:35:45 02/22/20 25 02/21/2025 COMP METAB OLIC PANEL calcium 9.5 mg/dL 8.5-10 .1 Not Available [facility] (Lab Registration) [address] [place], [address], 02/21/2025 12:35:45 02/22/20 25 02/21/2025 COMP METAB OLIC PANEL corrected calcium 10.4 mg/dL 8.5-10 .1 high Not Available [facility] (Lab Registration) [address] [place], [address], 02/21/2025 12:35:45 02/22/20 25 02/21/2025 COMP METAB OLIC PANEL bilirubin total 0.9 mg/dL 0.4-1. 5 Not Available [facility] (Lab Registration) [address] [place], [address], 02/21/2025 12:35:45 02/22/20 25 02/21/2025 COMP METAB OLIC PANEL AST (SGOT) 46 U/L 15-37 high Not Available [facility] (Lab Registration) [address] [place], [address], 02/21/2025 12:35:45 02/22/20 25 02/21/2025 COMP METAB OLIC PANEL ALT (SGPT) 64 U/L 12-78 Not Available [facility] (Lab Registration) [address] [place], [address], 02/21/2025 12:35:45 02/22/20 25 02/21/2025 COMP METAB OLIC PANEL alk phosphatase 156 U/L 53-141 high Not Available [facility] (Lab Registration) [address] [place], [address], 02/21/2025 12:35:45 02/22/20 25 02/21/2025 COMP METAB OLIC PANEL note Unles s other lofton noted testi ng perfo rmed at: [facility] [address] [place] [address] [phone] Jose Maria de la o MD CLIA: [id number] Not Available [facility] (Lab Registration) [address] [place], [address], 02/21/2025 12:35:45 03/10/20 25 03/10/2025 CBC AUTO W DIFF WBC 2.4 10 4.5-11 .5 low Not Available [facility] (Lab Registration) [address] [place], [address], 03/10/2025 16:47:57 03/10/20 25 03/10/2025 CBC AUTO W DIFF RBC 3.44 10 4.25-5 .57 low Not Available [facility] (Lab Registration) [address] [place], [address], 03/10/2025 16:47:57 03/10/20 25 03/10/2025 CBC AUTO W DIFF HGB 9.5 g/dL 12.0-1 5.7 low Not Available [facility] (Lab Registration) [address] [place], [address], 03/10/2025 16:47:57 03/10/20 25 03/10/2025 CBC AUTO W DIFF HCT 31.2 % 36.0-4 7.0 low Not Available [facility] (Lab Registration) [address] [place], [address], 03/10/2025 16:47:57 03/10/20 25 03/10/2025 CBC AUTO W DIFF MCV 90.7 fL 80-95 Not Available [facility] (Lab Registration) [address] [place], [address], 03/10/2025 16:47:57 03/10/20 25 03/10/2025 CBC AUTO W DIFF MCH 27.6 pg 27.0-3 4.0 Not Available [facility] (Lab Registration) [address] [place], [address], 03/10/2025 16:47:57 03/10/20 25 03/10/2025 CBC AUTO W DIFF MCHC 30.4 g/dL 32.0-3 6.0 low Not Available [facility] (Lab Registration) [address] [place], [address], 03/10/2025 16:47:57 03/10/20 25 03/10/2025 CBC AUTO W DIFF platelet count 99 10 150-45 0 low Not Available [facility] (Lab Registration) [address] [place], [address], 03/10/2025 16:47:57 03/10/20 25 03/10/2025 CBC AUTO W DIFF RDW 19.2 % 12.3-1 5.1 high Not Available [facility] (Lab Registration) [address] [place], [address], 03/10/2025 16:47:57 03/10/20 25 03/10/2025 CBC AUTO W DIFF MPV 11.8 fL 7.4-10 .4 high Not Available [facility] (Lab Registration) [address] [place], [address], 03/10/2025 16:47:57 03/10/20 25 03/10/2025 CBC AUTO W DIFF granulocyte% 71.6 % 40-75 Not Available [facility] (Lab Registration) [address] [place], [address], 03/10/2025 16:47:57 03/10/20 25 03/10/2025 CBC AUTO W DIFF lymphocyte% 15.2 % 15-57 Not Available [facility] (Lab Registration) [address] [place], [address], 03/10/2025 16:47:57 03/10/20 25 03/10/2025 CBC AUTO W DIFF monocyte% 9.9 % 4.0-12 .0 Not Available [facility] (Lab Registration) [address] [place], [address], 03/10/2025 16:47:57 03/10/20 25 03/10/2025 CBC AUTO W DIFF eosinophil% 2.1 % 0.0-4. 0 Not Available [facility] (Lab Registration) [address] [place], [address], 03/10/2025 16:47:57 03/10/20 25 03/10/2025 CBC AUTO W DIFF basophil% 1.2 % 0.0-1. 0 high Not Available [facility] (Lab Registration) [address] [place], [address], 03/10/2025 16:47:57 03/10/20 25 03/10/2025 CBC AUTO W DIFF immature granulocytes % 0.0 % 0.0-0. 8 Not Available [facility] (Lab Registration) [address] [place], [address], 03/10/2025 16:47:57 03/10/20 25 03/10/2025 CBC AUTO W DIFF granulocyte# 1.74 10 Not Available [facility] (Lab Registration) [address] [place], [address], 03/10/2025 16:47:57 03/10/20 25 03/10/2025 CBC AUTO W DIFF lymphocyte# 0.37 10 Not Available [facility] (Lab Registration) [address] [place], [address], 03/10/2025 16:47:57 03/10/20 25 03/10/2025 CBC AUTO W DIFF monocyte# 0.24 10 Not Available [facility] (Lab Registration) [address] [place], [address], 03/10/2025 16:47:57 03/10/20 25 03/10/2025 CBC AUTO W DIFF eosinophil# 0.05 10 Not Available [facility] (Lab Registration) [address] [place], [address], 03/10/2025 16:47:57 03/10/20 25 03/10/2025 CBC AUTO W DIFF basophil# 0.03 10 Not Available [facility] (Lab Registration) [address] [place], [address], 03/10/2025 16:47:57 03/10/20 25 03/10/2025 CBC AUTO W DIFF immature granulocytes # 0.00 10 Not Available [facility] (Lab Registration) [address] [place], [address], 03/10/2025 16:47:57 03/10/20 25 03/10/2025 CBC AUTO W DIFF manual differential NO Not Available [facility] (Lab Registration) [address], [place], [address], 03/10/2025 16:47:57 03/10/20 25 03/10/2025 CBC AUTO W DIFF note Unles s other lofton noted testi ng perfo rmed at: [facility] [address] [place] [address] [phone] Jose Maria de la o MD CLIA: [id number] Not Available [facility] (Lab Registration) [address] [place], [address], 03/10/2025 16:47:57 03/10/20 25 03/10/2025 FREDRICK IA ammonia, plasma 15 umol/ L 11-32 Not Available [facility] (Lab Registration) [address], [place], [address], 03/10/2025 16:49:05 03/10/20 25 03/10/2025 FREDRICK IA note Unles s other lofton noted testi ng perfo rmed at: [facility] [address] [place] [address] [phone] Jose Maria de la o MD CLIA: [id number] Not Available [facility] (Lab Registration) [address] [place], [address], 03/10/2025 16:49:05 03/10/20 25 03/10/2025 IRON/ TIBC/ %SAT (IRON STUDI ES) iron 48 ug/dL 35-150 Not Available [facility] (Lab Registration) [address] [place], [address], 03/10/2025 17:58:57 03/10/20 25 03/10/2025 IRON/ TIBC/ %SAT (IRON STUDI ES) total iron bind cap (TIBC) 313 ug/dL 250-45 0 Not Available [facility] (Lab Registration) [address] [place], [address], 03/10/2025 17:58:57 03/10/20 25 03/10/2025 IRON/ TIBC/ %SAT (IRON STUDI ES) % saturation 15 % 15-55 Not Available [facility] (Lab Registration) [address] [place], [address], 03/10/2025 17:58:57 03/10/20 25 03/10/2025 IRON/ TIBC/ %SAT (IRON STUDI ES) note Unles s other lofton noted testi ng perfo rmed at: [facility] [address] [place] [address] [phone] Jose Maria de la o MD CLIA: [id number] Not Available [facility] (Lab Registration) [address] [place], [address], 03/10/2025 17:58:57 03/10/20 25 03/10/2025 VITAM IN B12 vitamin B12 1132 pg/mL 193-98 6 high Not Available [facility] (Lab Registration) [address] [place], [address], 03/10/2025 18:37:36 03/10/20 25 03/10/2025 VITAM IN B12 folate (folic acid), serum 14.8 NG/mL 8.6-58 .9 Not Available [facility] (Lab Registration) [address] [place], [address], 03/10/2025 18:37:36 03/10/20 25 03/10/2025 VITAM IN B12 note Unles s other lofton noted testi ng perfo rmed at: [facility] [address] [place] [phone] Jose Maria de la o MD CLIA: [id number] Not Available [facility] (Lab Registration) [address], [place], [address], 03/10/2025 18:37:36 03/10/20 25 03/10/2025 COMP METAB OLIC PANEL sodium 140 mmol/ L 136-14 5 Not Available [facility] (Lab Registration) [address] [place], [address], 03/10/2025 18:37:37 03/10/20 25 03/10/2025 COMP METAB OLIC PANEL potassium 4.1 mmol/ L 3.5-5. 1 Not Available [facility] (Lab Registration) [address] [place], [address], 03/10/2025 18:37:37 03/10/20 25 03/10/2025 COMP METAB OLIC PANEL chloride 107 mmol/ L 98-107 Not Available [facility] (Lab Registration) [address] [place], [address], 03/10/2025 18:37:37 03/10/20 25 03/10/2025 COMP METAB OLIC PANEL carbon dioxide 27 mmol/ L 21-32 Not Available [facility] (Lab Registration) [address] [place], [address], 03/10/2025 18:37:37 03/10/20 25 03/10/2025 COMP METAB OLIC PANEL anion gap 6.0 Not Available [facility] (Lab Registration) [address] [place], [address], 03/10/2025 18:37:37 03/10/20 25 03/10/2025 COMP METAB OLIC PANEL glucose 239 mg/dL 70-110 high Not Available [facility] (Lab Registration) [address] [place], [address], 03/10/2025 18:37:37 03/10/20 25 03/10/2025 COMP METAB OLIC PANEL blood urea nitrogen 15 mg/dL 7-18 Not Available [facility] (Lab Registration) [address], [place], [address], 03/10/2025 18:37:37 03/10/20 25 03/10/2025 COMP METAB OLIC PANEL creatinine 1.4 mg/dL 0.6-1. 0 high Not Available [facility] (Lab Registration) [address], [place], [address], 03/10/2025 18:37:37 03/10/20 25 03/10/2025 COMP METAB OLIC PANEL BUN/creatini ne ratio 10.7 9-21 Not Available [facility] (Lab Registration) [address], [place], [address], 03/10/2025 18:37:37 03/10/20 25 03/10/2025 COMP METAB OLIC PANEL estimated glom filtration rate 39 mL/mi n >60- low GFR LIMIT ATION [...] jaime ing kiney funct ion. Not Available [facility] (Lab Registration) [address], [place], [address], 03/10/2025 18:37:37 03/10/20 25 03/10/2025 COMP METAB OLIC PANEL osmolality (calculated) 300 mOsm/ kg 275-30 1 OSMOL ALITY IS A CALCU LATIO N UTILI ZING THE SERUM /PLAS MA SODIU M, GLUCO SE AND UREA NITRO GEN (BUN) LEVEL S. FOR THE MOST ACCUR ATE RESUL T A MEASU RED SERUM OSMOL ALITY IS SUGGE STED. Not Available [facility] (Lab Registration) [address], [place], [address], 03/10/2025 18:37:37 03/10/20 25 03/10/2025 COMP METAB OLIC PANEL total protein 7.3 g/dL 6.4-8. 2 Not Available [facility] (Lab Registration) [address], [place], [address], 03/10/2025 18:37:37 03/10/20 25 03/10/2025 COMP METAB OLIC PANEL albumin 2.8 g/dL 3.4-5. 0 low Not Available [facility] (Lab Registration) [address] [place], [address], 03/10/2025 18:37:37 03/10/20 25 03/10/2025 COMP METAB OLIC PANEL calcium 8.7 mg/dL 8.5-10 .1 Not Available [facility] (Lab Registration) [address] [place], [address], 03/10/2025 18:37:37 03/10/20 25 03/10/2025 COMP METAB OLIC PANEL corrected calcium 9.7 mg/dL 8.5-10 .1 Not Available [facility] (Lab Registration) [address] [place], [address], 03/10/2025 18:37:37 03/10/20 25 03/10/2025 COMP METAB OLIC PANEL bilirubin total 1.0 mg/dL 0.4-1. 5 Not Available [facility] (Lab Registration) [address] [place], [address], 03/10/2025 18:37:37 03/10/20 25 03/10/2025 COMP METAB OLIC PANEL AST (SGOT) 87 U/L 15-37 high Not Available [facility] (Lab Registration) [address] [place], [address], 03/10/2025 18:37:37 03/10/20 25 03/10/2025 COMP METAB OLIC PANEL ALT (SGPT) 52 U/L 12-78 Not Available [facility] (Lab Registration) [address] [place], [address], 03/10/2025 18:37:37 03/10/20 25 03/10/2025 COMP METAB OLIC PANEL alk phosphatase 254 U/L 53-141 high Not Available [facility] (Lab Registration) [address] [place], [address], 03/10/2025 18:37:37 03/10/20 25 03/10/2025 COMP METAB OLIC PANEL note Unles s other lofton noted testi ng perfo rmed at: [facility] [address] [place] [address] [phone] Jose Maria de la o MD CLIA: [id number] Not Available [facility] (Lab Registration) [address] [place], [address], 03/10/2025 18:37:37 03/10/20 25 03/10/2025 TODD TIN ferritin 65 NG/mL 8-388 Not Available [facility] (Lab Registration) [address] [place], [address], 03/10/2025 18:37:38 03/10/20 25 03/10/2025 TODD TIN note Unles s other lofton noted testi ng perfo rmed at: [facility] [address] [place] [address] [phone] Jose Maria de la o MD CLIA: [id number] Not Available [facility] (Lab Registration) [address] [place], [address], 03/10/2025 18:37:38 03/22/20 25 03/22/2025 BASIC METAB OLIC PANEL sodium 142 mmol/ L 137-14 7 Not Available [facility] (Pre-Op Clinic) [address] [place] [address] [place], [address], 03/22/2025 11:02:07 03/22/20 25 03/22/2025 BASIC METAB OLIC PANEL potassium 3.1 mmol/ L 3.5-5. 1 low Not Available [facility] (Pre-Op Clinic) [address] [place] [address] [place], [address], 03/22/2025 11:02:07 03/22/20 25 03/22/2025 BASIC METAB OLIC PANEL chloride 109 mmol/ L 98-110 Not Available [facility] (Pre-Op Clinic) [address] [place] [address] [place], [address], 03/22/2025 11:02:07 03/22/20 25 03/22/2025 BASIC METAB OLIC PANEL carbon dioxide 22 mmol/ L 21-30 Not Available [facility] (Pre-Op Clinic) [address] [place] [address] [place], [address], 03/22/2025 11:02:07 03/22/20 25 03/22/2025 BASIC METAB OLIC PANEL anion gap 11 mmol/ L 6-14 Not Available [facility] (Pre-Op [facility]) [address] [place] [address] [place], [address], 03/22/2025 11:02:07 03/22/20 25 03/22/2025 BASIC METAB OLIC PANEL glucose 166 mg/dL 70-115 high Not Available [facility] (Pre-Op Clinic) [address] [place] [address] [place], [address], 03/22/2025 11:02:07 03/22/20 25 03/22/2025 BASIC METAB OLIC PANEL BUN 30 mg/dL 7-17 high Not Available [facility] (Pre-Op Clinic) [address] [place] [address] [place], [address], 03/22/2025 11:02:07 03/22/20 25 03/22/2025 BASIC METAB OLIC PANEL creatinine 1.0 mg/dL 0.5-1. 5 Not Available [facility] (Pre-Op Clinic) [address] [place] [address] [place], [address], 03/22/2025 11:02:07 03/22/20 25 03/22/2025 BASIC METAB OLIC PANEL BUN/creatini ne ratio 30 10-20 high Not Available [facility] (Pre-Op Clinic) [address] [place] [address] [place], [address], 03/22/2025 11:02:07 03/22/20 25 03/22/2025 BASIC METAB OLIC PANEL glom filtration rate 58 mL/mi n >60- low GFR LIMIT ATION [...] jaime ing kiney funct ion. Not Available [facility] (Pre-Op Clinic) [address] [place] [address] [place], [address], 03/22/2025 11:02:07 03/22/20 25 03/22/2025 BASIC METAB OLIC PANEL osmolality (calculated) 305 mosmo l/kg 275-30 1 high OSMOL ALITY IS A CALCU LATIO N UTILI ZING THE SERUM /PLAS MA SODIU M, GLUCO SE AND UREA NITRO GEN (BUN) LEVEL S. FOR THE MOST ACCUR ATE RESUL T A MEASU RED SERUM OSMOL ALITY IS SUGGE STED. Not Available [facility] (Pre-Op Clinic) [address] [place] [address] [place], [address], 03/22/2025 11:02:07 03/22/20 25 03/22/2025 BASIC METAB OLIC PANEL calcium 8.8 mg/dL 8.5-10 .8 Not Available [facility] (Pre-Op Clinic) [address] [place] [address] [place], [address], 03/22/2025 11:02:07 03/22/20 25 03/22/2025 BASIC METAB OLIC PANEL note Unles s other lofton noted testi ng perfo rmed at: [facility] [address] [place] [address] Jose Maria de la o MD Not Available [facility] (Pre-Op Clinic) [address] [place] [address] [place], [address], 03/22/2025 11:02:07 12/16/19 25 12/16/2024 US, abdom en [facility] [address] [place] [address] Phone: Fax: Name: VIKA GORDON Exam Date: : 949 Age 74 years Gender : F Access ion: [id number] Physic anali: AMBURG EY, TAFFAN Y Facili ty: [facility] Facili ty HSV: Outpat ient Exam: US ABD US ABDOME N, 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 INDICA TION: . TECHNI QUE: Multip le [...] bladde r is not assess ed. IMPRES JEANETTE: 1. New findin g of hepati c cirrho sis with spleno megaly and a large volume of ascite s. Electr onical ly signed by: Shimon Pisano MD 2024 08:04 PM EST RP Workst ation: [id number] Dictat ed By: Shimon Pisano Transc ribed By: Transc ribed On: 025 1:53 PM Electr onical ly signed by: Shimon Pisano 025 Thank you for referr ing VIKA GORDON to [facility] Hospit [facility]. Legall y authen ticate d by GEMMA TOWNSEND MD 0 12-16 13:53: 08 CC'ed Logic: Orderi ng Provid er: AMBURG EY TAFFAN Y CC Provid er: AMBURG EY TAFFAN Y Attend ing Provid er: AMBURG EY TAFFAN Y Referr ing Provid er: AMBURG EY TAFFAN Y Admitt ing Provid er: AMBURG EY TAFFAN Y [facility] (Radiology) [address] [place] [address] , [place], [address], 12/19/2024 16:49:57 02/25/2002/23/2025 imagi ng inter preta tion No observ ation record ed. [email or web address] [facility] [address], [place], [address], 02/27/2025 08:27:17 02/25/20 25 02/23/2025 imagi ng inter preta tion No observ ation record ed. [facility] [address], [place], [address], 02/27/2025 08:27:02 02/29/20 25 02/28/2025 US, severo puentes No observ ation record ed. [facility] [address], [place], [address], 02/28/2025 18:10:16 03/24/20 25 03/24/2025 rhyth m strip , EKG* No observ ation record ed. [email or web address] [facility] Medical Records [address] [place] [address] [place], [address], 03/27/2025 14:41:37 Result Notes None recorded. Problems Name Problem SNOMED Code Status Onset Date Resolution Date Notes Provider Name and Address Organization Details Recorded Time Ascites 234446093 Active 2024 Frieda Mcelroy NP [address], [address], [place], [address], [place] - [place] & [place] 11:33:10 Constipat ion 80227767 Active 2024 Frieda Mcelroy NP [address], [address], [place], [address], [place] [facility] & [place] 11:34:56 Hypokalem ia 79183199 Active 2024 Frieda Mcelroy NP [address], [address], [place], [address], [place] [facility] [place] 13:52:18 Ulcer of duodenum 89126625 Active 2024 Frieda Mcelroy NP [address], [address], [place], [address], [place] [facility] [place] [facility] & [place] 13:51:25 Portal hypertens carleen gastropat hy 950167875 Active 2024 Frieda Mcelroy NP [address], [address], [place], [address], [place] [facility] [facility] & [place] 5 13:54:32 Abnormal renal function 16763005 Active 2024 Frieda Mcelroy NP [address] [place] [address] Drive, [address] [address] , [place] [facility] - & [place] 5 09:58:27 Mammograp hy abnormal 368493060 Active 2020 Reece Hutchinso n null[place] & [place] 4 10:47:01 Acute kidney injury 86669839 Active 2013 Reece Hutchinso n null[place] 4 10:46:39 Patient encounter status 637677812 Active 2018 Reece Hutchinso n [place] 4 10:47:07 Type 2 diabetes mellitus 39138180 Active 2017 Reece Hutchinso n [place] 4 10:47:18 Gallstone 844283906 Active 2013 Reece Hutch[place] n [place] & [place] 4 10:46:47 Uncontrol led type 2 diabetes mellitus 195424897 Active 2014 Reece Hutchinso n null[place] & [place] 4 10:47:20 Annual wellness visit Active 2017 Annual wellness visit Reece Hutchinso n null[place] & [place] 4 10:46:42 Liver enzymes level above reference range 512977341 Active 2020 Reece Hutchinso n [place] 4 10:46:56 Leukopeni a 20246973 Active 2020 Reece Hutchinso n [place] 4 10:46:54 Mixed hyperlipi demia 960141364 Active 2018 Reece Hutchinso n [place] 4 10:47:04 Cirrhosis of liver 29713659 Active 2020 Reece Hutchinso n [place] & [place] 4 10:46:44 Reactive depressio n (situatio nal) 96140653 Active 2015 Reece Bronwynchinso n null[place] & [place] 4 10:47:08 Low blood pressure 67760390 Active 2013 Reece Hutchinso n null[place] & [place] 4 10:47:00 Sepsis 91574075 Active 2013 Reece Hutchinso n [place] 4 10:47:15 Fibrocyst ic disease of breast 71115456 Active 2020 Reece Bronwynchinso n null[place] & [place] 4 10:46:46 Vitamin D deficienc y 27660059 Active 2020 Reece Bronwynchinso n null[place] & [place] 4 10:47:21 Liver function test above reference range 391805424 Active 2020 Reece Hutchinso n [place] & [place] 4 10:46:58 Neuropath y due to diabetes mellitus 441204143 Active 2014 Reece Hutchinso n [place] & [place] 4 10:47:05 Right upper quadrant pain 217054341 Active 2013 Reece Hutch[place]so n [place] 4 10:47:10 Hyperchol esterolem ia 38259713 Active 2014 Reece Hutch[place] n [place] & [place] 4 10:46:50 Hypertens carleen disorder 31597441 Active 2014 Reece Hutch[place]so n [place] 4 10:46:53 Acute cholecyst itis 46654204 Active 2013 Reece Hutch[place] n [place] 4 10:46:38 Heartburn 21657121 Active 2020 Reece Hutch[place]so n [place] 4 10:46:49 Syncope 184740229 Active 2014 Reece Hutch[place]so n [place] 4 10:47:16 Screening mammograp hy of bilateral breasts Active 2023 Reece Hutch[place] n [place] 4 10:47:13 Screening for malignant neoplasm of colon Active 2023 Reece [place] 4 10:47:11 Hyperlipi demia 40774261 Active 2023 Reece Hutch[place] 4 10:46:52 Anemia 747694310 Active 2023 Reece Hutch[place] n [place] 4 10:46:41 Heart murmur 70726978 Active 2023 DREW TRAORE NP [address] [place], [address], [place] & [place] 4 08:37:27 Depressiv e disorder 42101642 Active 2023 DREW TRAORE NP [address] [place], [address], [place] 4 08:37:30 High risk medicatio n monitorin g indicated 324507528415 567[address] Active 2023 DREW TRAORE NP [address] [place], [address], [place] 4 08:37:32 Neuropath y 035017424 Active 2023 DREW TRAORE NP [address], [place], [address], [place] & [place] 4 08:37:34 Essential hypertens ion 62616265 Active 2023 DREW TRAORE, EXPENDITURE REQUISITION CLERK [address], [place], [address], [place] 4 08:37:36 Notes:Some problems listed i n Documents: #[id number], #[id number], #[id number] could not be added to this patient's chart. Please review these documents and add these problems to the patient's chart manually as needed. Problem Notes None recorded. Procedures Surgical History Date Name Laterality Status Provider Name and Address Organization Details Recorded Time 01/25 esophagogastroduodenoscopy completed Flower Tucker [place] - [place] & [place] 5 16:31:08 06/08 Medicare Annual Wellness Visit Health Risk Assessment completed Reece Iglesias [place] & [place] 4 08:12:47 01/22 esophagogastroduodenoscopy completed Braxton Rice [place] & [place] 4 11:51:01 11/23 Cholecystectomy completed Polysridhar Crews [place] - [place] & [place] 2 10:35:54 Imaging Results Imaging Date Name Status LastModified by Organization Details LastModified Time 12/16/2024 US, abdomen completed [facility] (Radiology) [address], [place], [address], 12/19/2024 16:49:57 02/23/2025 imaging interpretation completed [email or web address] [place], [address], 02/27/2025 08:27:17 02/23/2025 imaging interpretation completed [email or web address] [facility] [address] [place] [address], [address], 02/27/2025 08:27:02 02/28/2025 US, kidney completed [facility] [address], [place], [address], 02/28/2025 18:10:16 03/24/2025 rhythm strip, EKG* completed [address] Medical Records [address] [place] [address] [place], [address], 03/27/2025 14:41:37 Procedure Notes None recorded. Medical Equipment None Reported. Allergies Allergen ID Allergen Name Allergen Category Reaction Reaction Severity Criticality Documentation Date Start Date Code Code System Note Provider Name and Address Organization Details Recorded Time 206937 No known allergy (situatio n) Not available Not available Not available Not available 03/15/2025 [id number] SNOMED Aly MendezDANIEL covarrubias - [facility] & [place] 15:08:23 Medications Name Sig Start Date Stop [...] Updated DateTime 5 166.37 cm 23.6 kg/m2 30868.3 g 97.9 [degF] 99 % 99 % 106 /min 164 mm[Hg] 74 mm[Hg] Reece Lozano mary alice [place] - [place] - [place] & [place] 5 08:27:37 Date Recorded Systolic blood pressure Diastolic blood pressure Provider Name and Address Organization Details Last Updated DateTime 12/06/2024 148 mm[Hg] 72 mm[Hg] DREW TRAORE NP [address] [place] [address], [address], [place] - [facility] & [place] 12/06/2024 08:56:35 Date Recorded Body height Body mass index (BMI) Body weight Body temperature Oxygen saturation Oxygen saturation in Arterial blood by Pulse oximetry Heart rate Provider Name and Address Organization Details Last Updated DateTime 5 166.37 cm 23.9 kg/m2 01693.4 9 g 98.2 [degF] 94 % 94 % 102 /min Gilma Krystle [place] - [facility] [facility] & [place] 5 11:16:58 Date Recorded Body height Body mass index (BMI) Body weight Body temperature Oxygen saturation Oxygen saturation in Arterial blood by Pulse oximetry Heart rate Provider Name and Address Organization Details Last Updated DateTime 5 166.37 cm 20.3 kg/m2 21628.4 5 g 97.9 [degF] 99 % 99 % 86 /min Gilma [place] [facility] [facility] & [place] 5 11:35:16 Date Recorded Body height Body mass index (BMI) Body weight Body temperature Oxygen saturation Oxygen saturation in Arterial blood by Pulse oximetry Heart rate Respiratory rate Systolic blood pressure Diastolic blood pressure Provider Name and Address Organization Details Last Updated DateTime 5 166.37 cm 20.6 kg/m2 26678.6 4 g 97.9 [degF] 100 % 100 % 62 /min 18 /min 146 mm[Hg] 70 mm[Hg] Salas Emmanuel [place] [facility] & [place] 5 15:48:59 Date Recorded Body height Body mass index (BMI) Body weight Body temperature Provider Name and Address Organization Details Last Updated DateTime 03/15/2025 166.37 cm 20.6 kg/m2 86196.64 g 98.1 [degF] [facility] & [place] 03/15/2025 15:08:14 Social History Question Answer Notes LastModified by Organizat ion Details LastModified Time Tobacco Smoking Status Never Smoker Poly newton, DANIEL MARTINEZ [facility] & [place] 08/21/2022 10:35:54 Do You Have An Advance Directive? No Information not available 08/21/2022 Are You Blind Or Do You Have Difficulty Seeing? No Information not available 08/21/2022 Is Blood Transfusion Acceptable In An Emergency? Yes [email or web address] Information not available 06/08/2024 What Is Your Level Of Caffeine Consumption? Moderate [email or web address] Information not available 06/08/2024 Are You Deaf Or Do You Have Serious Difficulty Hearing? No [email or web address] Information not available 06/08/2024 What Type Of Diet Are You Following? DIABETIC [email or web address] Information not available 06/08/2024 Have There Been Any Changes To Your Family Or Social Situation? No [email or web address] Information no t available 03/10/2025 What Is The Fluoride Status Of Your Home? Unknown [email or web address] Information not available 03/10/2025 Are There Any Guns Present In Your Home? No [email or web address] Information not available 03/10/2025 Do You Use Insect Repellent Routinely? Yes Information not available 03/10/2025 In General, Would You Say Your Health Is Good [email or web address] Information not available 06/08/2024 How Would You Describe The Condition Of Your Mouth And Teeth? including False Teeth Or Dentures? Good [email or web address] Information not available 06/08/2024 In The Past 7 Days, How Many Servings Of Fruits And Vegetables Did You Typically Eat Each Day? (1 Serving = 1 Cup Of Fresh Vegetables, 1? 2 Cup Of Cooked Vegetables, Or 1 Medium Piece Of Fruit. 1 Cup = Size Of A Baseball.) 1-2 Servings Per Day [email or web address] Information not available 06/08/2024 In The Past 7 Days, How Many Servings Of High Fiber Or Whole Grain Foods Did You Typically Eat Each Day? (1 Serving = 1 Slice Of 100% Whole Wheat Bread, 1 Cup Of Whole-grain Or High-fiber Zaiai-oe-hdm Cereal, 1? 2 Cup Of Cooked Cereal Such As Oatmeal, Or 1? 2 Cup Of Cooked Brown Rice Or Whole Wheat Pasta.) 3-4 Servings Per Day [email or web address] Information not available 06/08/2024 In The Past 7 Days, How Many Servings Of Fried Or High-fat Foods Did You Typically Eat Each Day? (Examples Include Fried Chicken, Fried Fish, [place], Italian [place], Potato Chips, [place] Chips, Doughnuts, Creamy Salad Dressings, And Foods Made With Whole Milk, Cream, Cheese, Or Mayonnaise.) 1-2 Servings Per Day [email or web address] Information not available 06/08/2024 In The Past 7 Days, How Many Sugar-sweetened (not Diet) Beverages Did You Typically Consume Each Day 0 Drinks Per Day [email or web address] Information not available 06/08/2024 Each Night, How Many Hours Of Sleep Do You Usually Get? 5-6 Hours [email or web address] Information not available 06/08/2024 Do You Snore Or Has Anyone Told You That You Snore? No Information not available 06/08/2024 In The Past 7 Days, How Often Have You [place] Sleepy During The Daytime? Sometimes [email or web address] Information not available 06/08/2024 Do You Have Chronic Pain? No [email or web address] Information not available 06/08/2024 Are You In A Pain Management Program? No [email or web address] Information not available 06/08/2024 Do You Take Opioids For Your Pain? No [email or web address] Information not available 06/08/2024 How Often Is Stress A Problem For You In Handling Such Things As: Your Health, Your Finances, Your Family And Social Relationships, Your Work? Sometimes [email or web address] Information not available 06/08/2024 How Often Do You Get The Social And Emotional Support You Need: Usually [email or web address] Information no t available 06/08/2024 In The Past 7 Days, Did You Need Help From Others To Take Care Of Things Such As Laundry And Housekeep- Ing, Banking, Shopping, Using The Telephone, Food Preparation, Transportation, Or Taking Your Own Medications? No [email or web address] Information not available 06/08/2024 Do You Live Alone? No [email or web address] Information not available 06/08/2024 Does Your Home Have Any Fall Risks (un-level Floors, Unfastened Rugs, Poor Lighting, Etc)? No [email or web address] Information not available 06/08/2024 Do You Feel Safe At Home? Yes Information not available 06/08/2024 Do You Have A Medical Power Of Legal Instructor? No [email or web address] Information not available 06/08/2024 What Was The Date Of Your Most Recent Tobacco Screening? 03/07/2025 [email or web address] Information not available 03/10/2025 How Many Children Do You Have? 2 [email or web address] Information not available 06/08/2024 Do You Have Any Pets? No [email or web address] Information not available 03/10/2025 Do You Use Protection During Sex? No [email or web address] Information not available 06/08/2024 What Is Your Relationship Status? [email or web address] Information not available 06/08/2024 Do You Use Your Seat Belt Or Car Seat Routinely? Yes [email or web address] Information not available 06/08/2024 Are You Sexually Active? No aoxewecwphl47 Information not available 06/08/2024 Do You Have Smoke And Carbon Monoxide Detectors In Your Home? Yes [email or web address] Information not available 03/10/2025 Are You Passively Exposed To Smoke? No Information no t available 08/21/2022 Do You Use Sunscreen Routinely? Yes [email or web address] Information not available 03/10/2025 Has Tobacco Cessation Counseling Been Provided? No [email or web address] Information not available 07/27/2024 Do You Have Difficulty Walking Or Climbing Stairs? No aibwtiycreq70 Information not available 06/08/2024 Sex: Unknown Functional Status Question Answer Note LastModified by Organizat ion Details LastModified Time Do you use any illicit or recreational drugs? No Information not available 08/21/2022 Do you or have you ever used any other forms of tobacco or nicotine? No [email or web address] Information not available 06/08/2024 What is your level of alcohol consumption? None Information not available 08/21/2022 Do you or have you ever used smokeless tobacco? Never used smokeless tobacco [email or web address] Information not available 06/08/2024 Do you have transportation difficulties? No [email or web address] Information not available 06/08/2024 Are you able to walk? YESWOREST [email or web address] Information not available 06/08/2024 Do you have difficulty doing errands alone? No [email or web address] Information not available 06/08/2024 Are you able to care for yourself? Yes [email or web address] Information n ot available 06/08/2024 Do you have difficulty dressing or bathing? No vyaxgltyftl92 Information not available 06/08/2024 What is your exercise level? None [email or web address] Information not available 06/08/2024 Mental Status Question Answer Note LastModified by Organizat ion Details LastModified Time Do you feel stressed (tense, restless, nervous, or anxious, or unable to sleep at night)? [id number] [email or web address] Information not available 06/08/2024 Do you have difficulty concentrating, remembering or making decisions? No [email or web address] Information no t available 06/08/2024 Family History Relationship Description Onset Age of this Age Resolved Age Notes LastModified by Organization Details LastModified Time Mother Cerebrovascu lar accident deceas ed [email or web address] Not available 08/21/2022 07:43:59 Father Diabetes mellitus deceas ed [email or web address] Not available 03/10/2025 15:32:36 Father Disorder of endocrine system pt. added direct ly (01/11) [email or web address] Not available 01/11/2024 10:44:02 Medical History Condition Response Diabetes Y Hyperlipidemia Y Depression Y Reflux/GERD Y High Cholesterol N Cirrhosis Y Hypertension Y Gynecological History Statement/Question Response Menses Monthly N Abnormal Pap N Sexually Active? N Obstetrics History GPAL:G 0 P 0 0 0 0 Immunizations Vaccine Type Date Status Note Provider Nam e and Address Organization Details Recorded Time Influenza, split virus, trivalent, preservative 6 completed DANIEL Sinha LPANJU - [place] & [place] 04/07/2023 12:31:32 Pneumococcal conjugate PCV 13 3 completed DANIEL Sinha - [place] & [place] 04/07/2023 12:31:32 Tdap 3 completed Kimmie Metcalf null[place] & [place] 04/07/2023 12:31:32 pneumococcal polysaccharide PPV23 1 completed Varsha Colon [place] & [place] 03/02/2025 12:26:26 Influenza, split virus, trivalent, PF 6 completed Varsha Colon [place] 03/02/2025 12:26:26 Influenza, adjuvanted, trivalent, PF 9 completed Varsha Colon [place] & [place] 03/02/2025 12:26:26 Influenza, split virus, trivalent, preservative 5 completed Kimmie Metcalf null[place] [facility] & [place] 04/07/2023 12:31:32 Influenza, split virus, trivalent, PF 5 completed Varsha Colon null[place] [facility] & [place] 03/02/2025 12:26:26 Influenza, split virus, trivalent, preservative 5 completed Kimmie Metcalf [place] 04/07/2023 12:31:32 Influenza, adjuvanted, trivalent, PF 7 completed Varsha Colon [place] 03/02/2025 12:26:26 Influenza, split virus, trivalent, preservative 6 completed Kimmie Metcalf [place] 04/07/2023 12:31:32 pneumococcal polysaccharide PPV23 5 completed Varsha Colon [place] & [place] 03/02/2025 12:26:26 Influenza, high-dose, quadrivalent, PF 0 completed Varsha Colon [place] & [place] 03/02/2025 12:26:26 Influenza, adjuvanted, quadrivalent, PF 2 completed [facility] [place] 03/02/2025 12:26:26 Influenza, adjuvanted, quadrivalent, PF 1 completed [facility] Colon null, [facility] & [place] 03/02/2025 12:26:26 COVID-19, mRNA, LNP-S, PF, 30 mcg/0.3 mL dose 1 completed Varsha Colon null, [facility] & [place] 03/02/2025 12:26:26 COVID-19, mRNA, LNP-S, PF, 30 mcg/0.3 mL dose 1 completed Varsha Colon null, [facility] & [place] 03/02/2025 12:26:26 COVID-19, mRNA, LNP-S, PF, 30 mcg/0.3 mL dose 1 completed Varsha Colon null, [facility] & [place] 03/02/2025 12:26:26 COVID-19, mRNA, LNP-S, bivalent, PF, 50 mcg/0.5 mL or 25mcg/0.25 mL dose 2 completed Varsha Colon null, [facility] & [place] 03/02/2025 12:26:26 Influenza, high-dose, quadrivalent, PF 3 completed Reece Iglesias null, [facility] [place] 05/30/2024 10:47:30 COVID-19, mRNA, LNP-S, PF, 50 mcg/0.5 mL 3 completed [facility]leisas null, [facility] & [place] 05/30/2024 10:47:30 COVID-19, mRNA, LNP-S, PF, 50 mcg/0.5 mL 4 completed [facility]arsha Colon null, [facility] [facility] & [place] 03/02/2025 12:26:26 Influenza, high-dose, trivalent, PF 4 completed Varsha Colon null, DANIEL - [facility] - [facility] [place] 03/02/2025 12:26:26 zoster recombinant 4 completed Varsha Colon null, DANIEL - LPNT - [facility] [place] 03/02/2025 12:26:26 Tdap 4 completed Varsha Colon null, DANIEL - LPNT - [facility] & [place] 03/02/2025 12:26:26 Past Encounters Encounter ID Performer Location Encounter Start Date Encounter Closed Date Diagnosis/Indication Diagnosis SNOMED-CT Code Diagnosis ICD10 Code Diagnosis Note [id number] Ama Velazquez APRN [address] [address] 08/21/2022 08:14:01 08/21/2022 10:12:43 Mixed hyperlipidemia 969910071 E78.2 continue medication s as prescribed follow heart healthy lifestylew alk daily Type 2 yessica betes mellitus 14750079 E11.9 continue medication s as prescribed updating bloodwork todaymonit or BG dailygoal fasting BG 120 or lessincrea se water intake Depressive disorder 3548 9007 F32.A continue medication as prescribed monitor for worsening symptoms [id number] Ama Velazquez APRN [address] [address] 01/06/2023 08:22:16 01/06/2023 16:35:26 Mixed hyperlipidemia 984935901 E78.2 continue medication s as prescribed follow heart healthy lifestylew alk dailyPatie nt advised to exercise, eat a prudent diet and lose weight as appropriat e. Uncontroll ed type 2 diabetes mellitus 926823799 E11.65 continue medication s as prescribed adding back farxiga 5 mg once a daymonitor BG dailyincre ase water intake Mixed anxi ety and depressive disorder 065207438 F41.8 encouraged to monitor symptomsco ntinue medication s as prescribed work on coping mechanisms [id number] Frankie Hilliard MD [facility] [address] [facility] [place] [address] 01/14/2024 10:26:13 01/14/2024 11:37:25 Screening mammography of bilateral breasts 9437736596 48339 Z12.31 patient declined Screening for malignant neoplasm of colon 004922591 Z12.11 patient declined Uncontroll ed type 2 diabetes mellitus 945687098 E11.65 patient is on Farxiga and glipizide. She has no longer on metformin. She does not know why. We will check hemoglobin A1c today fasting blood sugar this morning was 129 Hyperlipidemia 58500398 E78.5 patient has been on Zetia but is not taking it now she has not sure why. Previous cholestero l is 260 total and 164 LDL. We will recheck labs. Anemia 433577538 D64.9 Hemoglobin was 11.1 a year ago. We will check iron and B12 folate studies. Along with CBC Reactive d epression (situational) 42295356 F43.21 patient is tolerating citalopram well. She has no new symptoms. We will continue this medication . [id number] DREW TRAORE NP [facility] [address] [place] [address] 06/08/2024 07:44:51 06/08/2024 09:14:48 Adult health examination 606705154 Z00.00 Patient presented to office today for [...] living. Uncontroll ed type 2 diabetes mellitus 470900121 E11.65 take medication s as prescribed awaiting maof4ftcfl forced diet and lifestyle changesdai ly foot checkyearl y eye examfollow up every 3 months Leukopenia 37975933 D72. 819 recheck lab work today Anemia 513273976 D64.9 recheck lab work todaydenie s bleeding or bruising Mixed hyperlipidemia 267 299899 E78.2 discussed importance of statin therapy with diabetes Vitamin D deficiency 347 20407 E55.9 recheck lab work today Essential hypertension 18978851 I10 educated on goal of less than 130/90advi sed low sodium diet, healthy lifestyle including exercise as ablePrevio usly on medication but wishes to wait before restarting ER if any symptoms such as chest pain, shortness of breath Neuropathy 313913405 G62 .9 request to restart gabapentin , aware of controlled substance agreement and follow-up every 3 monthsmake sure doing daily foot checks High risk medication monitoring indicated [id number] 7130944 Z76.89 Depressive disorder 5623 9007 F32.A denies SI/HI, controlled Heart murmur 13327040 R0 1.1 asymptomat icmonitor [id number] Kanika Ricketts PA-C [facility] [address] [place] [address] 07/27/2024 14:13:38 07/27/2024 15:45:04 Anemia 397863727 D64.9 Patient had labs performed per their [...] follow up with further recommenda tions Leukopenia 70368834 D72. 819 Patient had labs performed per [...] with further recommenda tions Thrombocyt openic disorder 440516639 D69.6 Patient had labs performed per their [...] ia. Will follow up with further recommenda tiearnest Swollen abdomen 18607581 R19.00 Patient states she has had bilateral [...] abdominal swelling and pancytopen ia. Peripheral edema 8348606 00 R60.9 Patient states she has had [...] provider for this. Iron defic iency anemia 47972725 D50.9 Patient had labs performed per their [...] history malignancy . She does not smoke. [id number] DREW TRAORE NP [address] [place] [address] 07/29/2024 10:18:11 07/29/2024 10:57:40 Swelling of bilateral lower limbs 970157541 M79.89 awaiting lab work, discussed Lasix with potassium, follow up in 1 week to reassess swelling and blood pressure.d iscussed care including elevation, compressio n socksER if any urgent signs or symptoms arise [id number] DREW TRAORE NP [address] [place] [address] 09/05/2024 08:18:51 09/05/2024 09:38:45 Uncontrolled type 2 diabetes mellitus 684382856 E11.65 take medication s as prescribed awaiting gnkp5zmsex forced diet and lifestyle changesdai ly foot checkyearl y eye examfollow up every 3 months Neuropathy 549049509 G62 .9 request to restart gabapentin , aware of controlled substance agreement and follow-up every 3 monthsmake sure doing daily foot checks Mixed anxi ety and depressive disorder 279001287 F41.8 denies SI/HI Mixed hyperlipidemia 267 541661 E78.2 discussed importance of statin therapy with diabetes [id number] DREW TRAORE NP [facility] [address] [place] [address] 12/06/2024 08:21:02 12/06/2024 12:15:55 Type 2 diabetes mellitus 75227825 E11.40 take medication s as prescribed awaiting hgba1c; previous hemoglobin A1c in August was 5.9; in chart review diagnosed 2018reinfo rced diet and lifestyle changesdai ly foot checkyearl y eye examfollow up every 3 months Liver enzy mes level above reference range 063768818 R74.8 reviewed lab work from hematologi from July, iron, hepatitis panel were normalhas a diagnosis in her chart of cirrhosis from 2020, poor historian; unable to give much informatio n about this Anti-nucle ar factor detected 028740324 R76.8 I reviewed hematology use labs with her showing her positive OLIVIA and a referral to [facility], patient wishes to have a closer rheumatolo gist Pancytopenia 079102057 D 61.818 recheck lab work, this could be due to her cirrhosis of her liver; I do not find any notes from a gastroente rologist, or liver specialist , pending lab work today and ultrasound will likely need to see GI and return for ammonia levels, needs to follow up with Hematology as well Swollen abdomen 76951215 R19.00 awaiting lab work and ultrasound , ER if any urgent signs or symptoms arise Swelling o f bilateral lower limbs 173779646 M79.89 refills providedco ntrolled Neuropathy 205474492 G62 .9 aware of controlled substance agreement and follow-up every 3 monthsmake sure doing daily foot checksrisk versus benefit, controlled , refill provided Mixed anxi ety and depressive disorder 037913396 F41.8 denies SI/HIrderickil l provided [id number] Ezekiel Culp M.D [facility] [address] [place] [address] 12/21/2024 10:33:06 12/21/2024 11:30:28 Cirrhosis of liver 21998969 K74.60 Cirrhosis likely secondary to MUNROE. Decompensa byron. Recent abdominal ultrasound 12/16/2024 with cirrhosis and splenomega ly and large volume ascites noted. prior comprehens carleen liver evaluation from 2021 with positive OLIVIA [...] hepatitis A and B vaccinatio n. Ascites 226794099 R18.8 Large volume ascites noted on abdominal [...] fluid analysis and albumin replacemen t. Constipation 98732861 K5 9.00 Uncontroll ed constipati on at this time. Recommend lactulose 10 mg b.i.d. for treatment. Will check ammonia today. [id number] Frieda Mcelroy NP [facility] [address] [place] [id number] 02/15/2025 11:03:37 02/15/2025 12:09:35 Cirrhosis of liver 67050362 K74.60 Cirrhosis secondary to MUNROE. Decompensa byron. [...] AFP to screen for HCC 04/2025. Ascites 411193508 R18.8 Large volume ascites noted on abdominal ultrasound reviewed 12/16/2024 . Patient continues diuretic therapy without refractory ascites. Recommend continued low sodium diet as well as continued diuretic therapy. Constipation 68453865 K5 9.00 previously prescribed lactulose however patient discontinu ed due to increased abdominal cramping with use. She reports daily bowel movements at this time with increased appetite. Ulcer of duodenum 773360 09 K26.9 EGD from 01/25/2025 noted diffuse portal hypertensi ve gastropath y as well as erosive duodenitis with ulcers noted. Recommend continued use of pantoprazo le 40 mg p.o. BID as prescribed following procedure. Hypokalemia 06002724 E87 .6 Previously noted on labs from 12/21/24. She did not complete follow up lab as recommende d. She continues potassium supplement s at this time. Plan for labs to monitor. Portal hyp ertensive gastropathy 426467423 K76.6 K31.89 Portal hypertensi ve gastropath y with oozing of blood noted on EGD 01/25/2025 . Recommend continued use of carvedilol as prescribed following procedure. [id number] DREW TRAORE NP [facility] [address] [place], [place] [address] 03/10/2025 15:30:37 03/13/2025 07:30:31 Chronic anemia 319388894 D64.9 recheck lab work todaydenie s bleeding or bruisingre ports EGD did show 2 ulcers at the bottom of her stomach. Denies any blood in her stool, denies any vomiting. 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 [address] [id number] 03/15/2025 15:04:10 03/15/2025 15:32:23 Obstructive hydronephrosis 4634988825 N13.1 Patient recently hospitaliz ed at [facility] for sepsis. She was noted to be very anemic that time with a low of 6.6. She was transfused . CT scan revealed moderate right-side d hydronephr osis and a soft tissue density in the right distal ureter. Patient denies any flank pain or hematuria. I discussed the findings with the patient and recommende d further workup with ureterosco py, possible biopsy, possible laser tumor and stent placement. She wishes to proceed we will set this up at her earliest convenienc e. Health Concerns Section Related Observation LastModified by Organization Detai ls LastModified Time None Recorded Concern Status LastModified by Organization Details LastModified Time None Recorded Advance Directives Directive N: Payers Insurance Date Sequence Insurance Name Policy Number Policy Carmichael Covered Member ID Carmichael Member ID Guarantor Name 07/29/2024 MEDICARE A-[place]: [facility] Vika A Gordon [id number] Vika A Gordon 03/23/2025 1 [place] Vika A Gordon [id number] Vika A Gordon 03/23/2025 [place] [employer] [facility] Vika A Gordon [id number] Vika A Gordon 06/11/2024 1 [place] Vika A Gordon [id number] Vika A Gordon Notes Date Note Type Note Provider Name and Address Organization Details Recorded Time 12/06/2024 text/html 74-year-old jennifer chiang who presents [...] filled on the DREW TRAORE NP [address] [place], [address], [facility] & [place] 12/06/2024 09:02:05 12/21/2024 text/html 74-year-old jennifer chiang [...] of liver disease. Frieda Mcelroy NP [address], [address], [place], [address], [facility] & [place] 12/21/2024 12:42:59 02/15/2025 text/html Patient returns to [...] large volume ascites. Frieda Mcelroy NP [address], [address], [place], [address], [facility] & [place] 02/15/2025 13:55:21 03/10/2025 text/html 75-year-old femzaynab chiang who presents for hospital follow-up. She presented to [facility] with diarrhea and acute kidney injury. She [...] admission and 8.3. Advised to continue home [facility], patient declined further management DREW TRAORE NP [address], [place], [address], [facility] & [place] 03/10/2025 16:32:51 03/15/2025 text/html Patient is 75-year-old white female recently admitted to [facility] with diarrhea and acute kidney injury. She met sepsis criteria at that time and was hospitalized for a week. Records were reviewed from primary care physician dated 03/10/2025. During her hospital admission CT scan had revealed some moderate right-sided hydronephrosis and a soft tissue density surrounding the distal right ureter. Patient denies any flank pain or hematuria. She states she is feeling much better than when she was hospitalized. She was also noted to be anemic with a hemoglobin of 6.6 and she was transfused at that time. Patient also has a history of MUNROE cirrhosis. Milton Liz Jr, MD [address] [place] [address] Drive, [address], [place], [address], [facility] [place] & [place] 03/15/2025 15:54:46 OBGyn Episode No OBEpisode recorded.
--- OUTSIDE RECORDS SUMMARY | 2025-04-10 21:18 | XMS_ITS | Continuity of Care Document ---
Author Organization [facility] Phone Care Team Providers Care Communication Professor Name Role Phone DEYSI BLAIR Surgeon DEYSI BLAIR Admitting DEYSI BLAIR Unavailable DEYSI BLAIR Primary Attending DREW TRAORE Primary Care [phone] ALLERGIES AND ADVERSE REACTIONS ALLERGIES AND ADVERSE REACTIONS Code System Allergy Substance Adverse Reaction Date Reaction (Severity) Comment Status Reported By Updated By No Known Allergies ASSESSMENTS Dilatation of ureter ; Hydronephrosis ; FAMILY HISTORY RELATION: Father Status: Cause of : Unknown Age at : Unknown SNOMED-CT Diagnosis Age At Onset [id number] Diabetes mellitus RELATION: Mother Status: Cause of : Unknown Age at : Unknown SNOMED-CT Diagnosis Age At Onset [id number] Cerebrovascular accident PROBLEMS PATIENT PROBLEMS Code Description/Comments Category Status Upda devon By [id number] Dilatation of ureter active [id number] on March 23, 2025 7:08:23 PM UT [id number] Hydronephrosis active [id number] on March 23, 2025 7:08:37 PM UT RESULTS Patient: EVAN Dunn Date of : 1950 1 LABORATORY RESULTS ORDER 400: BASIC METABOLIC P JENNIFER (LOINC: 03347-8) ORDER DATE: March 22, 2025 1:13:00 PM UTC Specimen Source: Serum Specimen Type: Serum specime n PERFORMING LAB: [address] [id number] Result Comment: Final Result Date: March 22, 2025 3:01:00 PM UT (TECH: KDR) LOINC TEST FLAG RESULT REFERENCE RANGE UPDA DEVON BY 2951-2 Sodium [Moles/volume] in Serum or Plasma N 142 mmol/L 137 mmol/L - 147 mmol/L March 22, 2025 3:01:00 PM UTC (TECH: KDR) 2823-3 Potassium [Moles/volume] in Serum or Plasma L 3.1 mmol/L 3.5 mmol/L - 5.1 mmol/L March 22, 2025 3:01:00 PM UTC (TECH: KDR) 2075-0 Chloride [Moles/volume] in Serum or Plasma N 109 mmol/L 98 mmol/L - 110 mmol/L March 22, 2025 3:01:00 PM UTC (TECH: KDR) 8-9 Carbon dioxide, total [Moles/volume] in Serum or Plasma N 22 mmol/L 21 mmol/L - 30 mmol/L March 22, 2025 3:01:00 PM UTC (TECH: KDR) 41381-5 Anion gap in Serum or Plasma N 11 mmol/L 6 mmol/L - 14 mmol/L March 22, 2025 3:01:00 PM UTC (TECH: KDR) 2345-7 Glucose [Mass/volume] in Serum or Plasma H 166 mg/dL 70 mg/dL - 115 mg/dL March 22, 2025 3:01:00 PM UTC (TECH: KDR) 3094-0 Urea nitrogen [Mass/volume] in Serum or Plasma H 30 mg/dL 7 mg/dL - 17 mg/dL March 22, 2025 3:01:00 PM UTC (TECH: KDR) 2160-0 Creatinine [Mass/volume] in Serum or Plasma N 1.0 mg/dL 0.5 mg/dL - 1.5 mg/dL March 22, 2025 3:01:00 PM UTC (TECH: KDR) 3097-3 Urea nitrogen/Creatinine [Mass Ratio] in Serum or Plasma H 30 10 - 20 March 22, 2025 3:01:00 PM UTC (TECH: KDR) 35504-5 Glomerular filtration rate [Volume Rate/Area] in Serum or Plasma by Creatinine-based formula (MDRD)/1.73 sq M L 58 mL/min >60 March 22, 2025 3:01:00 PM UTC (TECH: KDR) 88411-5 Osmolality of Serum or Plasma by calculation H 305 mOsmol/Kg 275 mOsmol/Kg - 301 mOsmol/Kg March 22, 2025 3:01:00 PM UTC (TECH: KDR) 64012-6 Calcium [Mass/volume] in Serum or Plasma N 8.8 mg/dL 8.5 mg/dL - 10.8 mg/dL March 22, 2025 3:01:00 PM UT (TECH: KDR) ORDER 500: WHOLE BLD GLUC GL UCOMETER (LOINC: 06594-8) ORDER DATE: March 23, 2025 10:59:00 AM UTC Specimen Source: Whole Blood Specimen Type: Whole blood s ample PERFORMING LAB: [address] [id number] Result Comment: March 23, 2025 11:04:00 AM UTC Test performed by: [id number] ; Instrument: [id number] Final Result Date: March 23, 2025 11:04:00 AM UT LOINC TEST FLAG [place] [address]-1 Glucose [Mass/volume] in Capillary blood by Glucometer H 219 mg/dl 70 mg/dl - 115 mg/dl March 23, 2025 11:04:00 AM UT ORDER 700: WHOLE BLD GLUC GL UCOMETER (LOINC: 29176-8) ORDER DATE: March 23, 2025 12:27:00 PM UTC Specimen Source: Whole Blood Specimen Type: Whole blood s ample PERFORMING LAB: [address] [id number] Result Comment: March 23, 2025 12:30:00 PM UTC Test performed by: [id number] ; Instrument: [id number] Final Result Date: March 23, 2025 12:30:00 PM UTC LOINC TEST FLAG [place] [address]-1 Glucose [Mass/volume ] in Capillary blood by Glucometer H 189 mg/dl 70 mg/dl - 115 mg/dl March 23, 2025 12:30:00 PM UT LABORATORY NARRATIVE RESULTS Information is not available RADIOLOGY RESULTS Information is not available PATHOLOGY NARRATIVE RESULTS Information is not available MICROBIOLOGY RESULTS No Micro Labs/Results Exist for Patient BLOOD ADMIN RESULTS Information is not available TREATMENT PLAN DISCHARGE MEDICATIONS Status RXNORM Medication Dose Route Frequency Dates Comments U pdated By Patient discharge medication information is not available. PATIENT OPEN ORDERS Code System Description Frequency Occurrences Priority [place] [address] [facility] EKG study ONE TIME 0 Routine March 22, 2025 1:00:[address] [facility] JOHNNIE JO MD [id number] on March 22, 2025 6:48:[address] [facility] SCHEDULED PROCEDURES Code System Description Status Scheduled Date Upd ated By Patient scheduled procedure information is not available. MEDICATIONS HOME MEDICATIONS Status RXNORM [facility] Medication Dose Route Frequency Dates Comments Reported By Updated By Active 618292 52198 26708 1 ATORVASTATIN CALCIUM 40.0 MG PO DAILY Last Dose: [id number] on March 21, 2025 6:56:[address] [facility] Active 363932 58802 67425 0 carvedilol (COREG) 3.125 MG PO BID Last Dose: [id number] on March 21, 2025 6:56:[address] [facility] Active 46279 80840 0 ergocalcifer ol (VITAMIN D) 40264 [address]73 .0 UNT PO QWEEK Last Dose: [id number] on March 21, 2025 6:56:[address] [facility] Active 1751318 57904 28489 0 Farxiga 10.0 MG PO DAILY Last Dose: [id number] on March 21, 2025 6:57:[address] [facility] Active 212358 57914 21066 0 gabapentin (NEURONTIN) 300.0 MG PO DAILY Last Dose: [id number] on March 21, 2025 6:57:[address] [facility] Active 800656 55618 94405 0 pantoprazole (PROTONIX) 40.0 MG PO BID Last Dose: [id number] on March 21, 2025 6:57:[address] [facility] DISCHARGE MEDICATIONS Status RXNORM [facility] Medication Dose Route Frequency Dates Comments Physician Updated By No Discharge Medication Info rmation Available [facility]PATIENT MED[facility]S [facility] Medication Dose Route Frequency Rat e Quantity Dates Comments Physician Updated By Geronimo inued [id number] 9419 5623 105 ANCEF 2 G SOLR 2000. 0 MG INTRAV ENOUS UNSCHEDULE D 3.0 ML/MIN Start: March 23, 2025 10:00: [address] [facility] End: March 23, 2025 6:09:[address] [facility] JOHNNIE JO MD [id number] on March 24, 2025 4:20:[address] [facility] Geronimo inued 0044 9422 720 sterile water for injection SOLN 15.0 ML INTRAV ENOUS UNSCHEDULE D 3.0 ML/MIN Start: March 23, 2025 10:00: 00 AM UT End: March 23, 2025 6:09:0 0 PM UTC JOHNNIE JO MD [id number] on March 24, 2025 4:20:00 AM UTC Discont inued 341134 6398 1024 617 ondansetron (ZOFRAN) 4 MG ODT TBDP 4.0 MG SUBLIN GUAL ONE TIME ONLY Start: March 23, 2025 10:47: 00 AM UTC End: March 23, 2025 10:47: 00 AM UTC JOHNNIE JO MD INTERFAC ED on March 23, 2025 10:45:00 AM UTC Discont inued 5452309 7517 1602 225 famotidine (PEPCID) 10 MG/ML SOLN 20.0 MG IV PUSH ONE TIME ONLY Start: March 23, 2025 10:47: 00 AM UTC End: March 23, 2025 10:47: 00 AM UTC JOHNNIE JO MD INTERFAC ED on March 23, 2025 10:45:00 AM UTC Discont inued 6470628 8689 3016 501 dexamethaso ne (DECADRON) 4 MG/1ML SOLN 4.0 MG IV PUSH ONE TIME ONLY Start: March 23, 2025 11:05: 00 AM UTC End: March 23, 2025 11:05: 00 AM UTC JOHNNIE JO MD INTERFAC ED on March 23, 2025 11:04:00 AM UTC Discont inued 7778689 2410 0016 505 LIDOCAINE HCL (PF) 2 % SOLN 5.0 ML INTRAV ENOUS ONE TIME ONLY Start: March 23, 2025 11:05: 00 AM UTC End: March 23, 2025 11:05: 00 AM UTC JOHNNIE JO MD INTERFAC ED on March 23, 2025 11:04:00 AM UTC Discont inued 8859923 0161 5613 005 ondansetron (ZOFRAN) INJ 4 MG/2 ML SOLN 4.0 MG IV PUSH ONE TIME ONLY Start: March 23, 2025 11:05: 00 AM UTC End: March 23, 2025 11:05: 00 AM UT JOHNNIE JO MD INTERFAC ED on March 23, 2025 11:04:00 AM UTC Discont inued 9230826 4753 3026 970 propofol (DIPRIVAN) 10 MG/ML EMUL 200.0 MG INTRAV ENOUS ONE TIME ONLY Start: March 23, 2025 11:05: 00 AM UTC End: March 23, 2025 11:05: 00 AM UTC JOHNNIE JO MD INTERFAC ED on March 23, 2025 11:04:00 AM UTC Discont inued 5685269 6798 1602 725 fentaNYL (SUBLIMAZE) 0.05 MG/ML SOLN 100.0 MCG IV PUSH ONE TIME ONLY Start: March 23, 2025 11:10: 00 AM UTC End: March 23, 2025 11:10: 00 AM UTC JOHNNIE JO MD INTERFAC ED on March 23, 2025 11:08:00 AM UTC Discont inued 2067640 8154 9301 305 lidocaine (XYLOCAINE) 2% UROJET GEL 10.0 ML TOPICA L ONE TIME ONLY Start: March 23, 2025 11:20: 00 AM UTC End: March 23, 2025 11:20: 00 AM UTC JOHNNIE JO MD INTERFAC ED on March 23, 2025 11:19:00 AM UTC Discont inued 7126 6901 101 PHENYLEPHRI NE HCL (PRESSORS) 1 MG/10ML SOSY 1.0 MG INTRAV ENOUS ONE TIME ONLY Start: March 23, 2025 12:02: 00 PM UTC End: March 23, 2025 12:02: 00 PM UTC JOHNNIE JO MD INTERFAC ED on March 23, 2025 12:01:00 PM UTC Discont inued 722221 3240 2821 501 HUMULIN R 100 UNIT/ML SOLN 1.0 UNT ONE TIME ONLY Start: March 23, 2025 12:35: 00 PM UTC End: March 23, 2025 12:35: 00 PM UTC JOHNNIE JO MD INTERFAC ED on March 23, 2025 12:33:00 PM UTC Discont inued 4903921 6943 5613 005 ondansetron (ZOFRAN) INJ 4 MG/2 ML SOLN 4.0 MG IV PUSH ONE TIME ONLY Start: March 23, 2025 12:35: 00 PM UTC End: March 23, 2025 12:35: 00 PM UTC JOHNNIE JO MD INTERFAC ED on March 23, 2025 12:33:00 PM UTC Discont inued 069242 1643 2821 501 HUMULIN R 100 UNIT/ML SOLN 2.0 UNT SUBCUT ANEOUS GIVE DOSE NOW Start: March 23, 2025 12:42: 00 PM UT End: March 23, 2025 12:45: 19 PM UT DEBORAH BAÑUELOS CRNA [id number] on March 23, 2025 12:50:00 PM UT Discont inued 2404024 6454 5613 005 ondansetron (ZOFRAN) INJ 4 MG/2 ML SOLN 4.0 MG IV PUSH EVERY 15 MINUTES NEEDED Start: March 23, 2025 12:49: 00 PM UTC End: March 23, 2025 6:09:0 0 PM UT DEBORAH BAÑUELOS CRNA [id number] on March 24, 2025 4:20:00 AM UT SOCIAL HISTORY SOCIAL HISTORY SNOMED-CT Social History Element Description Effective Dates Offered Cessation Comment UpdatedBy [id number] Current Tobacco smoking status Never Smoked [id number] on March 21, 2025 7:01:14 PM UT SOCIAL HISTORY - Gender Sex: Female SOCIAL HISTORY - Status : status i nformation is not available Intention in Next Year: intention information is not available SOCIAL HISTORY - Sexual Behavior Sexual Orientation Gender Identity SNOMED-CT Description SNO MED -CT Description Activity Level No of Partners Partner Type UpdatedBy Information is not available VITAL SIGNS PATIENT VITAL SIGNS This section displays the mo st recent value for each vital sign as of March 27, 2025 3:06:[address] [facility] Loinc Code Vital Sign Activity Date Result Updated By 8302-2 Body height March 21, 2025 6:54:58 PM UT 166.37 cm (66.0 in) [id number] on March 21, 2025 6:54:[address] [facility] 8310-5 Body temperature March 23, 2025 12:51:00 PM UT 98.2 [degF] [id number] on March 23, 2025 1:28:[address] [facility] 8462-4 Diastolic blood pressure March 23, 2025 12:51:00 PM UT 65.0 mm[Hg] [id number] on March 23, 2025 1:28:[address] [facility] 8867-4 Heart rate March 23, 2025 12:51:00 PM UT 94 /min [id number] on March 23, 2025 1:28:[address] [facility] 46022-2 Oxygen saturation in Arterial blood by Pulse oximetry March 23, 2025 12:51:00 PM UTC 99.0 % [id number] on March 23, 2025 1:28:26 PM UT 9279-1 Respiratory rate March 23, 2025 12:51:00 PM UTC 15 /min [id number] on March 23, 2025 1:28:26 PM UT 8480-6 Systolic blood pressure March 23, 2025 12:51:00 PM UTC 142.0 mm[Hg] [id number] on March 23, 2025 1:28:26 PM UT PEDIATRIC GROWTH CHART - VITAL SIGNS This section displays Head C ircumference Percentile, Weight for Length Percentile and BMI Percentile Loinc Code Pediatric Measure Age (Months) Result Updat ed By No Pediatric Growth Chart Pe rcentile Information Available. PROCEDURES PATIENT PROCEDURES CODE SYSTEM DESCRIPTION STATUS PERFORMED DATE UPD ATED BY [id number] SNOMED-CT CYSTOSCOPY INSER TION STENT URETER cancelled March 23, 2025 4:00:00 AM UTC [id number] on March 23, 2025 1:02:29 PM UT [id number] SNOMED-CT CYSTOSCOPY LITHOTRIPSY LASER cancelled March 23, 2025 4:00:00 AM UTC [id number] on March 23, 2025 1:03:15 PM UT [id number] SNOMED-CT CYSTOSCOPY RETRO GRADE PYELOGRAMS completed March 23, 2025 4:00:00 AM UTC [id number] on March 23, 2025 1:04:03 PM UT [id number] SNOMED-CT URETEROSCOPY completed March 23, 2025 4:00:00 AM UTC [id number] on March 23, 2025 1:04:50 PM UT [id number] SNOMED-CT URETEROSCOPY RETROGRADE WITH LITHOTRIPSY cancelled March 23, 2025 4:00:00 AM UTC [id number] on March 23, 2025 1:05:52 PM UT PROCEDURE NOTE Note Title Operative/Procedure Note Date Of Service March 23, 2025 7:07:42 PM UTC Created By [id number] on March 23 7:07:42 PM UTC Signed By [id number] on March 23 7:12:36 PM UTC Pre-Procedure Diagnosis Hydronephrosis Post- Procedure Diagnosis Hydronephrosis Procedure / Surgery Performed URETEROSCOPY Performed by JOHNNIE JO MD CYSTOSCOPY RETROGRADE PYELOGRAMS Performed by JOHNNIE JO MD Anesthesia Type General anesthesia Estimated Blood Loss 0 Complications None Indication Patient is a 75-year-old white female who was recently hospitalized an outside hospital. CT scan revealed a soft tissue finding in the distal right ureter associated dilation of the ureter and hydronephrosis. Patient presents Procedure Description / Findings Patient taken to the operating room after informed consent was obtained. She was placed on the operating table in the supine position and general anesthesia administered. Preoperative antibiotics and sequential compression devices were placed. She was then placed into the dorsal lithotomy position and prepped draped in the standard surgical fashion. The [place] cystoscope passed into the urethra and the bladder examined in a systematic fashion. There was some debris in the bladder of some flaky sediment but no evidence of mucosal lesions, cellules, diverticula or trabeculation. The ureteral orifices in their normal anatomic position. A cone- tipped catheter was placed into the right ureter and contrast injected in a retrograde fashion. There was no evidence of filling defects. The ureter was of normal caliber and course. Then passed a guidewire into the right ureter and removed the cystoscope. Her semi-rigid ureteral scope was then used pass into the bladder and into the right ureter. I was able to look into the proximal ureter and back and there was no evidence of any abnormalities. Scope removed bladder drained. Uro jet placed into the urethra. Patient tolerated well. Specimens None Tubes/Drains None Implants None Disposition of Patient Patient to recovery room stable condition Discharged home and return p.r.n. Electronically signed by JOHNNIE JO MD on 1512 HEALTH CONCERNS Problems Concern Status Health Concern problem infor mation not available. Smoking Status Status Years Used Consumed packs p er day Health Concern smoking histo ry information not available. Family History Concern Status Health Concern family histor y information not available. ENCOUNTERS ENCOUNTER INFORMATION Reason for Visit RT URETEROSCOPY WANDA Willams STONE/STENT Admission March 23, 2025 10:09:[address] [address] Discharge March 23, 2025 6:09:[address] [facility] DISCH ARGED TO HOME OR SELF CARE ENCOUNTER DIAGNOSES Notes information is not nico ilable. Code System Diagnosis Onset Date Diagnosis information is not available. ABSTRACT DIAGNOSES Code System Diagnosis Updated By N13.1 ICD10 HYDRONEPHROSIS W ITH URETERAL STRICTURE, NOT ELSEWHERE CLASSIFIED [id number] on March 27, 2025 3:06:18 PM UT N13.1 ICD10 HYDRONEPHROSIS W ITH URETERAL STRICTURE, NOT ELSEWHERE CLASSIFIED [id number] on March 27, 2025 3:06:18 PM UT I10 ICD10 ESSENTIAL (PRIMARY) HYPERTEN KAILA [id number] on March 27, 2025 3:06:18 PM UTC E78.2 ICD10 MIXED HYPERLIPIDEMIA [id number] on March 27, 2025 3:06:18 PM UTC E55.9 ICD10 VITAMIN D DEFICIENCY, UNSPEC IFIED [id number] on March 27, 2025 3:06:18 PM UTC E11.40 ICD10 TYPE 2 DIABETES MELLITUS WITH DIABETIC NEUROPATHY, UNSPECIFIED [id number] on March 27, 2025 3:06:18 PM UT 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 CARE TEAM Care Communication Professor Role DEYSI BLAIR Surgeon DEYSI BLAIR Admitting DEYSI BLAIR Referring DEYSI BLAIR Primary Attending DREW TRAORE [facility] HOSPITAL DISCHARGE INSTRUCTION DISCHARGE INSTRUCTION Encounter [id number] Admit Date March 23, 2025 10:09:00 AM UT Discharge Date March 23, 2025 6:09:[address] [facility] PATIENT EDUCATION SUMMARY Patient/Visit Information: Patient Name: FRANNY GORDON Diag: Attending Caregiver: JOHNNIE JO MD Discharge Instruction Sheets Provided: *[facility] Patient Portal Cystoscopy, Care After ESWL for Kidney Stones, Care After Patient Instructions: Followup Appointments/Instructions: CARE TEAM CARE printing agent Role on Team Status Start Date End Date Update d By DEBORAH BAÑUELOS CRNA Healthcare professional normal March 23, 2025 11:47:00 AM UTC March 23, 2025 6:09:00 PM UTC [id number] on March 23, 2025 12:37:17 PM UTC JOHNNIE JO MD Surgeon normal March 23, 2025 11:47:00 AM UTC March 23, 2025 6:09:00 PM UTC [id number] on March 23, 2025 12:37:17 PM UTC LEÓN RUSSELL [facility] PCP normal March 22, 2025 12:50:49 PM UTC March 23, 2025 4:00:00 AM UTC [id number] on March 23, 2025 12:37:[address] MIGUEL NAME IN PCP normal March 21, 2025 1:55:33 PM UTC March 22, 2025 12:50:49 PM UTC [id number] on March 23, 2025 12:37:17 PM UTC JOHNNIE JO MD Referring normal March 21, 2025 1:55:33 PM UTC March 23, 2025 4:00:00 AM UTC [id number] on March 23, 2025 12:37:17 PM UTC JOHNNIE JO MD Attending normal March 21, 2025 1:55:33 PM UTC March 23, 2025 4:00:00 AM UTC [id number] on March 23, 2025 12:37:17 PM UTC JOHNNIE JO MD Admitting normal March 21, 2025 1:55:33 PM UTC March 23, 2025 4:00:00 AM UTC [id number] on March 23, 2025 12:37:17 PM UTC
--- OUTSIDE RECORDS SUMMARY | 2025-04-10 21:18 | XMS_ITS | Continuity of Care Document ---
Author Organization [facility] ([facility] Urology Echo Address [address] [place] [address] Care Team Providers Care Pulmonary Nurse Practitioner Name Role Phone SIGRIDDREW PLASCENCIA Primary Care Provider ANGELA HARP Hematology/Oncology FRIEDA MCELROY Rn Family Practice Assessment No assessment recorded. Plan of Treatment Reminders Order Date Submit Date Provider Last Modified By Organization Details Last Modified Time Details Appointments OV EST 15 025 11:15AM Frieda Mcelroy NP Not available Not available Not available Lab None record ed. Referral None record ed. Procedures None record ed. Surgeries None record ed. Imaging None record ed. Medication Orders None record ed. Patient TargetsNo targets recorded. Patient InstructionsNo instructions recorded. Reason for Referral None Reported. Results Created Date Observation Date Name Description Value Unit Range Abnormal Flag Note LastModifiedBy Organization Detail LastModifiedTime 02/25/20 25 02/23/2025 imagi ng inter preta tion No observ ation record ed. [address] [facility] [address] [facility] [address], [place], [address], 02/27/2025 08:27:17 02/25/20 25 02/23/2025 imagi ng inter preta tion No observ ation record ed. [address], [place], [address], 02/27/2025 08:27:02 02/29/20 25 02/28/2025 , severo puentes No observ ation record ed. [facility] [address], [place], [address], 02/28/2025 18:10:16 03/24/20 25 03/24/2025 rhyth m strip , EKG* No observ ation record ed. [email or web address] [facility] Medical Records [address] [place] [address] [place], [address], 03/27/2025 14:41:37 Result Notes None recorded. Problems Name Problem SNOMED Code Status Onset Date Resolution Date Notes Provider Name and Address Organization Details Recorded Time Ascites 922368934 Active 2024 Frieda Mcelroy NP [address], [address], [place], [address], [place] [facility] & [place] 11:33:10 Constipat ion 98548089 Active 2024 Frieda Mcelroy NP [address], [address], [place], [address], [place] [facility] & [place] 11:34:56 Hypokalem ia 32305887 Active 2024 Frieda Mcelroy NP [address], [address], [place], [address], [place] [facility] [place] [facility] & [place] 13:52:18 Ulcer of duodenum 78635488 Active 2024 Frieda Mcelroy NP [address], [address], [place], [address], [place] [facility] & [place] 13:51:25 Portal hypertens carleen gastropat hy 936374021 Active 2024 Frieda Mcelroy NP [address], [address], [place], [address], [place] [facility] [place] [facility] & [place] 13:54:32 Abnormal renal function 56359522 Active 2024 Frieda Mcelroy NP [address], [address], [place], [address], [place] [facility] & [place] 5 09:58:27 Mammograp hy abnormal 554610253 Active 2020 Reece Hutchinso n null[place] - & 4 10:47:01 Acute kidney injury 96050815 Active 2013 Reece Hutchin[place] n [place] - & 4 10:46:39 Patient encounter status 712237590 Active 2018 Reece Hutchin[place] n [place] - & 4 10:47:07 Type 2 diabetes mellitus 98402709 Active 2017 Reece Hutch[place] n [place] - & 4 10:47:18 Gallstone 494067374 Active 2013 Reece Hutch[place] - & 4 10:46:47 Uncontrol led type 2 diabetes mellitus 505987158 Active 2014 Reece Hutchin[place] n [place] - & 4 10:47:20 Annual wellness visit Active 2017 Annual wellness visit Reece Hutchinso n [place] - & 4 10:46:42 Liver enzymes level above reference range 771344620 Active 2020 Reece Hutchinso n [place] - & 4 10:46:56 Leukopeni a 46201362 Active 2020 Reece Hutchinso n [place] - & [place] 4 10:46:54 Mixed hyperlipi demia 775336132 Active 2018 Reece Hutchinso n [place] - & 4 10:47:04 Cirrhosis of liver 28621485 Active 2020 Reece Hutchinso n [place] - & [place] 4 10:46:44 Reactive depressio n (situatio nal) 98199489 Active 2015 Reece Bronwynchinso n [place] - & 4 10:47:08 Low blood pressure 85456585 Active 2013 Reece Hutchinso n [place] - & [place] 4 10:47:00 Sepsis 66620802 Active 2013 Reece Hutchin[place] - & 4 10:47:15 Fibrocyst ic disease of breast 78391199 Active 2020 Reece Hutchinso n [place] - & 4 10:46:46 Vitamin D deficienc y 54105547 Active 2020 Reece Hutchinso n [place] - & 4 10:47:21 Liver function test above reference range 285899274 Active 2020 Reece Hutchinso n [place] - & 4 10:46:58 Neuropath y due to diabetes mellitus 090540354 Active 2014 Reece Hutch[place] - & 4 10:47:05 Right upper quadrant pain 735392036 Active 2013 Reece Hutch[place] - & 4 10:47:10 Hyperchol esterolem ia 89020853 Active 2014 Reece Hutch[place] & 4 10:46:50 Hypertens carleen disorder 65052186 Active 2014 Reece Hutch[place] - & 4 10:46:53 Acute cholecyst itis 63366008 Active 2013 Reece Hutchinso n [place] - & [place] 4 10:46:38 Heartburn 40870676 Active 2020 Reece Hutchinso n null, [place] - [place] & [place] 4 10:46:49 Syncope 359599196 Active 2014 Reece Hutchinso n null, [place] - [place] & [place] 4 10:47:16 Screening mammograp hy of bilateral breasts Active 2023 Reece Hutchinso n [place] & [place] 4 10:47:13 Screening for malignant neoplasm of colon Active 2023 Reece Hutchinso n [place] & [place] 4 10:47:11 Hyperlipi demia 16690635 Active 2023 Reece Hutchinso n [place] & [place] 4 10:46:52 Anemia 400569523 Active 2023 Reece Hutchinso n [place] & [place] 4 10:46:41 Heart murmur 29173520 Active 2023 DREW TRAORE NP [address] [place], [address], [place] & [place] 4 08:37:27 Depressiv e disorder 28234560 Active 2023 DREW TRAORE NP [address] [place], [address], [place] & [place] 4 08:37:30 High risk medicatio n monitorin g indicated 714269969720 83547 Active 2023 DREW TRAORE NP [address] [facility], [place], [address], [place] & [place] 4 08:37:32 Neuropath y 863585993 Active 2023 DREW TRAORE NP [address] [place], [address], [place] & [place] 4 08:37:34 Essential hypertens ion 06259059 Active 2023 DREW TRAORE NP [address] [place] [address], [place], [address] [place] [address] & [place] 4 08:37:36 Notes:Some problems listed i n Documents: #[id number], #[id number], #[id number] could not be added to this patient's chart. Please review these documents and add these problems to the patient's chart manually as needed. Problem Notes None recorded. Procedures Surgical History Date Name Laterality Status Provider Name and Address Organization Details Recorded Time 01/25 esophagogastroduodenoscopy completed Flower Tucker [facility] & [place] 5 16:31:08 06/08 Medicare Annual Wellness Visit Health Risk Assessment completed Reece Barnhartchinson [facility] & [place] 4 08:12:47 01/22 esophagogastroduodenoscopy completed Braxton Rice [facility] & [place] 4 11:51:01 11/23 Cholecystectomy completed Poly Mars [facility] & [place] 2 10:35:54 Imaging Results None recorded. Procedure Notes None recorded. Medical Equipment None Reported. Allergies Allergen ID Allergen Name Allergen Category Reaction Reaction Severity Criticality Documentation Date Start Date Code Code System Note Provider Name and Address Organization Details Recorded Time 302345 No known allergy (situatio n) Not available Not available Not available Not available 03/15/2025 15340 6003 SNOMED Aly Renita [place]an, [place] - [facility] [facility] & [place] 5 15:08:23 Medications Name Sig Start Date [...] Updated DateTime 03/15/2025 166.37 cm 20.6 kg/m2 83772.64 g 98.1 [degF] Aly Mendeznora [facility] & [place] 03/15/2025 15:08:14 Social History Question Answer Notes LastModified by Organizat ion Details LastModified Time Tobacco Smoking Status Never Smoker Poly Crews aman, [facility] & [place] 08/21/2022 10:35:54 Do You Have An Advance Directive? No Information not available 08/21/2022 Are You Blind Or Do You Have Difficulty Seeing? No Information not available 08/21/2022 Is Blood Transfusion Acceptable In An Emergency? Yes [email or web address] Information not available 06/08/2024 What Is Your Level Of Caffeine Consumption? Moderate [email or web address] Information not available 06/08/2024 Are You Deaf Or Do You Have Serious Difficulty Hearing? No [email or web address] Information not available 06/08/2024 What Type Of Diet Are You Following? DIABETIC [email or web address] Information not available 06/08/2024 Have There Been Any Changes To Your Family Or Social Situation? No [email or web address] Information no t available 03/10/2025 What Is The Fluoride Status Of Your Home? Unknown [email or web address] Information not available 03/10/2025 Are There Any Guns Present In Your Home? No [email or web address] Information not available 03/10/2025 Do You Use Insect Repellent Routinely? Yes [email or web address] Information not available 03/10/2025 In General, Would You Say Your Health Is Good Information not available 06/08/2024 How Would You Describe The Condition Of Your Mouth And Teeth? including False Teeth Or Dentures? Good [email or web address] Information not available 06/08/2024 In The Past 7 Days, How Many Servings Of Fruits And Vegetables Did You Typically Eat Each Day? (1 Serving = 1 Cup Of Fresh Vegetables, 1? 2 Cup Of Cooked Vegetables, Or 1 Medium Piece Of Fruit. 1 Cup = Size Of A Baseball.) 1-2 Servings Per Day [email or web address] Information not available 06/08/2024 In The Past 7 Days, How Many Servings Of High Fiber Or Whole Grain Foods Did You Typically Eat Each Day? (1 Serving = 1 Slice Of 100% Whole Wheat Bread, 1 Cup Of Whole-grain Or High-fiber Woktg-db-bwi Cereal, 1? 2 Cup Of Cooked Cereal Such As Oatmeal, Or 1? 2 Cup Of Cooked Brown Rice Or Whole Wheat Pasta.) 3-4 Servings Per Day [email or web address] Information not available 06/08/2024 In The Past 7 Days, How Many Servings Of Fried Or High-fat Foods Did You Typically Eat Each Day? (Examples Include Fried Chicken, Fried Fish, [place], [place], Potato Chips, [place] Chips, Doughnuts, Creamy Salad Dressings, And Foods Made With Whole Milk, Cream, Cheese, Or Mayonnaise.) 1-2 Servings Per Day [email or web address] Information not available 06/08/2024 In The Past 7 Days, How Many Sugar-sweetened (not Diet) Beverages Did You Typically Consume Each Day 0 Drinks Per Day Information not available 06/08/2024 Each Night, How Many Hours Of Sleep Do You Usually Get? 5-6 Hours [email or web address] Information not available 06/08/2024 Do You Snore Or Has Anyone Told You That You Snore? No [email or web address] Information not available 06/08/2024 In The Past 7 Days, How Often Have You [place] Sleepy During The Daytime? Sometimes iavzfwzukae22 Information not available 06/08/2024 Do You Have Chronic Pain? No [email or web address] Information not available 06/08/2024 Are You In A Pain Management Program? No [email or web address] Information not available 06/08/2024 Do You Take Opioids For Your Pain? No [email or web address] Information not available 06/08/2024 How Often Is Stress A Problem For You In Handling Such Things As: Your Health, Your Finances, Your Family And Social Relationships, Your Work? Sometimes [email or web address] Information not available 06/08/2024 How Often Do You Get The Social And Emotional Support You Need: Usually [email or web address] Information no t available 06/08/2024 In The Past 7 Days, Did You Need Help From Others To Take Care Of Things Such As Laundry And Housekeep- Ing, Banking, Shopping, Using The Telephone, Food Preparation, Transportation, Or Taking Your Own Medications? No [email or web address] Information not available 06/08/2024 Do You Live Alone? No bjorvstwhjz14 Information not available 06/08/2024 Does Your Home Have Any Fall Risks (un-level Floors, Unfastened Rugs, Poor Lighting, Etc)? No ujofbupmtjr25 Information not available 06/08/2024 Do You Feel Safe At Home? Yes [email or web address] Information not available 06/08/2024 Do You Have A Medical Power Of Florist Designer? No [email or web address] Information not available 06/08/2024 What Was The Date Of Your Most Recent Tobacco Screening? 03/07/2025 [email or web address] Information not available 03/10/2025 How Many Children Do You Have? 2 [email or web address] Information not available 06/08/2024 Do You Have Any Pets? No [email or web address] Information not available 03/10/2025 Do You Use Protection During Sex? No [email or web address] Information not available 06/08/2024 What Is Your Relationship Status? [email or web address] Information not available 06/08/2024 Do You Use Your Seat Belt Or Car Seat Routinely? Yes emeirrpvveo25 Information not available 06/08/2024 Are You Sexually Active? No kvbzvdfdmyx54 Information not available 06/08/2024 Do You Have Smoke And Carbon Monoxide Detectors In Your Home? Yes [email or web address] Information not available 03/10/2025 Are You Passively Exposed To Smoke? No Information no t available 08/21/2022 Do You Use Sunscreen Routinely? Yes [email or web address] Information not available 03/10/2025 Has Tobacco Cessation Counseling Been Provided? No [email or web address] Information not available 07/27/2024 Do You Have Difficulty Walking Or Climbing Stairs? No [email or web address] Information not available 06/08/2024 Sex: Unknown Functional Status Question Answer Note LastModified by Organizat ion Details LastModified Time Do you use any illicit or recreational drugs? No Information not available 08/21/2022 Do you or have you ever used any other forms of tobacco or nicotine? No [email or web address] Information not available 06/08/2024 What is your level of alcohol consumption? None Information not available 08/21/2022 Do you or have you ever used smokeless tobacco? Never used smokeless tobacco hnanuxvduyz47 Information not available 06/08/2024 Do you have transportation difficulties? No Information not available 06/08/2024 Are you able to walk? YESWOREST [email or web address] Information not available 06/08/2024 Do you have difficulty doing errands alone? No duulzsipcfn43 Information not available 06/08/2024 Are you able to care for yourself? Yes bauzdepuzdj87 Information n ot available 06/08/2024 Do you have difficulty dressing or bathing? No lzavoqaoajw01 Information not available 06/08/2024 What is your exercise level? None [email or web address] Information not available 06/08/2024 Mental Status Question Answer Note LastModified by Organizat ion Details LastModified Time Do you feel stressed (tense, restless, nervous, or anxious, or unable to sleep at night)? HN18200-5 [email or web address] Information not available 06/08/2024 Do you have difficulty concentrating, remembering or making decisions? No [email or web address] Information no t available 06/08/2024 Family History [...] Kimmie Metcalf [place], [place] - [place] & [place] 04/07/2023 12:31:32 Pneumococcal conjugate PCV 13 3 completed Kimmie [place]cal[place] & [place] 04/07/2023 12:31:32 Tdap 3 completed Kimmie [place]cal[place] & [place] 04/07/2023 12:31:32 pneumococcal polysaccharide PPV23 1 completed Varsha Colon [place] & [place] 03/02/2025 12:26:26 Influenza, split virus, trivalent, PF 6 completed Varsha Colon [place] & [place] 03/02/2025 12:26:26 Influenza, adjuvanted, trivalent, PF 9 completed Varsha Colon [place] & [place] 03/02/2025 12:26:26 Influenza, split virus, trivalent, preservative 5 completed Kimmie [place]calf [place] & [place] 04/07/2023 12:31:32 Influenza, split virus, trivalent, PF 5 completed Varsha Colon [place] & [place] 03/02/2025 12:26:26 Influenza, split virus, trivalent, preservative 5 completed Kimmie Metcalf [place] & [place] 04/07/2023 12:31:32 Influenza, adjuvanted, trivalent, PF 7 completed Varsha Colon null, [facility] & [place] 03/02/2025 12:26:26 Influenza, split virus, trivalent, preservative 6 completed Kimmie Metcalf null, [facility] & [place] 04/07/2023 12:31:32 pneumococcal polysaccharide PPV23 5 completed Varsha Colon null, [facility] & [place] 03/02/2025 12:26:26 Influenza, high-dose, quadrivalent, PF 0 completed Varsha Colon null, [facility] & [place] 03/02/2025 12:26:26 Influenza, adjuvanted, quadrivalent, PF 2 completed Varsha Colon null, [facility] & [place] 03/02/2025 12:26:26 Influenza, adjuvanted, quadrivalent, PF 1 completed Varsha Colon null, [facility] & [place] 03/02/2025 12:26:26 COVID-19, mRNA, LNP-S, PF, 30 mcg/0.3 mL dose 1 completed Varsha Colon null, [facility] & [place] 03/02/2025 12:26:26 COVID-19, mRNA, LNP-S, PF, 30 mcg/0.3 mL dose 1 completed Varsha Colon null, [facility] & [place] 03/02/2025 12:26:26 COVID-19, mRNA, LNP-S, PF, 30 mcg/0.3 mL dose 1 completed [facility] Colon null, [facility] & [place] 03/02/2025 12:26:26 COVID-19, mRNA, LNP-S, bivalent, PF, 50 mcg/0.5 mL or 25mcg/0.25 mL dose 2 completed Varsha Colon null, [facility] & [place] 03/02/2025 12:26:26 Influenza, high-dose, quadrivalent, PF 3 completed Reece Iglesias [place] & [place] 05/30/2024 10:47:30 COVID-19, mRNA, LNP-S, PF, 50 mcg/0.5 mL 3 completed Reece Iglesias [place] & [place] 05/30/2024 10:47:30 COVID-19, mRNA, LNP-S, PF, 50 mcg/0.5 mL 4 completed Varsha Colon [place] & [place] 03/02/2025 12:26:26 Influenza, high-dose, trivalent, PF 4 completed Varsha Colon [place] 03/02/2025 12:26:26 zoster recombinant 4 completed Varsha Colon [place] & [place] 03/02/2025 12:26:26 Tdap 4 completed Varsha Colon [place] & [place] 03/02/2025 12:26:26 Past Encounters Encounter ID Performer Location Encounter Start Date Encounter Closed Date Diagnosis/Indication Diagnosis SNOMED-CT Code Diagnosis ICD10 Code Diagnosis Note [id number] Frieda Mcelroy NP [facility] [address] [address] 02/15/2025 11:03:37 02/15/2025 12:09:35 Cirrhosis of liver 30558367 K74.60 Cirrhosis secondary to GUTHRIE. Decompensa byron. [...] AFP to screen for HCC 04/2025. Ascites 136940461 R18.8 Large volume ascites noted on abdominal ultrasound reviewed 12/16/2024 . Patient continues diuretic therapy without refractory ascites. Recommend continued low sodium diet as well as continued diuretic therapy. Constipation 59635674 K5 9.00 previously prescribed lactulose however patient discontinu ed due to increased abdominal cramping with use. She reports daily bowel movements at this time with increased appetite. Ulcer of duodenum 433625 09 K26.9 EGD from 01/25/2025 noted diffuse portal hypertensi ve gastropath y as well as erosive duodenitis with ulcers noted. Recommend continued use of pantoprazo le 40 mg p.o. BID as prescribed following procedure. Hypokalemia 56478280 E87 .6 Previously noted on labs from 12/21/24. She did not complete follow up lab as recommende d. She continues potassium supplement s at this time. Plan for labs to monitor. Portal hyp ertensive gastropathy 666949709 K76.6 K31.89 Portal hypertensi ve gastropath y with oozing of blood noted on EGD 01/25/2025 . Recommend continued use of carvedilol as prescribed following procedure. [id number] DREW TRAORE, EMMANUEL [facility] [address] [place] [address] 03/10/2025 15:30:37 03/13/2025 07:30:31 Chronic anemia 310656860 D64.9 recheck lab work todaydenie s bleeding or bruisingre ports EGD did show 2 ulcers at the bottom of her stomach. Denies any blood in her stool, denies any vomiting. 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 She was noted to be [...] Member ID Carmichael Member ID Guarantor Name 03/15/2025 1 [place] Vika Jackson [id number] Vika Jackson Notes Date Note Type Note Provider Name and Address Organization Details Recorded Time 03/15/2025 text/html Patient is 75-year-old white female recently admitted to [facility] with diarrhea and acute kidney injury. [...] time. Patient also has a history of GUTHRIE cirrhosis. Milton Liz Jr, MD [address] [place] [address], [address], [place], [address], [facility] - [place] - [place] & [place] 03/15/2025 15:54:46 OBGyn Episode No OBEpisode recorded.
--- OUTSIDE RECORDS SUMMARY | 2025-04-10 21:18 | XMS_ITS | Continuity of Care Document ---
Author Organization [facility] Phone Care Team Providers Care Suede Cleaner Name Role Phone DREW TRAORE Admitting DREW TRAORE Unavailable [phone] DREW TRAORE Primary Attending [phone] DREW TRAORE Primary Care ALLERGIES AND ADVERSE REACTIONS ALLERGIES AND ADVERSE REACTIONS Code System Allergy Substance Adverse Reaction Date Reaction (Severity) Comment Status Reported By Updated By No Known Allergies [id number] on January 20, 2022 9:17:17 PM [facility] FAMILY HISTORY RELATION: Father Status: Cause of : Unknown Age at : Unknown SNOMED-CT Diagnosis Age At Onset [id number] Diabetes mellitus RELATION: Mother Status: Cause of : Unknown Age at : Unknown SNOMED-CT Diagnosis Age At Onset [id number] Acute stroke RESULTS Patient: EVAN Dunn Date of : 1950 LABORATORY RESULTS ORDER 100: CBC AUTO W DIFF ( LOINC: 95997-1) ORDER DATE: March 10, 2025 8:37:00 PM [place] Specimen Source: Whole Blood Specimen Type: Whole blood s ample PERFORMING LAB: [address] [id number] Result Comment: Final Result Date: March 10, 2025 8:45:00 PM UT (TECH: RJV) LOINC TEST FLAG RESULT REFERENCE RANGE UPDA DEVON BY 6690-2 Leukocytes [#/volume] in Blood by Automated count L 2.4 10^3/uL 4.5 10^3/uL - 11.5 10^3/uL March 10, 2025 8:45:00 PM UT (TECH: RJV) 789-8 Erythrocytes [#/volume] in Blood by Automated count L 3.44 10^6/uL 4.25 10^6/uL - 5.57 10^6/uL March 10, 2025 8:45:00 PM UTC (TECH: VeriShow) 718-7 Hemoglobin [Mass/volume] in Blood L 9.5 g/dL 12.0 g/dL - 15.7 g/dL March 10, 2025 8:45:00 PM UTC (TECH: VeriShow) 76646-6 Hematocrit [Volume Fraction] of Blood L 31.2 % 36.0 % - 47.0 % March 10 8:45:00 PM UTC (TECH: VeriShow) 787-2 Erythrocyte mean corpuscular volume [Entitic volume] by Automated count N 90.7 fl 80 fl - 95 fl March 10, 2025 8:45:00 PM UTC (TECH: VeriShow) 10148-5 Erythrocyte mean corpuscular hemoglobin [Entitic mass] in Blood from [place] by Automated count N 27.6 pg 27.0 pg - 34.0 pg March 10, 2025 8:45:00 PM UTC (TECH: VeriShow) 51066-3 Erythrocyte mean corpuscular hemoglobin concentration [Mass/volume] in Blood from Fetus by Automated count L 30.4 g/dL 32.0 g/dL - 36.0 g/dL March 10, 2025 8:45:00 PM UTC (TECH: VeriShow) 91685-7 Platelets [#/volume] in Blood L 99 10^3/uL 150 10^3/uL - 450 10^3/uL March 10, 2025 8:45:00 PM UTC (TECH: VeriShow) 86857-0 Erythrocyte distribution width [Ratio] H 19.2 % 12.3 % - 15.1 % March 10, 2025 8:45:00 PM UTC (TECH: VeriShow) 89152-8 Platelet mean volume [Entitic volume] in Blood by Automated count H 11.8 fl 7.4 fl - 10.4 fl March 10, 2025 8:45:00 PM UTC (TECH: VeriShow) 26673-7 Granulocytes/100 leukocytes in Blood by Automated count N 71.6 % 40 % - 75 % March 10 8:45:00 PM UTC (TECH: VeriShow) 736-9 Lymphocytes/100 leukocytes in Blood by Automated count N 15.2 % 15 % - 57 % March 10 8:45:00 PM UTC (TECH: DodreamsV) 5905-5 Monocytes/100 leukocytes in Blood by Automated count N 9.9 % 4.0 % - 12.0 % March 10 8:45:00 PM UTC (TECH: RJV) 713-8 Eosinophils/100 leukocytes in Blood by Automated count N 2.1 % 0.0 % - 4.0 % March 10 8:45:00 PM UTC (TECH: RJV) 706-2 Basophils/100 leukocytes in Blood by Automated count H 1.2 % 0.0 % - 1.0 % March 10 8:45:00 PM UTC (TECH: DodreamsV) 36662-7 Immature granulocytes [#/volume] in Blood N 0.0 % 0.0 % - 0.8 % March 10 8:45:00 PM UTC (TECH: RJV) 53915-4 Granulocytes [#/volume] in Blood by Automated count N 1.74 10^3/uL March 10 8:45:00 PM UTC (TECH: DodreamsV) 731-0 Lymphocytes [#/volume] in Blood by Automated count N 0.37 10^3/uL March 10 8:45:00 PM UTC (TECH: RJV) 742-7 Monocytes [#/volume] in Blood by Automated count N 0.24 10^3/uL March 10, 2025 8:45:00 PM UTC (TECH: DodreamsV) 711-2 Eosinophils [#/volume] in Blood by Automated count N 0.05 10^3/uL March 10 8:45:00 PM UTC (TECH: DodreamsV) 704-7 Basophils [#/volume] in Blood by Automated count N 0.03 10^3/uL March 10, 2025 8:45:00 PM UTC (TECH: DodreamsV) 51693-0 Immature granulocytes [#/volume] in Blood N 0.00 10^3/uL March 10 8:45:00 PM UTC (TECH: DodreamsV) 09777-2 Manual differential performed [Presence] in Blood N NO March 10, 2025 8:45:00 PM UTC (TECH: VeriShow) ORDER 200: VITAMIN B12 AND F OLATE (LOINC: 81284-5) ORDER DATE: March 10, 2025 8:37:00 PM UTC Specimen Source: Serum/Plasm a Specimen Type: Acellular blo od (serum or plasma) specimen PERFORMING LAB: [address] [id number] Result Comment: Final Result Date: March 10, 2025 10:35:00 PM UTC (TECH: VeriShow) LOINC TEST FLAG RESULT REFERENCE RANGE UPDA DEVON BY 2132-9 Cobalamin (Vitamin B12) [Mass/volume] in Serum or Plasma H 1132 pg/mL 193 pg/mL - 986 pg/mL March 10, 2025 10:35:00 PM UTC (TECH: VeriShow) 2282-2 Folate [Mass/volume] in Blood N 14.8 ng/mL 8.6 ng/mL - 58.9 ng/mL March 10, 2025 10:35:00 PM UTC (TECH: VeriShow) ORDER 300: COMP METABOLIC PA DANIS (LOINC: 37182-1) ORDER DATE: March 10, 2025 8:37:00 PM UTC Specimen Source: Serum/Plasm a Specimen Type: Acellular blo od (serum or plasma) specimen PERFORMING LAB: [address] [id number] Result Comment: Final Result Date: March 10, 2025 10:35:00 PM UTC (TECH: VeriShow) LOINC TEST FLAG RESULT REFERENCE RANGE UPDA DEVON BY 2951-2 Sodium [Moles/volume ] in Serum or Plasma N 140 mmol/L 136 mmol/L - 145 mmol/L March 10, 2025 10:35:00 PM UTC (TECH: DodreamsV) 2823-3 Potassium [Moles/volume] in Serum or Plasma N 4.1 mmol/L 3.5 mmol/L - 5.1 mmol/L March 10, 2025 10:35:00 PM UTC (TECH: DodreamsV) 2075-0 Chloride [Moles/volu me] in Serum or Plasma N 107 mmol/L 98 mmol/L - 107 mmol/L March 10, 2025 10:35:00 PM UTC (TECH: DodreamsV) 2027-9 Carbon dioxide, tota l [Moles/volume] in Serum or Plasma N 27 mmol/L 21 mmol/L - 32 mmol/L March 10, 2025 10:35:00 PM UT (TECH: VeriShow) 95732-4 Anion gap 3 in Serum or Plasma N 6.0 March 10, 2025 10:35:00 PM UTC (TECH: VeriShow) 2345-7 Glucose [Mass/volume ] in Serum or Plasma H 239 mg/dL 70 mg/dL - 110 mg/dL March 10, 2025 10:35:00 PM UTC (TECH: VeriShow) 3094-0 Urea nitrogen [Mass/volume] in Serum or Plasma N 15 mg/dL 7 mg/dL - 18 mg/dL March 10, 2025 10:35:00 PM UT (TECH: VeriShow) 2160-0 Creatinine [Mass/volume] in Serum or Plasma H 1.4 mg/dL 0.6 mg/dL - 1.0 mg/dL March 10, 2025 10:35:00 PM UT (TECH: VeriShow) 3097-3 Urea nitrogen/Creatinine [Mass Ratio] in Serum or Plasma N 10.7 9 - March 10, 2025 10:35:00 PM UT (TECH: VeriShow) 65481-7 Glomerular filtratio n rate/1.73 sq M.predicted by Creatinine-based formula (MDRD) L 39 mL/min >60 March 10, 2025 10:35:00 PM UT (TECH: VeriShow) 24705-0 Osmolality of Serum or Plasma by calculated by sum of electrolytes N 300 mosm/kg 275 mosm/kg - 301 mosm/kg March 10, 2025 10:35:00 PM UT (TECH: VeriShow) 2885-2 Protein [Mass/volume ] in Serum or Plasma N 7.3 g/dL 6.4 g/dL - 8.2 g/dL March 10, 2025 10:35:00 PM UT (TECH: VeriShow) 1751-7 Albumin [Mass/volume ] in Serum or Plasma L 2.8 g/dL 3.4 g/dL - 5.0 g/dL March 10, 2025 10:35:00 PM UT (TECH: VeriShow) 40410-8 Calcium [Mass/volume ] in Serum or Plasma N 8.7 mg/dL 8.5 mg/dL - 10.1 mg/dL March 10, 2025 10:35:00 PM UTC (TECH: VeriShow) 68736-8 Calcium [Mass/volume ] corrected for total protein in Serum or Plasma N 9.7 mg/dL 8.5 mg/dL - 10.1 mg/dL March 10, 2025 10:35:00 PM UTC (TECH: VeriShow) 1975-2 Bilirubin.total [Mass/volume] in Serum or Plasma N 1.0 mg/dL 0.4 mg/dL - 1.5 mg/dL March 10, 2025 10:35:00 PM UTC (TECH: VeriShow) 1920-8 Aspartate aminotransferase [Enzymatic activity/volume] in Serum or Plasma H 87 U/L 15 U/L - 37 U/L March 10, 2025 10:35:00 PM UTC (TECH: VeriShow) 1742-6 Alanine aminotransferase [Enzymatic activity/volume] in Serum or Plasma N 52 U/L 12 U/L - 78 U/L March 10, 2025 10:35:00 PM UTC (TECH: VeriShow) 6768-6 Alkaline phosphatase [Enzymatic activity/volume] in Serum or Plasma H 254 U/L 53 U/L - 141 U/L March 10, 2025 10:35:00 PM UTC (TECH: VeriShow) ORDER 400: IRON/TIBC/ SAT IR ON STUDIES (LOINC: 06606-6) ORDER DATE: March 10, 2025 8:37:00 PM UTC Specimen Source: Serum/Plasm a Specimen Type: Acellular blo od (serum or plasma) specimen PERFORMING LAB: [address] [id number] Result Comment: Final Result Date: March 10, 2025 9:56:00 PM UT (TECH: VeriShow) LOINC TEST FLAG RESULT REFERENCE RANGE UPDA DEVON BY 2498-4 Iron [Mass/volume] in Serum or Plasma N 48 ug/dL 35 ug/dL - 150 ug/dL March 10, 2025 9:56:00 PM UTC (TECH: VeriShow) 2500-7 Iron binding capacity [Mass/volume] in Serum or Plasma N 313 ug/dL 250 ug/dL - 450 ug/dL March 10, 2025 9:56:00 PM UTC (TECH: VeriShow) 49915-7 Oxygen saturation in Blood N 15 % 15 % - 55 % March 10, 2025 9:56:00 PM UTC (TECH: DodreamsV) ORDER 500: FERRITIN (LOINC: 2276-4) ORDER DATE: March 10, 2025 8:37:00 PM UTC Specimen Source: Serum/Plasm a Specimen Type: Acellular blo od (serum or plasma) specimen PERFORMING LAB: [address] [id number] Result Comment: Final Result Date: March 10, 2025 10:35:00 PM UTC (TECH: RJV) LOINC TEST FLAG RESULT REFERENCE RANGE UPDA DEVON BY 2276-4 Ferritin [Mass/volume] in Serum or Plasma N 65 ng/mL 8 ng/mL - 388 ng/mL March 10, 2025 10:35:00 PM UTC (TECH: RJV) ORDER 600: AMMONIA (LOINC: 1 6362-6) ORDER DATE: March 10, 2025 8:37:00 PM UTC Specimen Source: Serum/Plasm a Specimen Type: Acellular blo od (serum or plasma) specimen PERFORMING LAB: [address] [id number] Result Comment: Final Result Date: March 10, 2025 8:47:00 PM UTC (TECH: RJV) LOINC TEST [place] [address]-4 Ammonia [Moles/volume] in Plasma N 15 umol/L 11 umol/L - 32 umol/L March 10, 2025 8:47:00 PM UTC (TECH: RJV) LABORATORY NARRATIVE RESULTS Information is not available [...] Description Effective Dates Offered Cessation Comment UpdatedBy [id number] Historical Tobacco smoking status Never Smoked [id number] on January 20, 2022 9:17:09 PM [facility] SOCIAL HISTORY - Gender Sex: [...] Procedure Comments Updated By No implanted devices [id number] on January 5:07:18 PM [facility] ENCOUNTERS ENCOUNTER INFORMATION Reason for Visit D64.9 Admission March 10, 2025 8:35:[address] [id number] Discharge March 10, 2025 9:35:00 PM [facility] DI SCHARGED TO HOME OR SELF CARE ENCOUNTER DIAGNOSES Notes information is not nico ilable. Code System Diagnosis Onset Date Diagnosis information is not available. 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[place]) [id number] on March 13, 2025 10:45:50 AM [facility] D64.9 ICD10 ANEMIA, UNSPECIFIED [id number] on March 13, 2025 10:45:50 AM [facility] CARE TEAM Care Suede Cleaner Role DREW TRAORE Admitting DREW TRAORE Referring DREW TRAORE Primary Attending DREW TRAORE Primary Care CARE TEAM CARE pharmaceutical salesperson Role on Team Status Start Date End Date Update d By LEÓN COE Referring normal March 10, 2025 4:00:00 AM [facility] March 10, 2025 9:35:00 PM [facility] [id number] on March 11, 2025 6:08:09 PM [facility] LEÓN COE Attending normal March 10, 2025 4:00:00 AM [facility] March 10, 2025 9:35:00 PM [facility] [id number] on March 11, 2025 6:08:09 PM [facility] LEÓN COE Admitting normal March 10, 2025 4:00:00 AM [facility] March 10, 2025 9:35:00 PM [facility] [id number] on March 11, 2025 6:08:09 PM [facility] LEÓN COE PCP normal March 10, 2025 8:35:59 PM [facility] March 10, 2025 9:35:00 PM [facility] [id number] on March 11, 2025 6:08:09 PM [facility]
[2025-04-10 21:30] VITALS: BP 137/58; BP 148/66; PULSE 91; RESP 17; TEMP 38.4; O2SAT 94; BMI 22.4
--- NOTE | 2025-04-10 21:43 | HMH.EDGENADL ---
Discharge Plan Disposition Patient Disposition: Home, Self-Care Prescriptions Prescriptions: New cefdinir 300 mg capsule 300 mg PO BID 10 Days Qty: 20 0RF No Action atorvastatin 40 mg tablet 40 mg PO DAILY Patient Comments: TAKE 1 TABLET BY MOUTH EVERY DAY spironolactone 100 mg tablet 100 mg PO DAILY Patient Comments: TAKE 1 TABLET BY MOUTH EVERY DAY potassium chloride 10 mEq tablet extended release 10 meq PO DAILY Patient Comments: TAKE 1 TABLET BY MOUTH EVERY DAY IN THE MORNING WITH FUROSEMIDE NEEDED carvedilol 3.125 mg tablet 3.125 mg PO BID Patient Comments: TAKE 1 TABLET BY MOUTH TWICE DAILY pantoprazole 40 mg tablet,delayed release (DR/EC) 40 mg PO BID Patient Comments: TAKE 1 TABLET BY MOUTH TWICE DAILY gabapentin 300 mg capsule 300 mg PO HS Patient Comments: TAKE 1 CAPSULE BY MOUTH EVERY DAY AT BEDTIME FOR NERVE PAIN furosemide 20 mg tablet 20 mg PO DAILYP PRN (Reason: Edema) Patient Comments: TAKE 1 TABLET BY MOUTH EVERY DAY IN THE MORNING NEEDED FOR SWELLING ergocalciferol (vitamin D2) 1,250 mcg (50,000 unit) capsule 1,250 mcg PO WEEKLY Patient Comments: TAKE 1 CAPSULE BY MOUTH EVERY WEEK fluconazole 200 mg Tablet 400 mg PO DAILY 12 Days Qty: 24 0RF Xifaxan 550 mg Tablet 550 mg PO TID 30 Days Qty: 90 0RF dapagliflozin propanediol [Farxiga] 10 mg Tablet 10 mg PO DAILY Referrals Follow up/Referrals: Annika Saha APRN [Primary Care Provider] - See instructions Activity Restrictions/Add. Instructions Additional Instructions/Restrictions: At this time it was felt you are safe to be discharged home. If new or worsening symptoms please do not hesitate to return the emergency department. Please follow-up with your family doctor within the next 48 hours to ensure things are headed in the right direction and take your antibiotics as they are prescribed. Clinical Impressions Clinical Impression: Acute UTI Print Language Print Language: Syrian Discharge ED Provider: Alvaro Santacruz General Adult HPI <DIOR Shepard - Last Filed: 04/10/25 22:26> General Chief complaint: Fever Stated complaint: fever Time Seen by Provider: 04/10/25 21:43 History of Present Illness HPI narrative: Patient presents for evaluation of weakness confusion and high fever. Patient has 3 days history of feeling poorly feeling weak and today was noted to have a fever of 100.5 according to her family. She was too weak to walk so they called EMS to bring her to the hospital. At the time of my exam on her arrival patient is oriented to person place and circumstance reports feeling better but still weak denies any chest pain shortness of breath hemoptysis hematochezia melena nausea vomiting diarrhea dysuria abdominal pain flank pain. Related Data Home Medications ?Medication ?Instructions ?Recorded ?Confirmed atorvastatin 40 mg tablet 40 mg PO DAILY 02/23/25 02/23/25 carvedilol 3.125 mg tablet 3.125 mg PO BID 02/23/25 02/23/25 ergocalciferol (vitamin D2) 1,250 1,250 mcg PO WEEKLY 02/23/25 02/23/25 mcg (50,000 unit) capsule furosemide 20 mg tablet 20 mg PO DAILYP PRN Edema 02/23/25 02/23/25 gabapentin 300 mg capsule 300 mg PO HS 02/23/25 02/23/25 pantoprazole 40 mg tablet,delayed 40 mg PO BID 02/23/25 02/23/25 release potassium chloride 10 mEq 10 meq PO DAILY 02/23/25 02/23/25 tablet,extended release spironolactone 100 mg tablet 100 mg PO DAILY 02/23/25 02/23/25 dapagliflozin propanediol 10 mg 10 mg PO DAILY 03/01/25 03/01/25 tablet (Farxiga) Previous Rx's ?Medication ?Instructions ?Recorded fluconazole 200 mg tablet 400 mg (2 x 200 mg) PO DAILY 12 03/01/25 days #24 tabs rifaximin 550 mg tablet (Xifaxan) 550 mg PO TID 30 days #90 tabs 03/01/25 cefdinir 300 mg capsule 300 mg PO BID UTI 10 days #20 caps 04/10/25 Allergies Allergy/AdvReac Type Severity Reaction Status Date / Time No Known Allergies Allergy Verified 02/23/25 11:05 [facility] <DIOR Shepard - Last Filed: 04/10/25 22:26> [facility] Disclaimer: The information contained in this section may have been updated after the patient was seen, as this information can be updated by other users. Medical History (Updated 04/10/25 @ 23:50 by Alvaro Santacruz MD) CHF (congestive heart failure) HLD (hyperlipidemia) GERD (gastroesophageal reflux disease) HTN (hypertension) Non-alcoholic cirrhosis Diabetes Surgical History Hx of cholecystectomy Social History Smoking Status: Never smoker alcohol intake: never current occupational status: retired Travel in the last 8 weeks?: None Have you lived/traveled outside [place] in past 30 days?: No Contact w/someone who lives/traveled outside US past 30 days?: No Exposure to someone with infectious disease in past 14 days?: No Do you have a fever (greater than 100.4 F or 38 C)?: No Have you tested positive for COVID-19?: No Exposed to someone with COVID-19 in past 14 days?: No Do you have a sore throat?: No Do you have a cough?: No Do you have any weakness?: No Do you have any diarrhea?: No Are you experiencing any unusual bleeding?: No Do you have any muscle aches/pain?: No Do you have any abdominal pain?: No Are you experiencing loss of taste or smell?: No Other Medical History Have you received the Flu Vaccine for this season: No Have you received the Pneumonia Vaccine: No <DIOR Shepard - Last Filed: 04/10/25 22:26> ROS Obtained: Yes Systems reviewed as appropriate & no additional complaints except as documented Physical Exam <DIOR Shepard - Last Filed: 04/10/25 22:26> General General appearance: alert Respiratory Respiratory exam: Present normal lung sounds bilaterally Cardiovascular Cardiovascular exam: Present regular rate Neurological Exam Neurological exam: Present alert, oriented X3 and CN II-XII intact Medical Decision Making <DIOR Shepard - Last Filed: 04/10/25 22:26> Medical Records Medical records reviewed: Yes I reviewed the patient's medical records. Screening: Per USPSTF and CDC recommendations, given the prevalence of disease in our region, it is our hospital?s policy to screen for HIV and viral Hepatitis for all patients aged 18 and over and those with ongoing risk factors. [place] Inquiry Pt receiving controlled substance: No Vital Signs: 04/10/25 21:10 04/10/25 21:30 04/10/25 21:30 Temperature 101.1 F H Temperature Source Oral Pulse Rate 91 H Pulse Rate [Right] 91 H Respiratory Rate 17 Blood Pressure 148/66 H 137/58 L Blood Pressure [Right Arm] 148/66 H Blood Pressure Mean 84 Blood Pressure Mean [Right Arm] 93 02 Sat by Pulse Oximetry 96 94 L Oxygen Delivery Method Room Air Room Air Room Air 04/10/25 22:00 04/10/25 22:30 04/10/25 23:00 Temperature Temperature Source Pulse Rate 89 90 89 Pulse Rate [Right] Respiratory Rate Blood Pressure 132/60 125/56 L 130/59 L Blood Pressure [Right Arm] Blood Pressure Mean Blood Pressure Mean [Right Arm] 02 Sat by Pulse Oximetry 97 97 98 Oxygen Delivery Method Room Air Room Air Room Air Lab Data Lab results reviewed: Yes I reviewed the patient's lab results. Lab Results 04/10/25 21:59: Urine Color Yellow, Urine Appearance Clear, Urine pH 6.0, Ur Specific [place] 1.010, Urine Protein 2+ A, Urine Glucose (UA) 3+, Urine Ketones Negative, Urine Blood 3+ A, Urine Nitrate Negative, Urine Bilirubin Negative, Urine Urobilinogen 0.2, Ur Leukocyte Esterase 1+ A, Urine RBC 20-50, Urine WBC 50-100, Ur Squamous Epith Cells Occasional, Urine Bacteria Trace 04/10/25 22:02: WBC 3.6 L, RBC 3.14 L, Hgb 9.2 L, Hct 27.9 L, MCV 88.9, MCH 29.3, MCHC 33.0, RDW 20.6 H, Plt Count 53 L, MPV TNP, Neut % (Auto) 88.4 H, Lymph % (Auto) 5.1 L, Posey % (Auto) 5.1, Eos % (Auto) 0.8, Baso % (Auto) 0.3, Neut # (Auto) 3.2, Lymph # (Auto) 0.2 L, Posey # (Auto) 0.2, Eos # (Auto) 0.0, Baso # (Auto) 0.0, Total Counted 100, Neutrophils % (Manual) 86 H, Lymphocytes % (Manual) 10, Monocytes % (Manual) 4, Platelet Estimate Moderate d, Anisocytosis 2+, VBG pH 7.44 H, VBG pCO2 31.9 L, VBG pO2 67.7 H, VBG HCO3 20.9 L, VBG Total CO2 21.9 L, VBG O2 Saturation 93.0 H, VBG Base Excess -3.3 L, VBG Lactic Acid 1.8, Sodium 138, Potassium 3.7, Chloride 111 H, Carbon Dioxide 21 L, Anion Gap 9.7, BUN 34 H, Creatinine 1.00, Estimated GFR 54 L, Est GFR ( Amer) 65, Glucose 217 H, Lactate 1.2, Calcium 8.7, Magnesium 1.6, Total Bilirubin 1.9 H, AST 49 H, ALT 41, Alkaline Phosphatase 187 H, Troponin I < 0.01, Total Protein 7.0, Albumin 3.4 L, Globulin 3.6 H, Albumin/Globulin Ratio 0.9 L, Procalcitonin 0.817 04/10/25 22:02 04/10/25 22:02 Orders (Tests/Meds): ED MEDICATIONS Discontinued Medications Generic Name Dose Route Start Last Admin Trade Name Freq PRN Reason Stop Dose Admin Sodium Chloride 1,000 mls @ 999 mls/hr 04/10/25 21:50 04/10/25 22:41 Sod Chlor 0.9% 1000ml Bag IV 04/10/25 22:50 999 mls/hr .Q1H1M ONE Administration ORDERS Category Date Time Status Chest XR -- portable [XR chest portable] Stat Exams 04/10/25 22:36 Completed CBC w/Auto Diff [Complete Blood Count Auto Diff] Stat Lab 04/10/25 22:02 Completed CMP [Comprehensive Metabolic Panel] Stat Lab 04/10/25 22:02 Completed Full Resp Panel w/COVID ([facility]) Routine Lab 04/10/25 22:06 Received Lactic Acid Stat Lab 04/10/25 22:02 Completed Magnesium Stat Lab 04/10/25 22:02 Completed Procalcitonin Stat Lab 04/10/25 22:02 Completed Trop I [Troponin I] Stat Lab 04/10/25 22:02 Completed Troponin I Q3H Lab 04/11/25 01:00 Ordered Troponin I Q3H Lab 04/11/25 04:00 Ordered UA [Urinalysis and Microscopic] Stat Lab 04/10/25 21:59 Completed UA [Urinalysis and Microscopic] Stat Lab 04/10/25 22:13 Ordered Urine Culture Stat Micro 04/10/25 21:59 Received VBG [Venous Blood Gas] Stat RT 04/10/25 22:02 Completed Medical Decision Narrative: In summary patient is a 75-year-old female who presents to the emergency department for evaluation of weakness and fever. Patient is hemodynamically stable with a blood pressure 132/60 heart rate 89 with normal sinus rhythm on the bedside monitor breathing 16 times a minute upon arrival, the temperature of 100.1 currently. Physical exam is remarkable for a [place] Coma Score 15 patient is awake alert and oriented to person place and circumstance, breath sound clear and equal bilateral to the bases without adventitious sounds or increased work of breathing or accessory muscle use, abdomen soft nontender no rebound or guarding no rigidity normal bowel sounds. Patient moves all 4 extremities cranial nerves II through XII intact grossly to exam with no focal neurologic deficits.. Differential diagnosis includes pneumonia versus UTI versus electrolyte abnormality etc. Initial workup will be conducted with hematologic labs plain film chest x-ray. Initial interventions include crystalloid bolus for now. Initial workup ordered and pending at the time of handoff to Dr. Barragan at 2300 hrs. <Alvaro Santacruz MD - Last Filed: 04/10/25 23:51> Vital Signs: 04/10/25 21:10 04/10/25 21:30 04/10/25 21:30 Temperature 101.1 F H Temperature Source Oral Pulse Rate 91 H Pulse Rate [Right] 91 H Respiratory Rate 17 Blood Pressure 148/66 H 137/58 L Blood Pressure [Right Arm] 148/66 H Blood Pressure Mean 84 Blood Pressure Mean [Right Arm] 93 02 Sat by Pulse Oximetry 96 94 L Oxygen Delivery Method Room Air Room Air Room Air 04/10/25 22:00 04/10/25 22:30 04/10/25 23:00 Temperature Temperature Source Pulse Rate 89 90 89 Pulse Rate [Right] Respiratory Rate Blood Pressure 132/60 125/56 L 130/59 L Blood Pressure [Right Arm] Blood Pressure Mean Blood Pressure Mean [Right Arm] 02 Sat by Pulse Oximetry 97 97 98 Oxygen Delivery Method Room Air Room Air Room Air Lab Data Lab Results 04/10/25 21:59: Urine Color Yellow, Urine Appearance Clear, Urine pH 6.0, Ur Specific [place] 1.010, Urine Protein 2+ A, Urine Glucose (UA) 3+, Urine Ketones Negative, Urine Blood 3+ A, Urine Nitrate Negative, Urine Bilirubin Negative, Urine Urobilinogen 0.2, Ur Leukocyte Esterase 1+ A, Urine RBC 20-50, Urine WBC 50-100, Ur Squamous Epith Cells Occasional, Urine Bacteria Trace 04/10/25 22:02: WBC 3.6 L, RBC 3.14 L, Hgb 9.2 L, Hct 27.9 L, MCV 88.9, MCH 29.3, MCHC 33.0, RDW 20.6 H, Plt Count 53 L, MPV TNP, Neut % (Auto) 88.4 H, Lymph % (Auto) 5.1 L, Posey % (Auto) 5.1, Eos % (Auto) 0.8, Baso % (Auto) 0.3, Neut # (Auto) 3.2, Lymph # (Auto) 0.2 L, [place] # (Auto) 0.2, Eos # (Auto) 0.0, Baso # (Auto) 0.0, Total Counted 100, Neutrophils % (Manual) 86 H, Lymphocytes % (Manual) 10, Monocytes % (Manual) 4, Platelet Estimate Moderate d, Anisocytosis 2+, VBG pH 7.44 H, VBG pCO2 31.9 L, VBG pO2 67.7 H, VBG HCO3 20.9 L, VBG Total CO2 21.9 L, VBG O2 Saturation 93.0 H, VBG Base Excess -3.3 L, VBG Lactic Acid 1.8, Sodium 138, Potassium 3.7, Chloride 111 H, Carbon Dioxide 21 L, Anion Gap 9.7, BUN 34 H, Creatinine 1.00, Estimated GFR 54 L, Est GFR ( Amer) 65, Glucose 217 H, Lactate 1.2, Calcium 8.7, Magnesium 1.6, Total Bilirubin 1.9 H, AST 49 H, ALT 41, Alkaline Phosphatase 187 H, Troponin I < 0.01, Total Protein 7.0, Albumin 3.4 L, Globulin 3.6 H, Albumin/Globulin Ratio 0.9 L, Procalcitonin 0.817 Orders (Tests/Meds): ED MEDICATIONS Discontinued Medications Generic Name Dose Route Start Last Admin Trade Name Freq PRN Reason Stop Dose Admin Sodium Chloride 1,000 mls @ 999 mls/hr 04/10/25 21:50 04/10/25 22:41 Sod Chlor 0.9% 1000ml Bag IV 04/10/25 22:50 999 mls/hr .Q1H1M ONE Administration ORDERS Category Date Time Status Chest XR -- portable [XR chest portable] Stat Exams 04/10/25 22:36 Completed CBC w/Auto Diff [Complete Blood Count Auto Diff] Stat Lab 04/10/25 22:02 Completed CMP [Comprehensive Metabolic Panel] Stat Lab 04/10/25 22:02 Completed Full Resp Panel w/COVID ([facility]) Routine Lab 04/10/25 22:06 Received Lactic Acid Stat Lab 04/10/25 22:02 Completed Magnesium Stat Lab 04/10/25 22:02 Completed Procalcitonin Stat Lab 04/10/25 22:02 Completed Trop I [Troponin I] Stat Lab 04/10/25 22:02 Completed Troponin I Q3H Lab 04/11/25 01:00 Ordered Troponin I Q3H Lab 04/11/25 04:00 Ordered UA [Urinalysis and Microscopic] Stat Lab 04/10/25 21:59 Completed UA [Urinalysis and Microscopic] Stat Lab 04/10/25 22:13 Ordered Urine Culture Stat Micro 04/10/25 21:59 Received VBG [Venous Blood Gas] Stat RT 04/10/25 22:02 Completed Medical Decision Narrative: In summary patient is a 75-year-old female who presents to the emergency department for evaluation of weakness and fever. Patient is hemodynamically stable with a blood pressure 132/60 heart rate 89 with normal sinus rhythm on the bedside monitor breathing 16 times a minute upon arrival, the temperature of 100.1 currently. Physical exam is remarkable for a [place] Coma Score 15 patient is awake alert and oriented to person place and circumstance, breath sound clear and equal bilateral to the bases without adventitious sounds or increased work of breathing or accessory muscle use, abdomen soft nontender no rebound or guarding no rigidity normal bowel sounds. Patient moves all 4 extremities cranial nerves II through XII intact grossly to exam with no focal neurologic deficits.. Differential diagnosis includes pneumonia versus UTI versus electrolyte abnormality etc. Initial workup will be conducted with hematologic labs plain film chest x-ray. Initial interventions include crystalloid bolus for now. Initial workup reviewed by me, slight leukopenia 3.6 which is chronic slight respiratory alkalosis, no ABENA or critical electrolyte abnormalities troponin undetectably low. Urinalysis significantly infected with proteinuria for which ceftriaxone will be administered. Upon repeat evaluation patient was feeling much better and I feel that she is appropriate for outpatient management at this time and was given multiple return precautions and verbalized understanding. Patient was discharged with course of cefdinir and will follow-up with PCP in the coming days to ensure things are headed in the right direction. Critical Care <DIOR Shepard - Last Filed: 04/10/25 22:26> Critical Care Time Critical Care Time: No
[2025-04-10 22:00] VITALS: BP 132/60; PULSE 89; O2SAT 97
[2025-04-10 22:02] LABS: Microscopic, Urine URINE MICROSCOPIC (MICROSCOPIC)
[2025-04-10 22:10] LABS: Appearance,Urine CLEAR (Clear); Bilirubin,Urine Negative (Negative); Blood, Urine 3+ (Negative); Color,Urine YELLOW (Yellow); Glucose,Urine (UA) 3+ (Negative); Ketones,Urine Negative (Negative); Leukocyte Esterase,Urine 1+ (Negative); Nitrate,Urine Negative (Negative); Protein,Urine 2+ (Negative); Urobilinogen,Urine 0.2 EU/dl (0.2)
[2025-04-10 22:14] LABS: Lactate Venous 1.8 mmol/L (0.4-2.0); VBG Base Excess -3.3 mmol/L (-2.4-2.3); VBG HCO3 20.9 mmol/L (23-30); VBG PCO2 31.9 mmol/L (35-51); VBG PH 7.44 mmol/L (7.31-7.41); VBG PO2 67.7 mmol/L (28-40); VBG Total CO2 21.9 mmol/L (23-27)
[2025-04-10 22:16] LABS: Adenovirus,PCR Not Detected (NotDetected); Bordetella Pertussis Not Detected (NotDetected); Chlamydophila Pneumoniae, PCR Not Detected (NotDetected); Coronavirus 19, PCR Not Detected (NotDetected); Coronavirus 229E Not Detected (NotDetected); Coronavirus NL63 Not Detected (NotDetected); Coronavirus OC43 Not Detected (NotDetected); Coronovirus HKU1,PCR Not Detected (NotDetected); Human Metapneumovirus Not Detected (NotDetected); Influenza A, PCR Not Detected (NotDetected); Influenza AH1, 2009 Not Detected (NotDetected); Influenza AH1, PCR Not Detected (NotDetected); Influenza AH3,PCR Not Detected (NotDetected); Influenza B, PCR Not Detected (NotDetected); Mycoplasma Pneumoniae, PCR Not Detected (NotDetected); Parainfluenza 1, PCR Not Detected (NotDetected); Parainfluenza 2, PCR Not Detected (NotDetected); Parainfluenza 3, PCR Not Detected (NotDetected); Parainfluenza 4, PCR Not Detected (NotDetected); Respiratory Syncytial Virus Not Detected (NotDetected); Rhinovirus/Enterovirus Not Detected (NotDetected)
[2025-04-10 22:24] LABS: Magnesium 1.6 mg/dl (1.6-2.3)
[2025-04-10 22:25] LABS: Alanine Aminotransferase 41 U/L (12-78); Albumin Level 3.4 g/dl (3.5-5.0); Albumin/Globulin Ratio 0.9 (1.1-1.8); Alkaline Phosphatase 187 U/L (38-126); Anion Gap 9.7 mEq/L (5-15); Aspartate Amino Transferase 49 U/L (14-36); Bilirubin,Total 1.9 mg/dl (0.2-1.3); Blood Urea Nitrogen 34 mg/dl (7-17); Calcium 8.7 mg/dl (8.4-10.2); Carbon Dioxide 21 mmol/L (22.0-30.0); Chloride 111 mmol/L (98-107); Estimated Glomerular Filt Rate 54 ml/min (>60); GFR (African American) 65 ML/MIN (>60); Globulin 3.6 g/dL (1.3-3.2); Glucose 217 mg/dl (74-100); Potassium 3.7 mmoL/L (3.5-5.1); Sodium 138 mmol/L (136-145)
[2025-04-10 22:27] LABS: Bacteria,Urine Trace /lpf; RBC,Urine 20-50 #/hpf (0-3); Squamous Epithelial Cell,Urine Occasional #/hpf (0-5); WBC,Urine 50-100 #/hpf (0-3)
[2025-04-10 22:28] LABS: Lactic Acid 1.2 mmol/L (0.7-2.1)
[2025-04-10 22:30] VITALS: BP 125/56; PULSE 90; O2SAT 97
--- NOTE | 2025-04-10 22:36 | XR_ITS ---
PROCEDURE INFORMATION: Exam: XR Chest Exam date and time: 04/10/2025 10:38 PM Age: 75 years old Clinical indication: Fever; Additional info: Weakness and fever TECHNIQUE: Imaging protocol: Radiologic exam of the chest. Views: 1 view. COMPARISON: No relevant prior studies available. FINDINGS: Lungs: Unremarkable. No consolidation. Pleural spaces: Unremarkable. No pleural effusion. No pneumothorax. Heart/Mediastinum: Unremarkable. No cardiomegaly. Bones/joints: Unremarkable. IMPRESSION: No acute findings.
[2025-04-10] MEDS: 0.9 % SODIUM CHLORIDE 1000ML 1,000 ML 999 ML IV (22:41)
[2025-04-10 22:42] LABS: Basophils % 0.3 % (0.1-2.0); Eosinophils % 0.8 % (0.1-12.0); Hematocrit 27.9 % (37.0-47.0); Hemoglobin 9.2 g/dL (12.2-16.2); Immature Granulocytes # 0.01 10^3uL; Immature Granulocytes % 0.3 %; Lymphocytes # 0.2 K/mm3 (0.7-4.5); Lymphocytes % 5.1 % (10-50); Mean Corpuscular Hemoglobin 29.3 pg (27.0-31.2); Mean Corpuscular Volume 88.9 fl (81-99); Monocytes # 0.2 K/mm3 (0.1-1.0); Monocytes % 5.1 % (1.7-9.3); Neutrophils # 3.2 K/mm3 (1.8-7.8); Neutrophils % 88.4 % (37.0-80.0); Nucleated Red Blood Cells # 0 10^3/uL; Nucleated Red Blood Cells % 0 %; Platelet Count 53 K/mm3 (142-424); Procalcitonin 0.817 ng/mL (0.0-2.0); Red Blood Count 3.14 M/mm3 (4.20-5.40); Red Cell Distribution Width 20.6 % (11.5-17.5); White Blood Count 3.6 K/mm3 (4.8-10.8)
[2025-04-10 22:56] LABS: Troponin I < 0.01 ng/ml (0.00-0.034)
[2025-04-10 23:00] VITALS: BP 130/59; PULSE 89; O2SAT 98
[2025-04-10 23:30] VITALS: BP 131/57; PULSE 87; O2SAT 98
[2025-04-10 23:42] LABS: Lymphocytes % 10 % (10-50); Monocytes % 4 % (2-9); Neutrophils % 86 % (42-76); Total Cells Counted 100
[2025-04-10 23:43] LABS: Anisocytosis 2+; MANUAL DIFFERENTIAL MANUAL DIFFERENTIAL (MANUAL DIFF); Platelet Estimate Moderate D
[2025-04-11] MEDS: CEFTRIAXONE 1 GM 1 GM in 0.9 % SODIUM CHLORIDE 50 ML IV (00:04)
[2025-04-11 00:09] VITALS: BP 132/59; PULSE 86; O2SAT 98
[2025-04-11 00:55] VITALS: BP 123/53; PULSE 83; RESP 16; TEMP 36.9; O2SAT 97
== END 2025-04-11 00:56 | disposition home or self-care (01) ==
PROVIDERS: Physician Assistant; Emergency Provider Emergency Medicine; PCP Nurse Practitioner Family
DX: N39.0 Urinary tract infection, site not specified (principal); R50.9 Fever, unspecified; R41.0 Disorientation, unspecified; R53.1 Weakness
CPT/HCPCS: 0223U; 71045; 80053; 81001; 82803; 83605; 83735; 84145; 84484; 85007; 85025; 85027; 87040; 87086; 87633; 96361; 96365; 99284; J0696; J7030